=== PATIENT | male | born 1950 | race Caucasian/White ===

== ENCOUNTER 2017-05-15 16:07 | Inpatient (IN) ==
[2017-05-15] MEDS ORDERED: ASPIRIN CHEWABLE PO STA (16:11)
[2017-05-15] MEDS ORDERED: NITROSTAT SL STA (16:14)
[2017-05-15] MEDS ORDERED: ZOFRAN 4 MG/2 ML IVP STA (16:15)
[2017-05-15] MEDS ORDERED: SODIUM CHLORIDE 1,000 ML IV STA (16:15)
[2017-05-15] MEDS ORDERED: MORPHINE 2 MG/ML SYRINGE IVP STA ×2 (16:15→16:47)
[2017-05-15] MEDS ORDERED: NITROSTAT SL ONE (16:17)
[2017-05-15 16:24] LABS: BASOPHILS # (AUTO) 0.1 K/uL (0-0.2); BASOPHILS % (AUTO) 0.5 % (0.0-3.0); EOSINOPHILS # (AUTO) 0.1 K/ul (0.0-0.7); EOSINOPHILS % (AUTO) 0.8 % (0.0-7.0); HEMATOCRIT 45.3 % (42.0-52.0); HEMOGLOBIN 15.5 g/dl (14.0-18.0); IMMATURE GRANULOCYTE % (AUTO) 0.4 % (0.0-5.0); LYMPHOCYTES # (AUTO) 2.1 K/uL (0.60-3.4); LYMPHOCYTES % (AUTO) 16.2 (10.0-50.0); MEAN CORPUSCULAR HEMOGLOBIN 29.2 pg (27.0-31.0); MEAN CORPUSCULAR HGB CONC 34.2 (31.8-35.4); MEAN CORPUSCULAR VOLUME 85.5 fl (80.0-94.0); MONOCYTES # (AUTO) 1.1 K/uL (0.4-2.0); MONOCYTES % (AUTO) 8.1 (0-10); NEUTROPHILS # (AUTO) 9.7 K/ul (2.0-6.9); PLATELET COUNT 189 10^3/uL (140-440); WHITE BLOOD COUNT 13.15 K/ul (4.2-10.2)
--- NOTE | 2017-05-15 16:50 | DI ---
EXAM: Single view of the chest. History: Chest pain. Comparison: Chest radiograph 01/27/2015 Findings: Heart size is within normal limits. No focal consolidation. No appreciable pleural fluid and no pneumothorax. No acute osseous abnormalities. Persistent mild elevation of the left hemidia phragm. Calcified granuloma again seen within the left hilum. Impression: No acute cardiopulmonary process. No change compared to the prior study.
--- NOTE | 2017-05-15 16:59 | ED.PDOC ---
General ED Provider: Dr. FABIÁN MARTIN-ER Chief Complaint: Chest Pain Stated Complaint: hes been having chest pain-- Time Seen by Physician: 16:59 Mode of Arrival: Wheelchair Information Source: Patient, Family Exam Limitations: No limitations Primary Care Provider: GENESIS GARCIA Nursing and Triage Documentation Reviewed and Agree: Yes Cardiovascular Complaint Exam - Chest Pain Complaint/Exam Onset: Gradual Duration: several hours Symptoms Are: Still present Timing: Constant Length of Chest Pain Episodes: several hours Initial Severity: Mild Current Severity: Moderate Location: Reports: Diffuse Pain Radiates: Reports: Left shoulder Character: Reports: Dull, Aching, Burning, Heaviness, Pressure Aggravating: Reports: None Alleviating: Reports: None Associated Signs and Symptoms: Denies: Diaphoresis, Nausea, Vomiting, Fever, Palpitations, Cough, Hemoptysis, Back pain, Abdominal pain, Dizziness, Short of air, Calf pain, Calf swelling Related History: Reports: Current Cornelius Inhibitors Related Surgical History: Reports: None History of Healthcare-Acquired Pneumonia: Reports: No AMI/ACS Risk Factors: Reports: Diabetes, Hypertension, Dyslipidemia TAD Risk Factors: Reports: Hypertension Pulmonary Embolism Risk Factors: Reports: None Prior Care for this Complaint: No Recent Stress Test: No Recent Echo/LV Function: No JVD Present: No Subcutaneous Emphysema Present: No Diminshed Breath Sounds: No Reproducible Chest Wall Pain: No Bilateral Pulses Present: Yes Unequal Pulses Noted: No If Risk Factors for PE Consider: Chest CT with contrast If Risk Factors for TAD Consider: Chest CT with contrast Floor Installer Consulted: No Differential Diagnoses: Acute PA, ACS Quality Indicator For Non-Traumatic Chest Pain/Syncope: EKG Performed Review of Systems - Review Of Systems Constitutional: Reports: No symptoms Eyes: Reports: No symptoms Ears, Nose, Mouth, Throat: Reports: No symptoms Respiratory: Reports: Short of air Cardiac: Reports: Chest pain GI: Reports: No symptoms : Reports: No symptoms Musculoskeletal: Reports: No symptoms Skin: Reports: No symptoms Neurological: Reports: No symptoms Endocrine: Reports: No symptoms Hematologic/Lymphatic: Reports: No symptoms All Other Systems: Reviewed and Negative Past Medical History - Past Medical History Previously Healthy: No Endocrine: Reports: DM 2 Cardiovascular: Reports: Hypertension Respiratory: Reports: None Hematological: Reports: None Gastrointestinal: Reports: None Genitourinary: Reports: None Neuro/Psych: Reports: Depression Musculoskeletal: Reports: Other Cancer: Reports: None - Surgical History General Surgical History: Reports: Appendectomy - Family History Family History: Reports: Unknown - Social History Smoking Status: Never smoker Hx Substance Use: No Alcohol Screening: None Lives: With family Physical Exam - Physical Exam Appearance: Well-appearing, No pain distress, Well-nourished Eyes: ANUSHKA, EOMI, Conjunctiva clear ENT: Ears normal, Nose normal, Oropharynx normal Neck: Supple Respiratory: Airway patent, Breath sounds clear, Breath sounds equal, Respirations nonlabored Cardiovascular: RRR, Pulses normal, No rub, No murmur GI/: Soft, Nontender, No masses, Bowel sounds normal, No Organomegaly Musculoskeletal: Normal strength, ROM intact, No edema, No calf tenderness Skin: Warm, Dry, Normal color Neurological: Sensation intact Psychiatric: Affect appropriate, Mood appropriate, Anxious Critical Care Note - Critical Care Note Total Time (mins): 0 Course - Course Hematology/Chemistry: 05/15/17 16:19 Orders, Labs, Meds: Lab Review 05/15/17 16:19 WBC 13.15 H RBC 5.30 Hgb 15.5 Hct 45.3 MCV 85.5 MCH 29.2 MCHC 34.2 RDW Coeff of Veronica 13.5 Plt Count 189 Immature Gran % (Auto) 0.4 Neut % (Auto) 74.0 Lymph % (Auto) 16.2 [place] % (Auto) 8.1 Eos % (Auto) 0.8 Baso % (Auto) 0.5 Immature Gran # (Auto) 0.1 Neut # 9.7 H Lymph # 2.1 [place] # 1.1 Eos # 0.1 Baso # 0.1 Orders Category Date Time Status EKG-(ED ONLY) Stat CARDIO 05/15/17 16:10 Completed Case Liner [ED AVIATION MAINTENANCE TECHNICIAN APPLIED] .ONCE EMERGENCY 05/15/17 16:10 Active IV [ED IV/MEDIPORT/POWERPORT] .ONCE EMERGENCY 05/15/17 16:10 Active OXYGEN [ED APPLY O2] .ONCE EMERGENCY 05/15/17 16:10 Active AMYLASE Stat LAB 05/15/17 16:19 Received CBC W/ AUTO DIFF Stat LAB 05/15/17 16:19 Completed COMPREHENSIVE METABOLIC PANEL Stat LAB 05/15/17 16:19 Received CREATINE KINASE Stat LAB 05/15/17 16:19 Received LIPASE Stat LAB 05/15/17 16:19 Received TROPONIN I Stat LAB 05/15/17 16:19 Received 0.9 % Sodium Chloride [Saline Flush] MEDS 05/15/17 16:10 Ordered 1 syr IVF PRN PRN Aspirin [Aspirin Chewable] MEDS 05/15/17 16:11 Discontinued 324 mg PO ONCE STA Morphine Sulfate [Morphine 2 mg/ml Syringe] MEDS 05/15/17 16:15 Discontinued 2 mg IVP ONCE STA Morphine Sulfate [Morphine 2 mg/ml Syringe] MEDS 05/15/17 16:47 Discontinued 2 mg IVP ONCE STA Nitroglycerin [Nitrostat] MEDS 05/15/17 16:17 Discontinued 0.4 mg SL .STK-MED ONE Nitroglycerin [Nitrostat] MEDS 05/15/17 16:14 Discontinued 0.4 mg SL ONCE STA Ondansetron HCl/Pf [Zofran 4 mg/2 ml] MEDS 05/15/17 16:15 Discontinued 4 mg IVP ONCE STA Sodium Chloride 0.9% [Sodium Chloride] 1,000 ml MEDS 05/15/17 16:15 Active IV 100 mls/hr CT CHEST W/O CONTRAST Stat RADS 05/15/17 16:50 Ordered CXR [CHEST, 1V AP ONLY] Stat RADS 05/15/17 16:23 Completed Medications Generic Name Dose Route Start Last Admin Trade Name Freq PRN Reason Stop Dose Admin Sodium Chloride 1,000 mls @ 100 mls/hr 05/15/17 16:15 05/15/17 16:30 Sodium Chloride IV 05/16/17 02:14 100 mls/hr .Q10H STA Administration Sodium Chloride 1 syr 05/15/17 16:10 05/15/17 16:30 Saline Flush IVF 1 syr PRN PRN Administration To flush IV Discontinued Medications Generic Name Dose Route Start Last Admin Trade Name Freq PRN Reason Stop Dose Admin Aspirin 324 mg 05/15/17 16:11 05/15/17 16:15 Aspirin Chewable PO 05/15/17 16:12 324 mg ONCE STA Administration Morphine Sulfate 2 mg 05/15/17 16:15 05/15/17 16:26 Morphine 2 Mg/Ml Syringe IVP 05/15/17 16:16 2 mg ONCE STA Administration Morphine Sulfate 2 mg 05/15/17 16:47 Morphine 2 Mg/Ml Syringe IVP 05/15/17 16:48 ONCE STA Nitroglycerin 0.4 mg 05/15/17 16:14 05/15/17 16:18 Nitrostat SL 05/15/17 16:15 0.4 mg ONCE STA Administration Ondansetron HCl 4 mg 05/15/17 16:15 05/15/17 16:26 Zofran 4 Mg/2 Ml IVP 05/15/17 16:16 4 mg ONCE STA Administration Vital Signs: Temp Pulse Resp BP Pulse Ox 05/15/17 16:07 99.0 F 116 H 24 171/102 H 96 VEENA Risk Score VEENA Risk Score: Risk Score Odds of by 30D 0 0.1 (0.1-0.2) 1 0.3 (0.2-0.3) 2 0.4 (0.3-0.5) 3 0.7 (0.6-0.9) 4 1.2 (1.0-1.5) 5 2.2 (1.9-2.6) 6 3.0 (2.5-3.6) 7 4.8 (3.8-6.1) Departure - Departure Time of Disposition: 17:04 Disposition: ADMITTED INPATIENT Discharge Problem: Myocardial infarct Chest pain Qualifiers: Chest pain type: unspecified Qualified Code(s): R07.9 - Chest pain, unspecified Instructions: Chest Pain (ED) Condition: Stable Pt referred to PMD for follow-up: Yes Allergies/Adverse Reactions: Allergies No Known Allergies Allergy (Verified 05/15/17 16:48) Home Medications: Ambulatory Orders Citalopram Hydrobromide [Celexa] 20 mg PO BEDTIME 01/27/15 Gabapentin 300 mg PO BID 01/27/15 Metformin HCl [Glucophage] 500 mg PO BID #1 tablet 02/07/15 Glimepiride [Amaryl] 2 mg PO DAILYWM 05/15/17 Sitagliptin Phosphate [Januvia] 100 mg PO DAILY 05/15/17 Disposition Discussed With: Patient, Family
[2017-05-15] MEDS ORDERED: LOVENOX SUBCUT STA (17:10)
[2017-05-15] MEDS ORDERED: ZOFRAN 4 MG/2 ML IVP PRN (17:11)
[2017-05-15] MEDS ORDERED: LOPRESSOR IVP STA (17:14)
[2017-05-15 17:15] LABS: ALBUMIN 4.2 g/dL (3.4-5.0); ALBUMIN/GLOBULIN RATIO 0.95; ANION GAP 18.9; BILIRUBIN,TOTAL 0.98 mg/dL (0.00-1.20); BUN/CREATININE RATIO 19.23; CALCIUM 10.3 mg/dL (8.2-10.2); CREATININE 0.78 mg/dL (0.60-1.10); POTASSIUM 3.9 mmol/L (3.5-5.1); TOTAL PROTEIN 8.6 g/dL (5.8-8.1)
[2017-05-15 17:16] LABS: TROPONIN I 1.579 ng/ml (0.0000-0.4000)
[2017-05-15 17:17] LABS: CREATINE KINASE MB 40.7 ng/ml (0.0-3.6)
--- NOTE | 2017-05-15 17:22 | CT ---
EXAM: CT scan thorax without contrast HISTORY: Chest pain COMPARISON: None. FINDINGS: Contiguous axial images obtained through the thorax without contrast utilizing 5-mm collim ation. Sagittal and coronal reconstructions were imaged and reviewed The thoracic inlet is unremark able. The ascending aorta is prominent measuring 3.5 cm. The heart is normal in size with coronary a rtery calcification. There is no pericardial effusion. Calcified lymph nodes are seen within the pr evascular and left hilar region.. . There is a subcentimeter lymph node anterior to the right ventric le. The lungs are clear bilaterally.. Fatty infiltration is seen within the visualized liver.. Adre nal glands are normal.. Findings consistent with [facility] are seen in the mid lower dorsal spine IMPRESSION: Ectatic ascending aorta. Benign granulomatous changes. No acute findings. Fatty liver
[2017-05-15 18:03] VITALS: BMI 32.8
[2017-05-15] MEDS: LIPITOR PO SCH ×2 (18:19→21:00)
[2017-05-15] MEDS: MORPHINE 2 MG/ML SYRINGE IVP PRN (18:20)
[2017-05-15] MEDS: SODIUM CHLORIDE 1,000 ML IV SCH (19:28)
[2017-05-15] MEDS: CELEXA PO SCH (21:00)
[2017-05-15] MEDS: NEURONTIN PO SCH (21:00)
[2017-05-15] MEDS: HUMULIN R SUBCUT PRN (21:01)
[2017-05-16 00:19] LABS: TROPONIN I 5.438 ng/ml (0.0000-0.4000)
[2017-05-16] MEDS: SODIUM CHLORIDE 1,000 ML IV SCH ×3 (02:19→22:48)
[2017-05-16] MEDS: MORPHINE 2 MG/ML SYRINGE IVP PRN (02:33)
[2017-05-16] MEDS: HUMULIN R SUBCUT PRN ×3 (06:07→21:27)
[2017-05-16] MEDS ORDERED: NON-FORMULARY MEDICATION (Sitagliptin Phosphate 100 MG) PO SCH (09:00)
[2017-05-16] MEDS ORDERED: LOPRESSOR PO SCH (09:00)
[2017-05-16] MEDS ORDERED: IMDUR PO SCH (09:00)
[2017-05-16] MEDS ORDERED: ZESTRIL PO SCH (09:00)
[2017-05-16 09:11] LABS: TROPONIN I 8.441 ng/ml (0.0000-0.4000)
[2017-05-16 09:12] LABS: CREATINE KINASE MB 57.7 ng/ml (0.0-3.6)
[2017-05-16] MEDS: IMDUR PO SCH ×2 (09:46→21:29)
[2017-05-16] MEDS: ASPIRIN CHEWABLE PO SCH (09:46)
[2017-05-16] MEDS: TORADOL IVP SCH ×2 (09:47→20:48)
[2017-05-16] MEDS: JANUVIA PO SCH (09:47)
[2017-05-16] MEDS: NEURONTIN PO SCH ×2 (09:47→21:29)
--- NOTE | 2017-05-16 10:51 | PCM.PROG ---
Attending Provider: ATTENDING PROVIDER: Dr. GENESIS GARCIA This patient is seen with Sandee Epstein, Nurse Practitioner. DATE OF SERVICE: 05/16/17 SUBJECTIVE: This 66 year old WHITE/ M was hospitalized 05/15/17. The patient is lying in bed. He is alert, sitting up in bed. The patient is DNR, declines transfer for heart cath. Chest pain nonspecific. REVIEW OF SYSTEMS: CONSTITUTIONAL: No night sweats. No fatigue, malaise, lethargy. No fever or chills. HEENT: Eyes: No visual changes. No eye pain. No eye discharge. ENT: No runny nose. No epistaxis. No sinus pain. No odynophagia. No congestion. RESPIRATORY: No cough, no congestion. No hemoptysis. No shortness of breath. CARDIOVASCULAR: Chest pain. Mild shortness of breath. No angina symptoms. No CHF symptoms. No palpitations. No orthopnea.. GASTROINTESTINAL: No abdominal pain. No nausea or vomiting. No diarrhea or constipation. No hematemesis. No hematochezia. GENITOURINARY: No urgency. No frequency. No dysuria. No hematuria. No obstructive symptoms. No discharge. No pain. No significant abnormal bleeding. MUSCULOSKELETAL: No musculoskeletal pain; no joint swelling. NEUROLOGICAL: Awake, alert, oriented to time, place and person. No headache. No neck pain. No syncope. No seizures. No dizziness. PSYCHIATRIC: Not anxious. No depression. No suicidal thoughts. No homicidal thoughts. SKIN: No rash. No lesions. No wounds. ENDOCRINE: No unexplained weight loss. No weight gain. HEMATOLOGIC/LYMPHATIC: No anemia. No purpura. No petechiae. No prolonged or excessive bleeding. No palpable lymph nodes. PHYSICAL EXAMINATION: GENERAL: The patient is awake, alert and oriented, lying in bed in no distress. VITAL SIGNS: Temperature 97.8 F, Pulse 93, Respiratory Rate 18, BP 134/85, Pulse Ox 93% HEENT: Head normocephalic, atraumatic. Eyes: Extraocular muscles are intact. Pupils are equal, round and reactive to light and accommodation. Ears: No lesions. Nose appeared normal. Throat: No exudate or erythema. NECK: Supple. No JVD, no carotid bruit. No lymphadenopathy or thyromegaly. LUNGS: Diminished breath sounds bilaterally. Clear to auscultation. Percussion note normal. Chest symmetrical. HEART: S1, S2, no S3. No murmurs. No cyanosis or clubbing. No ascites. Pulses: Dorsalis pedis and posterior tibial pulses +1 to +2 both sides. ABDOMEN: Soft. Non-tender. Bowel sounds active. No CVA tenderness. No mass felt. EXTREMITIES: No edema. Full range of motion of all extremities, equal. NEUROLOGIC: No focal deficit. Cranial nerves II through XII are grossly intact. No headache, no double vision or headache. SKIN: Not dry. Intact. Turgor-normal. LYMPHATIC: No palpable lymph nodes/no lymphedema. MUSCULOSKELETAL: Normal joints with no swelling. Muscle tone is normal. 05/15/17 23:20: Total Creatine Kinase 636, CK-MB (CK-2) 65.0 H*, CK-MB (CK-2) % 10.68049, Troponin I 5.4380 H* ASSESSMENT: 1. Chest pain not in distress 2. Shortness of breath improved PLAN: 1. Toradol 30 mg IV now q12 ROSALINDA 2. CBC, CMP daily 3. Lopressor 50 mg p.o. one now then b.i.d. 4. Imdur 15 b.i.d. Plan and coordination of the patient's care discussed in the presence of Inspector Hairspring Truing and nurse. CONDITION: Stable SCRIBED BY: CLARICE BLACK Director Of Research Center scribed while in presence of service performed by Dr. Garcia/Sandee Epstein APRN on 05/16/17 ([id number])
[2017-05-16] MEDS: LIPITOR PO SCH (21:28)
[2017-05-16] MEDS: CELEXA PO SCH (21:28)
[2017-05-17 05:50] LABS: BASOPHILS % (AUTO) 0.2 % (0.0-3.0); EOSINOPHILS # (AUTO) 0.1 K/ul (0.0-0.7); EOSINOPHILS % (AUTO) 1.1 % (0.0-7.0); HEMATOCRIT 34.4 % (42.0-52.0); HEMOGLOBIN 11.8 g/dl (14.0-18.0); IMMATURE GRANULOCYTE % (AUTO) 0.4 % (0.0-5.0); LYMPHOCYTES # (AUTO) 1.7 K/uL (0.60-3.4); LYMPHOCYTES % (AUTO) 13.7 (10.0-50.0); MEAN CORPUSCULAR HEMOGLOBIN 29.7 pg (27.0-31.0); MEAN CORPUSCULAR HGB CONC 34.3 (31.8-35.4); MEAN CORPUSCULAR VOLUME 86.6 fl (80.0-94.0); MONOCYTES # (AUTO) 1.5 K/uL (0.4-2.0); MONOCYTES % (AUTO) 12.4 (0-10); NEUTROPHILS # (AUTO) 8.8 K/ul (2.0-6.9); NEUTROPHILS % (AUTO) 72.2; PLATELET COUNT 144 10^3/uL (140-440); RED BLOOD COUNT 3.97 10^6/ul (4.70-6.10); WHITE BLOOD COUNT 12.16 K/ul (4.2-10.2)
[2017-05-17 06:16] LABS: ALBUMIN/GLOBULIN RATIO 0.88; ANION GAP 12.6; BILIRUBIN,TOTAL 1.24 mg/dL (0.00-1.20); BUN/CREATININE RATIO 21.85; CREATININE 1.83 mg/dL (0.60-1.10); POTASSIUM 4.6 mmol/L (3.5-5.1); TOTAL PROTEIN 6.4 g/dL (5.8-8.1)
[2017-05-17] MEDS: HUMULIN R SUBCUT PRN ×4 (06:32→22:41)
[2017-05-17] MEDS ORDERED: DECADRON 4 MG/ML SDV IM STA (08:46)
[2017-05-17] MEDS ORDERED: LOPRESSOR PO SCH (09:00)
[2017-05-17] MEDS: ASPIRIN CHEWABLE PO SCH (10:17)
[2017-05-17] MEDS: IMDUR PO SCH ×2 (10:18→20:17)
[2017-05-17] MEDS: JANUVIA PO SCH (10:19)
[2017-05-17] MEDS: NEURONTIN PO SCH ×2 (10:20→20:16)
[2017-05-17] MEDS: ROCEPHIN 1 GM in SODIUM CHLORIDE 50 ML IV SCH (10:20)
[2017-05-17] MEDS: TORADOL IVP SCH ×2 (10:33→20:15)
[2017-05-17 10:45] LABS: BILIRUBIN,URINE 1+ (NEGATIVE); KETONES,URINE Trace (NEGATIVE); LEUKOCYTE ESTERASE ,URINE 1+ (NEGATIVE); NITRITE,URINE Negative (NEGATIVE); PROTEIN,URINE 1+ (NEGATIVE); URINE, BLOOD 3+ (NEGATIVE)
[2017-05-17 10:50] LABS: ADD URINE MICROSCOPIC YES
--- NOTE | 2017-05-17 11:18 | PCM.PROG ---
Attending Provider: ATTENDING PROVIDER: Dr. GENESIS GARCIA DATE OF SERVICE: 05/17/17 SUBJECTIVE: This 66 year old WHITE/ M was hospitalized 05/15/17. The patient is hospitalized with acute VA, infralateral. No chest pain anymore. He is running a fever likely from UTI from [place]. Kidney function is somewhat abnormal and is on IV fluids. No evidence of fluid overload. REVIEW OF SYSTEMS: CONSTITUTIONAL: Fever. No night sweats. No fatigue, malaise, lethargy. No chills. HEENT: Eyes: No visual changes. No eye pain. No eye discharge. ENT: No runny nose. No epistaxis. No sinus pain. No odynophagia. No congestion. RESPIRATORY: No cough, no congestion. No hemoptysis. No shortness of breath. CARDIOVASCULAR: No angina symptoms. No CHF symptoms. No atypical chest pain for CAD. No palpitations. No orthopnea.. GASTROINTESTINAL: No abdominal pain. No nausea or vomiting. No diarrhea or constipation. No hematemesis. No hematochezia. GENITOURINARY: No urgency. No frequency. No dysuria. No hematuria. No obstructive symptoms. No discharge. No pain. No significant abnormal bleeding. MUSCULOSKELETAL: No musculoskeletal pain; no joint swelling. NEUROLOGICAL: Awake, alert, oriented to time, place and person. No headache. No neck pain. No syncope. No seizures. No dizziness. PSYCHIATRIC: Not anxious. No depression. No suicidal thoughts. No homicidal thoughts. SKIN: No rash. No lesions. No wounds. ENDOCRINE: No unexplained weight loss. No weight gain. HEMATOLOGIC/LYMPHATIC: No anemia. No purpura. No petechiae. No prolonged or excessive bleeding. No palpable lymph nodes. PHYSICAL EXAMINATION: GENERAL: The patient is awake, alert and oriented, lying in bed in no distress. VITAL SIGNS: Temperature 100.0 F, Pulse 74, Respiratory Rate 18, BP 96/61, Pulse Ox 94% HEENT: Head normocephalic, atraumatic. Eyes: Extraocular muscles are intact. Pupils are equal, round and reactive to light and accommodation. Ears: No lesions. Nose appeared normal. Throat: No exudate or erythema. NECK: Supple. No JVD, no carotid bruit. No lymphadenopathy or thyromegaly. LUNGS: Clear to auscultation. Percussion note normal. Chest symmetrical. HEART: S1, S2, no S3. No murmurs. No cyanosis or clubbing. No ascites. Pulses: Dorsalis pedis and posterior tibial pulses +1 to +2 both sides. ABDOMEN: Soft. Non-tender. Bowel sounds active. No CVA tenderness. No mass felt. EXTREMITIES: No edema. Full range of motion of all extremities, equal. NEUROLOGIC: No focal deficit. Cranial nerves II through XII are grossly intact. No headache, no double vision or headache. SKIN: Not dry. Intact. Turgor-normal. LYMPHATIC: No palpable lymph nodes/no lymphedema. MUSCULOSKELETAL: Normal joints with no swelling. Muscle tone is normal. LAB REVIEW: 05/17/17 05:25 05/17/17 05:15 05/17/17 05:25: WBC 12.16 H, RBC 3.97 L, Hgb 11.8 L D, Hct 34.4 L D, MCV 86.6, MCH 29.7, MCHC 34.3, RDW Coeff of Veronica 13.9, Plt Count 144, Immature Gran % (Auto ) 0.4, Neut % (Auto) 72.2, Lymph % (Auto) 13.7, [place] % (Auto) 12.4 H, Eos % ( Auto) 1.1, Baso % (Auto) 0.2, Immature Gran # (Auto) 0.1, Neut # 8.8 H, Lymph # 1.7, [place] # 1.5, Eos # 0.1, Baso # 0.0 05/17/17 05:15: Sodium 129 L, Potassium 4.6, Chloride 99, Carbon Dioxide 22 L, Anion Gap 12.6, BUN 40 H D, Creatinine 1.83 H D, Estimated GFR (MDRD) 37.00, BUN /Creatinine Ratio 21.85, Glucose 153 H, Calcium 9.0, Total Bilirubin 1.24 H, AST 52 H, ALT 32, Alkaline Phosphatase 51 L, Total Protein 6.4, Albumin 3.0 L, Globulin 3.4, Albumin/Globulin Ratio 0.88 05/17/17 05:15: TSH 1.114, Free T4 0.81 05/17/17 05:15: B-Natriuretic Peptide 132 H 05/16/17 08:05: Total Creatine Kinase 613, CK-MB (CK-2) 57.7 H*, CK-MB (CK-2) % 9.31004, Troponin I 8.4410 H* ASSESSMENT: 1. Acute infralateral wall VA evolving 2. Hypotension seems to be under control with systolic 96; will back off Lisonopril and Lopressor 3. CKD with renal azotemia likely from hypertension, dehydration 4. Fever likely from UTI, [place] catheter; will start on Rocephin; urine culture and sensitivity to be done 5. Friedreich's ataxia 6. Diabetes mellitus 7. Hypertension 8. Dyslipidemia 9. History of hypertension PLAN: 1. IV fluids 2. Rocephin 1 gm q.24 hr 3. UA for culture and sensitivity 4. Lopressor 12.5 mg twice a day 5. Lisinopril dec 2.5 mg daily 6. Keep legs elevated Plan and coordination of the patient's care discussed in the presence of Tangled Yarn Worker and nurse. CONDITION: Stable SCRIBED BY: CLARICE BLACK Key Cutter scribed while in presence of service performed by Dr. GENESIS GARCIA on 05/17/17 ([id number])
[2017-05-17] MEDS: ZESTRIL PO SCH (11:33)
[2017-05-17] MEDS: LOPRESSOR PO SCH ×2 (11:33→20:16)
[2017-05-17] MEDS: SODIUM CHLORIDE 1,000 ML IV SCH (12:47)
[2017-05-17] MEDS: LIPITOR PO SCH (20:16)
[2017-05-17] MEDS: CELEXA PO SCH (20:16)
[2017-05-18] MEDS: SODIUM CHLORIDE 1,000 ML IV SCH ×2 (01:19→16:05)
[2017-05-18 05:28] LABS: BASOPHILS % (AUTO) 0.4 % (0.0-3.0); EOSINOPHILS # (AUTO) 0.1 K/ul (0.0-0.7); EOSINOPHILS % (AUTO) 0.5 % (0.0-7.0); HEMOGLOBIN 12.3 g/dl (14.0-18.0); IMMATURE GRANULOCYTE % (AUTO) 0.4 % (0.0-5.0); LYMPHOCYTES # (AUTO) 1.1 K/uL (0.60-3.4); LYMPHOCYTES % (AUTO) 10.8 (10.0-50.0); MEAN CORPUSCULAR HEMOGLOBIN 29.6 pg (27.0-31.0); MEAN CORPUSCULAR HGB CONC 34.2 (31.8-35.4); MEAN CORPUSCULAR VOLUME 86.5 fl (80.0-94.0); MONOCYTES # (AUTO) 1.4 K/uL (0.4-2.0); MONOCYTES % (AUTO) 13.6 (0-10); NEUTROPHILS # (AUTO) 7.5 K/ul (2.0-6.9); NEUTROPHILS % (AUTO) 74.3; PLATELET COUNT 141 10^3/uL (140-440); RED BLOOD COUNT 4.16 10^6/ul (4.70-6.10); WHITE BLOOD COUNT 10.13 K/ul (4.2-10.2)
[2017-05-18 05:57] LABS: ALBUMIN/GLOBULIN RATIO 0.91; ANION GAP 12.8; BILIRUBIN,TOTAL 0.59 mg/dL (0.00-1.20); BUN/CREATININE RATIO 42.3; CALCIUM 9.1 mg/dL (8.2-10.2); CREATININE 1.04 mg/dL (0.60-1.10); POTASSIUM 4.8 mmol/L (3.5-5.1); TOTAL PROTEIN 6.3 g/dL (5.8-8.1)
[2017-05-18] MEDS: HUMULIN R SUBCUT PRN ×4 (06:46→21:32)
[2017-05-18] MEDS: TORADOL IVP SCH ×2 (09:09→21:12)
[2017-05-18] MEDS: ROCEPHIN 1 GM in SODIUM CHLORIDE 50 ML IV SCH (09:21)
[2017-05-18] MEDS: JANUVIA PO SCH (09:22)
[2017-05-18] MEDS: LOPRESSOR PO SCH ×2 (09:22→21:10)
[2017-05-18] MEDS: ASPIRIN CHEWABLE PO SCH (09:22)
[2017-05-18] MEDS: NEURONTIN PO SCH ×2 (09:22→21:09)
[2017-05-18] MEDS: ZESTRIL PO SCH (09:23)
[2017-05-18] MEDS: IMDUR PO SCH ×2 (09:23→21:11)
--- NOTE | 2017-05-18 11:26 | PCM.PROG ---
Attending Provider: ATTENDING PROVIDER: Dr. GENESIS GUILLAUME This patient is seen with Sandee Epstein, Nurse Practitioner. DATE OF SERVICE: 05/18/17 SUBJECTIVE: This 66 year old WHITE/ M was hospitalized 05/15/17. The patient is lying in bed, alert. No chest pain. He is feeling some better and has no pain. REVIEW OF SYSTEMS: CONSTITUTIONAL: Weakness. No night sweats. No fever or chills. HEENT: Eyes: No visual changes. No eye pain. No eye discharge. ENT: No runny nose. No epistaxis. No sinus pain. No odynophagia. No congestion. RESPIRATORY: No cough, no congestion. No hemoptysis. No shortness of breath. CARDIOVASCULAR: No angina symptoms. No CHF symptoms. No atypical chest pain for CAD. No palpitations. No orthopnea.. GASTROINTESTINAL: No abdominal pain. No nausea or vomiting. No diarrhea or constipation. No hematemesis. No hematochezia. GENITOURINARY: No urgency. No frequency. No dysuria. No hematuria. No obstructive symptoms. No discharge. No pain. No significant abnormal bleeding. MUSCULOSKELETAL: No musculoskeletal pain; no joint swelling. NEUROLOGICAL: Awake, alert, oriented to time, place and person. No headache. No neck pain. No syncope. No seizures. No dizziness. PSYCHIATRIC: Not anxious. No depression. No suicidal thoughts. No homicidal thoughts. SKIN: No rash. No lesions. No wounds. ENDOCRINE: No unexplained weight loss. No weight gain. HEMATOLOGIC/LYMPHATIC: No anemia. No purpura. No petechiae. No prolonged or excessive bleeding. No palpable lymph nodes. PHYSICAL EXAMINATION: GENERAL: The patient is awake, alert and oriented, lying in bed in no distress. VITAL SIGNS: Temperature 98.1 F, Pulse 76, Respiratory Rate 24, BP 96/61, Pulse Ox 95% HEENT: Head normocephalic, atraumatic. Eyes: Extraocular muscles are intact. Pupils are equal, round and reactive to light and accommodation. Ears: No lesions. Nose appeared normal. Throat: No exudate or erythema. NECK: Supple. No JVD, no carotid bruit. No lymphadenopathy or thyromegaly. LUNGS: Diminished breath sounds, bilaterally equal and clear to auscultation. Percussion note normal. Chest symmetrical. HEART: S1, S2, no S3. No murmurs. No cyanosis or clubbing. No ascites. Pulses: Dorsalis pedis and posterior tibial pulses +1 to +2 both sides. ABDOMEN: Soft. Non-tender. Bowel sounds active. No CVA tenderness. No mass felt. EXTREMITIES: Trace edema lower extremities. Full range of motion of all extremities, equal. NEUROLOGIC: No focal deficit. Cranial nerves II through XII are grossly intact. No headache, no double vision or headache. SKIN: Not dry. Intact. Turgor-normal. LYMPHATIC: No palpable lymph nodes/no lymphedema. MUSCULOSKELETAL: Normal joints with no swelling. Muscle tone is normal. LAB REVIEW: 05/18/17 05:18 05/18/17 05:18 05/18/17 05:18: Sodium 134 L, Potassium 4.8, Chloride 105, Carbon Dioxide 21 L, Anion Gap 12.8, BUN 44 H, Creatinine 1.04 D, Estimated GFR (MDRD) 71.00, BUN/ Creatinine Ratio 42.30, Glucose 162 H, Calcium 9.1, Total Bilirubin 0.59, AST 52 H, ALT 43, Alkaline Phosphatase 57, Total Protein 6.3, Albumin 3.0 L, Globulin 3.3, Albumin/Globulin Ratio 0.91 05/18/17 05:18: WBC 10.13, RBC 4.16 L, Hgb 12.3 L, Hct 36.0 L, MCV 86.5, MCH 29.6, MCHC 34.2, RDW Coeff of Veronica 14.0, Plt Count 141, Immature Gran % (Auto) 0.4, Neut % (Auto) 74.3, Lymph % (Auto) 10.8, [place] % (Auto) 13.6 H, Eos % (Auto ) 0.5, Baso % (Auto) 0.4, Immature Gran # (Auto) 0.0, Neut # 7.5 H, Lymph # 1.1 , [place] # 1.4, Eos # 0.1, Baso # 0.0 05/17/17 10:00: Urine Color Yellow, Urine Clarity Cloudy, Urine pH 5.0, Ur Specific [place] 1.025, Urine Protein 1+, Urine Glucose (UA) Negative, Urine Ketones Trace, Urine Blood 3+, Urine Nitrite Negative, Urine Bilirubin 1+, Urine Urobilinogen 1.0, Ur Leukocyte Esterase 1+, Urine Microscopic RBC 20-30, Urine Microscopic WBC 0-2, Ur Squamous Epith Cells 0-2, Hyaline Casts 2-5 ASSESSMENT: 1. Acute infralateral wall [place] evolving 2. Hypotension seems to be under control with systolic 96; will back off Lisinopril and Lopressor 3. CKD with renal azotemia likely from hypertension, dehydration 4. Fever likely from UTI, [place] catheter Will start on Rocephin. Urine culture and sensitivity to be done 5. Friedreich's ataxia 6. Diabetes mellitus 7. Hypertension 8. Dyslipidemia 9. History of hypertension PLAN: 1. Up to chair 2. May get a bath today 3 Continue rocephin 4. Urine culture pending Plan and coordination of the patient's care discussed in the presence of Ticketing Agent and nurse. EDUCATION: CONDITION: SCRIBED BY: CLARICE BLACK Customer Contact Representative scribed while in presence of service performed by Dr. Guillaume/Sandee Epstein APRN on 05/18/17 ([id number])
--- NOTE | 2017-05-18 13:34 | HP ---
DATE OF SERVICE: 05/15/17 REASON FOR HOSPITALIZATION: Chest pain HISTORY OF PRESENT ILLNESS: 66 year old white male hospitalized because of having chest pain. Pain started several hours prior to coming to the emergency room at least 8-9 hours with sweating, heaviness in the chest. The patient was brought in the wheel chair he is not about to walk because of cerebral ataxia. PAST MEDICAL HISTORY: Ataxia with Polyarthritis Friedreich's ataxia diabetes Mellitus, A1c 11.4 on 09/30 Dyslipidemia Obesity Vitamin D deficiency COPD Polyneuropathy Depression Obesity Artificial eye REVIEW OF SYSTEMS: CONSTITUTIONAL: No night sweats. Fatigue and weakness. No fever or chills. HEENT: Eyes: No visual changes. No eye pain. No eye discharge. ENT: No runny nose. No epistaxis. No sinus pain. No sore throat. No odynophagia. No ear pain. No congestion. RESPIRATORY: No cough, no congestion. No hemoptysis. No shortness of breath. CARDIOVASCULAR: No angina symptoms. No CHF symptoms. Chest pain with chest heaviness and sweating off and on. Continued to have chest pain in the emergency room when I examined him. No palpitations. No orthopnea. No PND. GASTROINTESTINAL: No abdominal pain. Mild nausea. No vomiting. No diarrhea or constipation. No hematemesis. No hematochezia. GENITOURINARY: No urgency. No frequency. No dysuria. No hematuria. No obstructive symptoms. No discharge. No pain. No significant abnormal bleeding. MUSCULOSKELETAL: No musculoskeletal pain. No joint swelling. No arthritis. NEUROLOGICAL: No headache. No neck pain. No syncope. No seizures. No dizziness. PSYCHIATRIC: Not anxious. No depression. No suicidal thoughts. No homicidal thoughts. SKIN: No rash. No lesions. No wounds. ENDOCRINE: No unexplained weight loss. No weight gain. HEMATOLOGIC/LYMPHATIC: No anemia. No purpura. No petechiae. No prolonged or excessive bleeding. No palpable lymph nodes. PERSONAL/FAMILY/SOCIAL HISTORY: The patient is and lives with the . The patient is totally disabled in the wheelchair, inability to walk Cerebral ataxia. The patient does some activity of daily living but needs assistance with bathing and dressing. No alcohol abuse and non smoker. MEDICATIONS: Celexa 20mg PO at bedtime Gabapentin 300mg PO twice a day Amaryl 2mg Po twice a day Zestril 5mg PO daily Metformin 1,000mg PO twice a day Januvia 100mg PO daily ALLERGIES: None PHYSICAL EXAMINATION: GENERAL: The patient is oriented to time, place and person. VITAL SIGNS: Temperature 99, pulse 116, respiratory rate 24, blood pressure 170 /102, pulse ox 96%. HEENT: Head normocephalic, atraumatic. Eyes: Extraocular muscles are intact. Pupils are equal, round and reactive to light and accommodation. Ears: No lesions. Nose appeared normal. Throat: No exudate or erythema. NECK: Supple. No JVP, no carotid bruit. No lymphadenopathy or thyromegaly. LUNGS: Decreased breath sounds but clear to auscultation. Percussion note normal. Chest symmetrical. HEART: S1, S2, no S3. No murmurs. No cyanosis or clubbing. No ascites. Pulses: Dorsalis pedis and posterior tibial pulses +1 bilaterally. ABDOMEN: Soft. Nontender. Bowel sounds active. No CVA tenderness. No mass felt. EXTREMITIES: No edema. Full range of motion of all extremities, equal. Moving all his extremities, inability to walk. Ataxia is present. The patient is in wheelchair. NEUROLOGIC: No focal deficit. Cranial nerves II through XII are grossly intact. No headache, no double vision or headache. Mental status normal. SKIN: Dry. Intact. Turgor - normal. LYMPHATIC: No palpable lymph nodes/no lymphedema. MUSCULOSKELETAL: Normal joints with no swelling. Muscle tone is normal. LABS: Potassium 3.9, creatinine 0.7, BUN 15, Glucose 179, AST and ALT 49 and 46. CK- MB 40%, troponin 11.5, BNP 137 borderline high, chest x-ray no acute findings. Normal size heart. Hgb 15, hct 45, WBC 13,[address] of the [place] no acute findings, fatty liver, coronary artery calcification noted. EKG ST-T elevation in lateral precordial leads and aVL questionable Q's and III and AVF ASSESSMENT: 1. Acute inferolacteral wall DE, evolving 2. Diabetes Mellitus, uncontrolled patient's choice. The patient had declined any insulin therapy or GLP 1 inhibitors. 3. Cerebral Ataxia, Friedreich's 4. Hypertension 5. Dyslipidemia 6. Hypertension 7. Obesity with BMI more than 30 PLAN: 1. Admission to CCU/ICU 2. Beta Abbey discussed with the ER attending to be started if the pulse is more than 90 3. Continue Lisinopril low dose 5mg 4. Pain medication 2mg IV Q 4 hours 5. Continue Celexa 6. Lipitor 40mg at bedtime 7. Aspirin 81mg PO daily 8. Januvia 100mg PO daily 9. Zofran 4mg IV 10.Serial EKG's 11.Telemetry 12.Echocardiogram to evaluated LV function The patient's case discussed with also with the daughter and the patient himself. The patient doesn't have any resuscitative measures. The patient does not want any further investigation in any other hospitals of any kind. He wants to stay at [facility] under me. The patient's and patient both declined further testing with Cardiac cath stent placement. Explained about coronary artery disease, Acute DE, Thrombus formation and need for stent placement, angioplasty etc and the outcome with stent placement and angioplasty which is better then not doing anything. Again entire family wants the patient to stay at [place] and get further treatment here at [place]. The patient signed DNR> CONDITION: Stable. TIME SPENT: More than 70 minutes. MTDD
--- NOTE | 2017-05-18 14:57 | PN ---
DATE OF SERVICE: 05/16/17 SUBJECTIVE: The patient was hospitalized with acute inferolateral wall WV. The patient has decided to decline any further investigation with cardiac cath. He wants DNR. The patient's condition has been stabilized. Pain is 1-2 on scale of 1-10 which is more like arthritic pain. REVIEW OF SYSTEMS: CONSTITUTIONAL: No night sweats. No fatigue, malaise, lethargy. No fever or chills. HEENT: Eyes: No visual changes. No eye pain. No eye discharge. ENT: No runny nose. No epistaxis. No sinus pain. No sore throat. No odynophagia. No congestion. RESPIRATORY: No cough, no congestion. No hemoptysis. No shortness of breath. CARDIOVASCULAR: No angina symptoms. No CHF symptoms. No atypical chest pain for CAD. No palpitations. No orthopnea. GASTROINTESTINAL: No abdominal pain. No nausea or vomiting. No diarrhea or constipation. No hematemesis. No hematochezia. Appetite is excellent. GENITOURINARY: No urgency. No frequency. No dysuria. No hematuria. No obstructive symptoms. No discharge. No pain. No significant abnormal bleeding. MUSCULOSKELETAL: No musculoskeletal pain; no joint swelling. NEUROLOGICAL: No headache. No neck pain. No syncope. No seizures. No dizziness. PSYCHIATRIC: Not anxious. No depression. No suicidal thoughts. No homicidal thoughts. SKIN: No rash. No lesions. No wounds. ENDOCRINE: No unexplained weight loss. No weight gain. HEMATOLOGIC/LYMPHATIC: No anemia. No purpura. No petechiae. No prolonged or excessive bleeding. No palpable lymph nodes. PHYSICAL EXAMINATION: GENERAL: The patient is oriented to time, place and person. VITAL SIGNS: Temperature 98, pulse 90-100, blood pressure 120-70, oxygen saturation 98% on room air. HEENT: Head normocephalic, atraumatic. Eyes: Extraocular muscles are intact. Pupils are equal, round and reactive to light and accommodation. Ears: No lesions. Nose appeared normal. Throat: No exudate or erythema. NECK: Supple. No JVD, no carotid bruit. No lymphadenopathy or thyromegaly. LUNGS: Decreased breath sounds but clear to auscultation. Percussion note normal. Chest symmetrical. HEART: S1, S2, no S3. No murmurs. No cyanosis or clubbing. No ascites. Pulses: Dorsalis pedis and posterior tibial pulses +1 to +2 both sides. ABDOMEN: Soft. Nontender. Bowel sounds active. No CVA tenderness. No mass felt. EXTREMITIES: No edema. Full range of motion of all extremities, equal. NEUROLOGIC: No focal deficit. Cranial nerves II through XII are grossly intact. No headache, no double vision or headache. SKIN: Not dry. Intact. Turgor - normal. LYMPHATIC: No palpable lymph nodes/no lymphedema. MUSCULOSKELETAL: Normal joints with no swelling. Muscle tone is normal. The patient was seen and examined with Nurse Practitioner and Hospital Cleaner. ASSESSMENT: 1. Acute Inferolateral wall WV resolving 2. Diabetes Mellitus 3. Obesity 4. Hypertension 5. Dyslipidemia 6. Cerebral ataxia PLAN: 1. Add Lopressor because of tachycardia 20mg twice a day 2. Continue the rest of the medication 3. Add Imdur CONDITION: Stable PROGNOSIS: Guarded. The complications of WV discussed with the family. TIME SPENT: More than 30 minutes. Plan and coordination of the patient's care discussed in the presence of nurse. DEISI
--- NOTE | 2017-05-18 15:32 | PN ---
DATE OF SERVICE: 05/15/17 ADMITTING NOTE SUBJECTIVE: Familia Cruz was seen in the emergency room, Dr. Redd was electronic musical instrument repairer. He called me as patient had chest pain. EKG was abnormal. I personally looked at the EKG which showed acute inferolateral wall OK which was supported by later on increased troponin and positive CK-MB in [facility] [place]. The patient's pain started today sternal lower part with sweating and shortness of breath. The patient has history of hypertension, obesity, cerebral ataxia, diabetes mellitus and dyslipidemia. REVIEW OF SYSTEMS: CONSTITUTIONAL: No night sweats. No fatigue, malaise, lethargy. No fever or chills. HEENT: Eyes: No visual changes. No eye pain. No eye discharge. ENT: No runny nose. No epistaxis. No sinus pain. No sore throat. No odynophagia. No congestion. RESPIRATORY: No cough, no congestion. No hemoptysis. No shortness of breath. CARDIOVASCULAR: No angina symptoms. No CHF symptoms. No atypical chest pain for CAD. No palpitations. No orthopnea. GASTROINTESTINAL: No abdominal pain. No nausea or vomiting. No diarrhea or constipation. No hematemesis. No hematochezia. GENITOURINARY: No urgency. No frequency. No dysuria. No hematuria. No obstructive symptoms. No discharge. No pain. No significant abnormal bleeding. MUSCULOSKELETAL: No musculoskeletal pain; no joint swelling. NEUROLOGICAL: No headache. No neck pain. No syncope. No seizures. No dizziness. PSYCHIATRIC: Not anxious. No depression. No suicidal thoughts. No homicidal thoughts. SKIN: No rash. No lesions. No wounds. ENDOCRINE: No unexplained weight loss. No weight gain. HEMATOLOGIC/LYMPHATIC: No anemia. No purpura. No petechiae. No prolonged or excessive bleeding. No palpable lymph nodes. PHYSICAL EXAMINATION: GENERAL: The patient is oriented to time, place and person HEENT: Head normocephalic, atraumatic. Eyes: Extraocular muscles are intact. Pupils are equal, round and reactive to light and accommodation. Ears: No lesions. Nose appeared normal. Throat: No exudate or erythema. NECK: Supple. No JVP, no carotid bruit. No lymphadenopathy or thyromegaly. LUNGS: Decreased breath sounds but clear to auscultation. Percussion note normal. Chest symmetrical. HEART: S1, S2, no S3. No murmurs. No cyanosis or clubbing. No ascites. Pulses: Dorsalis pedis and posterior tibial pulses +1 bilaterally. ABDOMEN: Soft. Nontender. Bowel sounds active. No CVA tenderness. No mass felt. EXTREMITIES: Trace edema. Full range of motion of all extremities, equal. NEUROLOGIC: No focal deficit. Cranial nerves II through XII are grossly intact. No headache, no double vision or headache. SKIN: Not dry. Intact. Turgor - normal. LYMPHATIC: No palpable lymph nodes/no lymphedema. MUSCULOSKELETAL: Normal joints with no swelling. Muscle tone is normal. The patient's daughter in the room, the had copy of the medication list. The patient doesn't want any intubation or resusitation. He wants DNR. The agreeable. ASSESSMENT: 1. Acute myocardial infarction, inferolateral wall 2. Diabetes Mellitus 3. Hypertension 4. Dyslipidemia 5. Cerebral Ataxia 6. Obesity 7. Sedentary lifestyle PLAN: 1. IV Heparin 2. Start aspirin, baby 3. If the pulse rate is more than 70 we will use Beta jimmy 4. Telemetry 5. Serial enzymes 6. Cardiac markers 7. Place the patient in the special care 8. Will also so echocardiogram to evaluate LV function 9. Give Dilaudid 2mg every 3 hourly for pain PRN 10.Zofran 4mg already given. 11.If the pain continues then we will put him on Nitroglycerin drip CONDITION: Stable PROGNOSIS: Guarded TIME SPENT: More than 30 minutes. Plan and coordination of the patient's care discussed in the presence of nurse. ADDENDUM: The patient's called just 10-15 minutes ago and discussed the case again. Case discussed with the patient and he didn't want any further work investigation or any kind of procedure in a way of angioplasty or stent. He wants to be treated at [facility]. She confirmed that wishes of the patient and she also wants the same way. The patient wants DNR. The agreed. The patient and the both understand that with acute OK, arrhythmia that may require pacemaker placement could happen which could not be done in this hospital. Angioplasty or stent can salvage the myocardium and could save the life in case of occlusion of any other arteries. The patient doesn't want to be transferred according to the the patient has multiple medical problems the main one is cerebral ataxia and would like to be treated at [facility]. At present time the patient is practically chest pain free. His rhythm is stable, blood pressure is stable and condition stable MTDD
[2017-05-18] MEDS: CELEXA PO SCH (21:09)
[2017-05-18] MEDS: LIPITOR PO SCH (21:09)
[2017-05-19] MEDS: HUMULIN R SUBCUT PRN ×4 (05:49→20:32)
[2017-05-19] MEDS: SODIUM CHLORIDE 1,000 ML IV SCH ×2 (05:50→10:44)
[2017-05-19 06:09] LABS: BASOPHILS % (AUTO) 0.4 % (0.0-3.0); EOSINOPHILS # (AUTO) 0.2 K/ul (0.0-0.7); EOSINOPHILS % (AUTO) 1.7 % (0.0-7.0); HEMATOCRIT 32.9 % (42.0-52.0); HEMOGLOBIN 11.3 g/dl (14.0-18.0); IMMATURE GRANULOCYTE % (AUTO) 0.8 % (0.0-5.0); LYMPHOCYTES # (AUTO) 1.3 K/uL (0.60-3.4); LYMPHOCYTES % (AUTO) 14.1 (10.0-50.0); MEAN CORPUSCULAR HEMOGLOBIN 29.4 pg (27.0-31.0); MEAN CORPUSCULAR HGB CONC 34.3 (31.8-35.4); MEAN CORPUSCULAR VOLUME 85.5 fl (80.0-94.0); MONOCYTES # (AUTO) 1.1 K/uL (0.4-2.0); MONOCYTES % (AUTO) 11.9 (0-10); NEUTROPHILS # (AUTO) 6.5 K/ul (2.0-6.9); NEUTROPHILS % (AUTO) 71.1; PLATELET COUNT 139 10^3/uL (140-440); RED BLOOD COUNT 3.85 10^6/ul (4.70-6.10); WHITE BLOOD COUNT 9.18 K/ul (4.2-10.2)
[2017-05-19 06:32] LABS: ALBUMIN 2.8 g/dL (3.4-5.0); ALBUMIN/GLOBULIN RATIO 0.76; ANION GAP 11.6; BILIRUBIN,TOTAL 0.58 mg/dL (0.00-1.20); BUN/CREATININE RATIO 41.02; CALCIUM 8.7 mg/dL (8.2-10.2); CREATININE 0.78 mg/dL (0.60-1.10); POTASSIUM 4.6 mmol/L (3.5-5.1); TOTAL PROTEIN 6.5 g/dL (5.8-8.1)
[2017-05-19] MEDS ORDERED: MIRALAX PO PRN (08:41)
[2017-05-19] MEDS: ZESTRIL PO SCH (09:15)
[2017-05-19] MEDS: ASPIRIN CHEWABLE PO SCH (09:15)
[2017-05-19] MEDS: LOPRESSOR PO SCH ×2 (09:15→20:30)
[2017-05-19] MEDS: ROCEPHIN 1 GM in SODIUM CHLORIDE 50 ML IV SCH (09:15)
[2017-05-19] MEDS: JANUVIA PO SCH (09:15)
[2017-05-19] MEDS: NEURONTIN PO SCH ×2 (09:16→20:30)
[2017-05-19] MEDS: IMDUR PO SCH ×2 (09:16→20:30)
[2017-05-19] MEDS: TORADOL IVP SCH ×2 (10:41→20:29)
--- NOTE | 2017-05-19 11:00 | PCM.PROG ---
Attending Provider: ATTENDING PROVIDER: Dr. GENESIS GUILLAUME This patient is seen with Sandee Epstein, Nurse Practitioner. DATE OF SERVICE: 05/19/17 SUBJECTIVE: This 66 year old WHITE/ M was hospitalized 05/15/17. The patient is lying in bed, is alert. No chest pain. He was up for 4 hours yesterday in the chair and felt good. He has a low grade temp of 99 this a.m. He hasn't had a bowel movement since Tuesday. REVIEW OF SYSTEMS: CONSTITUTIONAL:Fever. Generalized weakness. No night sweats. No lethargy. HEENT: Eyes: No visual changes. No eye pain. No eye discharge. ENT: No runny nose. No epistaxis. No sinus pain. No odynophagia. No congestion. RESPIRATORY: No cough, no congestion. No hemoptysis. No shortness of breath. CARDIOVASCULAR: No angina symptoms. No CHF symptoms. No atypical chest pain for CAD. No palpitations. No orthopnea.. GASTROINTESTINAL: No abdominal pain. No nausea or vomiting. No diarrhea or constipation. No hematemesis. No hematochezia. GENITOURINARY: No urgency. No frequency. No dysuria. No hematuria. No obstructive symptoms. No discharge. No pain. No significant abnormal bleeding. MUSCULOSKELETAL: No musculoskeletal pain; no joint swelling. NEUROLOGICAL: Awake, alert, oriented to time, place and person. No headache. No neck pain. No syncope. No seizures. No dizziness. PSYCHIATRIC: Not anxious. No depression. No suicidal thoughts. No homicidal thoughts. SKIN: No rash. No lesions. No wounds. ENDOCRINE: No unexplained weight loss. No weight gain. HEMATOLOGIC/LYMPHATIC: No anemia. No purpura. No petechiae. No prolonged or excessive bleeding. No palpable lymph nodes. PHYSICAL EXAMINATION: GENERAL: The patient is awake, alert and oriented, lying in bed in no distress. VITAL SIGNS: Temperature 99.4 F, Pulse 78, Respiratory Rate 20, BP 128/75, Pulse Ox 94% HEENT: Head normocephalic, atraumatic. Eyes: Extraocular muscles are intact. Pupils are equal, round and reactive to light and accommodation. Ears: No lesions. Nose appeared normal. Throat: No exudate or erythema. NECK: Supple. No JVD, no carotid bruit. No lymphadenopathy or thyromegaly. LUNGS: Diminished breath sounds bilaterally. Clear to auscultation. Percussion note normal. Chest symmetrical. HEART: S1, S2, no S3. No murmurs. No cyanosis or clubbing. No ascites. Pulses: Dorsalis pedis and posterior tibial pulses +1 to +2 both sides. ABDOMEN: Soft. Non-tender. Bowel sounds active. No CVA tenderness. No mass felt. EXTREMITIES: Trace left lower extremity edema. Full range of motion of all extremities, equal. NEUROLOGIC: No focal deficit. Cranial nerves II through XII are grossly intact. No headache, no double vision or headache. SKIN: Not dry. Intact. Turgor-normal. LYMPHATIC: No palpable lymph nodes/no lymphedema. MUSCULOSKELETAL: Normal joints with no swelling. Muscle tone is normal. LAB REVIEW: 05/19/17 05:51 05/19/17 05:51 05/19/17 05:51: Sodium 134 L, Potassium 4.6, Chloride 106, Carbon Dioxide 21 L, Anion Gap 11.6, BUN 32 H, Creatinine 0.78, Estimated GFR (MDRD) 99.00, BUN/ Creatinine Ratio 41.02, Glucose 148 H, Calcium 8.7, Total Bilirubin 0.58, AST 50 H, ALT 59, Alkaline Phosphatase 62, Total Protein 6.5, Albumin 2.8 L, Globulin 3.7, Albumin/Globulin Ratio 0.76 05/19/17 05:51: WBC 9.18, RBC 3.85 L, Hgb 11.3 L, Hct 32.9 L, MCV 85.5, MCH 29.4 , MCHC 34.3, RDW Coeff of Veronica 13.9, Plt Count 139 L, Immature Gran % (Auto) 0.8 , Neut % (Auto) 71.1, Lymph % (Auto) 14.1, [place] % (Auto) 11.9 H, Eos % (Auto) 1.7, Baso % (Auto) 0.4, Immature Gran # (Auto) 0.1, Neut # 6.5, Lymph # 1.3, [place] # 1.1, Eos # 0.2, Baso # 0.0 ASSESSMENT: 1. Acute infralateral wall MS evolving 2. CKD with renal azotemia likely from hypertension, dehydration 3. Fever will do chest x-ray 4. Friedreich's ataxia 5. Diabetes mellitus 6. Constipation 7. Dyslipidemia 8. History of hypertension PLAN: 1. D/C Goode 2. MiraLax this morning and Mag Citrate if needed 3. Chest x-ray 4. Decrease IV fluids 5. Up as tolerated Plan and coordination of the patient's care discussed in the presence of Drupal Developer and nurse. CONDITION: Stable SCRIBED BY: CLARICE BLACK Product Grader scribed while in presence of service performed by Dr. Guillaume/Sandee Epstein APRN on 05/19/17 ([id number])
[2017-05-19] MEDS ORDERED: DECADRON 4 MG/ML SDV IM STA (11:24)
--- NOTE | 2017-05-19 11:42 | DI ---
EXAM: Single frontal view of the chest HISTORY: Fever. COMPARISON: Chest x-ray 05/15/[address] chest 05/15/2017 FINDINGS: Cardiomediastinal silhouette is unchanged. There are calcified mediastinal and hilar lymph nodes. There is no consolidation, nodule or mass. The osseous structures are unremarkable. IMPRESSION: 1. No acute cardiopulmonary process or consolidation. 2. Sequela of old granulomatous disease.
[2017-05-19] MEDS: CELEXA PO SCH (20:30)
[2017-05-19] MEDS: LIPITOR PO SCH (20:30)
[2017-05-20] MEDS: HUMULIN R SUBCUT PRN ×2 (05:38→20:24)
[2017-05-20 05:39] LABS: BASOPHILS % (AUTO) 0.2 % (0.0-3.0); EOSINOPHILS % (AUTO) 0.3 % (0.0-7.0); HEMATOCRIT 35.2 % (42.0-52.0); IMMATURE GRANULOCYTE % (AUTO) 0.2 % (0.0-5.0); LYMPHOCYTES # (AUTO) 1.3 K/uL (0.60-3.4); MEAN CORPUSCULAR HEMOGLOBIN 29.1 pg (27.0-31.0); MEAN CORPUSCULAR HGB CONC 34.1 (31.8-35.4); MEAN CORPUSCULAR VOLUME 85.4 fl (80.0-94.0); MONOCYTES # (AUTO) 0.9 K/uL (0.4-2.0); MONOCYTES % (AUTO) 9.5 (0-10); NEUTROPHILS # (AUTO) 6.8 K/ul (2.0-6.9); NEUTROPHILS % (AUTO) 75.8; PLATELET COUNT 156 10^3/uL (140-440); RED BLOOD COUNT 4.12 10^6/ul (4.70-6.10); WHITE BLOOD COUNT 8.98 K/ul (4.2-10.2)
[2017-05-20 05:59] LABS: ALBUMIN 2.9 g/dL (3.4-5.0); ALBUMIN/GLOBULIN RATIO 0.71; ANION GAP 13.9; BILIRUBIN,TOTAL 0.59 mg/dL (0.00-1.20); BUN/CREATININE RATIO 32.43; CALCIUM 9.2 mg/dL (8.2-10.2); CREATININE 0.74 mg/dL (0.60-1.10); POTASSIUM 4.9 mmol/L (3.5-5.1)
[2017-05-20] MEDS: SODIUM CHLORIDE 1,000 ML IV SCH ×2 (07:52→19:25)
[2017-05-20] MEDS ORDERED: CITRATE OF MAGNESIA PO STA (08:58)
[2017-05-20] MEDS: ASPIRIN CHEWABLE PO SCH (09:31)
[2017-05-20] MEDS: IMDUR PO SCH ×2 (09:32→20:23)
[2017-05-20] MEDS: JANUVIA PO SCH (09:33)
[2017-05-20] MEDS: LOPRESSOR PO SCH ×2 (09:33→17:18)
[2017-05-20] MEDS: ZESTRIL PO SCH (09:34)
[2017-05-20] MEDS: NEURONTIN PO SCH ×2 (09:34→20:23)
[2017-05-20] MEDS: TORADOL IVP SCH ×2 (09:35→20:24)
[2017-05-20] MEDS: ROCEPHIN 1 GM in SODIUM CHLORIDE 50 ML IV SCH (09:35)
--- NOTE | 2017-05-20 09:52 | PCM.PROG ---
Attending Provider: ATTENDING PROVIDER: Dr. GENESIS GARCIA This patient is seen with Sandee Epstein, Nurse Practitioner. DATE OF SERVICE: 05/20/17 SUBJECTIVE: This 66 year old WHITE/ M was hospitalized 05/15/17. The patient is alert, lying in bed. No fever since yesterday morning. No BM. No chest pain. He has been up to chair. REVIEW OF SYSTEMS: CONSTITUTIONAL: No night sweats. No fatigue, malaise, lethargy. No fever or chills. HEENT: Eyes: No visual changes. No eye pain. No eye discharge. ENT: No runny nose. No epistaxis. No sinus pain. No odynophagia. No congestion. RESPIRATORY: No cough, no congestion. No hemoptysis. No shortness of breath. CARDIOVASCULAR: No angina symptoms. No CHF symptoms. No atypical chest pain for CAD. No palpitations. No orthopnea.. GASTROINTESTINAL: No abdominal pain. No nausea or vomiting. No diarrhea or constipation. No hematemesis. No hematochezia. GENITOURINARY: No urgency. No frequency. No dysuria. No hematuria. No obstructive symptoms. No discharge. No pain. No significant abnormal bleeding. MUSCULOSKELETAL: Leg weakness. Back pain. NEUROLOGICAL: Awake, alert, oriented to time, place and person. No headache. No neck pain. No syncope. No seizures. No dizziness. PSYCHIATRIC: Not anxious. No depression. No suicidal thoughts. No homicidal thoughts. SKIN: No rash. No lesions. No wounds. ENDOCRINE: No unexplained weight loss. No weight gain. HEMATOLOGIC/LYMPHATIC: No anemia. No purpura. No petechiae. No prolonged or excessive bleeding. No palpable lymph nodes. PHYSICAL EXAMINATION: GENERAL: The patient is awake, alert and oriented, lying in bed in no distress. VITAL SIGNS: Temperature 98.4 F, Pulse 84, Respiratory Rate 16, BP 155/96, Pulse Ox 94% HEENT: Head normocephalic, atraumatic. Eyes: Extraocular muscles are intact. Pupils are equal, round and reactive to light and accommodation. Ears: No lesions. Nose appeared normal. Throat: No exudate or erythema. NECK: Supple. No JVD, no carotid bruit. No lymphadenopathy or thyromegaly. LUNGS: Diminished breath sounds. Clear to auscultation. Percussion note normal. Chest symmetrical. HEART: S1, S2, no S3. No murmurs. No cyanosis or clubbing. No ascites. Pulses: Dorsalis pedis and posterior tibial pulses +1 to +2 both sides. ABDOMEN: Soft. Non-tender. Bowel sounds active. No CVA tenderness. No mass felt. EXTREMITIES: No edema. Full range of motion of all extremities, equal. NEUROLOGIC: No focal deficit. Cranial nerves II through XII are grossly intact. No headache, no double vision or headache. SKIN: Not dry. Intact. Turgor-normal. LYMPHATIC: No palpable lymph nodes/no lymphedema. MUSCULOSKELETAL: Normal joints with no swelling. Muscle tone is normal. LAB REVIEW: 05/20/17 05:30 05/20/17 05:22 05/20/17 05:30: WBC 8.98, RBC 4.12 L, Hgb 12.0 L, Hct 35.2 L, MCV 85.4, MCH 29.1 , MCHC 34.1, RDW Coeff of Veronica 13.6, Plt Count 156, Immature Gran % (Auto) 0.2, Neut % (Auto) 75.8, Lymph % (Auto) 14.0, [place] % (Auto) 9.5, Eos % (Auto) 0.3, Baso % (Auto) 0.2, Immature Gran # (Auto) 0.0, Neut # 6.8, Lymph # 1.3, [place] # 0.9, Eos # 0.0, Baso # 0.0 05/20/17 05:22: Sodium 133 L, Potassium 4.9, Chloride 103, Carbon Dioxide 21 L, Anion Gap 13.9, BUN 24 H, Creatinine 0.74, Estimated GFR (MDRD) 105.00, BUN/ Creatinine Ratio 32.43, Glucose 160 H, Calcium 9.2, Total Bilirubin 0.59, AST 38 H, ALT 63, Alkaline Phosphatase 71, Total Protein 7.0, Albumin 2.9 L, Globulin 4.1, Albumin/Globulin Ratio 0.71 ASSESSMENT: 1. Acute infralateral wall DE evolving 2. CKD with renal azotemia likely from hypertension, dehydration 3. Fever will do chest x-ray 4. Friedreich's ataxia 5. Diabetes mellitus 6. Constipation 7. Dyslipidemia 8. History of hypertension PLAN: 1. Increase Lopressor 25 mg b.i.d. 2. 1/2 bottle of Mag Citrate today 3. Encourage the patient to be up and about 4. Continue Rocephin Plan and coordination of the patient's care discussed in the presence of Production Control Coordinator and nurse. CONDITION: Stable SCRIBED BY: CLARICE BLACK Special Investigator scribed while in presence of service performed by Dr. Garcia/Sandee Epstein APRN on 05/20/17 ([id number])
--- NOTE | 2017-05-20 09:58 | RS.PTINEVL ---
Subjective - Patient information Date of Evaluation: 05/19/17 Date of Arrival on Unit: 05/15/17 Diagnosis: acute MO, CKD with renal azotemia, fever Usual Living Arrangement: With Spouse Living Arrangement Comments: Lives with at home. Home Environment: House, Ramp Medical History: Hypertension, Diabetes Medical History Comments:: Anjum's ataxia Subjective Information/ Patient Comments:: pt states he has been sitting up in chair since 1000, is now after 1pm - Level of function Prior to this admission, the patient could do the following:: Independent Ambulation (and transfers) Abilities prior to this admission: pt amb with rwx short distances such as from bed to bathroom. Current Equipment Used at Home: glucometer, BSC, w/c, rolling walker Interventions - Objective Patient Orientation: Person, Place, Time, Situation Current Interventions: IV's, Telemetry Range of Motion - ROM Right Upper Extremity AROM: WFL's Left Upper Extremity AROM: WFL's Right Lower Extremity AROM: WFL's Left Lower Extremity AROM: WFL's Muscle Strength - Muscle Strength Right Upper Extremity Strength: Mild Weakness (shld flex 4-/5, elbow flex/ext 4/ 5) Left Upper Extremity Strength: Mild Weakness (shld flex 4-/5, elbow flex/ext 4/5 ) Right Lower Extremity Strength: Severe Weakness (hip flex 3+/5, knee flex/ext 4- /5, ankle DF/PF 4-/5) Left Lower Extremity Strength: Severe Weakness (hip flex 3+/5, knee flex/ext 4-/ 5, ankle DF/PF 4-/5) Sensation - Sensation Right Upper Extremity Sensation: Intact/Normal Left Upper Extremity Sensation: Intact/Normal (n/t B feet) Right Lower Extremity Sensation: Impaired Left Lower Extremity Sensation: Impaired Balance - Sitting Balance and Reactions Static Sitting Balance: Fair Dynamic Sitting Balance: Poor Sitting Equilibrium Reactions: Delayed Left, Delayed Right Sitting Protective Reactions: Delayed Left, Delayed Right - Standing Balance and Reactions Static Standing Balance: Poor - Comments Balance Assessment Comments: pt requires max assist to stand, unable to maintain stand without max assist. Functional Mobility - Bed Mobility Rolling R/L: Mod Assist Scooting: Max Assist, 2 person assist Sit to Supine: Max Assist, 2 person assist - Transfers Sit to Stand: Max Assist, 2 person assist Stand to Sit: Max Assist, 2 person assist Stand Pivot Transfers: Max Assist, 2 person assist - Safety Awareness Safety Awareness: Fair Ambulation - Ambulation Assistive Device Used: Rolling Walker Orthotic/Prosthetic Device: No Distance: 2-3 steps to chair Assistance needed with Ambulation: Max Assist, 2 person assist Gait Deviations: Forward posture, Short stride Ambulation Comments: pt unable to come to full stand due to weakness, pt also unable to fully extend knees while standing Factors Affecting Ambulation: Decreased Balance, Weakness, Decreased Safety, Limited Endurance Treatment time - Time with patient Total treatment time: 28 Patient Education - Education Patient Education: Activity Modification, Education of Plan of Care Teaching Recipient: Patient, Family Teaching Methods: Discussion, Demonstration (discussion with patient and regarding POC, verbalized understanding.) Assessment - Assessment Problem List:: Decreased level of function, Requires training/education, Decreased safety/Risk of falls, Weakness Rehab Potential: Fair Further Therapy Indicated?: Yes Comments: Feel pt would benefit from working on sitting balance, bed mobility, sit to/from stand transfers will progress to gait training when appropriate. Feel pt is safer to continue mechanical lift for bed to/from chair transfers at this time. If patient is dc home soon will need mechanical lift for home. Short Term Goals GOAL #1: pt perform rolling and bridging with min x 1 and verbal cues Goal to be met by: 05/25/17 GOAL #2: pt transfer sup to/from sit with min x 1 Goal to be met by: 05/25/17 GOAL #3: sit to/from stand with min x 2 Goal to be met by: 05/25/17 Fdc Goals GOAL #1: pt demonstrate independence with bed mobility Goal to be met by: 05/28/17 GOAL #2: pt transfer sup to/from sit CGA sit to/from stand min x 1 Goal to be met by: 05/28/17 GOAL #3: pt stand pivot transfer bed to/from chair with mod x 1 Goal to be met by: 05/28/17 Plan Plan of Care: Therapeutic EX, Therapeutic Activity, Self-Care/Home Management Other:: transfer progress to gait training. Frequency of Treatment: 1-2 X day, as tolerated Duration of Treatment: 8 days Anticipated Discharge Destination: Home Has the Physician been added for Co-signature?: Yes
--- NOTE | 2017-05-20 14:04 | PN ---
DATE OF SERVICE: 05/19/17 SUBJECTIVE: The patient was seen and examined with Nurse Practitioner and [employer]. The patient was hospitalized with inferolateral wall MS. The patient's condition is stable. His blood pressure systolic is 90-100 and he is feeling a lot better. PHYSICAL EXAMINATION: HEENT: Head normocephalic, atraumatic. Eyes: Extraocular muscles are intact. Pupils are equal, round and reactive to light and accommodation. Ears: No lesions. Nose appeared normal. Throat: No exudate or erythema. NECK: Supple. No JVD, no carotid bruit. No lymphadenopathy or thyromegaly. LUNGS: Decreased breath sounds but clear to auscultation. Percussion note normal. Chest symmetrical. HEART: S1, S2, no S3. No murmurs. No cyanosis or clubbing. No ascites. Pulses: Dorsalis pedis and posterior tibial pulses +1 to +2 both sides. ABDOMEN: Soft. Nontender. Bowel sounds active. No CVA tenderness. No mass felt. EXTREMITIES: No edema. Full range of motion of all extremities, equal. NEUROLOGIC: No focal deficit. Cranial nerves II through XII are grossly intact. No headache, no double vision or headache. SKIN: Not dry. Intact. Turgor - normal. LYMPHATIC: No palpable lymph nodes/no lymphedema. MUSCULOSKELETAL: Normal joints with no swelling. Muscle tone is normal. PLAN: 1. Education carried out about diabetes mellitus and its complications. 2. Advised eye checkups regularly. The patient has one artificial eye 3. The patient was also educated about MS and coronary artery disease. Risks for it and advised to take his medications regularly. TIME SPENT: More than 30 minutes. Plan and coordination of the patient's care discussed in the presence of nurse. DEISI
[2017-05-20] MEDS: LIPITOR PO SCH (20:23)
[2017-05-20] MEDS: CELEXA PO SCH (20:23)
[2017-05-21 05:03] LABS: BASOPHILS # (AUTO) 0.1 K/uL (0-0.2); BASOPHILS % (AUTO) 0.6 % (0.0-3.0); EOSINOPHILS # (AUTO) 0.2 K/ul (0.0-0.7); EOSINOPHILS % (AUTO) 1.8 % (0.0-7.0); HEMATOCRIT 34.9 % (42.0-52.0); HEMOGLOBIN 12.1 g/dl (14.0-18.0); IMMATURE GRANULOCYTE % (AUTO) 0.7 % (0.0-5.0); LYMPHOCYTES # (AUTO) 1.6 K/uL (0.60-3.4); LYMPHOCYTES % (AUTO) 19.1 (10.0-50.0); MEAN CORPUSCULAR HEMOGLOBIN 29.2 pg (27.0-31.0); MEAN CORPUSCULAR HGB CONC 34.7 (31.8-35.4); MEAN CORPUSCULAR VOLUME 84.3 fl (80.0-94.0); MONOCYTES # (AUTO) 0.8 K/uL (0.4-2.0); MONOCYTES % (AUTO) 9.5 (0-10); NEUTROPHILS # (AUTO) 5.8 K/ul (2.0-6.9); NEUTROPHILS % (AUTO) 68.3; PLATELET COUNT 174 10^3/uL (140-440); RED BLOOD COUNT 4.14 10^6/ul (4.70-6.10); WHITE BLOOD COUNT 8.46 K/ul (4.2-10.2)
[2017-05-21 05:41] LABS: ALBUMIN 2.9 g/dL (3.4-5.0); ALBUMIN/GLOBULIN RATIO 0.71; ANION GAP 11.7; BILIRUBIN,TOTAL 0.63 mg/dL (0.00-1.20); BUN/CREATININE RATIO 33.8; CALCIUM 9.1 mg/dL (8.2-10.2); CREATININE 0.71 mg/dL (0.60-1.10); POTASSIUM 4.7 mmol/L (3.5-5.1)
[2017-05-21] MEDS: ASPIRIN CHEWABLE PO SCH (08:46)
[2017-05-21] MEDS: LOPRESSOR PO SCH ×2 (08:46→17:23)
[2017-05-21] MEDS: ZESTRIL PO SCH (09:17)
[2017-05-21] MEDS: IMDUR PO SCH ×2 (09:18→20:51)
[2017-05-21] MEDS: NEURONTIN PO SCH ×2 (09:18→20:50)
[2017-05-21] MEDS: JANUVIA PO SCH (09:18)
[2017-05-21] MEDS: ROCEPHIN 1 GM in SODIUM CHLORIDE 50 ML IV SCH (09:19)
[2017-05-21] MEDS: SODIUM CHLORIDE 1,000 ML IV SCH ×2 (09:23→10:45)
[2017-05-21] MEDS: TORADOL IVP SCH ×2 (10:00→20:52)
--- NOTE | 2017-05-21 10:23 | ECHO2D ---
Date of Exam: 05/17/17 Ordering Physician: GENESIS GARCIA Room #: SCU3 Reason for Echo: CHEST PAIN, ACUTE SC M-Mode Normal Adult Results LV Dimensions Normal Adult Results AoV Opening excursions >1.6 >1.6 LVEDD-base- 3.5-5.8 4.9 Ao root dimensions 2.0-3.7 3.8 LVESD-base- 3.1-4.6 L. Atrium dimensions 1.9-3.8 3.8 Post. Wall thickness 0.8-1.1 1.2 IV septum (thickness) 0.7-1.2 1.3 Post. Wall excursion 0.72-1.3 NORMAL Septal motion 0.5 Systolic motion R. Ventricular cavity 1.5-2.0 NORMAL LVEF 60% 48% Paradoxical septal wall motion NORMAL 2-D : HYPOKINETIC SEPTUM /NORMAL VALVES, NO EFFUSION, NO THROMBUS, NORMAL LEFT ATRIAL AND LEFT VENTRICLE SIZE M-MODE: MV: NORMAL AV: NORMAL TV: NORMAL PV: NORMAL CHAMBER SIZE: NORMAL WALL MOTION: HYPOKINETIC SEPTUM PERICARDIUM: NORMAL INTERPRETATION: 1. HYPOKINETIC SEPTUM, LEFT VENTRICULAR EJECTION FRACTION 48% 2. LEFT VENTRICULAR HYPERTROPHY 3. NORMAL VALVES MTDD
[2017-05-21] MEDS: HUMULIN R SUBCUT PRN ×3 (11:50→20:50)
[2017-05-21] MEDS ORDERED: ZESTRIL PO SCH (12:10)
[2017-05-21] MEDS ORDERED: ZESTRIL PO STA (12:10)
[2017-05-21] MEDS: CELEXA PO SCH (20:50)
[2017-05-21] MEDS: LIPITOR PO SCH (20:52)
[2017-05-22 04:47] LABS: BASOPHILS # (AUTO) 0.1 K/uL (0-0.2); BASOPHILS % (AUTO) 0.6 % (0.0-3.0); EOSINOPHILS # (AUTO) 0.2 K/ul (0.0-0.7); EOSINOPHILS % (AUTO) 2.5 % (0.0-7.0); HEMATOCRIT 36.2 % (42.0-52.0); HEMOGLOBIN 12.4 g/dl (14.0-18.0); IMMATURE GRANULOCYTE % (AUTO) 0.5 % (0.0-5.0); LYMPHOCYTES # (AUTO) 1.6 K/uL (0.60-3.4); LYMPHOCYTES % (AUTO) 17.9 (10.0-50.0); MEAN CORPUSCULAR HGB CONC 34.3 (31.8-35.4); MEAN CORPUSCULAR VOLUME 84.8 fl (80.0-94.0); MONOCYTES # (AUTO) 0.8 K/uL (0.4-2.0); MONOCYTES % (AUTO) 9.6 (0-10); NEUTROPHILS % (AUTO) 68.9; PLATELET COUNT 196 10^3/uL (140-440); RED BLOOD COUNT 4.27 10^6/ul (4.70-6.10); WHITE BLOOD COUNT 8.75 K/ul (4.2-10.2)
[2017-05-22 05:10] LABS: ALBUMIN 2.9 g/dL (3.4-5.0); ALBUMIN/GLOBULIN RATIO 0.74; ANION GAP 11.9; BILIRUBIN,TOTAL 0.63 mg/dL (0.00-1.20); BUN/CREATININE RATIO 26.02; CALCIUM 9.1 mg/dL (8.2-10.2); CREATININE 0.73 mg/dL (0.60-1.10); POTASSIUM 4.9 mmol/L (3.5-5.1); TOTAL PROTEIN 6.8 g/dL (5.8-8.1)
[2017-05-22] MEDS: HUMULIN R SUBCUT PRN ×4 (05:56→20:22)
[2017-05-22] MEDS: IMDUR PO SCH ×2 (08:15→20:23)
[2017-05-22] MEDS: ASPIRIN CHEWABLE PO SCH (08:15)
[2017-05-22] MEDS: NEURONTIN PO SCH ×2 (08:16→20:23)
[2017-05-22] MEDS: JANUVIA PO SCH (08:16)
[2017-05-22] MEDS: LOPRESSOR PO SCH ×3 (08:16→17:11)
[2017-05-22] MEDS: ZESTRIL PO SCH (08:16)
[2017-05-22] MEDS: SODIUM CHLORIDE 1,000 ML IV SCH (08:17)
[2017-05-22] MEDS: ROCEPHIN 1 GM in SODIUM CHLORIDE 50 ML IV SCH (08:17)
[2017-05-22] MEDS: TORADOL IVP SCH ×2 (08:17→20:22)
[2017-05-22] MEDS: LIPITOR PO SCH (20:23)
[2017-05-22] MEDS: CELEXA PO SCH (20:23)
[2017-05-23 05:00] LABS: BASOPHILS % (AUTO) 0.5 % (0.0-3.0); EOSINOPHILS # (AUTO) 0.3 K/ul (0.0-0.7); EOSINOPHILS % (AUTO) 2.9 % (0.0-7.0); HEMATOCRIT 36.2 % (42.0-52.0); HEMOGLOBIN 12.5 g/dl (14.0-18.0); IMMATURE GRANULOCYTE % (AUTO) 0.8 % (0.0-5.0); LYMPHOCYTES # (AUTO) 1.4 K/uL (0.60-3.4); MEAN CORPUSCULAR HEMOGLOBIN 29.3 pg (27.0-31.0); MEAN CORPUSCULAR HGB CONC 34.5 (31.8-35.4); MEAN CORPUSCULAR VOLUME 84.8 fl (80.0-94.0); MONOCYTES # (AUTO) 0.9 K/uL (0.4-2.0); MONOCYTES % (AUTO) 10.3 (0-10); NEUTROPHILS # (AUTO) 6.2 K/ul (2.0-6.9); NEUTROPHILS % (AUTO) 69.5; PLATELET COUNT 200 10^3/uL (140-440); RED BLOOD COUNT 4.27 10^6/ul (4.70-6.10); WHITE BLOOD COUNT 8.87 K/ul (4.2-10.2)
[2017-05-23 05:26] LABS: ALBUMIN 2.9 g/dL (3.4-5.0); ALBUMIN/GLOBULIN RATIO 0.73; ANION GAP 11.4; BILIRUBIN,TOTAL 0.58 mg/dL (0.00-1.20); BUN/CREATININE RATIO 24.28; CALCIUM 9.5 mg/dL (8.2-10.2); CREATININE 0.7 mg/dL (0.60-1.10); POTASSIUM 4.4 mmol/L (3.5-5.1); TOTAL PROTEIN 6.9 g/dL (5.8-8.1)
[2017-05-23] MEDS: HUMULIN R SUBCUT PRN ×2 (05:39→11:22)
[2017-05-23] MEDS ORDERED: MIRALAX PO SCH (09:00)
[2017-05-23] MEDS ORDERED: CEFTIN PO SCH (09:00)
[2017-05-23] MEDS ORDERED: PLAVIX PO SCH (09:00)
[2017-05-23 09:06] LABS: BILIRUBIN,URINE Negative (NEGATIVE); KETONES,URINE Negative (NEGATIVE); LEUKOCYTE ESTERASE ,URINE Negative (NEGATIVE); NITRITE,URINE Negative (NEGATIVE); PH,URINE 6.5 (5-9); PROTEIN,URINE Negative (NEGATIVE); URINE, BLOOD Trace-lysed (NEGATIVE)
[2017-05-23 09:07] LABS: ADD URINE MICROSCOPIC YES
[2017-05-23] MEDS: ASPIRIN CHEWABLE PO SCH (09:25)
[2017-05-23] MEDS: JANUVIA PO SCH (09:27)
[2017-05-23] MEDS: IMDUR PO SCH (09:27)
[2017-05-23] MEDS: LOPRESSOR PO SCH (09:29)
[2017-05-23] MEDS: NEURONTIN PO SCH (09:29)
[2017-05-23] MEDS: ZESTRIL PO SCH (09:29)
[2017-05-23] MEDS: TORADOL IVP SCH (09:30)
--- NOTE | 2017-05-23 09:52 | PN ---
DATE OF SERVICE: 05/23/17 SUBJECTIVE: The patient was hospitalized with chest pain, acute AK. The patient's condition is stable. He was running low grade fever. I'm going to check the U/A culture sensitivity. The patient is on Rocephin and will put him on Ceftin 250mg twice a day. The patient's cardiovascular status is stable. Blood pressure is normal. The patient is on Lopressor 50mg twice a day. 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 Needs to walk and also phase 1 cardiac rehab with post AK. CONDITION: Stable The patient was seen and examined with Nurse Practitioner. TIME SPENT: More than 30 minutes. Plan and coordination of the patient's care discussed in the presence of nurse. DEISI
--- NOTE | 2017-05-23 12:57 | PN ---
DATE OF SERVICE: 05/18/17 SUBJECTIVE: The patient was hospitalized with acute NC, inferolateral wall. The patient does not have any chest pain anymore for the past 48 hours. The patient's blood pressure systolic has stabilized to 96. His kidney functions have improved. REVIEW OF SYSTEMS: CONSTITUTIONAL: No night sweats. No fatigue, malaise, lethargy. No fever or chills. HEENT: Eyes: No visual changes. No eye pain. No eye discharge. ENT: No runny nose. No epistaxis. No sinus pain. No sore throat. No odynophagia. No congestion. RESPIRATORY: No cough, no congestion. No hemoptysis. No shortness of breath. CARDIOVASCULAR: No angina symptoms. No CHF symptoms. No atypical chest pain for CAD. No palpitations. No orthopnea. GASTROINTESTINAL: No abdominal pain. No nausea or vomiting. No diarrhea or constipation. No hematemesis. No hematochezia. GENITOURINARY: No urgency. No frequency. No dysuria. No hematuria. No obstructive symptoms. No discharge. No pain. No significant abnormal bleeding. MUSCULOSKELETAL: No musculoskeletal pain; no joint swelling. NEUROLOGICAL: No headache. No neck pain. No syncope. No seizures. No dizziness. PSYCHIATRIC: Not anxious. No depression. No suicidal thoughts. No homicidal thoughts. SKIN: No rash. No lesions. No wounds. ENDOCRINE: No unexplained weight loss. No weight gain. HEMATOLOGIC/LYMPHATIC: No anemia. No purpura. No petechiae. No prolonged or excessive bleeding. No palpable lymph nodes. PHYSICAL EXAMINATION: HEENT: Head normocephalic, atraumatic. Eyes: Extraocular muscles are intact. Pupils are equal, round and reactive to light and accommodation. Ears: No lesions. Nose appeared normal. Throat: No exudate or erythema. NECK: Supple. No JVD, no carotid bruit. No lymphadenopathy or thyromegaly. LUNGS: Decreased breath sounds but clear to auscultation. Percussion note normal. Chest symmetrical. HEART: S1, S2, no S3. No murmurs. No cyanosis or clubbing. No ascites. Pulses: Dorsalis pedis and posterior tibial pulses +1 to +2 both sides. ABDOMEN: Soft. Nontender. Bowel sounds active. No CVA tenderness. No mass felt. EXTREMITIES: No edema. Full range of motion of all extremities, equal. NEUROLOGIC: No focal deficit. Cranial nerves II through XII are grossly intact. No headache, no double vision or headache. SKIN: Not dry. Intact. Turgor - normal. LYMPHATIC: No palpable lymph nodes/no lymphedema. MUSCULOSKELETAL: Normal joints with no swelling. Muscle tone is normal. ASSESSMENT: 1. ACUTE EVOLVING INFEROLATERAL WALL NC WITH NO COMPLICATION. THE PATIENT'S SYSTOLIC BLOOD PRESSURE IS BORDERLINE. PLAN: 1. Will continue low dose Metoprolol for tachycardia and also continue Imdur and low dose Lisinopril. 2. The patient should be up and about. The patient was seen and examined with the nurse practitioner. CONDITION: Stable. TIME SPENT: More than 30 minutes. Plan and coordination of the patient's care discussed in the presence of nurse. DEISI
--- NOTE | 2017-05-23 13:51 | PN ---
DATE OF SERVICE: 05/22/17 SUBJECTIVE: 66 year old white male hospitalized with acute inferolateral wall AK. The patient's condition is stable. His blood pressure is slowly going up. He initially was hypotensive. REVIEW OF SYSTEMS: CONSTITUTIONAL: No night sweats. No fatigue, malaise, lethargy. No fever or chills. The as usual is in the room. HEENT: Eyes: No visual changes. No eye pain. No eye discharge. ENT: No runny nose. No epistaxis. No sinus pain. No sore throat. No odynophagia. No congestion. RESPIRATORY: No cough, no congestion. No hemoptysis. No shortness of breath. CARDIOVASCULAR: No angina symptoms. No CHF symptoms. No atypical chest pain for CAD. No palpitations. No orthopnea. GASTROINTESTINAL: No abdominal pain. No nausea or vomiting. No diarrhea or constipation. No hematemesis. No hematochezia. GENITOURINARY: No urgency. No frequency. No dysuria. No hematuria. No obstructive symptoms. No discharge. No pain. No significant abnormal bleeding. MUSCULOSKELETAL: No musculoskeletal pain; no joint swelling. NEUROLOGICAL: No headache. No neck pain. No syncope. No seizures. No dizziness. PSYCHIATRIC: Not anxious. No depression. No suicidal thoughts. No homicidal thoughts. SKIN: No rash. No lesions. No wounds. ENDOCRINE: No unexplained weight loss. No weight gain. HEMATOLOGIC/LYMPHATIC: No anemia. No purpura. No petechiae. No prolonged or excessive bleeding. No palpable lymph nodes. PHYSICAL EXAMINATION: GENERAL: The patient is oriented to time, place and person. VITAL SIGNS: Temperature 98.5, pulse 72, respiratory rate 14, blood pressure 160/90 and pulse ox 94%. HEENT: Head normocephalic, atraumatic. Eyes: Extraocular muscles are intact. Pupils are equal, round and reactive to light and accommodation. Ears: No lesions. Nose appeared normal. Throat: No exudate or erythema. NECK: Supple. No JVD, no carotid bruit. No lymphadenopathy or thyromegaly. LUNGS: Decreased breath sounds but clear to auscultation. Percussion note normal. Chest symmetrical. HEART: S1, S2, no S3. No murmurs. No cyanosis or clubbing. No ascites. Pulses: Dorsalis pedis and posterior tibial pulses +1 to +2 both sides. ABDOMEN: Soft. Nontender. Bowel sounds active. No CVA tenderness. No mass felt. EXTREMITIES: No edema. Full range of motion of all extremities, equal. NEUROLOGIC: No focal deficit. Cranial nerves II through XII are grossly intact. No headache, no double vision or headache. SKIN: Not dry. Intact. Turgor - normal. LYMPHATIC: No palpable lymph nodes/no lymphedema. MUSCULOSKELETAL: Normal joints with no swelling. Muscle tone is normal. LABS: Hgb 12.4, hct 36, WBC 8,700 normal differential, creatinine 0.7, BUN 19, potassium 4.9. ASSESSMENT: 1. Inferolateral wall AK, No angina and no CHF symptoms 2. Diabetes Mellitus, uncontrolled mainly his choice. Refuses insulin therapy 3. 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 Dyslipidemia 6. Hypertension PLAN: 1. Increase the Lopressor to 50mg twice a day 2. Cardiac and physical therapy rehab to started for his ambulation because of his AK CONDITION: Stable TIME SPENT: More than 30 minutes. Plan and coordination of the patient's care discussed in the presence of nurse. DEISI
--- NOTE | 2017-05-23 14:15 | PN ---
DATE OF SERVICE: 05/20/17 SUBJECTIVE: 66-year-old white male hospitalized with acute AR. The patient also has multiple medical problems poorly controlled, especially diabetes mellitus, hypertension, dyslipidemia. PHYSICAL EXAMINATION: HEENT: Head normocephalic, atraumatic. Eyes: Extraocular muscles are intact. Pupils are equal, round and reactive to light and accommodation. Ears: No lesions. Nose appeared normal. Throat: No exudate or erythema. NECK: Supple. No JVD, no carotid bruit. No lymphadenopathy or thyromegaly. LUNGS: Clear to auscultation. Percussion note normal. Chest symmetrical. HEART: S1, S2, no S3. No murmurs. No cyanosis or clubbing. No ascites. Pulses: Dorsalis pedis and posterior tibial pulses +1 to +2 both sides. ABDOMEN: Soft. Nontender. Bowel sounds active. No CVA tenderness. No mass felt. EXTREMITIES: No edema. Full range of motion of all extremities, equal. NEUROLOGIC: No focal deficit. Cranial nerves II through XII are grossly intact. No headache, no double vision or headache. SKIN: Not dry. Intact. Turgor - normal. LYMPHATIC: No palpable lymph nodes/no lymphedema. MUSCULOSKELETAL: Normal joints with no swelling. Muscle tone is normal. Of Note: The patient was hypotensive in the beginning; now the patient has hypertension 155/96. Will increase Lopressor to 25 mg twice a day. Cardiovascular status stable. The patient was seen and examined with the nurse practitioner. TIME SPENT: More than 30 minutes. Plan and coordination of the patient's care discussed in the presence of nurse. DEISI
--- NOTE | 2017-05-23 14:18 | PN ---
DATE OF SERVICE: 05/21/17 SUBJECTIVE: 66 year old white male hospitalized with acute MT, Inferolateral wall MT. The patient's condition has improved. His blood pressure has gone up. Hypotension has resolved. No chest pain. REVIEW OF SYSTEMS: CONSTITUTIONAL: No night sweats. No fatigue, malaise, lethargy. No fever or chills. HEENT: Eyes: No visual changes. No eye pain. No eye discharge. ENT: No runny nose. No epistaxis. No sinus pain. No sore throat. No odynophagia. No congestion. RESPIRATORY: No cough, no congestion. No hemoptysis. No shortness of breath. CARDIOVASCULAR: No angina symptoms. No CHF symptoms. No atypical chest pain for CAD. No palpitations. No orthopnea. GASTROINTESTINAL: No abdominal pain. No nausea or vomiting. No diarrhea or constipation. No hematemesis. No hematochezia. GENITOURINARY: No urgency. No frequency. No dysuria. No hematuria. No obstructive symptoms. No discharge. No pain. No significant abnormal bleeding. MUSCULOSKELETAL: No musculoskeletal pain; no joint swelling. NEUROLOGICAL: No headache. No neck pain. No syncope. No seizures. No dizziness. PSYCHIATRIC: Not anxious. No depression. No suicidal thoughts. No homicidal thoughts. SKIN: No rash. No lesions. No wounds. ENDOCRINE: No unexplained weight loss. No weight gain. HEMATOLOGIC/LYMPHATIC: No anemia. No purpura. No petechiae. No prolonged or excessive bleeding. No palpable lymph nodes. PHYSICAL EXAMINATION: GENERAL: The patient is oriented to time, place and person. VITAL SIGNS: Temperature 98, pulse 77, respiratory rate 19, blood pressure 155/ 88 and pulse ox 96%. HEENT: Head normocephalic, atraumatic. Eyes: Extraocular muscles are intact. Pupils are equal, round and reactive to light and accommodation. Ears: No lesions. Nose appeared normal. Throat: No exudate or erythema. NECK: Supple. No JVD, no carotid bruit. No lymphadenopathy or thyromegaly. LUNGS: Decreased breath sounds but clear to auscultation. Percussion note normal. Chest symmetrical. HEART: S1, S2, no S3. No murmurs. No cyanosis or clubbing. No ascites. Pulses: Dorsalis pedis and posterior tibial pulses +1 to +2 both sides. ABDOMEN: Soft. Nontender. Bowel sounds active. No CVA tenderness. No mass felt. EXTREMITIES: No edema. Full range of motion of all extremities, equal. NEUROLOGIC: No focal deficit. Cranial nerves II through XII are grossly intact. No headache, no double vision or headache. SKIN: Not dry. Intact. Turgor - normal. LYMPHATIC: No palpable lymph nodes/no lymphedema. MUSCULOSKELETAL: Normal joints with no swelling. Muscle tone is normal. LABS: Hgb 12.1, hct 34, WBC 8,400 normal differential, creatinine 0.7, BUN 24, potassium 4.7. ASSESSMENT: 1. Acute inferolateral wall MT 2. Diabetes Mellitus 3. Hypertension 4. Dyslipidemia 5. Obesity 6. Friedreich's ataxia 7. Anemia PLAN: 1. Increase Zestril to 20mg PO daily. The patient is already on 25mg twice a day Lopressor 2. Monitor the blood pressure 3. Antihypertensive medications discussed with the patient 4. The patient needs to be Physical therapy or cardiac rehab program. Discussed about the Cardiac rehab. CONDITION: Normal The patient's in the room as usual. TIME SPENT: More than 30 minutes. Plan and coordination of the patient's care discussed in the presence of nurse. DEISI
[2017-05-23 15:20] VITALS: BP 140/66; TEMP 99.1
--- NOTE | 2017-05-24 09:59 | PCM.PROG ---
Attending Provider: ATTENDING PROVIDER: Dr. GENESIS GARCIA This patient is seen with Sandee Epstein, Nurse Practitioner. DATE OF SERVICE: 05/23/17 SUBJECTIVE: This 66 year old WHITE/ M was hospitalized 05/15/17. The patient is sitting in bed, alert, improving. The patient will be discharged to swing today for PT/OT. He will also be a future candidate for cardiac rehab. REVIEW OF SYSTEMS: CONSTITUTIONAL: Fatigue. weakness. Fever, low grade. No night sweats. HEENT: Eyes: No visual changes. No eye pain. No eye discharge. ENT: No runny nose. No epistaxis. No sinus pain. No odynophagia. No congestion. RESPIRATORY: No cough, no congestion. No hemoptysis. No shortness of breath. CARDIOVASCULAR: No angina symptoms. No CHF symptoms. No atypical chest pain for CAD. No palpitations. No orthopnea.. GASTROINTESTINAL: No abdominal pain. No nausea or vomiting. No diarrhea or constipation. No hematemesis. No hematochezia. GENITOURINARY: No urgency. No frequency. No dysuria. No hematuria. No obstructive symptoms. No discharge. No pain. No significant abnormal bleeding. MUSCULOSKELETAL: No musculoskeletal pain; no joint swelling. NEUROLOGICAL: Awake, alert, oriented to time, place and person. No headache. No neck pain. No syncope. No seizures. No dizziness. PSYCHIATRIC: Not anxious. No depression. No suicidal thoughts. No homicidal thoughts. SKIN: No rash. No lesions. No wounds. ENDOCRINE: No unexplained weight loss. No weight gain. HEMATOLOGIC/LYMPHATIC: No anemia. No purpura. No petechiae. No prolonged or excessive bleeding. No palpable lymph nodes. PHYSICAL EXAMINATION: GENERAL: The patient is awake, alert and oriented, lying in bed in no distress. VITAL SIGNS: Temperature 99.5 F, Pulse 71, Respiratory Rate 20, BP 139/83, Pulse Ox 94% HEENT: Head normocephalic, atraumatic. Eyes: Extraocular muscles are intact. Pupils are equal, round and reactive to light and accommodation. Ears: No lesions. Nose appeared normal. Throat: No exudate or erythema. NECK: Supple. No JVD, no carotid bruit. No lymphadenopathy or thyromegaly. LUNGS: Diminished breath sounds. Clear to auscultation. Percussion note normal. Chest symmetrical. HEART: S1, S2, no S3. No murmurs. No cyanosis or clubbing. No ascites. Pulses: Dorsalis pedis and posterior tibial pulses +1 to +2 both sides. ABDOMEN: Soft. Non-tender. Bowel sounds active. No CVA tenderness. No mass felt. EXTREMITIES: No edema. Full range of motion of all extremities, equal. NEUROLOGIC: No focal deficit. Cranial nerves II through XII are grossly intact. No headache, no double vision or headache. SKIN: Not dry. Intact. Turgor-normal. LYMPHATIC: No palpable lymph nodes/no lymphedema. MUSCULOSKELETAL: Normal joints with no swelling. Muscle tone is normal. LAB REVIEW: 05/23/17 04:50 05/23/17 04:50 05/23/17 04:50: Sodium 134 L, Potassium 4.4, Chloride 103, Carbon Dioxide 24, Anion Gap 11.4, BUN 17, Creatinine 0.70, Estimated GFR (MDRD) 112.00, BUN/ Creatinine Ratio 24.28, Glucose 152 H, Calcium 9.5, Total Bilirubin 0.58, AST 24 , ALT 49, Alkaline Phosphatase 65, Total Protein 6.9, Albumin 2.9 L, Globulin 4.0, Albumin/Globulin Ratio 0.73 05/23/17 04:50: WBC 8.87, RBC 4.27 L, Hgb 12.5 L, Hct 36.2 L, MCV 84.8, MCH 29.3 , MCHC 34.5, RDW Coeff of Veronica 13.4, Plt Count 200, Immature Gran % (Auto) 0.8, Neut % (Auto) 69.5, Lymph % (Auto) 16.0, [place] % (Auto) 10.3 H, Eos % (Auto) 2.9 , Baso % (Auto) 0.5, Immature Gran # (Auto) 0.1, Neut # 6.2, Lymph # 1.4, [place] # 0.9, Eos # 0.3, Baso # 0.0 ASSESSMENT: 1. Acute inferior lateral wall [place] evolving 2. CKD improving. 3. Fever 4. Friedreich's ataxia 5. Diabetes mellitus 6. Constipation, resolved 7. Dyslipidemia 8. History of hypertension PLAN: 1. Discharge to swing bed 2. D/C Rocephin 3. Ceftin 250 daily 4. Urine C & S 5. Plavix 75 mg daily Plan and coordination of the patient's care discussed in the presence of Packing Checker and nurse. CONDITION: Stable SCRIBED BY: CLARICE BLACK Assistant Purchasing Manager scribed while in presence of service performed by Dr. Garcia/Sandee Epstein APRN on 05/23/17 ([id number])
--- NOTE | 2017-05-24 15:27 | DS ---
DATE OF SERVICE: 05/23/17 - DISCHARGED FROM ACUTE TO SWING BED FINAL DIAGNOSIS: 1. ACUTE INFEROLATERAL WALL MA EVOLVING 2. CKD IMPROVING 3. FEVER 4. FRIEDREICH'S ATAXIA 5. DIABETES MELLITUS 6. CONSTIPATION, RESOLVED 7. DYSLIPIDEMIA 8. HISTORY OF HYPERTENSION DISCHARGE INSTRUCTIONS: Will follow in swing bed. MEDICATIONS AT DISCHARGE: Humulin R insulin subcut p.r.n. Lipitor 40 mg p.o. bedtime Imdur 15 mg p.o. b.i.d. Toradol 30 mg IVP q.12hr Neurontin 300 mg p.o. b.i.d. Celexa 20 mg p.o. bedtime Aspirin 81 mg p.o. daily with meal Metformin 500 mg p.o. b.i.d wit m eal Miralax 17 gm p.o. daily Sitagliptin Phosphate 100 mg p.o. daily NEW PRESCRIPTIONS: Zestril 20 mg p.o daily Lopressor 50 mg p.o. b.i.d. with meal Januvia 100 mg p.o. daily Plavix 75 mg p.o. daily Ceftin 250 mg p.o. daily DIET INSTRUCTIONS: Consistent Carbs/h.s. snack ACTIVITY: As patient tolerates/PT/OT SMOKING: N/A DISEASE SPECIFIC EDUCATION: Swing bed admission PT/OT Diet Medications HOSPITAL COURSE: This is a 66-year-old white male who presented to the emergency room with chest pain, heaviness and hypotension. It was found that he was experiencing an acute MA with inferolateral wall. His CK level was elevated at 57.7, troponin elevated. BNP was 132. The patient has a history of Friederich's ataxia and is partially dependent for ADLs. He voiced his opinion that he did not want to undergo cardiac catheterization, he did not want to be transferred. It was agreed between the patient and Dr. Guillaume that he would be managed here. He was placed in the Special Care Unit, given Morphine, started on Lovenox. The goal was to keep his heart rate and blood pressure under control, as to not experience any more damage. He was originally started on Lopressor 25 mg b.i.d. , Imdur 15 mg b.i.d. Shortly after admission, the patient denied experiencing any chest pain. Per Dr. Guillaume, it did show some minor changes on his EKG. On the third day he did experience some low grade fever which he has had off and on for now the past week. T max has been 100.1. Urinalysis and culture was done which were negative early on admission. Chest x-ray was done which was also negative, did show some COPD. He has continued with the fever today. He was started on IV Rocephin on the second day after admission. Today, we will discontinue the Rocephin and change him to Ceftin 250 mg p.o. b.i.d. as well as start him on Plavix 75 mg p.o. daily along with aspirin 81 mg daily. Initially, his Lopressor had to be decreased to 25 b.i.d. due to low blood pressure after IV hydration and fluids and the patient is hemodynamically stable. We have had to increase the Lopressor to 50 mg b.i.d. as well as increase Zestril to 20 mg daily. His blood pressure is normal today at 139/83. Temperature this morning was 99.5, heart rate 71, respirations 20. The patient has experienced some extreme weakness in his legs. He has not been able to walk more than 30 feet with a walker for several years now so we will swing him for physical therapy and occupational therapy, evaluation and treatment; however, we are realistic with our goals. The patient's vital signs and legs have been stable. Initially during his hospital stay he did experience some hypokalemia and was given potassium 40 mEq t.i.d and this has resolved. Potassium is now 4.4, sodium 134, BUN 17, creatinine 0.70. Hemoglobin 12.5, hematocrit 36.2, white count 8.87, platelets 200, glucose 152. We will discharge him to swing bed and continue to follow him closely. TIME SPENT: More than 60 minutes. DEISI
== END 2017-05-23 15:15 | disposition swing bed (61) | DRG 281 ==
LOC: ED 16:07 → SCU 17:05
PROVIDERS: ADMIT Internal Medicine; ATTEND Internal Medicine
DX: I21.19 ST elevation (STEMI) myocardial infarction involving other coronary artery of inferior wall (principal); G11.1 Early-onset cerebellar ataxia; I10 Essential (primary) hypertension; E11.65 Type 2 diabetes mellitus with hyperglycemia; I12.9 Hypertensive chronic kidney disease with stage 1 through stage 4 chronic kidney disease, or unspecified chronic kidney disease; E11.22 Type 2 diabetes mellitus with diabetic chronic kidney disease; N18.9 Chronic kidney disease, unspecified; D64.9 Anemia, unspecified; R06.02 Shortness of breath; R50.9 Fever, unspecified; I95.9 Hypotension, unspecified; K59.00 Constipation, unspecified; E78.5 Hyperlipidemia, unspecified; J44.9 Chronic obstructive pulmonary disease, unspecified; E66.9 Obesity, unspecified; Z53.20 Procedure and treatment not carried out because of patient's decision for unspecified reasons; Z79.84 Long term (current) use of oral hypoglycemic drugs; Z99.3 Dependence on wheelchair; Z96.0 Presence of urogenital implants
CPT/HCPCS: 36415; 80053; 81001; 82150; 82550; 82553; 82962; 83690; 83880; 84439; 84443; 84484; 85025; 87081; 93005; 93010; 96361; 96372; 96374; 96375; 96376; 99223; 99232; 99233; 99239; 99284

== ENCOUNTER 2017-05-23 15:15 | Inpatient (IN) ==
[2017-05-23 16:56] VITALS: BMI 32.7
[2017-05-23] MEDS: LOPRESSOR PO SCH (17:22)
[2017-05-23] MEDS: IMDUR PO SCH (20:10)
[2017-05-23] MEDS: CELEXA PO SCH (20:10)
[2017-05-23] MEDS: LIPITOR PO SCH (20:10)
[2017-05-23] MEDS: NEURONTIN PO SCH (20:10)
[2017-05-23] MEDS: TORADOL IVP SCH (20:11)
[2017-05-23] MEDS: HUMULIN R SUBCUT PRN (21:42)
[2017-05-24 04:43] LABS: BASOPHILS # (AUTO) 0.1 K/uL (0-0.2); BASOPHILS % (AUTO) 0.7 % (0.0-3.0); EOSINOPHILS # (AUTO) 0.4 K/ul (0.0-0.7); EOSINOPHILS % (AUTO) 3.6 % (0.0-7.0); HEMATOCRIT 35.6 % (42.0-52.0); LYMPHOCYTES # (AUTO) 1.7 K/uL (0.60-3.4); LYMPHOCYTES % (AUTO) 17.8 (10.0-50.0); MEAN CORPUSCULAR HEMOGLOBIN 28.6 pg (27.0-31.0); MEAN CORPUSCULAR HGB CONC 33.7 (31.8-35.4); MONOCYTES # (AUTO) 0.9 K/uL (0.4-2.0); MONOCYTES % (AUTO) 9.4 (0-10); NEUTROPHILS # (AUTO) 6.5 K/ul (2.0-6.9); NEUTROPHILS % (AUTO) 67.5; PLATELET COUNT 225 10^3/uL (140-440); RED BLOOD COUNT 4.19 10^6/ul (4.70-6.10); WHITE BLOOD COUNT 9.67 K/ul (4.2-10.2)
[2017-05-24 05:13] LABS: ALBUMIN 2.9 g/dL (3.4-5.0); ALBUMIN/GLOBULIN RATIO 0.76; ANION GAP 11.5; BILIRUBIN,TOTAL 0.65 mg/dL (0.00-1.20); BUN/CREATININE RATIO 28.39; CALCIUM 9.6 mg/dL (8.2-10.2); CREATININE 0.81 mg/dL (0.60-1.10); POTASSIUM 4.5 mmol/L (3.5-5.1); TOTAL PROTEIN 6.7 g/dL (5.8-8.1)
[2017-05-24] MEDS: HUMULIN R SUBCUT PRN ×3 (05:32→21:00)
[2017-05-24] MEDS: JANUVIA PO SCH (08:44)
[2017-05-24] MEDS: MIRALAX PO SCH (08:44)
[2017-05-24] MEDS: ASPIRIN CHEWABLE PO SCH (08:44)
[2017-05-24] MEDS: IMDUR PO SCH ×2 (08:45→20:56)
[2017-05-24] MEDS: LOPRESSOR PO SCH ×2 (08:45→17:06)
[2017-05-24] MEDS: NEURONTIN PO SCH ×2 (08:45→20:56)
[2017-05-24] MEDS: ZESTRIL PO SCH (08:45)
[2017-05-24] MEDS: CEFTIN PO SCH (08:45)
[2017-05-24] MEDS: GLUCOPHAGE PO SCH ×2 (08:45→17:06)
[2017-05-24] MEDS: PLAVIX PO SCH (08:45)
[2017-05-24] MEDS ORDERED: NON-FORMULARY MEDICATION (Sitagliptin Phosphate 100 MG) PO SCH (09:00)
[2017-05-24] MEDS ORDERED: ZESTRIL PO SCH (09:00)
--- NOTE | 2017-05-24 09:55 | HP ---
DATE OF SERVICE: 05/23/17 - SWING BED HISTORY OF PRESENT ILLNESS: This is a 66-year-old White/ male admitted to [facility] with chest pain. He was found to have had an acute inferior lateral wall PR did not want to be transferred. He did not want a cardiac cath. The patient was kept here has been improving. 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 PAST MEDICAL HISTORY: Ataxia with polyarthritis Friedreich's ataxia Diabetes mellitus, Type 2 (A1C 11.4 on 09/30) Dyslipidemia Obesity Vitamin D deficiency COPD Neuropathy Depression Obesity Artificial eye, right PAST SURGICAL HISTORY: Cholecystectomy Appendectomy Right eye removal; has an artificial eye REVIEW OF SYSTEMS: CONSTITUTIONAL: Fatigue. weakness. Fever, low grade. No night sweats. HEENT: Eyes: No visual changes. No eye pain. No eye discharge. ENT: No runny nose. No epistaxis. No sinus pain. No odynophagia. No congestion. RESPIRATORY: No cough, no congestion. No hemoptysis. No shortness of breath. CARDIOVASCULAR: No angina symptoms. No CHF symptoms. No atypical chest pain for CAD. No palpitations. No orthopnea.. GASTROINTESTINAL: No abdominal pain. No nausea or vomiting. No diarrhea or constipation. No hematemesis. No hematochezia. GENITOURINARY: No urgency. No frequency. No dysuria. No hematuria. No obstructive symptoms. No discharge. No pain. No significant abnormal bleeding. MUSCULOSKELETAL: No musculoskeletal pain; no joint swelling. NEUROLOGICAL: Awake, alert, oriented to time, place and person. No headache. No neck pain. No syncope. No seizures. No dizziness. PSYCHIATRIC: Not anxious. No depression. No suicidal thoughts. No homicidal thoughts. SKIN: No rash. No lesions. No wounds. ENDOCRINE: No unexplained weight loss. No weight gain. HEMATOLOGIC/LYMPHATIC: No anemia. No purpura. No petechiae. No prolonged or excessive bleeding. No palpable lymph nodes. PERSONAL/FAMILY/SOCIAL HISTORY: The patient is , lives with . He is dependent on ADLs. Nonsmoker - never smoked. No alcohol use. No history of illicit drug use. The patient has two children who are grown. He is disabled. Family History: Significant for coronary artery disease, neuromuscular disorder in brother, who is . MEDICATIONS: Humulin R insulin subcut p.r.n. Lopressor 50 mg p.o. b.i.d. with meal Lipitor 40 mg p.o. bedtime Imdur 15 mg p.o. b.i.d. Toradol 30 mg IVP q.12hr Neurontin 300 mg p.o. b.i.d. Celexa 20 mg p.o. bedtime Aspirin 81 mg p.o. daily with meal Metformin 500 mg p.o. b.i.d wit m eal Ceftin 250 mg p.o. daily Plavix 75 mg p.o. daily Miralax 17 gm p.o. daily Zestril 20 mg p.o. daily Sitagliptin Phosphate 100 mg p.o. daily Januvia 100 mg p.o. daily ALLERGIES: NKDA PHYSICAL EXAMINATION: GENERAL: The patient is awake, alert and oriented, lying in bed in no distress. VITAL SIGNS: Temperature 99.5 F, Pulse 71, Respiratory Rate 20, BP 139/83, Pulse Ox 94% HEENT: Head normocephalic, atraumatic. Eyes: Extraocular muscles are intact. Pupils are equal, round and reactive to light and accommodation. Ears: No lesions. Nose appeared normal. Throat: No exudate or erythema. NECK: Supple. No JVD, no carotid bruit. No lymphadenopathy or thyromegaly. LUNGS: Diminished breath sounds. Clear to auscultation. Percussion note normal. Chest symmetrical. HEART: S1, S2, no S3. No murmurs. No cyanosis or clubbing. No ascites. Pulses: Dorsalis pedis and posterior tibial pulses +1 to +2 both sides. ABDOMEN: Soft. Non-tender. Bowel sounds active. No CVA tenderness. No mass felt. EXTREMITIES: No edema. Full range of motion of all extremities, equal. NEUROLOGIC: No focal deficit. Cranial nerves II through XII are grossly intact. No headache, no double vision or headache. SKIN: Not dry. Intact. Turgor-normal. LYMPHATIC: No palpable lymph nodes/no lymphedema. MUSCULOSKELETAL: Normal joints with no swelling. Muscle tone is normal. LAB REVIEW: 05/23/17 04:50: Sodium 134 L, Potassium 4.4, Chloride 103, Carbon Dioxide 24, Anion Gap 11.4, BUN 17, Creatinine 0.70, Estimated GFR (MDRD) 112.00, BUN/ Creatinine Ratio 24.28, Glucose 152 H, Calcium 9.5, Total Bilirubin 0.58, AST 24 , ALT 49, Alkaline Phosphatase 65, Total Protein 6.9, Albumin 2.9 L, Globulin 4.0, Albumin/Globulin Ratio 0.73 05/23/17 04:50: WBC 8.87, RBC 4.27 L, Hgb 12.5 L, Hct 36.2 L, MCV 84.8, MCH 29.3 , MCHC 34.5, RDW Coeff of Veronica 13.4, Plt Count 200, Immature Gran % (Auto) 0.8, Neut % (Auto) 69.5, Lymph % (Auto) 16.0, [place] % (Auto) 10.3 H, Eos % (Auto) 2.9 , Baso % (Auto) 0.5, Immature Gran # (Auto) 0.1, Neut # 6.2, Lymph # 1.4, [place] # 0.9, Eos # 0.3, Baso # 0.0 ASSESSMENT: 1. Acute inferior lateral wall PR evolving 2. CKD improving. 3. Fever 4. Friedreich's ataxia 5. Diabetes mellitus 6. Constipation, resolved 7. Dyslipidemia 8. History of hypertension PLAN: 1. Admit to swing bed 2. D/C Rocephin 3. Ceftin 250 daily 4. Urine C & S 5. Plavix 75 mg daily TIME SPENT: More than 70 minutes. Plan and coordination of the patient's care discussed in the presence of Humane Officer and nurse. CONDITION: Stable SCRIBED BY: CLARICE BLACK Confectionery Drops Machine Operator scribed while in presence of service performed by Dr. Guillaume/Sandee Epstein APRN on 05/23/17 ([id number]) [facility] HOSPITALConner
[2017-05-24] MEDS: TORADOL IVP SCH (10:07)
[2017-05-24] MEDS: ULTRAM PO PRN (10:51)
--- NOTE | 2017-05-24 11:59 | RS.PTINEVL ---
Subjective - Patient information Date of Evaluation: 05/24/17 Date of Arrival on Unit: 05/23/17 Admitted From:: acute care Diagnosis: acute [place] Usual Living Arrangement: With Spouse Living Arrangement Comments: Lives with at home. Home Environment: House, Ramp Medical History: COPD, Diabetes Medical History Comments:: neuropathy, artificial R eye, Frederich's ataxia( spinocerebellar ataxia) Surgical History: Cholecystectomy Surgical History Comments:: appey - Level of function Prior to this admission, the patient could do the following:: Independent Ambulation (and transfers) Abilities prior to this admission: pt amb approx 30 ft at home independently, assisted with bathing and dressing. Current Level of Function: Partially Dependent Current Equipment Used at Home: Glucometer; Lift chair; Walker; Wheelchair Interventions - Objective Patient Orientation: Person, Place, Time, Situation Range of Motion - ROM Right Upper Extremity AROM: WFL's Left Upper Extremity AROM: WFL's Right Lower Extremity AROM: Slight limitation (hip ext limited) Left Lower Extremity AROM: Slight limitation (hip ext limited) Muscle Strength - Muscle Strength Right Upper Extremity Strength: Mild Weakness (RUE shld flex 4+/5, elbow flex/ ext 4+/5) Left Upper Extremity Strength: Mild Weakness (shld flex 4+/5, elbow flex/ext 4+/ 5) Right Lower Extremity Strength: Mild Weakness (hip flex 4-/5, knee flex/ext 4-/5 , ankle DF/PF 4/5) Left Lower Extremity Strength: Mild Weakness (hip flex 4-/5, knee flex/ext 4-/5 , ankle DF/PF 4/5) Sensation - Sensation Right Upper Extremity Sensation: Intact/Normal Left Upper Extremity Sensation: Intact/Normal Right Lower Extremity Sensation: Intact/Normal Left Lower Extremity Sensation: Intact/Normal Balance - Sitting Balance and Reactions Static Sitting Balance: Fair Dynamic Sitting Balance: Fair Sitting Equilibrium Reactions: Delayed Left, Delayed Right Sitting Protective Reactions: Delayed Left, Delayed Right - Standing Balance and Reactions Static Standing Balance: Poor Dynamic Standing Balance: Poor Standing Equilibrium Reactions: Delayed Left, Delayed Right Standing Protective Reactions: Delayed Left, Delayed Right - Comments Balance Assessment Comments: pt unable to maintain standing without mod assist x 2. Functional Mobility - Bed Mobility Rolling R/L: Min Assist Scooting: Mod Assist, 2 person assist Supine to Sit: CGA Sit to Supine: CGA - Transfers Sit to Stand: Mod Assist, 2 person assist Stand to Sit: Min Assist - Safety Awareness Safety Awareness: Fair Ambulation - Ambulation Assistive Device Used: Rolling Walker Orthotic/Prosthetic Device: Yes Distance: 8ft x 2 Assistance needed with Ambulation: Mod Assist, 2 person assist Gait Deviations: Step-to gait, Forward posture, Deviates from path Ambulation Comments: pt amb with flexed knees and hips, unable to maintain standing without mod assist of 2 Factors Affecting Ambulation: Decreased Balance, Breathing/O2 Saturation, Weakness, Decreased Coordination, Decreased Safety Treatment time - Time with patient Total treatment time: 24 Patient Education - Education Patient Education: Home Safety, Activity Modification, Education of Plan of Care Teaching Recipient: Patient Teaching Methods: Discussion, Demonstration (Discussed POC with patient.) Assessment - Assessment Problem List:: Requires training/education, Decreased safety/Risk of falls, Weakness, Pain limits previous level of function, Cognitive status limits abilities Rehab Potential: Good Further Therapy Indicated?: No Short Term Goals GOAL #1: pt transfer sup to/from sit independently Goal to be met by: 05/31/17 GOAL #2: sit to/from stand min x 2 Goal to be met by: 05/31/17 GOAL #3: pt amb 20 ft with rwx with min x 1 with improved hip/knee ext Goal to be met by: 05/31/17 Box Sealing Machine Catcher Goals GOAL #1: pt demonstrate independence with bed mobility Goal to be met by: 06/07/17 GOAL #2: pt transfer sit to/from stand CGA Goal to be met by: 06/07/17 GOAL #3: pt amb with rwx 30ft with CGA with no LOB Goal to be met by: 06/07/17 Plan Plan of Care: Therapeutic EX, Neuromuscular Re-Educ, Therapeutic Activity, Self- Care/Home Management Other:: gait training Frequency of Treatment: 1-2 X day, as tolerated Duration of Treatment: 2 Weeks Anticipated Discharge Destination: Home Has the Physician been added for Co-signature?: Yes
--- NOTE | 2017-05-24 15:13 | RS.OTINEVL ---
Subjective - Patient information Date of Evaluation: 05/24/17 Date of Arrival on Unit: 05/23/17 Admitted From:: acute care Usual Living Arrangement: With Spouse Living Arrangement Comments: Lives with at home. Home Environment: House, Ramp Medical History: COPD, Diabetes Medical History Comments:: neuropathy, artificial R eye, Frederich's ataxia( spinocerebellar ataxia) Surgical History: Cholecystectomy Surgical History Comments:: appey - Level of function Prior to this admission, the patient could do the following:: Independent Ambulation (and transfers) Abilities prior to this admission: Pt's washed him off daily with a sponge bath. Pt was able to put on his socks and shoes. Pt was independent with donning his shirt. Pt was maximum assistance for donning his pants. Pt is independent with self feeding. Current Level of Function: Partially Dependent Current Equipment Used at Home: Glucometer; Lift chair; Walker; Wheelchair Pain Assessment - Pain Pain Score: 0 Interventions - Objective Patient Orientation: Person Current Interventions: IV's Observation: Pt was maximum assist for sit to stand from chair. Pt became SOA with manual muscle testing of BUE. Interventions - ROM Right Upper Extremity AROM: WFL's Left Upper Extremity AROM: WFL's - Strength Right Upper Extremity Strength: Mild Weakness Left Upper Extremity Strength: Mild Weakness - Sensation Right Upper Extremity Sensation: Intact/Normal Left Upper Extremity Sensation: Intact/Normal Balance - Sitting Balance Static Sitting Balance: Fair Dynamic Sitting Balance: Fair - Standing Balance Static Standing Balance: Poor Dynamic Standing Balance: Poor - Comments Balance Assessment Comments: Poor ADL Skills - Self Feeding Self Feeding: Independent - Grooming Grooming: Min Assist - Bathing Bathing UE: Min Assist Bathing LE: Min Assist - Dressing Dressing UE: Independent Dressing LE: Mod Assist - Toilet Management Toileting Management: Min Assist Functional Mobility - Bed Mobility Rolling R/L: Min Assist Scooting: Min Assist Supine to Sit: Min Assist Sit to Supine: Min Assist - Transfers Sit to Stand: Max Assist Stand to Sit: Mod Assist Stand Pivot Transfers: Mod Assist - Ambulation Weight Bearing Status: FWB Assistive Device Used: Rolling Walker Assistance needed with Ambulation: Mod Assist Comments:: using a rolling walker - Safety Awareness Safety Awareness: Fair Additional Treatment Performed - Additional units charged Neurofacilitation: 15 - Time with patient Total treatment time: 25 Activities Patient Interests:: Watching Television, Visiting/Socializing Patient Education Patient Education: Education of diagnosis, Home Exercise Program, Education of Plan of Care Teaching Recipient: Patient, Significant Other Teaching Methods: Discussion Assessment Problem List:: Decreased level of function, Decreased safety/Risk of falls, Weakness, Pain limits previous level of function Rehab Potential: Good Further Therapy Indicated?: Yes Short Term Goals - Goals GOAL 1: Pt will be SBA with functional mobility. Goal to be met by: 05/31/17 GOAL 2: Pt will have F+/G- functional balance. Goal to be met by: 05/31/17 GOAL 3: Pt will be (I) with HEP Goal to be met by: 05/31/17 Stock Mixer Goals GOAL 1: Pt will be SBA with functional mobility. Goal to be met by: 06/07/17 GOAL 2: Pt will have F+/G- functional balance. Goal to be met by: 06/07/17 GOAL 3: Pt will be (I) with HEP Goal to be met by: 06/07/17 Plan Plan of Care: Therapeutic EX, Neuromuscular Re-Educ, Therapeutic Activity, Self- Care/Home Management Modalities: Cold Pack/Cryotherapy Frequency of Treatment: 1-2 X day, as tolerated Duration of Treatment: 2 Weeks Anticipated Discharge Destination: Home Has the Physician been added for Co-signature?: Yes
[2017-05-24] MEDS: LIPITOR PO SCH (20:55)
[2017-05-24] MEDS: CELEXA PO SCH (20:56)
[2017-05-25] MEDS: HUMULIN R SUBCUT PRN ×4 (05:49→20:24)
[2017-05-25] MEDS: ASPIRIN CHEWABLE PO SCH (09:06)
[2017-05-25] MEDS: JANUVIA PO SCH (09:06)
[2017-05-25] MEDS: ZESTRIL PO SCH (09:07)
[2017-05-25] MEDS: IMDUR PO SCH ×2 (09:07→20:25)
[2017-05-25] MEDS: GLUCOPHAGE PO SCH ×2 (09:07→16:44)
[2017-05-25] MEDS: PLAVIX PO SCH (09:08)
[2017-05-25] MEDS: LOPRESSOR PO SCH ×2 (09:08→16:44)
[2017-05-25] MEDS: NEURONTIN PO SCH ×2 (09:08→20:26)
[2017-05-25] MEDS: MIRALAX PO SCH (09:09)
[2017-05-25] MEDS: CEFTIN PO SCH (09:41)
[2017-05-25] MEDS ORDERED: DECADRON 4 MG/ML SDV IM STA (10:42)
[2017-05-25] MEDS ORDERED: CITRATE OF MAGNESIA PO STA (10:42)
--- NOTE | 2017-05-25 13:58 | PCM.PROG ---
Attending Provider: ATTENDING PROVIDER: Dr. GENESIS GARCIA DATE OF SERVICE: 05/25/17 SUBJECTIVE: This 66 year old WHITE/ M was hospitalized 05/23/17. The patient is hospitalized on swing bed for further physical therapy. 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 REVIEW OF SYSTEMS: CONSTITUTIONAL: No night sweats. No fatigue, malaise, lethargy. No fever or chills. HEENT: Eyes: No visual changes. No eye pain. No eye discharge. ENT: No runny nose. No epistaxis. No sinus pain. No odynophagia. No congestion. RESPIRATORY: No cough, no congestion. No hemoptysis. No shortness of breath. CARDIOVASCULAR: No angina symptoms. No CHF symptoms. No atypical chest pain for CAD. No palpitations. No orthopnea.. GASTROINTESTINAL: No abdominal pain. No nausea or vomiting. No diarrhea or constipation. No hematemesis. No hematochezia. GENITOURINARY: No urgency. No frequency. No dysuria. No hematuria. No obstructive symptoms. No discharge. No pain. No significant abnormal bleeding. MUSCULOSKELETAL: No musculoskeletal pain; no joint swelling. NEUROLOGICAL: Awake, alert, oriented to time, place and person. No headache. No neck pain. No syncope. No seizures. No dizziness. PSYCHIATRIC: Not anxious. No depression. No suicidal thoughts. No homicidal thoughts. SKIN: No rash. No lesions. No wounds. ENDOCRINE: No unexplained weight loss. No weight gain. HEMATOLOGIC/LYMPHATIC: No anemia. No purpura. No petechiae. No prolonged or excessive bleeding. No palpable lymph nodes. PHYSICAL EXAMINATION: GENERAL: The patient is awake, alert and oriented, lyingin bed in no distress. VITAL SIGNS: Temperature 99.1 F, Pulse 75, Respiratory Rate 20, BP 164/98, Pulse Ox 92% HEENT: Head normocephalic, atraumatic. Eyes: Extraocular muscles are intact. Pupils are equal, round and reactive to light and accommodation. Ears: No lesions. Nose appeared normal. Throat: No exudate or erythema. NECK: Supple. No JVD, no carotid bruit. No lymphadenopathy or thyromegaly. LUNGS: Clear to auscultation. Percussion note normal. Chest symmetrical. HEART: S1, S2, no S3. No murmurs. No cyanosis or clubbing. No ascites. Pulses: Dorsalis pedis and posterior tibial pulses +1 to +2 both sides. ABDOMEN: Soft. Non-tender. Bowel sounds active. No CVA tenderness. No mass felt. EXTREMITIES: No edema. Full range of motion of all extremities, equal. NEUROLOGIC: No focal deficit. Cranial nerves II through XII are grossly intact. No headache, no double vision or headache. SKIN: Not dry. Intact. Turgor-normal. LYMPHATIC: No palpable lymph nodes/no lymphedema. MUSCULOSKELETAL: Normal joints with no swelling. Muscle tone is normal. LAB REVIEW: 05/24/17 04:20 05/24/17 04:20 ASSESSMENT: 1. Acute [place] inferolateral, no symptoms. 2. CHF, no symptoms 3. Friederich's ataxia 4. Diabetes mellitus 5. The patient has fever, unknown etiology, being treated for UTI 6. No symptoms of UTI so far 7. Constipation PLAN: 1. 1 cc Decadron 2. D/C Toradol 3. Mag Citrate for constipation Plan and coordination of the patient's care discussed in the presence of Gear Shaper and nurse. CONDITION: Stable SCRIBED BY: CLARICE BLACK Teacher Lip Reading scribed while in presence of service performed by Dr. GENESIS GARCIA on 05/25/17 ([id number])
[2017-05-25] MEDS: CELEXA PO SCH (20:24)
[2017-05-25] MEDS: LIPITOR PO SCH (20:26)
[2017-05-26] MEDS: HUMULIN R SUBCUT PRN ×4 (05:55→20:49)
[2017-05-26] MEDS: NEURONTIN PO SCH ×2 (08:53→20:36)
[2017-05-26] MEDS: PLAVIX PO SCH (08:53)
[2017-05-26] MEDS: CEFTIN PO SCH (08:53)
[2017-05-26] MEDS: ZESTRIL PO SCH (08:53)
[2017-05-26] MEDS: LOPRESSOR PO SCH ×2 (08:54→17:13)
[2017-05-26] MEDS: IMDUR PO SCH ×2 (08:54→20:37)
[2017-05-26] MEDS: ASPIRIN CHEWABLE PO SCH (08:54)
[2017-05-26] MEDS: MIRALAX PO SCH (08:54)
[2017-05-26] MEDS: GLUCOPHAGE PO SCH ×2 (08:54→17:13)
[2017-05-26] MEDS: JANUVIA PO SCH (08:54)
[2017-05-26] MEDS: LIPITOR PO SCH (20:36)
[2017-05-26] MEDS: CELEXA PO SCH (20:37)
[2017-05-27] MEDS: ULTRAM PO PRN (00:52)
[2017-05-27 05:01] LABS: BASOPHILS # (AUTO) 0.1 K/uL (0-0.2); BASOPHILS % (AUTO) 0.4 % (0.0-3.0); EOSINOPHILS # (AUTO) 0.2 K/ul (0.0-0.7); EOSINOPHILS % (AUTO) 1.8 % (0.0-7.0); HEMATOCRIT 37.5 % (42.0-52.0); HEMOGLOBIN 12.6 g/dl (14.0-18.0); IMMATURE GRANULOCYTE % (AUTO) 0.5 % (0.0-5.0); LYMPHOCYTES # (AUTO) 2.2 K/uL (0.60-3.4); LYMPHOCYTES % (AUTO) 17.9 (10.0-50.0); MEAN CORPUSCULAR HEMOGLOBIN 28.9 pg (27.0-31.0); MEAN CORPUSCULAR HGB CONC 33.6 (31.8-35.4); MONOCYTES # (AUTO) 0.8 K/uL (0.4-2.0); MONOCYTES % (AUTO) 6.1 (0-10); NEUTROPHILS # (AUTO) 9.2 K/ul (2.0-6.9); NEUTROPHILS % (AUTO) 73.3; PLATELET COUNT 242 10^3/uL (140-440); RED BLOOD COUNT 4.36 10^6/ul (4.70-6.10); WHITE BLOOD COUNT 12.49 K/ul (4.2-10.2)
[2017-05-27 05:29] LABS: ALBUMIN 3.1 g/dL (3.4-5.0); ALBUMIN/GLOBULIN RATIO 0.78; ANION GAP 13.3; BILIRUBIN,TOTAL 0.87 mg/dL (0.00-1.20); BUN/CREATININE RATIO 27.38; CALCIUM 11.2 mg/dL (8.2-10.2); CREATININE 0.84 mg/dL (0.60-1.10); POTASSIUM 4.3 mmol/L (3.5-5.1); TOTAL PROTEIN 7.1 g/dL (5.8-8.1)
[2017-05-27] MEDS: ASPIRIN CHEWABLE PO SCH (09:09)
[2017-05-27] MEDS: MIRALAX PO SCH ×2 (09:09→20:33)
[2017-05-27] MEDS: GLUCOPHAGE PO SCH ×2 (09:10→16:41)
[2017-05-27] MEDS: LASIX TAB PO SCH (09:10)
[2017-05-27] MEDS: NEURONTIN PO SCH ×2 (09:10→20:33)
[2017-05-27] MEDS: ZESTRIL PO SCH (09:10)
[2017-05-27] MEDS: LOPRESSOR PO SCH ×3 (09:10→16:41)
[2017-05-27] MEDS: PLAVIX PO SCH (09:10)
[2017-05-27] MEDS: JANUVIA PO SCH (09:10)
[2017-05-27] MEDS: IMDUR PO SCH ×2 (09:11→20:33)
--- NOTE | 2017-05-27 10:00 | PCM.PROG ---
Attending Provider: ATTENDING PROVIDER: Dr. GENESIS GARCIA This patient is seen with Sandee Epstein, Nurse Practitioner. DATE OF SERVICE: 05/27/17 SUBJECTIVE: This 66 year old WHITE/ M was hospitalized 05/23/17. The patient is sitting up eating breakfast. Therapy is going well. No fever last night or this morning. REVIEW OF SYSTEMS: CONSTITUTIONAL: Generalized weakness. No night sweats. No fever or chills. HEENT: Eyes: No visual changes. No eye pain. No eye discharge. ENT: No runny nose. No epistaxis. No sinus pain. No odynophagia. No congestion. RESPIRATORY: No cough, no congestion. No hemoptysis. No shortness of breath. CARDIOVASCULAR: No angina symptoms. No CHF symptoms. No atypical chest pain for CAD. No palpitations. No orthopnea.. GASTROINTESTINAL: No abdominal pain. No nausea or vomiting. No diarrhea or constipation. No hematemesis. No hematochezia. GENITOURINARY: No urgency. No frequency. No dysuria. No hematuria. No obstructive symptoms. No discharge. No pain. No significant abnormal bleeding. MUSCULOSKELETAL: No musculoskeletal pain; no joint swelling. NEUROLOGICAL: Awake, alert, oriented to time, place and person. No headache. No neck pain. No syncope. No seizures. No dizziness. PSYCHIATRIC: Not anxious. No depression. No suicidal thoughts. No homicidal thoughts. SKIN: No rash. No lesions. No wounds. ENDOCRINE: No unexplained weight loss. No weight gain. HEMATOLOGIC/LYMPHATIC: No anemia. No purpura. No petechiae. No prolonged or excessive bleeding. No palpable lymph nodes. PHYSICAL EXAMINATION: GENERAL: The patient is awake, alert and oriented, sitting in chair in no distress. VITAL SIGNS: Temperature 98.3 F, Pulse 73, Respiratory Rate 20, BP 96/60, Pulse Ox 94% HEENT: Head normocephalic, atraumatic. Eyes: Extraocular muscles are intact. Pupils are equal, round and reactive to light and accommodation. Ears: No lesions. Nose appeared normal. Throat: No exudate or erythema. NECK: Supple. No JVD, no carotid bruit. No lymphadenopathy or thyromegaly. LUNGS: Diminished breath sounds. Clear to auscultation. Percussion note normal. Chest symmetrical. HEART: S1, S2, no S3. No murmurs. No cyanosis or clubbing. No ascites. Pulses: Dorsalis pedis and posterior tibial pulses +1 to +2 both sides. ABDOMEN: Soft. Non-tender. Bowel sounds active. No CVA tenderness. No mass felt. EXTREMITIES: Trace bilateral lower extremity edema. Full range of motion of all extremities, equal. NEUROLOGIC: No focal deficit. Cranial nerves II through XII are grossly intact. No headache, no double vision or headache. SKIN: Not dry. Intact. Turgor-normal. LYMPHATIC: No palpable lymph nodes/no lymphedema. MUSCULOSKELETAL: Normal joints with no swelling. Muscle tone is normal. LAB REVIEW: 05/27/17 04:56 05/27/17 04:56 05/27/17 04:56: Sodium 135 L, Potassium 4.3, Chloride 99, Carbon Dioxide 27, Anion Gap 13.3, BUN 23 H, Creatinine 0.84, Estimated GFR (MDRD) 91.00, BUN/ Creatinine Ratio 27.38, Glucose 125 H, Calcium 11.2 H, Total Bilirubin 0.87, AST 20, ALT 32, Alkaline Phosphatase 68, Total Protein 7.1, Albumin 3.1 L, Globulin 4.0, Albumin/Globulin Ratio 0.78 05/27/17 04:56: WBC 12.49 H, RBC 4.36 L, Hgb 12.6 L, Hct 37.5 L, MCV 86.0, MCH 28.9, MCHC 33.6, RDW Coeff of Veronica 13.5, Plt Count 242, Immature Gran % (Auto) 0.5, Neut % (Auto) 73.3, Lymph % (Auto) 17.9, [place] % (Auto) 6.1, Eos % (Auto) 1.8, Baso % (Auto) 0.4, Immature Gran # (Auto) 0.1, Neut # 9.2 H, Lymph # 2.2, [place] # 0.8, Eos # 0.2, Baso # 0.1 ASSESSMENT: 1. Acute [place] inferolateral, no symptoms. 2. CHF, no symptoms 3. Friederich's ataxia 4. Diabetes mellitus 5. The patient has fever, unknown etiology, being treated for UTI 6. No symptoms of UTI so far 7. Constipation PLAN: 1. Miralax one cap twice daily 2. Lopressor 25 mg b.i.d. 3. Lasix 20 mg p.o. day times 2 days Plan and coordination of the patient's care discussed in the presence of Worsted Winder and nurse. CONDITION: Stable SCRIBED BY: Franca MORTONist scribed while in presence of service performed by Dr. Garcia/Sandee Epstein APRN on 05/27/17 ([id number])
[2017-05-27] MEDS: HUMULIN R SUBCUT PRN ×2 (12:11→20:46)
[2017-05-27] MEDS: TORADOL IM SCH ×2 (14:19→20:35)
[2017-05-27] MEDS: LOVENOX SUBCUT SCH (17:48)
[2017-05-27] MEDS: CELEXA PO SCH (20:32)
[2017-05-27] MEDS: LIPITOR PO SCH (20:33)
[2017-05-28] MEDS: TORADOL IM SCH ×3 (06:01→20:03)
[2017-05-28] MEDS: LASIX TAB PO SCH (06:02)
[2017-05-28] MEDS: HUMULIN R SUBCUT PRN ×4 (06:02→20:04)
[2017-05-28] MEDS: MIRALAX PO SCH ×2 (08:10→20:05)
[2017-05-28] MEDS: LOVENOX SUBCUT SCH (08:12)
[2017-05-28] MEDS: GLUCOPHAGE PO SCH ×2 (08:13→17:04)
[2017-05-28] MEDS: ASPIRIN CHEWABLE PO SCH (08:13)
[2017-05-28] MEDS: IMDUR PO SCH ×2 (08:14→20:03)
[2017-05-28] MEDS: PLAVIX PO SCH (08:15)
[2017-05-28] MEDS: LOPRESSOR PO SCH ×2 (08:15→17:04)
[2017-05-28] MEDS: NEURONTIN PO SCH ×2 (08:15→20:03)
[2017-05-28] MEDS: JANUVIA PO SCH (08:15)
[2017-05-28] MEDS: ZESTRIL PO SCH (08:16)
[2017-05-28] MEDS: CELEXA PO SCH (20:03)
[2017-05-28] MEDS: LIPITOR PO SCH (20:03)
[2017-05-29] MEDS: TORADOL IM SCH ×3 (05:35→20:38)
[2017-05-29] MEDS: HUMULIN R SUBCUT PRN ×4 (05:54→20:28)
[2017-05-29] MEDS: MIRALAX PO SCH ×2 (09:01→20:31)
[2017-05-29] MEDS: LOVENOX SUBCUT SCH (09:01)
[2017-05-29] MEDS: LOPRESSOR PO SCH ×2 (09:02→16:51)
[2017-05-29] MEDS: ASPIRIN CHEWABLE PO SCH (09:02)
[2017-05-29] MEDS: JANUVIA PO SCH (09:02)
[2017-05-29] MEDS: NEURONTIN PO SCH ×2 (09:02→20:30)
[2017-05-29] MEDS: GLUCOPHAGE PO SCH ×2 (09:02→16:51)
[2017-05-29] MEDS: PLAVIX PO SCH (09:02)
[2017-05-29] MEDS: IMDUR PO SCH ×2 (09:02→20:29)
[2017-05-29] MEDS: ZESTRIL PO SCH (09:02)
[2017-05-29] MEDS ORDERED: DECADRON 4 MG/ML SDV IM STA (09:26)
[2017-05-29] MEDS: CELEXA PO SCH (20:29)
[2017-05-29] MEDS: LIPITOR PO SCH (20:29)
[2017-05-30 05:22] LABS: BASOPHILS % (AUTO) 0.5 % (0.0-3.0); EOSINOPHILS # (AUTO) 0.1 K/ul (0.0-0.7); EOSINOPHILS % (AUTO) 1.1 % (0.0-7.0); HEMATOCRIT 32.8 % (42.0-52.0); IMMATURE GRANULOCYTE % (AUTO) 0.4 % (0.0-5.0); LYMPHOCYTES # (AUTO) 1.2 K/uL (0.60-3.4); LYMPHOCYTES % (AUTO) 14.5 (10.0-50.0); MEAN CORPUSCULAR HEMOGLOBIN 28.6 pg (27.0-31.0); MEAN CORPUSCULAR HGB CONC 33.5 (31.8-35.4); MEAN CORPUSCULAR VOLUME 85.2 fl (80.0-94.0); MONOCYTES # (AUTO) 0.5 K/uL (0.4-2.0); MONOCYTES % (AUTO) 6.5 (0-10); NEUTROPHILS # (AUTO) 6.2 K/ul (2.0-6.9); PLATELET COUNT 169 10^3/uL (140-440); RED BLOOD COUNT 3.85 10^6/ul (4.70-6.10); WHITE BLOOD COUNT 8.01 K/ul (4.2-10.2)
[2017-05-30 05:41] LABS: ALBUMIN 2.7 g/dL (3.4-5.0); ALBUMIN/GLOBULIN RATIO 0.68; ANION GAP 12.8; BILIRUBIN,TOTAL 0.58 mg/dL (0.00-1.20); BUN/CREATININE RATIO 34.56; CALCIUM 9.7 mg/dL (8.2-10.2); CREATININE 0.81 mg/dL (0.60-1.10); POTASSIUM 4.8 mmol/L (3.5-5.1); TOTAL PROTEIN 6.7 g/dL (5.8-8.1)
[2017-05-30] MEDS: TORADOL IM SCH ×3 (06:27→20:06)
[2017-05-30] MEDS ORDERED: LASIX TAB PO SCH (08:30)
[2017-05-30] MEDS: ASPIRIN CHEWABLE PO SCH (08:44)
[2017-05-30] MEDS: LOPRESSOR PO SCH ×2 (08:45→16:34)
[2017-05-30] MEDS: NEURONTIN PO SCH ×2 (08:45→20:06)
[2017-05-30] MEDS: MICRO-K CAP PO SCH (08:45)
[2017-05-30] MEDS: JANUVIA PO SCH (08:45)
[2017-05-30] MEDS: GLUCOPHAGE PO SCH ×2 (08:45→16:33)
[2017-05-30] MEDS: PLAVIX PO SCH (08:45)
[2017-05-30] MEDS: ZESTRIL PO SCH (08:45)
[2017-05-30] MEDS: IMDUR PO SCH ×2 (08:45→20:06)
[2017-05-30] MEDS: MIRALAX PO SCH ×2 (08:46→20:05)
[2017-05-30] MEDS: LASIX IM SCH (08:46)
[2017-05-30] MEDS: LOVENOX SUBCUT SCH (08:46)
--- NOTE | 2017-05-30 08:59 | PN ---
DATE OF SERVICE: 05/27/17 SUBJECTIVE: 66 year old white male hospitalized with acute inferolateral wall [place]. Now he is in swing bed for physical therapy and cardiac rehab. The patient's condition has improved and he is practically afebrile. No urinary tract infection. PHYSICAL EXAMINATION: HEENT: Head normocephalic, atraumatic. Eyes: Extraocular muscles are intact. Pupils are equal, round and reactive to light and accommodation. Ears: No lesions. Nose appeared normal. Throat: No exudate or erythema. NECK: Supple. No JVD, no carotid bruit. No lymphadenopathy or thyromegaly. LUNGS: Clear to auscultation. Percussion note normal. Chest symmetrical. HEART: S1, S2, no S3. No murmurs. No cyanosis or clubbing. No ascites. Pulses: Dorsalis pedis and posterior tibial pulses +1 to +2 both sides. ABDOMEN: Soft. Nontender. Bowel sounds active. No CVA tenderness. No mass felt. EXTREMITIES: No edema. Full range of motion of all extremities, equal. NEUROLOGIC: No focal deficit. Cranial nerves II through XII are grossly intact. No headache, no double vision or headache. SKIN: Not dry. Intact. Turgor - normal. LYMPHATIC: No palpable lymph nodes/no lymphedema. MUSCULOSKELETAL: Normal joints with no swelling. Muscle tone is normal. PLAN: 1. Blood pressure is on lower side systolic is 100. Decrease Lopressor to 25mg daily 2. Lasix 20mg PO daily CONDITION: Stable. The patient was seen and examined with Nurse Practitioner. TIME SPENT: More than 30 minutes. Plan and coordination of the patient's care discussed in the presence of nurse. DEISI
--- NOTE | 2017-05-30 09:52 | PCM.PROG ---
Attending Provider: ATTENDING PROVIDER: Dr. GENESIS GARCIA This patient is seen with Sandee Epstein, Nurse Practitioner. DATE OF SERVICE: 05/30/17 SUBJECTIVE: This 66 year old WHITE/ M was hospitalized 05/23/17. The patient is alert, lying in bed, did not get up and walk yesterday. He has gained weight during hospital stay with worsening leg edema. REVIEW OF SYSTEMS: CONSTITUTIONAL: No night sweats. No fatigue, malaise, lethargy. No fever or chills. HEENT: Eyes: No visual changes. No eye pain. No eye discharge. ENT: No runny nose. No epistaxis. No sinus pain. No odynophagia. No congestion. RESPIRATORY: No cough, no congestion. No hemoptysis. No shortness of breath. CARDIOVASCULAR: No angina symptoms. No CHF symptoms. No atypical chest pain for CAD. No palpitations. No orthopnea.. GASTROINTESTINAL: No abdominal pain. No nausea or vomiting. No diarrhea or constipation. No hematemesis. No hematochezia. GENITOURINARY: No urgency. No frequency. No dysuria. No hematuria. No obstructive symptoms. No discharge. No pain. No significant abnormal bleeding. MUSCULOSKELETAL: Back pain; ataxia. NEUROLOGICAL: Awake, alert, oriented to time, place and person. No headache. No neck pain. No syncope. No seizures. No dizziness. PSYCHIATRIC: Not anxious. No depression. No suicidal thoughts. No homicidal thoughts. SKIN: No rash. No lesions. No wounds. ENDOCRINE: No unexplained weight loss. No weight gain. HEMATOLOGIC/LYMPHATIC: No anemia. No purpura. No petechiae. No prolonged or excessive bleeding. No palpable lymph nodes. PHYSICAL EXAMINATION: GENERAL: The patient is awake, alert and oriented, lying/sitting in bed in no distress. VITAL SIGNS: Temperature 97.7 F, Pulse 73, Respiratory Rate 20, BP 149/91, Pulse Ox 94% HEENT: Head normocephalic, atraumatic. Eyes: Extraocular muscles are intact. Pupils are equal, round and reactive to light and accommodation. Ears: No lesions. Nose appeared normal. Throat: No exudate or erythema. NECK: Supple. No JVD, no carotid bruit. No lymphadenopathy or thyromegaly. LUNGS: Diminished breath sounds. Clear to auscultation. Percussion note normal. Chest symmetrical. HEART: S1, S2, no S3. No murmurs. No cyanosis or clubbing. No ascites. Pulses: Dorsalis pedis and posterior tibial pulses +1 to +2 both sides. ABDOMEN: Soft. Non-tender. Bowel sounds active. No CVA tenderness. No mass felt. EXTREMITIES: +1 bilateral left lower extremity edema. Full range of motion of all extremities, equal. NEUROLOGIC: No focal deficit. Cranial nerves II through XII are grossly intact. No headache, no double vision or headache. SKIN: Not dry. Intact. Turgor-normal. LYMPHATIC: No palpable lymph nodes/no lymphedema. MUSCULOSKELETAL: Normal joints with no swelling. Muscle tone is normal. LAB REVIEW: 05/30/17 05:12 05/30/17 05:12 05/30/17 05:12: Sodium 136, Potassium 4.8, Chloride 102, Carbon Dioxide 26, Anion Gap 12.8, BUN 28 H, Creatinine 0.81, Estimated GFR (MDRD) 95.00, BUN/ Creatinine Ratio 34.56, Glucose 142 H, Calcium 9.7, Total Bilirubin 0.58, AST 15 , ALT 22, Alkaline Phosphatase 61, Total Protein 6.7, Albumin 2.7 L, Globulin 4.0, Albumin/Globulin Ratio 0.68 05/30/17 05:12: WBC 8.01, RBC 3.85 L, Hgb 11.0 L, Hct 32.8 L, MCV 85.2, MCH 28.6 , MCHC 33.5, RDW Coeff of Veronica 13.0, Plt Count 169, Immature Gran % (Auto) 0.4, Neut % (Auto) 77.0, Lymph % (Auto) 14.5, [place] % (Auto) 6.5, Eos % (Auto) 1.1, Baso % (Auto) 0.5, Immature Gran # (Auto) 0.0, Neut # 6.2, Lymph # 1.2, [place] # 0.5, Eos # 0.1, Baso # 0.0 ASSESSMENT: 1. Leg edema 2. Weight gain 3. Acute [place] inferolateral, no symptoms 4. CHF, no symptoms 5. Friedreich's ataxia 4. Diabetes mellitus 5. The patient has fever, unknown etiology, being treated for UTI 6. No symptoms of UTI so far 7. Constipation, resolved PLAN: 1. Lasix 40 mg p.o. daily 2. Potassium 10 mEq daily 3. Continue PT Plan and coordination of the patient's care discussed in the presence of School Bus Attendant and nurse. CONDITION: Stable SCRIBED BY: CLARICE BLACK Stem Roller Or Crusher Operator scribed while in presence of service performed by Dr. Garcia/Sandee Epstein APRN on 05/30/17 ([id number])
--- NOTE | 2017-05-30 11:18 | PN ---
DATE OF SERVICE: 05/28/17 SUBJECTIVE: 66 year old white male seen on the swing bed followup. The patient had right left redness of the skin. According to the he has it off and on. The patient was given warm packs. REVIEW OF SYSTEMS: CONSTITUTIONAL: No night sweats. No fatigue, malaise, lethargy. No fever or chills. HEENT: Eyes: No visual changes. No eye pain. No eye discharge. ENT: No runny nose. No epistaxis. No sinus pain. No sore throat. No odynophagia. No congestion. RESPIRATORY: No cough, no congestion. No hemoptysis. No shortness of breath. CARDIOVASCULAR: No angina symptoms. No CHF symptoms. No atypical chest pain for CAD. No palpitations. No orthopnea. GASTROINTESTINAL: No abdominal pain. No nausea or vomiting. No diarrhea or constipation. No hematemesis. No hematochezia. GENITOURINARY: No urgency. No frequency. No dysuria. No hematuria. No obstructive symptoms. No discharge. No pain. No significant abnormal bleeding. MUSCULOSKELETAL: No musculoskeletal pain; no joint swelling. NEUROLOGICAL: No headache. No neck pain. No syncope. No seizures. No dizziness. PSYCHIATRIC: Not anxious. No depression. No suicidal thoughts. No homicidal thoughts. SKIN: No rash. No lesions. No wounds. ENDOCRINE: No unexplained weight loss. No weight gain. HEMATOLOGIC/LYMPHATIC: No anemia. No purpura. No petechiae. No prolonged or excessive bleeding. No palpable lymph nodes. PHYSICAL EXAMINATION: GENERAL: The patient is oriented to time, place and person. VITAL SIGNS: Temperature 98, pulse 84, respiratory rate 15, blood pressure 140/ 70 and oxygen saturation 97%. HEENT: Head normocephalic, atraumatic. Eyes: Extraocular muscles are intact. Pupils are equal, round and reactive to light and accommodation. Ears: No lesions. Nose appeared normal. Throat: No exudate or erythema. NECK: Supple. No JVD, no carotid bruit. No lymphadenopathy or thyromegaly. LUNGS: Decreased breath sounds but clear to auscultation. Percussion note normal. Chest symmetrical. HEART: S1, S2, no S3. No murmurs. No cyanosis or clubbing. No ascites. Pulses: Dorsalis pedis and posterior tibial pulses +1 to +2 both sides. No symptoms of coronary insufficiency. No CHF symptoms. ABDOMEN: Soft. Nontender. Bowel sounds active. No CVA tenderness. No mass felt. EXTREMITIES: No edema. Full range of motion of all extremities, equal. Superficial redness which is mild. Calf tenderness. NEUROLOGIC: No focal deficit. Cranial nerves II through XII are grossly intact. No headache, no double vision or headache. SKIN: Not dry. Intact. Turgor - normal. LYMPHATIC: No palpable lymph nodes/no lymphedema. MUSCULOSKELETAL: Normal joints with no swelling. Muscle tone is normal. Complaining of stiffness of the back muscles. ASSESSMENT: 1. Superficial redness, could be from skin irritations 2. Superficial thrombophlebitis, maybe PLAN: 1. Will continue to give hot packs 2. Elevate the legs 3. I don't think that patient needs venous scan CONDITION: Stable. TIME SPENT: More than 30 minutes. Plan and coordination of the patient's care discussed in the presence of nurse. DEISI
--- NOTE | 2017-05-30 11:24 | PN ---
DATE OF SERVICE: 05/29/17 SUBJECTIVE: 66 year old white male was seen again today. Th patient's redness of subsided in the right lower extremity. He feels good and he is awake. He has been trying to walk. REVIEW OF SYSTEMS: CONSTITUTIONAL: No night sweats. No fatigue, malaise, lethargy. No fever or chills. HEENT: Eyes: No visual changes. No eye pain. No eye discharge. ENT: No runny nose. No epistaxis. No sinus pain. No sore throat. No odynophagia. No congestion. RESPIRATORY: No cough, no congestion. No hemoptysis. No shortness of breath. CARDIOVASCULAR: No angina symptoms. No CHF symptoms. No atypical chest pain for CAD. No palpitations. No orthopnea. GASTROINTESTINAL: No abdominal pain. No nausea or vomiting. No diarrhea or constipation. No hematemesis. No hematochezia. Appetite is good. GENITOURINARY: No urgency. No frequency. No dysuria. No hematuria. No obstructive symptoms. No discharge. No pain. No significant abnormal bleeding. MUSCULOSKELETAL: No musculoskeletal pain; no joint swelling. NEUROLOGICAL: No headache. No neck pain. No syncope. No seizures. No dizziness. PSYCHIATRIC: Not anxious. No depression. No suicidal thoughts. No homicidal thoughts. SKIN: No rash. No lesions. No wounds. ENDOCRINE: No unexplained weight loss. No weight gain. HEMATOLOGIC/LYMPHATIC: No anemia. No purpura. No petechiae. No prolonged or excessive bleeding. No palpable lymph nodes. PHYSICAL EXAMINATION: HEENT: Head normocephalic, atraumatic. Eyes: Extraocular muscles are intact. Pupils are equal, round and reactive to light and accommodation. Ears: No lesions. Nose appeared normal. Throat: No exudate or erythema. NECK: Supple. No JVD, no carotid bruit. No lymphadenopathy or thyromegaly. LUNGS: Clear to auscultation. Percussion note normal. Chest symmetrical. HEART: S1, S2, no S3. No murmurs. No cyanosis or clubbing. No ascites. Pulses: Dorsalis pedis and posterior tibial pulses +1 to +2 both sides. No symptom of CHF or coronary insufficiency. Cardiovascular status is stable. ABDOMEN: Soft. Nontender. Bowel sounds active. No CVA tenderness. No mass felt. EXTREMITIES: No edema. Full range of motion of all extremities, equal. Redness in the right lower leg has subsided. The patient has NEUROLOGIC: No focal deficit. Cranial nerves II through XII are grossly intact. No headache, no double vision or headache. SKIN: Not dry. Intact. Turgor - normal. LYMPHATIC: No palpable lymph nodes/no lymphedema. MUSCULOSKELETAL: Normal joints with no swelling. Muscle tone is normal. ASSESSMENT: 1. Anjum's ataxia PLAN: 1. Encouraged the patient to walk. CONDITION: Stable. TIME SPENT: More than 30 minutes. Plan and coordination of the patient's care discussed in the presence of nurse. DEISI
--- NOTE | 2017-05-30 14:18 | US ---
EXAM: Right lower extremity venous doppler. HISTORY: Right leg swelling and redness. COMPARISON: None available. TECHNIQUE: Multiple grayscale and color doppler images were obtained. FINDINGS: There is normal flow, compressibility and augmentation of flow within the right common fem oral, greater saphenous, profunda, femoral, popliteal, posterior tibial, anterior tibial and peroneal veins. Subcutaneous edema present in the calf. IMPRESSION: No evidence for right lower extremity deep vein thrombosis at the levels examined.
[2017-05-30] MEDS: CELEXA PO SCH (20:06)
[2017-05-30] MEDS: LIPITOR PO SCH (20:06)
[2017-05-31] MEDS: LASIX IM SCH (05:54)
[2017-05-31] MEDS: IMDUR PO SCH ×2 (08:20→21:30)
[2017-05-31] MEDS: ASPIRIN CHEWABLE PO SCH (08:20)
[2017-05-31] MEDS: PLAVIX PO SCH (08:21)
[2017-05-31] MEDS: NEURONTIN PO SCH ×2 (08:21→21:31)
[2017-05-31] MEDS: ZESTRIL PO SCH (08:21)
[2017-05-31] MEDS: MICRO-K CAP PO SCH (08:21)
[2017-05-31] MEDS: GLUCOPHAGE PO SCH ×2 (08:21→17:18)
[2017-05-31] MEDS: JANUVIA PO SCH (08:21)
[2017-05-31] MEDS: LOPRESSOR PO SCH ×2 (08:21→17:18)
[2017-05-31] MEDS: TORADOL IM SCH ×2 (08:22→21:29)
[2017-05-31] MEDS: MIRALAX PO SCH ×2 (08:22→21:28)
[2017-05-31] MEDS: LIPITOR PO SCH (21:29)
[2017-05-31] MEDS: CELEXA PO SCH (21:30)
[2017-05-31] MEDS: HUMULIN R SUBCUT PRN (21:38)
[2017-06-01] MEDS: LASIX IM SCH (06:16)
[2017-06-01] MEDS: MIRALAX PO SCH ×2 (08:26→20:43)
[2017-06-01] MEDS: MICRO-K CAP PO SCH (08:26)
[2017-06-01] MEDS: ZESTRIL PO SCH (08:26)
[2017-06-01] MEDS: LOPRESSOR PO SCH ×2 (08:26→17:43)
[2017-06-01] MEDS: PLAVIX PO SCH (08:26)
[2017-06-01] MEDS: JANUVIA PO SCH (08:26)
[2017-06-01] MEDS: GLUCOPHAGE PO SCH ×2 (08:27→17:44)
[2017-06-01] MEDS: NEURONTIN PO SCH ×2 (08:27→20:45)
[2017-06-01] MEDS: IMDUR PO SCH ×2 (08:27→20:45)
[2017-06-01] MEDS: ASPIRIN CHEWABLE PO SCH (08:27)
[2017-06-01] MEDS: TORADOL IM SCH ×2 (08:28→20:44)
--- NOTE | 2017-06-01 09:16 | PCM.PROG ---
Attending Provider: ATTENDING PROVIDER: Dr. GENESIS GARCIA DATE OF SERVICE: 06/01/17 SUBJECTIVE: This 66 year old WHITE/ M was hospitalized 05/23/17. The patient was hospitalized with acute inferolateral wall [place] now in swing bed and condition has steadily improved. REVIEW OF SYSTEMS: CONSTITUTIONAL: No night sweats. No fatigue, malaise, lethargy. No fever or chills. HEENT: Eyes: No visual changes. No eye pain. No eye discharge. ENT: No runny nose. No epistaxis. No sinus pain. No odynophagia. No congestion. RESPIRATORY: No cough, no congestion. No hemoptysis. No shortness of breath. CARDIOVASCULAR: No angina symptoms. No CHF symptoms. No atypical chest pain for CAD. No palpitations. No orthopnea.. GASTROINTESTINAL: No abdominal pain. No nausea or vomiting. No diarrhea or constipation. No hematemesis. No hematochezia. GENITOURINARY: No urgency. No frequency. No dysuria. No hematuria. No obstructive symptoms. No discharge. No pain. No significant abnormal bleeding. MUSCULOSKELETAL: No musculoskeletal pain; no joint swelling. NEUROLOGICAL: Awake, alert, oriented to time, place and person. No headache. No neck pain. No syncope. No seizures. No dizziness. PSYCHIATRIC: Not anxious. No depression. No suicidal thoughts. No homicidal thoughts. SKIN: No rash. No lesions. No wounds. ENDOCRINE: The patient has lost 13 pounds. HEMATOLOGIC/LYMPHATIC: No anemia. No purpura. No petechiae. No prolonged or excessive bleeding. No palpable lymph nodes. PHYSICAL EXAMINATION: GENERAL: The patient is awake, alert and oriented, sitting in chair in no distress. VITAL SIGNS: Temperature 98.8 F, Pulse 76, Respiratory Rate 22, BP 135/80, Pulse Ox 92% HEENT: Head normocephalic, atraumatic. Eyes: Extraocular muscles are intact. Pupils are equal, round and reactive to light and accommodation. Ears: No lesions. Nose appeared normal. Throat: No exudate or erythema. NECK: Supple. No JVD, no carotid bruit. No lymphadenopathy or thyromegaly. LUNGS: Clear to auscultation. Percussion note normal. Chest symmetrical. HEART: S1, S2, no S3. No murmurs. No cyanosis or clubbing. No ascites. Pulses: Dorsalis pedis and posterior tibial pulses +1 to +2 both sides. ABDOMEN: Soft. Non-tender. Bowel sounds active. No CVA tenderness. No mass felt. EXTREMITIES: Pedal edema is much less. Full range of motion of all extremities , equal. NEUROLOGIC: No focal deficit. Cranial nerves II through XII are grossly intact. No headache, no double vision or headache. SKIN: Not dry. Intact. Turgor-normal. LYMPHATIC: No palpable lymph nodes/no lymphedema. MUSCULOSKELETAL: Normal joints with no swelling. Muscle tone is normal. LAB REVIEW: 05/30/17 05:12 05/30/17 05:12 ASSESSMENT: 1. Leg edema 2. Weight gain - the patient has now lost 13 lbs. 3. Acute [place] inferolateral, no symptoms 4. CHF, no symptoms 5. Friedreich's ataxia 4. Diabetes mellitus 5. The patient has fever, unknown etiology, being treated for UTI, resolved 6. No symptoms of UTI so far 7. Constipation, resolved PLAN: 1. Anticipate discharge home tomorrow 2. No prison placement. 3. The other issue was placement of the patient at discharge. A meeting was held with the family and Chute Boss. It was decided that the patient would like to go home. The patient has Friederich's ataxia and is difficult to manage ; however, the has managed the patient for several years. The patient has agreed for Home Health Care to monitor blood pressure, medications and weight and will do PT. Plan and coordination of the patient's care discussed in the presence of Chute Boss and nurse. CONDITION: Stable SCRIBED BY: CLARICE BLACK Extracting Machine Operator scribed while in presence of service performed by Dr. GENESIS GARCIA on 06/01/17 ([id number])
--- NOTE | 2017-06-01 11:38 | PN ---
DATE OF SERVICE: 05/30/17 SUBJECTIVE: The patient is in the swing bed being seen again today. He is doing a lot better. Right lower leg redness has completely subsided and venous scan was negative. He has fluid retention with weight gain, we will give him IV Lasix and elevate the legs. The patient has no evidence of any CHF. It is to be noted that the patient's weights in the hospital are not reliable. The patient was seen and examined with Nurse Practitioner and Single Ending Machine Operator. TIME SPENT: More than 30 minutes. Plan and coordination of the patient's care discussed in the presence of nurse. DEISI
--- NOTE | 2017-06-01 13:53 | PN ---
DATE OF SERVICE: 05/31/17 SUBJECTIVE: 66 year old white male in the swing bed after having acute inferolateral wall HI. The patient has done well. 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 He is much better. He had some fluid retention. He has been losing weight, he lost nearly 7 pounds in one day. Again leg edema is much less. Again venous scan was negative. The patient's condition is stable. Cardiovascular status stable. PHYSICAL EXAMINATION: GENERAL: The patient is advised to be up and about. HEENT: Head normocephalic, atraumatic. Eyes: Extraocular muscles are intact. Pupils are equal, round and reactive to light and accommodation. Ears: No lesions. Nose appeared normal. Throat: No exudate or erythema. NECK: Supple. No JVD, no carotid bruit. No lymphadenopathy or thyromegaly. LUNGS: Clear to auscultation. Percussion note normal. Chest symmetrical. HEART: S1, S2, no S3. No murmurs. No cyanosis or clubbing. No ascites. Pulses: Dorsalis pedis and posterior tibial pulses +1 to +2 both sides. ABDOMEN: Soft. Nontender. Bowel sounds active. No CVA tenderness. No mass felt. EXTREMITIES: No edema. Full range of motion of all extremities, equal. NEUROLOGIC: No focal deficit. Cranial nerves II through XII are grossly intact. No headache, no double vision or headache. SKIN: Not dry. Intact. Turgor - normal. LYMPHATIC: No palpable lymph nodes/no lymphedema. MUSCULOSKELETAL: Normal joints with no swelling. Muscle tone is normal. CONDITION: Stable. TIME SPENT: More than 30 minutes. The patient was seen and examined with Nurse Practitioner. Plan and coordination of the patient's care discussed in the presence of nurse. DEISI
[2017-06-01] MEDS: HUMULIN R SUBCUT PRN ×2 (17:47→20:44)
[2017-06-01] MEDS: CELEXA PO SCH (20:45)
[2017-06-01] MEDS: LIPITOR PO SCH (20:47)
[2017-06-02 06:03] VITALS: BP 154/87; TEMP 98.8
[2017-06-02] MEDS: LASIX IM SCH (06:18)
[2017-06-02 07:15] LABS: BASOPHILS % (AUTO) 0.6 % (0.0-3.0); EOSINOPHILS # (AUTO) 0.2 K/ul (0.0-0.7); EOSINOPHILS % (AUTO) 3.4 % (0.0-7.0); HEMATOCRIT 35.3 % (42.0-52.0); HEMOGLOBIN 11.9 g/dl (14.0-18.0); IMMATURE GRANULOCYTE % (AUTO) 0.3 % (0.0-5.0); LYMPHOCYTES # (AUTO) 1.6 K/uL (0.60-3.4); LYMPHOCYTES % (AUTO) 25.8 (10.0-50.0); MEAN CORPUSCULAR HEMOGLOBIN 29.1 pg (27.0-31.0); MEAN CORPUSCULAR HGB CONC 33.7 (31.8-35.4); MEAN CORPUSCULAR VOLUME 86.3 fl (80.0-94.0); MONOCYTES # (AUTO) 0.5 K/uL (0.4-2.0); MONOCYTES % (AUTO) 7.9 (0-10); NEUTROPHILS # (AUTO) 3.8 K/ul (2.0-6.9); PLATELET COUNT 174 10^3/uL (140-440); RED BLOOD COUNT 4.09 10^6/ul (4.70-6.10); WHITE BLOOD COUNT 6.17 K/ul (4.2-10.2)
[2017-06-02 07:27] LABS: ALBUMIN/GLOBULIN RATIO 0.7; ANION GAP 12.5; BILIRUBIN,TOTAL 0.66 mg/dL (0.00-1.20); BUN/CREATININE RATIO 31.52; CALCIUM 9.1 mg/dL (8.2-10.2); CREATININE 0.92 mg/dL (0.60-1.10); POTASSIUM 4.5 mmol/L (3.5-5.1); TOTAL PROTEIN 7.3 g/dL (5.8-8.1)
[2017-06-02] MEDS ORDERED: ZAROXOLYN PO STA (08:43)
[2017-06-02] MEDS ORDERED: ZAROXOLYN PO SCH (09:00)
[2017-06-02] MEDS: NEURONTIN PO SCH (09:08)
[2017-06-02] MEDS: MIRALAX PO SCH (09:08)
[2017-06-02] MEDS: JANUVIA PO SCH (09:08)
[2017-06-02] MEDS: LOPRESSOR PO SCH (09:09)
[2017-06-02] MEDS: ZESTRIL PO SCH (09:09)
[2017-06-02] MEDS: IMDUR PO SCH (09:09)
[2017-06-02] MEDS: ASPIRIN CHEWABLE PO SCH (09:10)
[2017-06-02] MEDS: MICRO-K CAP PO SCH (09:10)
[2017-06-02] MEDS: TORADOL IM SCH (09:10)
[2017-06-02] MEDS: PLAVIX PO SCH (09:10)
[2017-06-02] MEDS: GLUCOPHAGE PO SCH (09:10)
--- NOTE | 2017-06-02 10:00 | PCM.PROG ---
Attending Provider: ATTENDING PROVIDER: Dr. GENESIS GARCIA This patient is seen with Sandee Epstein, Nurse Practitioner. DATE OF SERVICE: 06/02/17 SUBJECTIVE: This 66 year old WHITE/ M was hospitalized 05/23/17. The patient is sitting in the chair, alert. He has lost 14.3 lbs total since Tuesday. He is ready to go home. He is agreeable to Home Health through [facility] for nursing services, PT/OT, blood pressure monitoring and weight. REVIEW OF SYSTEMS: CONSTITUTIONAL: Leg weakness. No night sweats. No fever or chills. HEENT: Eyes: No visual changes. No eye pain. No eye discharge. ENT: No runny nose. No epistaxis. No sinus pain. No odynophagia. No congestion. RESPIRATORY: No cough, no congestion. No hemoptysis. No shortness of breath. CARDIOVASCULAR: No angina symptoms. No CHF symptoms. No atypical chest pain for CAD. No palpitations. No orthopnea.. GASTROINTESTINAL: No abdominal pain. No nausea or vomiting. No diarrhea or constipation. No hematemesis. No hematochezia. GENITOURINARY: No urgency. No frequency. No dysuria. No hematuria. No obstructive symptoms. No discharge. No pain. No significant abnormal bleeding. MUSCULOSKELETAL: No musculoskeletal pain; no joint swelling. NEUROLOGICAL: Awake, alert, oriented to time, place and person. No headache. No neck pain. No syncope. No seizures. No dizziness. PSYCHIATRIC: Not anxious. No depression. No suicidal thoughts. No homicidal thoughts. SKIN: No rash. No lesions. No wounds. ENDOCRINE: No unexplained weight loss. No weight gain. HEMATOLOGIC/LYMPHATIC: No anemia. No purpura. No petechiae. No prolonged or excessive bleeding. No palpable lymph nodes. PHYSICAL EXAMINATION: GENERAL: The patient is awake, alert and oriented, sitting in chair in no distress. VITAL SIGNS: Temperature 98.8 F, Pulse 81, Respiratory Rate 20, BP 154/87, Pulse Ox 96% HEENT: Head normocephalic, atraumatic. Eyes: Extraocular muscles are intact. Pupils are equal, round and reactive to light and accommodation. Ears: No lesions. Nose appeared normal. Throat: No exudate or erythema. NECK: Supple. No JVD, no carotid bruit. No lymphadenopathy or thyromegaly. LUNGS: Clear to auscultation. Percussion note normal. Chest symmetrical. HEART: S1, S2, no S3. No murmurs. No cyanosis or clubbing. No ascites. Pulses: Dorsalis pedis and posterior tibial pulses +1 to +2 both sides. ABDOMEN: Soft. Non-tender. Bowel sounds active. No CVA tenderness. No mass felt. EXTREMITIES: 1+ pitting edema bilateral lower extremities. Full range of motion of all extremities, equal. NEUROLOGIC: No focal deficit. Cranial nerves II through XII are grossly intact. No headache, no double vision or headache. SKIN: Not dry. Intact. Turgor-normal. LYMPHATIC: No palpable lymph nodes/no lymphedema. MUSCULOSKELETAL: Normal joints with no swelling. Muscle tone is normal. LAB REVIEW: 06/02/17 07:00 06/02/17 07:00 06/02/17 07:00: Sodium 139, Potassium 4.5, Chloride 102, Carbon Dioxide 29, Anion Gap 12.5, BUN 29 H, Creatinine 0.92, Estimated GFR (MDRD) 82.00, BUN/ Creatinine Ratio 31.52, Glucose 110, Calcium 9.1, Total Bilirubin 0.66, AST 16, ALT 20, Alkaline Phosphatase 66, Total Protein 7.3, Albumin 3.0 L, Globulin 4.3 , Albumin/Globulin Ratio 0.70 06/02/17 07:00: WBC 6.17, RBC 4.09 L, Hgb 11.9 L, Hct 35.3 L, MCV 86.3, MCH 29.1 , MCHC 33.7, RDW Coeff of Veronica 13.4, Plt Count 174, Immature Gran % (Auto) 0.3, Neut % (Auto) 62.0, Lymph % (Auto) 25.8, [place] % (Auto) 7.9, Eos % (Auto) 3.4, Baso % (Auto) 0.6, Immature Gran # (Auto) 0.0, Neut # 3.8, Lymph # 1.6, [place] # 0.5, Eos # 0.2, Baso # 0.0 ASSESSMENT: 1. Leg edema 2. Weight gain - the patient has now lost 14.3 lbs since Tuesday 3. Acute [place] inferolateral, no symptoms 4. CHF, no symptoms 5. Friedreich's ataxia 4. Diabetes mellitus 5. The patient has fever, unknown etiology, being treated for UTI, resolved 6. No symptoms of UTI so far 7. Constipation, resolved PLAN: 1. CBC and CMP before discharge 2. Continue Lasix 40 mg with potassium 3. Increase Lopressor 50 mg 4. Zaroxolyn 2.5 mg one time dose 5. Continue medications as here 6. Home Health 7. Discharge home today Plan and coordination of the patient's care discussed in the presence of Arts And Crafts Teacher and nurse. CONDITION: Stable SCRIBED BY: CLARICE BLACK Tool Designer Apprentice scribed while in presence of service performed by Dr. Garcia/Sandee Epstein APRN on 06/02/17 ([id number])
--- NOTE | 2017-06-02 12:38 | CM.DICTOOL ---
ADMISSION: 05/23/17 15:15 To Transitional Care DISCHARGE: June 02, 2017 From Transitional Care DATE OF SERVICE: 06/02/17 FINAL DIAGNOSIS Acute Inferior Lateral Wall AK Decline in functional mobility Ataxia with Polyarthritis Friedreich's Ataxia Diabetes Mellitus, type 2 Hypertension Leg Edema Constipation, resolved Dyslipidemia Obesity Neuropathy Depression Vitamin D deficiency Cholecystectomy Appendectomy Artificial Right Eye LAST VITALS Temp Pulse Resp BP Pulse Ox 98.8 F 81 20 154/87 H 96 06/02/17 06:00 06/02/17 06:00 06/02/17 06:00 06/02/17 06:00 06/02/17 06:00 ACTIVE HOME MEDICATIONS Citalopram Hydrobromide (Celexa) 20 mg PO BEDTIME [facility] Last Admin: 06/01/17 20:45 Dose: 20 mg Gabapentin (Neurontin) 300 mg PO BID [facility] Last Admin: 06/02/17 09:08 Dose: 300 mg Lisinopril (Zestril) 20 mg PO DAILY [facility] Last Admin: 06/02/17 09:09 Dose: 20 mg (dose increase) Metformin HCl (Glucophage) 500 mg PO BIDWM [facility] Last Admin: 06/02/17 09:10 Dose: 500 mg Sitagliptin Phosphate (Januvia) 100 mg PO DAILY [facility] Last Admin: 06/02/17 09:08 Dose: 100 mg ALLERGIES No Known Allergies Allergy (Verified 05/15/17 16:48) NEW PRESCRIPTIONS: Lipitor 40 mg daily at bedtime Plavix 75 mg daily NTG grain 1/150 1 SL prn chest pain Lisinopril 20 mg daily Lopressor 50 mg BID Micro K 10 meq daily Lasix 40 mg daily before breakfast Tramadol 50 mg BID prn pain SMOKING: Not Applicable DISEASE SPECIFIC EDUCATION: New Medications Fluid Retention Nutrition Activity Home health Appointment LAB REVIEW: 06/02/17 07:00 06/02/17 07:00 06/02/17 07:00: Sodium 139, Potassium 4.5, Chloride 102, Carbon Dioxide 29, Anion Gap 12.5, BUN 29 H, Creatinine 0.92, Estimated GFR (MDRD) 82.00, BUN/ Creatinine Ratio 31.52, Glucose 110, Calcium 9.1, Total Bilirubin 0.66, AST 16, ALT 20, Alkaline Phosphatase 66, Total Protein 7.3, Albumin 3.0 L, Globulin 4.3 , Albumin/Globulin Ratio 0.70 06/02/17 07:00: WBC 6.17, RBC 4.09 L, Hgb 11.9 L, Hct 35.3 L, MCV 86.3, MCH 29.1 , MCHC 33.7, RDW Coeff of Veronica 13.4, Plt Count 174, Immature Gran % (Auto) 0.3, Neut % (Auto) 62.0, Lymph % (Auto) 25.8, [place] % (Auto) 7.9, Eos % (Auto) 3.4, Baso % (Auto) 0.6, Immature Gran # (Auto) 0.0, Neut # 3.8, Lymph # 1.6, [place] # 0.5, Eos # 0.2, Baso # 0.0 PLAN: Discharge home Diet: Heart Healthy, Consistent Carbohydrates Activity: Resume as tolerated to previous level of activity; short distance ambulation with rolling walker Elevate legs when in bed and when sitting Weigh weekly (weight today 263) Accu-checks at least 2-3 times daily Blood pressure daily Avoid constipation Medication changes: Glimepiride (amaryl) has been discontinued Lisinopril (Zestril) has been increased to 20 mg daily An appointment has been scheduled with Dr. Guillaume/Sandee Epstein APRN on TuesdayJune 07 at 10:15 am A referral has been made to [facility] for: Nursing assessment Vital Signs Edema/Weight Physical and Occupational Therapy Medication review Mr. Cruz is alert and oriented x 3. He requires assistance of 2 staff members , a gait belt and use of the rolling walker for transfer from the bed to the chair and to the bedside commode. He is continent of urine and uses the urinal for voiding, but is noted to have dribbling at times. He is continent of stool and had several bowel movements yesterday. He denies abdominal pain or nausea. Meal intakes are 100%. He denies chest pain. He is short of breath with exertion. Pitting edema is noted to the lower extremities. He requires assistance with personal care due to history of ataxia with polyarthritis and Fredreich's ataxia. His skin is intact and free of rashes or decubitus ulcers. He has a lift chair, wheelchair, rollator, standard walker and bedside commode in the home. Chet Guillaume MD Sandee Epstein APRN
--- NOTE | 2017-06-06 08:42 | PN ---
DATE OF SERVICE: 06/02/17 SUBJECTIVE: The patient was in swing bed after acute inferolateral wall WI. The patient's condition is stable. He Friedreich's Ataxia so he has been on physical therapy. According to the this is the way he was prior to his sickness. He is going to be discharged on physical therapy. The patient's fluid retention seems to be under control now. The patient is going to be on Zaroxolyn for a few days. CONDITION: Stable. The patient was seen and examined with Nurse Practitioner. TIME SPENT: More than 30 minutes. Plan and coordination of the patient's care discussed in the presence of nurse. DEISI
--- NOTE | 2017-06-06 11:25 | DS ---
DATE OF SERVICE: 06/02/17 FINAL DIAGNOSIS: 1. ACUTE INFERIOR LATERAL WALL HI 2. DECLINE IN FUNCTIONAL MOBILITY 3. ATAXIA WITH POLYARTHRITIS 4. FRIEDREICH'S ATAXIA 5. DIABETES MELLITUS, TYPE 2 6. HYPERTENSION 7. LEG EDEMA 8. CONSTIPATION, RESOLVED 9. DYSLIPIDEMIA 10. OBESITY 11. NEUROPATHY 12. DEPRESSION 13. VITAMIN D DEFICIENCY 14. CHOLECYSTECTOMY 15. 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 Guillaume/Sandee Epstein APRN on TuesdayJune 07 at 10:15 a.m. Accu-Checks at least 2 to 3 times daily. Blood pressure daily. Avoid constipation. A referral has been made to [facility] for nursing assessment, vital signs, edema/weight, physical and occupational therapy, medication review. MEDICATION CHANGES: Glimepiride (Amaryl has been discontinued Lisinopril (Zestril)has been increased to 20 mg daily MEDICATIONS AT DISCHARGE: Celexa 20 mg p.o. bedtime ROSALINDA Neurontin 300 mg p.o. b.i.d. ROSALINDA Zestril 20 mg p.o. daily ROSALINDA Glucophage 500 mg p.o. b.i.d. ROSALINDA Januvia 100 mg p.o. daily ROSALINDA NEW PRESCRIPTIONS: Lipitor 40 mg daily at bedtime Plavix 75 mg daily Nitroglycerin grain 1/150 1 SL p.r.n. chest pain Lisinopril 20 mg daily Lopressor 50 mg b.i.d. Micro K 10 mEq daily Lasix 40 mg daily before breakfast Tramadol 50 mg b.i.d. p.r.n. pain DIET INSTRUCTIONS: Heart Healthy, Consistent Carbohydrates ACTIVITY: Resume as tolerated to previous level of activity; short distance ambulation with rolling walker. Elevate legs when in bed and when sitting. Weigh weekly ( weight today 263) SMOKING: N/A DISEASE SPECIFIC EDUCATION: New medications Fluid retention Nutrition Activity Home Health Appointment HOSPITAL COURSE: This is a 66-year-old white male with a history of Friedreich's ataxia, diabetes , hypertension, dyslipidemia, obesity who has had a steady decline in functional mobility due to Friedreich's ataxia. He arrived in the Emergency Room showing changes in his EKG and he refused transfer or cardiac catheterization. It was found after positive cardiac enzymes that he had acute inferolateral wall HI. The patient first experienced hypotension. We had to back off the Zestril and Lopressor. He was given Imdur. After several days he did start running a low grade fever in the evenings thought to be from the HI. The morning after admission he quit experiencing chest pain. Over the course of several days, his blood pressure returned to normal. Today, on day of discharge , his blood pressure is 154/87. We will increase his Lopressor to 25 mg b.i.d. as his heart rate has stayed around 81 to 90. He did experience some low back pain during his hospital stay thought to be from inactivity and lying in bed. We did start him on Plavix right after admission 75 mg daily. He had an elevated lipid panel for which we started him on Lipitor 40 mg daily. He also had gained 14 lbs over the past two weeks and has since lost 13 lbs of that after starting him on Lasix 40 mg daily. He did experience hypokalemia at one point which resolved after giving 40 mEq of potassium three times a day for one day. Today on day of discharge, his potassium is stable at 4.5. We will discharge him home on Lasix 40 mg daily along with potassium 10 mEq daily. His leg edema has improved from yesterday and the day before. He is not experiencing any shortness of breath. He has not experienced chest pain for several days. He has been afebrile for the past four days. After his fever initially started, after, the first 24 hours after admission he was placed on Rocephin 1 gm IV. A UA was done which was negative. It was found no other reason for infection. White count remained normal. Blood cultures were normal. It was thought the low grade temperature was to be from the HI. Information was given regarding daily weights. He is going to have [facility] at home and also for health care as well as PT and OT. He is instructed to elevate his legs when in bed and when sitting and weigh. Medication changes have been reviewed in detail. He does have a long history of noncompliance with followup and medications. This was discussed with him in detail and the need for him to followup closely. He has agreed to followup with us early next week and be more compliant with his medications. Labs today were stable. Hemoglobin 11.9, hematocrit 35.3, white count 6.17, platelets 174. Sodium 139, potassium 4.5, BUN 29, creatinine 0.92, glucose 110. Again his vital signs have been stable. The patient is discharged in stable condition. He was offered to be transferred numerous times, declines to see any other solar applications development engineer. He wanted to stay here at [place] and declined any future cardiac catheterization. We will continue to take close care of him. We did administer Zaroxolyn 2.5 mg as a one time dose before discharge in order to help with swelling as it was trace to +1 today. We will follow him early next week. TIME SPENT: More than 60 minutes. MTDD
== END 2017-06-02 13:30 | disposition home or self-care (01) | DRG 281 ==
LOC: SCU 15:15 → UNDOADMIN 15:37
PROVIDERS: ADMIT Internal Medicine; ATTEND Internal Medicine
DX: I21.19 ST elevation (STEMI) myocardial infarction involving other coronary artery of inferior wall (principal); G11.1 Early-onset cerebellar ataxia; R53.81 Other malaise; R60.0 Localized edema; E11.9 Type 2 diabetes mellitus without complications; I50.9 Heart failure, unspecified; I10 Essential (primary) hypertension; R50.9 Fever, unspecified; K59.00 Constipation, unspecified; E78.5 Hyperlipidemia, unspecified; E66.9 Obesity, unspecified; G62.9 Polyneuropathy, unspecified; F32.9 Major depressive disorder, single episode, unspecified; E55.9 Vitamin D deficiency, unspecified; E87.6 Hypokalemia; M54.9 Dorsalgia, unspecified; Z90.49 Acquired absence of other specified parts of digestive tract; Z53.20 Procedure and treatment not carried out because of patient's decision for unspecified reasons; Z79.4 Long term (current) use of insulin; Z79.899 Other long term (current) drug therapy
CPT/HCPCS: 36415; 80053; 82962; 85025; 97802

== ENCOUNTER 2020-07-27 17:18 | Inpatient (IN) ==
[2020-07-27] MEDS ORDERED: CLEOCIN 900 MG/50 ML D5W 900 MG/50 ML BAG IV STA (17:30)
--- NOTE | 2020-07-27 17:53 | ED.PDOC ---
General ED Provider: Dr. FABIÁN MONTEJO Chief Complaint: Rash Stated Complaint: hes had this for a month-- has been putting dressings on it and now its red Time Seen by Physician: 17:51 Mode of Arrival: Stretcher Information Source: Patient Exam Limitations: No limitations Primary Care Provider: GENESIS HAYNES Nursing and Triage Documentation Reviewed and Agree: Yes Does patient meet sepsis criteria?: No System Inflammatory Response Syndrome: Not Applicable Sepsis Protocol: For patient's 13 years and over: Temp is 96.8 and below OR 101 and greater Pulse >90 BPM Resp >20/minute Acutely Altered Mental Status Are patient's symptoms suggestive of a new infection, such as: -Pneumonia -Skin, Soft Tissue -Endocarditis -UTI -Bone, Joint Infection -Implantable Device -Acute Abdominal Infection -Wound Infection -Meningitis -Blood Stream Catheter Infection -Unknown Skin Complaint Exam Skin/Soft Tissue Complaint/Exam Onset/Duration: 4 weeks Symptoms Are: Still present Timing: Constant Initial Severity: Mild Current Severity: Mild Location: right ankle Character: Reports Redness, Swelling, Raised and Painful Aggravating: Reports None Associated Signs and Symptoms: Reports Drainage, Tenderness and Red streaks Recent Exposure to Others w/Similar Symptoms: No Skin Findings: Present Erythema and Wet ulceration Joint Tenderness Present: No Differential Diagnoses: Cellulitis and Infection Review of Systems Review Of Systems Constitutional: Reports No symptoms Eyes: Reports No symptoms Ears, Nose, Mouth, Throat: Reports No symptoms Respiratory: Reports No symptoms Cardiac: Reports No symptoms GI: Reports No symptoms : Reports No symptoms Musculoskeletal: Reports No symptoms Skin: Reports Rash Neurological: Reports No symptoms Endocrine: Reports No symptoms Hematologic/Lymphatic: Reports No symptoms All Other Systems: Reviewed and Negative [facility] Social History History of recent travel: No Physical Exam Physical Exam Appearance: Reports Well-appearing Pain Distress: None Eyes: Reports ANUSHKA, EOMI and Conjunctiva clear ENT: Reports Ears normal, Nose normal and Oropharynx normal Neck: Supple Respiratory: Reports Airway patent, Breath sounds clear and Breath sounds equal Cardiovascular: Reports RRR, Pulses normal, No rub and No murmur GI/: Reports Soft, Nontender, No masses and Bowel sounds normal Musculoskeletal: Reports Normal strength, ROM intact and No edema Skin: Reports Warm, Dry and Normal color Neurological: Reports Sensation intact, Motor intact, Reflexes intact, Cranial nerves intact, Alert and Oriented Psychiatric: Reports Affect appropriate and Mood appropriate Physician Notification Case Discussed Physician Notified: dr haynes Time of Notification: 18:24 Critical Care Note Critical Care Note Total Critical Care Time (mins): 0 Course Course Hematology/Chemistry: 07/27/20 17:56 07/27/20 17:56 Orders, Labs, Meds: Lab Review 07/27/20 07/27/20 07/27/20 17:56 17:56 17:56 WBC 9.46 RBC 4.62 L Hgb 13.3 L Hct 39.4 L MCV 85.3 MCH 28.8 MCHC 33.8 RDW Coeff of Veronica 13.0 Plt Count 192 Immature Gran % (Auto) 0.3 Neut % (Auto) 78.2 H Lymph % (Auto) 10.1 [place] % (Auto) 8.7 Eos % (Auto) 2.3 Baso % (Auto) 0.4 Neut # (Auto) 7.4 H Lymph # (Auto) 1.0 [place] # (Auto) 0.8 Eos # (Auto) 0.2 Baso # (Auto) 0.0 Immature Gran # (Auto) 0.0 ESR Pending Sodium 136.3 Potassium 4.46 Chloride 100.7 Carbon Dioxide 24.2 Anion Gap 15.86 BUN 18.2 Creatinine 0.60 Estimated GFR (MDRD) 132.00 BUN/Creatinine Ratio 30.33 Glucose 111.1 H Lactic Acid Calcium 9.98 Total Bilirubin 0.92 AST 22.7 ALT 17.7 Alkaline Phosphatase 70.3 Total Protein 8.58 H Albumin 4.73 Globulin 3.85 Albumin/Globulin Ratio 1.22 SARS-CoV-2 Ag (Rapid) Negative 07/27/20 17:56 WBC RBC Hgb Hct MCV MCH MCHC RDW Coeff of Veronica Plt Count Immature Gran % (Auto) Neut % (Auto) Lymph % (Auto) [place] % (Auto) Eos % (Auto) Baso % (Auto) Neut # (Auto) Lymph # (Auto) [place] # (Auto) Eos # (Auto) Baso # (Auto) Immature Gran # (Auto) ESR Sodium Potassium Chloride Carbon Dioxide Anion Gap BUN Creatinine Estimated GFR (MDRD) BUN/Creatinine Ratio Glucose Lactic Acid 2.38 H Calcium Total Bilirubin AST ALT Alkaline Phosphatase Total Protein Albumin Globulin Albumin/Globulin Ratio SARS-CoV-2 Ag (Rapid) Orders Category Date Time Status EKG-(ED ONLY) Stat CARDIO 07/27/20 17:32 Ordered ED IV/MEDIPORT/POWERPORT .ONCE EMERGENCY 07/27/20 17:30 Active BLOOD CULTURE (ED ONLY) Stat LAB 07/27/20 17:56 Received CBC W/ AUTO DIFF Stat LAB 07/27/20 17:56 Results COMPREHENSIVE METABOLIC PANEL Stat LAB 07/27/20 17:56 Completed COVID-19 ANTIGEN TEST Stat LAB 07/27/20 17:56 Completed ESR Stat LAB 07/27/20 17:56 Results LACTIC ACID Stat LAB 07/27/20 17:56 Completed 0.9 % Sodium Chloride [Saline Flush] MEDS 07/27/20 17:30 Active 1 syr IVF PRN PRN Clindamycin Phosphate/D5w [Cleocin 900 mg/50 ml D5w] MEDS 07/27/20 17:30 Discontinued 900 mg in 50 ml IV ONCE Medications Generic Name Dose Route Start Last Admin Trade Name Freq PRN Reason Stop Dose Admin Sodium Chloride 1 syr 07/27/20 17:30 07/27/20 18:16 0.9% Sodium Chloride 10 Ml Disp.Syrin IVF 1 syr PRN PRN Administration To flush IV Discontinued Medications Generic Name Dose Route Start Last Admin Trade Name Freq PRN Reason Stop Dose Admin Clindamycin Phosphate 900 mg in 50 mls @ 75 mls/hr 07/27/20 17:30 07/27/20 18:16 Cleocin 900 Mg/50 Ml D5w IV 07/27/20 18:09 75 mls/hr ONCE STA Administration Vital Signs: Temp Pulse Resp BP Pulse Ox 07/27/20 17:19 97.7 F 68 20 109/74 99 Discharge Plan Discharge Patient Disposition: ADMITTED INPATIENT Discharge Problem: Leg ulcer, left, Cellulitis and abscess of left leg Prescriptions: No Action citalopram [Celexa] 20 MG tablet 20 mg PO BEDTIME RF: 0 gabapentin 300 MG capsule 300 mg PO BID RF: 0 sitagliptin [Januvia] 100 MG tablet 100 mg PO DAILY RF: 0 metformin [Glucophage] 1,000 MG tablet 1,000 mg PO BID RF: 0 nitroglycerin 0.4 MG tablet, sublingual 0.4 mg sublingual DIRECTED PRN (Reason: Chest Pain) Qty: 50 RF: 0 atorvastatin [Lipitor] 40 MG tablet 40 mg PO DAILY Qty: 30 RF: 0 clopidogrel [Plavix] 75 MG tablet 75 mg PO DAILY Qty: 30 RF: 0 furosemide 40 MG tablet 40 mg PO QDAC Qty: 30 RF: 0 lisinopril [Zestril] 20 MG tablet 20 mg PO DAILY Qty: 30 RF: 0 metoprolol tartrate 50 MG tablet 50 mg PO BID Qty: 60 RF: 0 potassium chloride 10 MEQ capsule, extended release 10 meq PO DAILY Qty: 30 RF: 0 tramadol 50 MG tablet 50 mg PO BID PRN (Reason: Moderate Pain) Qty: 60 RF: 0 ED Provider: FABIÁN MONTEJO Condition: Fair Physician Progress Note: []
[2020-07-27 17:57] LABS: BASOPHILS % (AUTO) 0.4 % (0.0-3.0); EOSINOPHILS # (AUTO) 0.2 K/ul (0.0-0.7); EOSINOPHILS % (AUTO) 2.3 % (0.0-7.0); HEMATOCRIT 39.4 % (42.0-52.0); HEMOGLOBIN 13.3 g/dl (14.0-18.0); IMMATURE GRANULOCYTE % (AUTO) 0.3 % (0.0-5.0); LYMPHOCYTES % (AUTO) 10.1 (10.0-50.0); MEAN CORPUSCULAR HEMOGLOBIN 28.8 pg (27.0-31.0); MEAN CORPUSCULAR HGB CONC 33.8 (31.8-35.4); MEAN CORPUSCULAR VOLUME 85.3 fl (80.0-94.0); MONOCYTES # (AUTO) 0.8 K/uL (0.4-2.0); MONOCYTES % (AUTO) 8.7 (0-10); NEUTROPHILS # (AUTO) 7.4 K/ul (2.0-6.9); NEUTROPHILS % (AUTO) 78.2 % (42.2-75.2); PLATELET COUNT 192 10^3/uL (140-440); RED BLOOD COUNT 4.62 10^6/ul (4.70-6.10); WHITE BLOOD COUNT 9.46 K/ul (4.2-10.2)
[2020-07-27 18:10] LABS: ALANINE AMINOTRANSFERASE 17.7 U/L (0-50); ALBUMIN 4.73 g/dL (3.5-5.0); ALKALINE PHOSPHATASE 70.3 U/L (56-119); ASPARTATE AMINO TRANSFERASE 22.7 U/L (17-59); BILIRUBIN,TOTAL 0.92 mg/dL (0.2-1.3); BLOOD UREA NITROGEN 18.2 mg/dL (9-20); CALCIUM 9.98 mg/dL (8.4-10.2); CARBON DIOXIDE 24.2 mmol/L (22-30.0); CHLORIDE 100.7 mmol/L (98-107); CREATININE 0.6 mg/dL (0.60-1.10); GLUCOSE 111.1 mg/dL (74-106); POTASSIUM 4.46 mmol/L (3.5-5.1); SODIUM 136.3 mmol/L (134.5-145); TOTAL PROTEIN 8.58 g/dL (6.3-8.2)
[2020-07-27 18:31] LABS: ERYTHROCYTE SEDIMENTATION RATE 56 mm/hr (0-15)
[2020-07-27] MEDS ORDERED: NITROSTAT SL PRN (18:40)
[2020-07-27] MEDS ORDERED: ULTRAM PO PRN (18:40)
[2020-07-27 20:35] VITALS: BMI 27.5
[2020-07-27] MEDS: LOPRESSOR PO SCH (22:30)
[2020-07-27] MEDS: NEURONTIN PO SCH (22:30)
[2020-07-27] MEDS: CELEXA PO SCH (22:30)
[2020-07-28] MEDS: CLEOCIN 600 MG/50 ML D5W 600 MG/50 ML BAG IV SCH ×4 (00:13→20:37)
[2020-07-28 05:30] LABS: BASOPHILS # (AUTO) 0.1 K/uL (0-0.2); BASOPHILS % (AUTO) 0.9 % (0.0-3.0); EOSINOPHILS # (AUTO) 0.2 K/ul (0.0-0.7); EOSINOPHILS % (AUTO) 2.8 % (0.0-7.0); HEMATOCRIT 32.3 % (42.0-52.0); HEMOGLOBIN 11.2 g/dl (14.0-18.0); IMMATURE GRANULOCYTE % (AUTO) 0.2 % (0.0-5.0); LYMPHOCYTES # (AUTO) 1.3 K/uL (0.60-3.4); LYMPHOCYTES % (AUTO) 22.7 (10.0-50.0); MEAN CORPUSCULAR HEMOGLOBIN 29.2 pg (27.0-31.0); MEAN CORPUSCULAR HGB CONC 34.7 (31.8-35.4); MEAN CORPUSCULAR VOLUME 84.3 fl (80.0-94.0); MONOCYTES # (AUTO) 0.6 K/uL (0.4-2.0); MONOCYTES % (AUTO) 10.6 (0-10); NEUTROPHILS # (AUTO) 3.6 K/ul (2.0-6.9); NEUTROPHILS % (AUTO) 62.8 % (42.2-75.2); PLATELET COUNT 177 10^3/uL (140-440); RDW COEFFICIENT OF VARIATION 12.9 % (11.6-14.8); RED BLOOD COUNT 3.83 10^6/ul (4.70-6.10); WHITE BLOOD COUNT 5.77 K/ul (4.2-10.2)
[2020-07-28 05:45] LABS: ALANINE AMINOTRANSFERASE 14.2 U/L (0-50); ALBUMIN 3.92 g/dL (3.5-5.0); ALKALINE PHOSPHATASE 59.6 U/L (56-119); ASPARTATE AMINO TRANSFERASE 19.9 U/L (17-59); BILIRUBIN,TOTAL 0.85 mg/dL (0.2-1.3); BLOOD UREA NITROGEN 22.7 mg/dL (9-20); CALCIUM 9.18 mg/dL (8.4-10.2); CARBON DIOXIDE 22.2 mmol/L (22-30.0); CHLORIDE 104.6 mmol/L (98-107); CREATININE 0.62 mg/dL (0.60-1.10); GLUCOSE 123.3 mg/dL (74-106); POTASSIUM 4.28 mmol/L (3.5-5.1); SODIUM 135.4 mmol/L (134.5-145); TOTAL PROTEIN 7.23 g/dL (6.3-8.2)
[2020-07-28] MEDS ORDERED: LASIX TAB PO SCH (06:30)
[2020-07-28] MEDS ORDERED: LASIX IVP STA (08:29)
[2020-07-28] MEDS ORDERED: ZESTRIL PO SCH (09:00)
[2020-07-28] MEDS ORDERED: JANUVIA PO SCH (09:00)
--- NOTE | 2020-07-28 09:06 | PCM.PROG ---
Attending Provider: ATTENDING PROVIDER: Dr. GENESIS GUILLAUME This patient is seen with Sandee Epstein, Nurse Practitioner. DATE OF SERVICE: 07/28/20 SUBJECTIVE: This 70 year old /WHITE M was hospitalized 07/27/20. The patient is resting comfortably. Both legs are swollen. He has fever through the night. Extreme redness and swelling in both lower extremities. There is a open area on the back of left leg. REVIEW OF SYSTEMS: CONSTITUTIONAL: No night sweats. No fatigue, malaise, lethargy. No fever or chills. Weakness. HEENT: Eyes: No visual changes. No eye pain. No eye discharge. ENT: No runny nose. No epistaxis. No sinus pain. No odynophagia. No congestion. RESPIRATORY: No cough, no congestion. No hemoptysis. No shortness of breath. CARDIOVASCULAR: No angina symptoms. No CHF symptoms. No atypical chest pain for CAD. No palpitations. No orthopnea.. GASTROINTESTINAL: No abdominal pain. No nausea or vomiting. No diarrhea or constipation. No hematemesis. No hematochezia. GENITOURINARY: No urgency. No frequency. No dysuria. No hematuria. No obstructive symptoms. No discharge. No pain. No significant abnormal bleeding. MUSCULOSKELETAL: No musculoskeletal pain; no joint swelling. NEUROLOGICAL: Awake, alert, oriented to time, place and person. No headache. No neck pain. No syncope. No seizures. No dizziness. PSYCHIATRIC: Not anxious. No depression. No suicidal thoughts. No homicidal thoughts. SKIN: No rash. No lesions. No wounds. Leg edema. Cellulitis. ENDOCRINE: No unexplained weight loss. No weight gain. HEMATOLOGIC/LYMPHATIC: No anemia. No purpura. No petechiae. No prolonged or excessive bleeding. No palpable lymph nodes. PHYSICAL EXAMINATION: GENERAL: The patient is awake, alert and oriented, sitting in bed in no distre ss. VITAL SIGNS: Temperature 98.7 F, Pulse 83, Respiratory Rate 18, BP 102/60, Pulse Ox 94% HEENT: Head normocephalic, atraumatic. Eyes: Extraocular muscles are intact. Pupils are equal, round and reactive to light and accommodation. Ears: No lesions. Nose appeared normal. Throat: No exudate or erythema. NECK: Supple. No JVD, no carotid bruit. No lymphadenopathy or thyromegaly. LUNGS: Diminished breath sounds. Clear to auscultation. Percussion note normal. Chest symmetrical. HEART: S1, S2, no S3. No murmurs. Regular heart rate. No cyanosis or clubbing. No ascites. Pulses: Dorsalis pedis and posterior tibial pulses +1 to +2 both sides. ABDOMEN: Soft. Non-tender. Bowel sounds active. No CVA tenderness. No mass felt. EXTREMITIES: +2 bilateral pedal edema. Left lower extremity erythema. Foot to mid calf three inch open area on posterior calf with surrounding redness with scant purulent exudates. Full range of motion of all extremities, equal. NEUROLOGIC: No focal deficit. Cranial nerves II through XII are grossly intact. No headache, no double vision or headache. SKIN: Not dry. Intact. Turgor-normal. LYMPHATIC: No palpable lymph nodes/no lymphedema. MUSCULOSKELETAL: Normal joints with no swelling. Muscle tone is normal. LAB REVIEW: 07/28/20 04:40 07/28/20 04:40 07/28/20 04:40: Sodium 135.4, Potassium 4.28, Chloride 104.6, Carbon Dioxide 22. 2, Anion Gap 12.88, BUN 22.7 H, Creatinine 0.62, Estimated GFR (MDRD) 128.00, BUN/Creatinine Ratio 36.61, Glucose 123.3 H, Calcium 9.18, Total Bilirubin 0.85, AST 19.9, ALT 14.2, Alkaline Phosphatase 59.6, Total Protein 7.23, Albumin 3.92, Globulin 3.31, Albumin/Globulin Ratio 1.18 07/28/20 04:40: WBC 5.77, RBC 3.83 L, Hgb 11.2 L, Hct 32.3 L D, MCV 84.3, MCH 29.2, MCHC 34.7, RDW Coeff of Veronica 12.9, Plt Count 177, Immature Gran % (Auto) 0.2, Neut % (Auto) 62.8, Lymph % (Auto) 22.7, Roane % (Auto) 10.6 H, Eos % (Auto) 2.8, Baso % (Auto) 0.9, Neut # (Auto) 3.6, Lymph # (Auto) 1.3, Roane # (Auto) 0.6, Eos # (Auto) 0.2, Baso # (Auto) 0.1, Immature Gran # (Auto) 0.0 07/27/20 17:56: Lactic Acid 2.38 H 07/27/20 17:56: SARS-CoV-2 Ag (Rapid) Negative 07/27/20 17:56: Sodium 136.3, Potassium 4.46, Chloride 100.7, Carbon Dioxide 24.2, Anion Gap 15.86, BUN 18.2, Creatinine 0.60, Estimated GFR (MDRD) 132.00, BUN/Creatinine Ratio 30.33, Glucose 111.1 H, Calcium 9.98, Total Bilirubin 0.92, AST 22.7, ALT 17.7, Alkaline Phosphatase 70.3, Total Protein 8.58 H, Albumin 4.73, Globulin 3.85, Albumin/Globulin Ratio 1.22 07/27/20 17:56: WBC 9.46, RBC 4.62 L, Hgb 13.3 L, Hct 39.4 L, MCV 85.3, MCH 28.8, MCHC 33.8, RDW Coeff of Veronica 13.0, Plt Count 192, Immature Gran % (Auto) 0.3, Neut % (Auto) 78.2 H, Lymph % (Auto) 10.1, Roane % (Auto) 8.7, Eos % (Auto) 2.3, Baso % (Auto) 0.4, Neut # (Auto) 7.4 H, Lymph # (Auto) 1.0, Roane # (Auto) 0.8, Eos # (Auto) 0.2, Baso # (Auto) 0.0, Immature Gran # (Auto) 0.0, ESR 56 H ASSESSMENT: Please see below. 1. Left lower extremity cellulitis 2. Chronic leg edema 3. Coronary artery disease 4. Noncompliance with medication, lifestyle and followup. PLAN: 1. Lasix 20mg IV today 2. A1c 3. Elevate foot avoiding pressure on calves 4. Continue IV Clindamycin 5. Blood cultures, pending. Plan and coordination of the patient's care discussed in the presence of Kulwant cavanaugh and nurse. SCRIBED BY: ZOIE PRITCHETT Body Finisher scribed while in presence of service performed by Dr. Guillaume/Sandee Epstein APRN on 07/28/20 ([id number])
[2020-07-28] MEDS: PLAVIX PO SCH (09:31)
[2020-07-28] MEDS: LOPRESSOR PO SCH ×2 (09:31→20:37)
[2020-07-28] MEDS: NEURONTIN PO SCH ×2 (09:31→20:37)
[2020-07-28] MEDS: GLUCOPHAGE PO SCH ×2 (09:31→17:33)
[2020-07-28] MEDS: LOVENOX SUBCUT SCH (09:32)
[2020-07-28] MEDS: LIPITOR PO SCH (09:32)
[2020-07-28] MEDS: ZESTRIL PO SCH (09:32)
[2020-07-28] MEDS: MICRO-K CAP PO SCH (09:33)
[2020-07-28] MEDS ORDERED: LASIX ONE (11:11)
--- NOTE | 2020-07-28 11:43 | PN ---
DATE OF SERVICE: 07/27/20 - ADMIT NOTE SUBJECTIVE: The patient was brought to the emergency room by the family because of left leg swelling with ulcer. He was seen and examined in the ER by the ER attending, Dr. Redd and hospitalized for the treatment of left leg ulcer, cellulitis. 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 He is bedridden. He is more or less morbidly obese, unable to transfer himself or ambulate. He also has mild dementia. His is trying to do her best to take care of him but he is total care except he is able to feed himself. Practically no ambulation at all. Transfer is also difficult from chair to bed or from bed to chair. The patient is going to be hospitalized with IV antibiotics. TIME SPENT: More than 30 minutes. Plan and coordination of the patient's care discussed in the presence of nurse. DEISI
--- NOTE | 2020-07-28 11:46 | PN ---
DATE OF SERVICE: 07/28/20 SUBJECTIVE: The patient was seen and examined with the nurse practitioner. Condition is stable. Redness is less than yesterday. No evidence of any systemic symptoms from it. No fever. TIME SPENT: More than 30 minutes. Plan and coordination of the patient's care discussed in the presence of nurse. DEISI
[2020-07-28] MEDS: HUMULIN R SUBCUT PRN (12:11)
--- NOTE | 2020-07-28 14:01 | DI ---
EXAM: CHEST FRONTAL VIEW HISTORY: Leg swelling bilaterally, concern for cardiac origin. COMPARISON: None FINDINGS: The heart size appears to approach upper limit normal. Elevated left hemidiaphragm may be chronic. No acute infiltrates are seen. No vascular congestion. There is no consolidation, visibl e pleural fluid or pneumothorax. Bones reveal no acute fracture. IMPRESSION: No acute cardiopulmonary process.
[2020-07-28] MEDS: CELEXA PO SCH (20:37)
[2020-07-29 05:12] LABS: BASOPHILS % (AUTO) 0.6 % (0.0-3.0); EOSINOPHILS # (AUTO) 0.1 K/ul (0.0-0.7); HEMATOCRIT 31.6 % (42.0-52.0); HEMOGLOBIN 10.8 g/dl (14.0-18.0); IMMATURE GRANULOCYTE % (AUTO) 0.3 % (0.0-5.0); LYMPHOCYTES % (AUTO) 15.3 (10.0-50.0); MEAN CORPUSCULAR HGB CONC 34.2 (31.8-35.4); MEAN CORPUSCULAR VOLUME 84.7 fl (80.0-94.0); MONOCYTES # (AUTO) 0.6 K/uL (0.4-2.0); NEUTROPHILS # (AUTO) 4.7 K/ul (2.0-6.9); NEUTROPHILS % (AUTO) 72.8 % (42.2-75.2); PLATELET COUNT 176 10^3/uL (140-440); RDW COEFFICIENT OF VARIATION 12.8 % (11.6-14.8); RED BLOOD COUNT 3.73 10^6/ul (4.70-6.10); WHITE BLOOD COUNT 6.47 K/ul (4.2-10.2)
[2020-07-29 05:23] LABS: ALANINE AMINOTRANSFERASE 14.1 U/L (0-50); ALBUMIN 3.94 g/dL (3.5-5.0); ALKALINE PHOSPHATASE 56.7 U/L (56-119); BILIRUBIN,TOTAL 0.77 mg/dL (0.2-1.3); BLOOD UREA NITROGEN 39.8 mg/dL (9-20); CALCIUM 9.19 mg/dL (8.4-10.2); CARBON DIOXIDE 23.2 mmol/L (22-30.0); CHLORIDE 104.1 mmol/L (98-107); CREATININE 0.84 mg/dL (0.60-1.10); GLUCOSE 141.8 mg/dL (74-106); POTASSIUM 4.34 mmol/L (3.5-5.1); SODIUM 134.9 mmol/L (134.5-145); TOTAL PROTEIN 7.32 g/dL (6.3-8.2)
[2020-07-29] MEDS: HUMULIN R SUBCUT PRN ×2 (05:38→21:00)
[2020-07-29] MEDS: CLEOCIN 600 MG/50 ML D5W 600 MG/50 ML BAG IV SCH ×3 (05:38→21:00)
--- NOTE | 2020-07-29 09:28 | HP ---
DATE OF SERVICE: 07/27/20 HISTORY OF PRESENT ILLNESS: This is a 70-year-old white male, who presents to the emergency room complaining of a rash and pain of both lower extremities. He has a wound on the back of his left leg says his . She has been putting dressings on it and has been present for about one month. PAST MEDICAL HISTORY: Spinal cerebellar ataxia Friedreich's ataxia Polyneuropathy Diabetes mellitus type 2 Coronary artery disease with KS 06/03 Obesity Vitamin D deficiency COPD Hypertension B12 deficiency Artificial right eye Chronic leg edema He has been in a wheelchair for the past 5 years Mild dementia Noncompliance with diet, lifestyle, medications and followup He has never had a colonoscopy PAST SURGICAL HISTORY: None REVIEW OF SYSTEMS: CONSTITUTIONAL: No night sweats. No fatigue, malaise, lethargy. No fever or chills. HEENT: Eyes: No visual changes. No eye pain. No eye discharge. ENT: No runny nose. No epistaxis. No sinus pain. No sore throat. No odynophagia. No ear pain. No congestion. RESPIRATORY: No cough, no congestion. No hemoptysis. No shortness of breath. CARDIOVASCULAR: No angina symptoms. No CHF symptoms. No atypical chest pain for CAD. No palpitations. No PND. No orthopnea. GASTROINTESTINAL: No abdominal pain. No nausea or vomiting. No diarrhea or constipation. No hematemesis. No hematochezia. GENITOURINARY: No urgency. No frequency. No dysuria. No hematuria. No obstructive symptoms. No discharge. No pain. No significant abnormal bleeding. MUSCULOSKELETAL: Leg edema, leg redness. No musculoskeletal pain. NEUROLOGICAL: Positive for ataxia. Decreased mobility. No headache. No neck pain. No syncope. No seizures. No dizziness. PSYCHIATRIC: Not anxious. No depression. No suicidal thoughts. No homicidal thoughts. SKIN: No rash. No lesions. No wounds. ENDOCRINE: No unexplained weight loss. No weight gain. HEMATOLOGIC/LYMPHATIC: No anemia. No purpura. No petechiae. No prolonged or excessive bleeding. No palpable lymph nodes. PERSONAL/FAMILY/SOCIAL HISTORY: He lives at home with his , requires 24 hour care. He is able to feed himself otherwise he is total weight. He requires complete lift. Nonsmoker. No alcohol or illicit drug use. MEDICATIONS: Metformin 1,000 mg p.o. b.i.d. Metoprolol Tartrate (Lopressor) 50 mg p.o. bedtime Aspirin 81 mg p.o. daily Lisinopril (Zestril) 10 mg p.o. daily Nitroglycerin 0.4 mg sublingual p.r.n. Atorvastatin (Lipitor) 40 mg p.o. daily ALLERGIES: NKDA PHYSICAL EXAMINATION: VITAL SIGNS: Temperature 97.7, heart rate 68, respirations 20, BP 109/74, pulse ox 99%. HEENT: Head normocephalic, atraumatic. Eyes: Extraocular muscles are intact. Pupils are equal, round and reactive to light and accommodation. Ears: No lesions. Nose appeared normal. Throat: No exudate or erythema. NECK: Supple. No JVD, no carotid bruit. No lymphadenopathy or thyromegaly. LUNGS: Diminished breath sounds. Clear to auscultation. Percussion note normal. Chest symmetrical. HEART: S1, S2, no S3. No murmur. No cyanosis or clubbing. No ascites. Pulses: Dorsalis pedis and posterior tibial pulses +1 to +2 bilaterally. ABDOMEN: Soft. Nontender. Bowel sounds active. No CVA tenderness. No mass felt. EXTREMITIES: +2 bilateral edema. Erythema of left foot extending mid 3/4 of the left calf, 2 x 3" ulceration posterior left calf with surrounding erythema, mild purulent exudate. Full range of motion of all extremities, equal. NEUROLOGIC: No focal deficit. Cranial nerves II through XII are grossly intact. No headache, no double vision or headache. SKIN: Not dry. Intact. Turgor - normal. LYMPHATIC: No palpable lymph nodes/no lymphedema. MUSCULOSKELETAL: Normal joints with no swelling. Muscle tone is normal. LABS: White count 9,000, hemoglobin 13.3, hematocrit 39.4, platelets 192. Sodium 136, potassium 4.4, BUN 18, creatinine 0.6, glucose 111, lactic acid 2.38, rapid Covid is negative. ASSESSMENT: 1. Wound left lower extremity. 2. Cellulitis left lower extremity. 3. Diabetes Mellitus Type 2. 4. Ataxia. 5. Wheelchair bound. 6. Noncompliant. 7. Coronary artery disease. 8. Dyslipidemia. 9. Hypertension. PLAN: 1. We will admit. 2. Routine telemetry orders. 3. CBC, CMP daily. 4. Wound culture. 5. Start on Clindamycin 600 mg IV q.8hr. 6. Blood culture times one. 7. Continue all home medications. 8. Regular diet. 9. A1C. 10. Keep feet elevated. 11. Keep pressure off the back of the left calf. 12. Will follow closely. 13. Sliding scale for insulin coverage. TIME SPENT: More than 70 minutes. MTDD
--- NOTE | 2020-07-29 09:34 | PCM.PROG ---
Attending Provider: ATTENDING PROVIDER: Dr. GENESIS GARCIA This patient is seen with Sandee Epstein, Nurse Practitioner. DATE OF SERVICE: 07/29/20 SUBJECTIVE: This 70 year old /WHITE M was hospitalized 07/27/20. The patient is resting comfortably. Has not had any fever. Areas look dry still with si gnificant erythema. REVIEW OF SYSTEMS: CONSTITUTIONAL: No night sweats. No fatigue, malaise, lethargy. No fever or chills. HEENT: Eyes: No visual changes. No eye pain. No eye discharge. ENT: No runny nose. No epistaxis. No sinus pain. No odynophagia. No congestion. RESPIRATORY: No cough, no congestion. No hemoptysis. No shortness of breath. CARDIOVASCULAR: No angina symptoms. No CHF symptoms. No atypical chest pain for CAD. No palpitations. No orthopnea.. GASTROINTESTINAL: No abdominal pain. No nausea or vomiting. No diarrhea or constipation. No hematemesis. No hematochezia. GENITOURINARY: No urgency. No frequency. No dysuria. No hematuria. No obstructive symptoms. No discharge. No pain. No significant abnormal bleeding. MUSCULOSKELETAL: No musculoskeletal pain; no joint swelling. Left leg edema and erythema. Right leg edema, improved. Immobility. NEUROLOGICAL: Awake, alert, oriented to time, place and person. No headache. No neck pain. No syncope. No seizures. No dizziness. PSYCHIATRIC: Not anxious. No depression. No suicidal thoughts. No homicidal thoughts. SKIN: No rash. No lesions. No wounds. ENDOCRINE: No unexplained weight loss. No weight gain. HEMATOLOGIC/LYMPHATIC: No anemia. No purpura. No petechiae. No prolonged or excessive bleeding. No palpable lymph nodes. PHYSICAL EXAMINATION: GENERAL: The patient is awake, alert and oriented, sitting in bed in no distress. VITAL SIGNS: Temperature 98.7 F, Pulse 78, Respiratory Rate 16, BP 99/59, Pulse Ox 93% HEENT: Head normocephalic, atraumatic. Eyes: Extraocular muscles are intact. Pupils are equal, round and reactive to light and accommodation. Ears: No les ions. Nose appeared normal. Throat: No exudate or erythema. NECK: Supple. No JVD, no carotid bruit. No lymphadenopathy or thyromegaly. LUNGS: Diminished breath sounds. Clear to auscultation. Percussion note normal. Chest symmetrical. HEART: S1, S2, no S3. No murmurs. No cyanosis or clubbing. No ascites. Pulses: Dorsalis pedis and posterior tibial pulses +1 to +2 both sides. ABDOMEN: Soft. Non-tender. Bowel sounds active. No CVA tenderness. No mass felt. EXTREMITIES: Right lower extremity trace edema, multiple areas of scabbing and callous. Left lower extremity improved erythema from foot to calf. Open areas with some drying and less drainage. Full range of motion of all extremities, equal. NEUROLOGIC: No focal deficit. Cranial nerves II through XII are grossly intact. No headache, no double vision or headache. SKIN: Not dry. Intact. Turgor-normal. LYMPHATIC: No palpable lymph nodes/no lymphedema. MUSCULOSKELETAL: Normal joints with no swelling. Muscle tone is normal. LAB REVIEW: 07/29/20 04:36 07/29/20 04:36 07/29/20 04:36: Sodium 134.9, Potassium 4.34, Chloride 104.1, Carbon Dioxide 23.2, Anion Gap 11.94, BUN 39.8 H, Creatinine 0.84, Estimated GFR (MDRD) 90.00, BUN/Creatinine Ratio 47.38, Glucose 141.8 H, Calcium 9.19, Total Bilirubin 0.77, AST 21.0, ALT 14.1, Alkaline Phosphatase 56.7, Total Protein 7.32, Albumin 3.94, Globulin 3.38, Albumin/Globulin Ratio 1.16 07/29/20 04:36: WBC 6.47, RBC 3.73 L, Hgb 10.8 L, Hct 31.6 L, MCV 84.7, MCH 29.0, MCHC 34.2, RDW Coeff of Veronica 12.8, Plt Count 176, Immature Gran % (Auto) 0.3, Neut % (Auto) 72.8, Lymph % (Auto) 15.3, Hunt % (Auto) 9.0, Eos % (Auto) 2.0, Baso % (Auto) 0.6, Neut # (Auto) 4.7, Lymph # (Auto) 1.0, Hunt # (Auto) 0.6, Eos # (Auto) 0.1, Baso # (Auto) 0.0, Immature Gran # (Auto) 0.0 07/28/20 04:40: Hemoglobin A1c 5.59 ASSESSMENT: Please see below. 1. Cellulitis left lower area with open wound 2. Chronic leg edema 3. Friedreich's Ataxia 4. Diabetes Mellitus type 2 PLAN: 1. Continue antibiotics 2. Hold Diuretic 3. Keep left foot elevated, no pressure on calf. Plan and coordination of the patient's care discussed in the presence of Obstetrician Gynecologist and nurse. SCRIBED BY: Stoney LOPEZ scribed while in presence of service performed by Dr. Garcia/Sandee Epstein APRN on 07/29/20 ([id number])
[2020-07-29] MEDS: LIPITOR PO SCH (09:35)
[2020-07-29] MEDS: PLAVIX PO SCH (09:35)
[2020-07-29] MEDS: LOVENOX SUBCUT SCH (09:35)
[2020-07-29] MEDS: GLUCOPHAGE PO SCH ×2 (09:35→17:16)
[2020-07-29] MEDS: ZESTRIL PO SCH (09:35)
[2020-07-29] MEDS: MICRO-K CAP PO SCH (09:35)
[2020-07-29] MEDS: NEURONTIN PO SCH ×2 (09:35→20:59)
[2020-07-29] MEDS: LOPRESSOR PO SCH ×2 (09:35→20:59)
--- NOTE | 2020-07-29 13:05 | PN ---
DATE OF SERVICE: 07/29/20 SUBJECTIVE: The patient was seen and examined this morning with the nurse practitioner. The patient's condition is improving. Cellulitis is resolving. His neurological status is unchanged and in the longrun it will deteriorate. TIME SPENT: More than 30 minutes. Plan and coordination of the patient's care discussed in the presence of nurse. DEISI
[2020-07-29] MEDS: CELEXA PO SCH (20:59)
[2020-07-30] MEDS: CLEOCIN 600 MG/50 ML D5W 600 MG/50 ML BAG IV SCH (05:36)
[2020-07-30 05:46] LABS: BASOPHILS # (AUTO) 0.1 K/uL (0-0.2); BASOPHILS % (AUTO) 0.8 % (0.0-3.0); EOSINOPHILS # (AUTO) 0.2 K/ul (0.0-0.7); EOSINOPHILS % (AUTO) 3.4 % (0.0-7.0); HEMATOCRIT 32.8 % (42.0-52.0); HEMOGLOBIN 11.2 g/dl (14.0-18.0); IMMATURE GRANULOCYTE % (AUTO) 0.2 % (0.0-5.0); LYMPHOCYTES # (AUTO) 1.2 K/uL (0.60-3.4); LYMPHOCYTES % (AUTO) 18.8 (10.0-50.0); MEAN CORPUSCULAR HEMOGLOBIN 28.8 pg (27.0-31.0); MEAN CORPUSCULAR HGB CONC 34.1 (31.8-35.4); MEAN CORPUSCULAR VOLUME 84.3 fl (80.0-94.0); MONOCYTES # (AUTO) 0.6 K/uL (0.4-2.0); MONOCYTES % (AUTO) 9.8 (0-10); NEUTROPHILS # (AUTO) 4.3 K/ul (2.0-6.9); PLATELET COUNT 170 10^3/uL (140-440); RDW COEFFICIENT OF VARIATION 12.6 % (11.6-14.8); RED BLOOD COUNT 3.89 10^6/ul (4.70-6.10)
[2020-07-30 05:56] LABS: ALANINE AMINOTRANSFERASE 15.2 U/L (0-50); ALBUMIN 3.97 g/dL (3.5-5.0); ALKALINE PHOSPHATASE 60.5 U/L (56-119); BILIRUBIN,TOTAL 0.86 mg/dL (0.2-1.3); BLOOD UREA NITROGEN 23.6 mg/dL (9-20); CALCIUM 9.17 mg/dL (8.4-10.2); CARBON DIOXIDE 22.9 mmol/L (22-30.0); CHLORIDE 102.8 mmol/L (98-107); CREATININE 0.51 mg/dL (0.60-1.10); GLUCOSE 127.5 mg/dL (74-106); POTASSIUM 4.4 mmol/L (3.5-5.1); SODIUM 133.7 mmol/L (134.5-145); TOTAL PROTEIN 7.36 g/dL (6.3-8.2)
[2020-07-30] MEDS: LIPITOR PO SCH (08:05)
[2020-07-30] MEDS: GLUCOPHAGE PO SCH ×2 (08:05→16:56)
[2020-07-30] MEDS: PLAVIX PO SCH (08:06)
[2020-07-30] MEDS: NEURONTIN PO SCH ×2 (08:06→20:32)
[2020-07-30] MEDS: MICRO-K CAP PO SCH (08:06)
[2020-07-30] MEDS: LOPRESSOR PO SCH ×2 (08:06→20:32)
[2020-07-30] MEDS: LOVENOX SUBCUT SCH (08:06)
[2020-07-30] MEDS: ZESTRIL PO SCH (08:06)
[2020-07-30] MEDS: DOXYCYCLINE HYCLATE PO SCH ×2 (11:53→20:32)
[2020-07-30] MEDS: CELEXA PO SCH (20:32)
[2020-07-30] MEDS: CALMOSEPTINE OINTMENT TP SCH (20:33)
[2020-07-31 05:06] LABS: BASOPHILS % (AUTO) 0.5 % (0.0-3.0); EOSINOPHILS # (AUTO) 0.3 K/ul (0.0-0.7); EOSINOPHILS % (AUTO) 4.6 % (0.0-7.0); HEMATOCRIT 33.7 % (42.0-52.0); HEMOGLOBIN 11.6 g/dl (14.0-18.0); IMMATURE GRANULOCYTE % (AUTO) 0.3 % (0.0-5.0); LYMPHOCYTES # (AUTO) 1.4 K/uL (0.60-3.4); LYMPHOCYTES % (AUTO) 22.3 (10.0-50.0); MEAN CORPUSCULAR HEMOGLOBIN 28.8 pg (27.0-31.0); MEAN CORPUSCULAR HGB CONC 34.4 (31.8-35.4); MEAN CORPUSCULAR VOLUME 83.6 fl (80.0-94.0); MONOCYTES # (AUTO) 0.6 K/uL (0.4-2.0); NEUTROPHILS % (AUTO) 63.3 % (42.2-75.2); PLATELET COUNT 178 10^3/uL (140-440); RDW COEFFICIENT OF VARIATION 12.3 % (11.6-14.8); RED BLOOD COUNT 4.03 10^6/ul (4.70-6.10); WHITE BLOOD COUNT 6.33 K/ul (4.2-10.2)
[2020-07-31 05:18] LABS: ALANINE AMINOTRANSFERASE 14.3 U/L (0-50); ALBUMIN 3.92 g/dL (3.5-5.0); ALKALINE PHOSPHATASE 58.7 U/L (56-119); ASPARTATE AMINO TRANSFERASE 24.4 U/L (17-59); BILIRUBIN,TOTAL 0.61 mg/dL (0.2-1.3); BLOOD UREA NITROGEN 17.6 mg/dL (9-20); CALCIUM 9.38 mg/dL (8.4-10.2); CARBON DIOXIDE 23.1 mmol/L (22-30.0); CHLORIDE 102.2 mmol/L (98-107); CREATININE 0.58 mg/dL (0.60-1.10); GLUCOSE 122.5 mg/dL (74-106); POTASSIUM 4.46 mmol/L (3.5-5.1); SODIUM 133.5 mmol/L (134.5-145); TOTAL PROTEIN 7.37 g/dL (6.3-8.2)
[2020-07-31] MEDS ORDERED: LASIX TAB PO STA (08:46)
[2020-07-31] MEDS: DOXYCYCLINE HYCLATE PO SCH ×2 (09:04→20:49)
[2020-07-31] MEDS: GLUCOPHAGE PO SCH ×2 (09:04→16:52)
[2020-07-31] MEDS: LIPITOR PO SCH (09:05)
[2020-07-31] MEDS: ZESTRIL PO SCH (09:05)
[2020-07-31] MEDS: LOPRESSOR PO SCH ×2 (09:05→20:49)
[2020-07-31] MEDS: PLAVIX PO SCH (09:05)
[2020-07-31] MEDS: NEURONTIN PO SCH ×2 (09:05→20:49)
[2020-07-31] MEDS: MICRO-K CAP PO SCH (09:05)
[2020-07-31] MEDS: LOVENOX SUBCUT SCH (09:11)
[2020-07-31] MEDS: BACTROBAN TP SCH ×2 (09:24→20:49)
[2020-07-31] MEDS: CALMOSEPTINE OINTMENT TP SCH ×4 (09:25→20:50)
--- NOTE | 2020-07-31 11:56 | PN ---
DATE OF SERVICE: 07/30/20 SUBJECTIVE: 70-year-old white male hospitalized with cellulitis of the left leg. Cellulitis seems to have resolved. The ulcer still persists. He is unable to go anywhere because of transport issue from Friederich's ataxia with neuromuscular disease. Family has almost refused to take him anywhere or wound care. The patient is going to be discharged on Doxycycline tomorrow. Kirill is sensitive to Gentamycin, has worked clinically. REVIEW OF SYSTEMS: CONSTITUTIONAL: No night sweats. No fatigue, malaise, lethargy. No fever or chills. HEENT: Eyes: No visual changes. No eye pain. No eye discharge. ENT: No runny nose. No epistaxis. No sinus pain. No sore throat. No odynophagia. No congestion. RESPIRATORY: No cough, no congestion. No hemoptysis. No shortness of breath. CARDIOVASCULAR: No angina symptoms. No CHF symptoms. No atypical chest pain for CAD. No palpitations. No PND. No orthopnea. GASTROINTESTINAL: No abdominal pain. No nausea or vomiting. No diarrhea or constipation. No hematemesis. No hematochezia. GENITOURINARY: No urgency. No frequency. No dysuria. No hematuria. No obstructive symptoms. No discharge. No pain. No significant abnormal bleeding. MUSCULOSKELETAL: No musculoskeletal pain; no joint swelling. NEUROLOGICAL: No headache. No neck pain. No syncope. No seizures. No dizziness. PSYCHIATRIC: Not anxious. No depression. No suicidal thoughts. No homicidal thoughts. SKIN: No rash. No lesions. No wounds. ENDOCRINE: No unexplained weight loss. No weight gain. HEMATOLOGIC/LYMPHATIC: No anemia. No purpura. No petechiae. No prolonged or excessive bleeding. No palpable lymph nodes. PHYSICAL EXAMINATION: VITAL SIGNS: Temperature 98.4, pulse 75, respiratory rate 20, BP 116/66, pulse ox 97% on room air. HEENT: Head normocephalic, atraumatic. Eyes: Extraocular muscles are intact. Pupils are equal, round and reactive to light and accommodation. Ears: No lesions. Nose appeared normal. Throat: No exudate or erythema. NECK: Supple. No JVD, no carotid bruit. No lymphadenopathy or thyromegaly. LUNGS: Clear to auscultation. Percussion note normal. Chest symmetrical. HEART: S1, S2, no S3. No murmurs. No cyanosis or clubbing. No ascites. Pulses: Dorsalis pedis and posterior tibial pulses +1 to +2 bilaterally. ABDOMEN: Soft. Nontender. Bowel sounds active. No CVA tenderness. No mass felt. EXTREMITIES: No edema. Full range of motion of all extremities, equal. NEUROLOGIC: No focal deficit. Cranial nerves II through XII are grossly intact. No headache, no double vision or headache. SKIN: Not dry. Intact. Turgor - normal. Ulcer is healing with no cellulitis LYMPHATIC: No palpable lymph nodes/no lymphedema. MUSCULOSKELETAL: Normal joints with no swelling. Muscle tone is normal. LABS: Hemoglobin 11.2, hematocrit 32, WBC 6,400, normal differential. Creatinine 0.5, BUN 23, potassium 4.4. ASSESSMENT: 1. Cellulitis on the left leg resolved. Ulcer persists. PLAN: 1. He is going to be on Doxycycline 100 twice a day. 2. D/C Clindamycin. 3. The patient will have Covid antibodies done. The patient's had Covid and never had any symptoms but is contantly in touch because he is totally dependent upon his for all activity of daily living except for feeding himself. He has neuromuscular disease with inability to walk for more than the past 10 years. The patient's family and the patient's are refusing for him to be going to the retirement. He is a candidate for total care. TIME SPENT: More than 30 minutes. Plan and coordination of the patient's care discussed in the presence of nurse. DEISI
--- NOTE | 2020-07-31 14:03 | PCM.PROG ---
Attending Provider: ATTENDING PROVIDER: Dr. GENESIS GARCIA This patient is seen with Sandee Epstein, Nurse Practitioner. DATE OF SERVICE: 07/31/20 SUBJECTIVE: This 70 year old /WHITE M was hospitalized 07/27/20. The patient is resting comfortably. The patient has some sheering of the wound with some bloody drainage. No fever. Antibiotics were changed yesterday due to sensitivity. REVIEW OF SYSTEMS: CONSTITUTIONAL: No night sweats. No fatigue, malaise, lethargy. No fever or chills. Weakness. HEENT: Eyes: No visual changes. No eye pain. No eye discharge. ENT: No runny nose. No epistaxis. No sinus pain. No odynophagia. No congestion. RESPIRATORY: No cough, no congestion. No hemoptysis. No shortness of breath. CARDIOVASCULAR: No angina symptoms. No CHF symptoms. No atypical chest pain for CAD. No palpitations. No orthopnea.. GASTROINTESTINAL: No abdominal pain. No nausea or vomiting. No diarrhea or constipation. No hematemesis. No hematochezia. GENITOURINARY: No urgency. No frequency. No dysuria. No hematuria. No obstructive symptoms. No discharge. No pain. No significant abnormal bleeding. MUSCULOSKELETAL: No musculoskeletal pain; no joint swelling. Ataxia. Left lower extremity edema. NEUROLOGICAL: Awake, alert, oriented to time, place and person. No headache. No neck pain. No syncope. No seizures. No dizziness. PSYCHIATRIC: Not anxious. No depression. No suicidal thoughts. No homicidal thoughts. SKIN: No rash. No lesions. No wounds. ENDOCRINE: No unexplained weight loss. No weight gain. HEMATOLOGIC/LYMPHATIC: No anemia. No purpura. No petechiae. No prolonged or excessive bleeding. No palpable lymph nodes. PHYSICAL EXAMINATION: GENERAL: The patient is awake, alert and oriented, sitting in bed in no distress. VITAL SIGNS: Temperature 98.2 F, Pulse 77, Respiratory Rate 18, BP 124/78, Pulse Ox 94% HEENT: Head normocephalic, atraumatic. Eyes: Extraocular muscles are intact. Pupils are equal, round and reactive to light and accommodation. Ears: No lesions. Nose appeared normal. Throat: No exudate or erythema. NECK: Supple. No JVD, no carotid bruit. No lymphadenopathy or thyromegaly. LUNGS: Diminished breath sounds. Clear to auscultation. Percussion note normal. Chest symmetrical. HEART: S1, S2, no S3. No murmurs. No cyanosis or clubbing. No ascites. Pulses: Dorsalis pedis and posterior tibial pulses +1 to +2 both sides. ABDOMEN: Soft. Non-tender. Bowel sounds active. No CVA tenderness. No mass felt. EXTREMITIES: Full range of motion of all extremities, equal. 2 inch open area posterior left lower extremity. Trace pedal edema. Improved redness both lower extremities. NEUROLOGIC: No focal deficit. Cranial nerves II through XII are grossly intact. No headache, no double vision or headache. SKIN: Not dry. Intact. Turgor-normal. LYMPHATIC: No palpable lymph nodes/no lymphedema. MUSCULOSKELETAL: Normal joints with no swelling. Muscle tone is normal. LAB REVIEW: 07/31/20 04:34 07/31/20 04:34 07/31/20 04:34: Sodium 133.5 L, Potassium 4.46, Chloride 102.2, Carbon Dioxide 23.1, Anion Gap 12.66, BUN 17.6, Creatinine 0.58 L, Estimated GFR (MDRD) 138.00, BUN/Creatinine Ratio 30.34, Glucose 122.5 H, Calcium 9.38, Total Bilirubin 0.61, AST 24.4, ALT 14.3, Alkaline Phosphatase 58.7, Total Protein 7.37, Albumin 3.92, Globulin 3.45, Albumin/Globulin Ratio 1.13 07/31/20 04:34: WBC 6.33, RBC 4.03 L, Hgb 11.6 L, Hct 33.7 L, MCV 83.6, MCH 28.8, MCHC 34.4, RDW Coeff of Veronica 12.3, Plt Count 178, Immature Gran % (Auto) 0 .3, Neut % (Auto) 63.3, Lymph % (Auto) 22.3, [place] % (Auto) 9.0, Eos % (Auto) 4.6, Baso % (Auto) 0.5, Neut # (Auto) 4.0, Lymph # (Auto) 1.4, [place] # (Auto) 0.6, Eos # (Auto) 0.3, Baso # (Auto) 0.0, Immature Gran # (Auto) 0.0 ASSESSMENT: Please see below. 1. Cellulitis left leg with open area 2. Chronic leg edema 3. Coronary artery disease 4. Noncompliance 5. Diabetes mellitus PLAN: 1.Apply Bactroban BID 2.Cover area 3.Elevate feet, no pressure on calf 4.Anticipate possible discharge tomorrow with Home Health for PT/OT and Wound Care as he is unable to do himself. Plan and coordination of the patient's care discussed in the presence of Vegetable Preparer and nurse. SCRIBED BY: ZOIE PRITCHETT Color Control Operator scribed while in presence of service performed by Dr. Garcia/Sandee Epstein APRN on 07/31/20 ([id number])
[2020-07-31] MEDS: CELEXA PO SCH (20:49)
[2020-08-01 05:09] LABS: BASOPHILS % (AUTO) 0.5 % (0.0-3.0); EOSINOPHILS # (AUTO) 0.2 K/ul (0.0-0.7); EOSINOPHILS % (AUTO) 3.7 % (0.0-7.0); HEMATOCRIT 33.9 % (42.0-52.0); HEMOGLOBIN 11.7 g/dl (14.0-18.0); IMMATURE GRANULOCYTE % (AUTO) 0.3 % (0.0-5.0); LYMPHOCYTES # (AUTO) 1.5 K/uL (0.60-3.4); LYMPHOCYTES % (AUTO) 22.8 (10.0-50.0); MEAN CORPUSCULAR HEMOGLOBIN 29.1 pg (27.0-31.0); MEAN CORPUSCULAR HGB CONC 34.5 (31.8-35.4); MEAN CORPUSCULAR VOLUME 84.3 fl (80.0-94.0); MONOCYTES # (AUTO) 0.6 K/uL (0.4-2.0); MONOCYTES % (AUTO) 8.8 (0-10); NEUTROPHILS # (AUTO) 4.1 K/ul (2.0-6.9); NEUTROPHILS % (AUTO) 63.9 % (42.2-75.2); PLATELET COUNT 184 10^3/uL (140-440); RDW COEFFICIENT OF VARIATION 12.6 % (11.6-14.8); RED BLOOD COUNT 4.02 10^6/ul (4.70-6.10); WHITE BLOOD COUNT 6.45 K/ul (4.2-10.2)
[2020-08-01 05:23] LABS: ALANINE AMINOTRANSFERASE 15.2 U/L (0-50); ALBUMIN 3.89 g/dL (3.5-5.0); ALKALINE PHOSPHATASE 58.7 U/L (56-119); ASPARTATE AMINO TRANSFERASE 29.1 U/L (17-59); BILIRUBIN,TOTAL 0.63 mg/dL (0.2-1.3); BLOOD UREA NITROGEN 28.4 mg/dL (9-20); CALCIUM 9.54 mg/dL (8.4-10.2); CARBON DIOXIDE 24.3 mmol/L (22-30.0); CHLORIDE 102.8 mmol/L (98-107); CREATININE 0.64 mg/dL (0.60-1.10); GLUCOSE 118.7 mg/dL (74-106); POTASSIUM 4.62 mmol/L (3.5-5.1); SODIUM 134.8 mmol/L (134.5-145); TOTAL PROTEIN 7.31 g/dL (6.3-8.2)
[2020-08-01] MEDS ORDERED: LASIX TAB PO ONE (08:22)
[2020-08-01] MEDS: LIPITOR PO SCH (09:24)
[2020-08-01] MEDS: ZESTRIL PO SCH (09:24)
[2020-08-01] MEDS: GLUCOPHAGE PO SCH ×2 (09:24→17:32)
[2020-08-01] MEDS: MICRO-K CAP PO SCH (09:24)
[2020-08-01] MEDS: PLAVIX PO SCH (09:25)
[2020-08-01] MEDS: DOXYCYCLINE HYCLATE PO SCH ×2 (09:25→20:10)
[2020-08-01] MEDS: NEURONTIN PO SCH ×2 (09:25→20:10)
[2020-08-01] MEDS: LOPRESSOR PO SCH ×2 (09:25→20:10)
[2020-08-01] MEDS: BACTROBAN TP SCH ×2 (09:26→20:11)
[2020-08-01] MEDS: CALMOSEPTINE OINTMENT TP SCH ×4 (09:26→20:11)
[2020-08-01] MEDS: LOVENOX SUBCUT SCH (09:27)
--- NOTE | 2020-08-01 09:44 | PCM.PROG ---
Attending Provider: ATTENDING PROVIDER: Dr. GENESIS GARCIA DATE OF SERVICE: 08/01/20 SUBJECTIVE: This 70 year old /WHITE M was hospitalized 07/27/20 with left leg ulcer which seems to be healing well, practically no cellulitis. The patient has fever which is hard to explain but in any case he is going to be continued on antibiotic Doxycycline. REVIEW OF SYSTEMS: CONSTITUTIONAL: No night sweats. No fatigue, malaise, lethargy. No fever or chills. HEENT: Eyes: No visual changes. No eye pain. No eye discharge. ENT: No runny nose. No epistaxis. No sinus pain. No odynophagia. No congestion. RESPIRATORY: No cough, no congestion. No hemoptysis. No shortness of breath. CARDIOVASCULAR: No angina symptoms. No CHF symptoms. No atypical chest pain for CAD. No palpitations. No orthopnea.. GASTROINTESTINAL: No abdominal pain. No nausea or vomiting. No diarrhea or constipation. No hematemesis. No hematochezia. GENITOURINARY: No urgency. No frequency. No dysuria. No hematuria. No obstructive symptoms. No discharge. No pain. No significant abnormal bleeding. MUSCULOSKELETAL: No musculoskeletal pain; no joint swelling. NEUROLOGICAL: Awake, alert, oriented to time, place and person. No headache. No neck pain. No syncope. No seizures. No dizziness. PSYCHIATRIC: Not anxious. No depression. No suicidal thoughts. No homicidal thoughts. SKIN: No rash. No lesions. No wounds. ENDOCRINE: No unexplained weight loss. No weight gain. HEMATOLOGIC/LYMPHATIC: No anemia. No purpura. No petechiae. No prolonged or excessive bleeding. No palpable lymph nodes. PHYSICAL EXAMINATION: GENERAL: The patient is awake, alert and oriented, lying in bed in no distress. VITAL SIGNS: Temperature 99.6 F, Pulse 78, Respiratory Rate 20, BP 105/60, Pulse Ox 96% HEENT: Head normocephalic, atraumatic. Eyes: Extraocular muscles are intact. Pupils are equal, round and reactive to light and accommodation. Ears: No lesions. Nose appeared normal. Throat: No exudate or erythema. NECK: Supple. No JVD, no carotid bruit. No lymphadenopathy or thyromegaly. LUNGS: Clear to auscultation. Percussion note normal. Chest symmetrical. HEART: S1, S2, no S3. No murmurs. No cyanosis or clubbing. No ascites. Pulses: Dorsalis pedis and posterior tibial pulses +1 to +2 both sides. ABDOMEN: Soft. Non-tender. Bowel sounds active. No CVA tenderness. No mass fe lt. EXTREMITIES: No edema. Full range of motion of all extremities, equal. Left leg bandaged. No cellulities in surrounding tissue noted. No calf tenderness or swelling. NEUROLOGIC: No focal deficit. Cranial nerves II through XII are grossly intact. No headache, no double vision or headache. SKIN: Warm and dry. Intact. Turgor-normal. LYMPHATIC: No palpable lymph nodes/no lymphedema. MUSCULOSKELETAL: Normal joints with no swelling. Muscle tone is normal. LAB REVIEW: 08/01/20 05:00 08/01/20 05:00 08/01/20 05:00: Sodium 134.8, Potassium 4.62, Chloride 102.8, Carbon Dioxide 24. 3, Anion Gap 12.32, BUN 28.4 H, Creatinine 0.64, Estimated GFR (MDRD) 123.00, BUN/Creatinine Ratio 44.37, Glucose 118.7 H, Calcium 9.54, Total Bilirubin 0.63, AST 29.1, ALT 15.2, Alkaline Phosphatase 58.7, Total Protein 7.31, Albumin 3.89, Globulin 3.42, Albumin/Globulin Ratio 1.13 08/01/20 05:00: WBC 6.45, RBC 4.02 L, Hgb 11.7 L, Hct 33.9 L, MCV 84.3, MCH 29.1, MCHC 34.5, RDW Coeff of Veronica 12.6, Plt Count 184, Immature Gran % (Auto) 0.3, Neut % (Auto) 63.9, Lymph % (Auto) 22.8, [place] % (Auto) 8.8, Eos % (Auto) 3.7, Baso % (Auto) 0.5, Neut # (Auto) 4.1, Lymph # (Auto) 1.5, [place] # (Auto) 0.6, Eos # (Auto) 0.2, Baso # (Auto) 0.0, Immature Gran # (Auto) 0.0 ASSESSMENT: Please see below. 1. Cellulitis with ulcer on left leg, healing. PLAN: 1. Continue Doxycycline 2. 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 He is able to feed himself and appetite is excellent. Plan and coordination of the patient's care discussed in the presence of Still Operator Gin and nurse. SCRIBED BY: ZOIE PRITCHETT Grocery Store Courtesy Clerk scribed while in presence of service performed by Dr. GENESIS GARCIA on 08/01/20 ([id number])
--- NOTE | 2020-08-01 10:53 | ECHO2D ---
Date of Exam: 07/30/2020 Ordering Physician: DR. GENESIS GARCIA Room #: 103 Reason for Echo: HTN, LEG EDEMA, DM M-Mode Normal Adult Results LV Dimensions Normal Adult Results AoV Opening excursions >1.6 >1.6 LVEDD-base- 3.5-5.8 5.1 Ao root dimensions 2.0-3.7 3.8 LVESD-base- 3.1-4.6 L. Atrium dimensions 1.9-3.8 3.9 Post. Wall thickness 0.8-1.1 1.2 IV septum (thickness) 0.7-1.2 1.2 Post. Wall excursion 0.72-1.3 NORMAL Septal motion NORMAL Systolic motion R. Ventricular cavity 1.5-2.0 NORMAL LVEF 60% 50-55% Paradoxical septal wall motion NORMAL 2-D : 2-D M Mode Echocardiogram was performed using apical four chamber and left parasternal long and short axis views. Mitral, tricuspid and aortic valves appear to be normal. Contractility of the left ventricle seems to be normal, so is the cavity size. Left atrial cavity size and aortic root appear to be normal. There is no pericardial effusion. There is no thrombus noted in the left ventricle or left atrial cavity. No mitral valve prolapse noted. M-MODE: MV: NORMAL AV: NORMAL TV: NORMAL PV: CHAMBER SIZE: NORMAL WALL MOTION: NORMAL PERICARDIUM: NORMAL INTERPRETATION: 1. LEFT VENTRICULAR HYPERTROPHY 2. NORMAL VALVES 3. NORMAL LEFT VENTRICLE CONTRACTILITY MTDD
--- NOTE | 2020-08-01 13:25 | PN ---
DATE OF SERVICE: 07/31/20 SUBJECTIVE: The patient was seen and examined with the nurse practitioner. The patient's condition has improved. The patient is going to be discharged home. He is going to be on Doxycycline. The patient will have Home Health Care to take care of cellulitis. The patient really needs to be in the skilled nursing. is unable to take care of this patient. He is practically total health care except for he is able to feed himself. He has neuromuscular disease with Friederich's ataxia. Condition stable. TIME SPENT: More than 30 minutes. Plan and coordination of the patient's care discussed in the presence of nurse. DEISI
--- NOTE | 2020-08-01 13:29 | PN ---
BILLING 07/27/20 ADMISSION DAY LEVEL 5 07/28/20 INTERMEDIATE 07/29/20 INTERMEDIATE 07/30/20 INTERMEDIATE 07/31/20 INTERMEDIATE 08/01/20 DISCHARGE MTDD
[2020-08-01] MEDS: CELEXA PO SCH (20:10)
[2020-08-02 05:30] LABS: BASOPHILS # (AUTO) 0.1 K/uL (0-0.2); BASOPHILS % (AUTO) 0.8 % (0.0-3.0); EOSINOPHILS # (AUTO) 0.3 K/ul (0.0-0.7); EOSINOPHILS % (AUTO) 5.7 % (0.0-7.0); HEMATOCRIT 34.8 % (42.0-52.0); HEMOGLOBIN 11.7 g/dl (14.0-18.0); IMMATURE GRANULOCYTE % (AUTO) 0.3 % (0.0-5.0); LYMPHOCYTES # (AUTO) 1.5 K/uL (0.60-3.4); LYMPHOCYTES % (AUTO) 24.8 (10.0-50.0); MEAN CORPUSCULAR HEMOGLOBIN 28.6 pg (27.0-31.0); MEAN CORPUSCULAR HGB CONC 33.6 (31.8-35.4); MEAN CORPUSCULAR VOLUME 85.1 fl (80.0-94.0); MONOCYTES # (AUTO) 0.5 K/uL (0.4-2.0); MONOCYTES % (AUTO) 8.6 (0-10); NEUTROPHILS # (AUTO) 3.6 K/ul (2.0-6.9); NEUTROPHILS % (AUTO) 59.8 % (42.2-75.2); PLATELET COUNT 203 10^3/uL (140-440); RDW COEFFICIENT OF VARIATION 12.6 % (11.6-14.8); RED BLOOD COUNT 4.09 10^6/ul (4.70-6.10); WHITE BLOOD COUNT 5.96 K/ul (4.2-10.2)
[2020-08-02 05:43] LABS: ALANINE AMINOTRANSFERASE 16.6 U/L (0-50); ALBUMIN 3.92 g/dL (3.5-5.0); ALKALINE PHOSPHATASE 55.5 U/L (56-119); ASPARTATE AMINO TRANSFERASE 25.5 U/L (17-59); BILIRUBIN,TOTAL 0.56 mg/dL (0.2-1.3); BLOOD UREA NITROGEN 29.3 mg/dL (9-20); CALCIUM 9.4 mg/dL (8.4-10.2); CARBON DIOXIDE 21.7 mmol/L (22-30.0); CHLORIDE 104.1 mmol/L (98-107); CREATININE 0.51 mg/dL (0.60-1.10); GLUCOSE 118.7 mg/dL (74-106); POTASSIUM 4.48 mmol/L (3.5-5.1); SODIUM 134.3 mmol/L (134.5-145); TOTAL PROTEIN 7.37 g/dL (6.3-8.2)
[2020-08-02 05:51] VITALS: BP 112/72; TEMP 98.1
[2020-08-02] MEDS: LOPRESSOR PO SCH (08:45)
[2020-08-02] MEDS: MICRO-K CAP PO SCH (08:45)
[2020-08-02] MEDS: ZESTRIL PO SCH (08:45)
[2020-08-02] MEDS: GLUCOPHAGE PO SCH (08:45)
[2020-08-02] MEDS: NEURONTIN PO SCH (08:45)
[2020-08-02] MEDS: DOXYCYCLINE HYCLATE PO SCH (08:45)
[2020-08-02] MEDS: PLAVIX PO SCH (08:45)
[2020-08-02] MEDS: LIPITOR PO SCH (08:46)
[2020-08-02] MEDS: BACTROBAN TP SCH (08:46)
[2020-08-02] MEDS: CALMOSEPTINE OINTMENT TP SCH (08:47)
[2020-08-02] MEDS: LOVENOX SUBCUT SCH (08:48)
--- NOTE | 2020-08-04 11:00 | PN ---
DATE OF SERVICE: 08/02/2020 SUBJECTIVE: 70 year old white male hospitalized with cellulitis of the left leg. The patient's ulcer seems to be healing. Cellulitis has resolved. REVIEW OF SYSTEMS: CONSTITUTIONAL: No night sweats. No fatigue, malaise, lethargy. No fever or chills. HEENT: Eyes: No visual changes. No eye pain. No eye discharge. ENT: No runny nose. No epistaxis. No sinus pain. No sore throat. No odynophagia. No congestion. RESPIRATORY: No cough, no congestion. No hemoptysis. No shortness of breath. CARDIOVASCULAR: No angina symptoms. No CHF symptoms. No atypical chest pain for CAD. No palpitations. No PND. No orthopnea. GASTROINTESTINAL: No abdominal pain. No nausea or vomiting. No diarrhea or constipation. No hematemesis. No hematochezia. GENITOURINARY: No urgency. No frequency. No dysuria. No hematuria. No obstructive symptoms. No discharge. No pain. No significant abnormal bleeding. MUSCULOSKELETAL: No musculoskeletal pain; no joint swelling. NEUROLOGICAL: No headache. No neck pain. No syncope. No seizures. No dizziness. PSYCHIATRIC: Not anxious. No depression. No suicidal thoughts. No homicidal thoughts. SKIN: No rash. No lesions. No wounds. ENDOCRINE: No unexplained weight loss. No weight gain. HEMATOLOGIC/LYMPHATIC: No anemia. No purpura. No petechiae. No prolonged or excessive bleeding. No palpable lymph nodes. PHYSICAL EXAMINATION: VITAL SIGNS:Temperature 98.1, pulse 73, respiratory rate 18, blood pressure 112/72 and pulse ox 96% on room air. HEENT: Head normocephalic, atraumatic. Eyes: Extraocular muscles are intact. Pupils are equal, round and reactive to light and accommodation. Ears: No lesions. Nose appeared normal. Throat: No exudate or erythema. NECK: Supple. No JVD, no carotid bruit. No lymphadenopathy or thyromegaly. LUNGS:Decreased breath sounds. Clear to auscultation. Percussion note normal. Chest symmetrical. HEART: S1, S2, no S3. No murmurs. No cyanosis or clubbing. No ascites. Pulses: Dorsalis pedis and posterior tibial pulses +1 to +2 bilaterally. ABDOMEN: Soft. Nontender. Bowel sounds active. No CVA tenderness. No mass felt. EXTREMITIES: No edema. Full range of motion of all extremities, equal. Leg ulcer is banded. No cellulitis seen. NEUROLOGIC: No focal deficit. Cranial nerves II through XII are grossly intact. No headache, no double vision or headache. SKIN: Not dry. Intact. Turgor - normal. LYMPHATIC: No palpable lymph nodes/no lymphedema. MUSCULOSKELETAL: Normal joints with no swelling. Muscle tone is normal. LABS: Hgb 11.7, hct 34, WBC 5,900 normal differential, creatinine 0.5, BUN 29, potassium 4.4 ASSESSMENT: 1. Cellulitis of the left leg resolved 2. Ulcer persists. PLAN: 1. The patient is going to be followed by [facility]. They are going to dress and clean the wound with saline solution. 2. Bactroban would be applied very lightly. 3. The patient is going to be on Doxycycline for 10 days 4. Elevate the legs to prevent dependent leg edema PROGNOSIS:GUARDED The patient's is unable to take the patient to Wound Care. Also declined alf placement. The patient is practically total care except for able to eat but he is not able to ambulate or transfer. He weighs 220 pounds. He has Freiderich's Ataxia which makes care very difficult because he is not able to move his both lower extremities at all. TIME SPENT: More than 30 minutes. Plan and coordination of the patient's care discussed in the presence of nurse. DEISI
--- NOTE | 2020-08-04 12:45 | PN ---
07/27/2020: Level 5 07/28/2020: Intermediate 07/29/2020: Intermediate 07/30/2020: Intermediate 07/31/2020: Intermediate 08/01/2020: Intermediate 08/02/2020: D as in discharge MTDD
--- NOTE | 2020-08-04 12:45 | DS ---
DATE OF SERVICE: 08/02/2020 FINAL DIAGNOSIS: 1. Cellulitis with left leg ulcer 2. Diabetes Mellitus 3. Dyslipidemia 4. Hypertension 5. Peripheral arterial disease 6. 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 Home health Care to follow the patient for Wound Care. Home Health Care to check the nutrition and blood pressure, leg edema, etc. Instructed the family to keep the legs higher than the hip. Come back in 7-10 days on followup. MEDICATIONS AT DISCHARGE: Metformin Aspirin Lisinopril Metoprolol Atorvastatin Nitroglycerin NEW PRESCRIPTIONS: Plavix 75mg daily Gabapentin 20mg at night Doxycycline 100mg BID for 10 days Bactroban to be applied to the wound. DIET INSTRUCTIONS: As tolerated SMOKING: N/A HOSPITAL COURSE: 70 year old white male hospitalized with left leg cellulitis with ulcer. Cellulitis has resolved. IV antibiotics Doxycycline was used initially. The patient had Clindamycin. The patient's staph aureus was resistant to Clindamycin and the patient was switched to Doxycycline. In any case the patient's cellulitis by then had already resolved. He did very well in the hospital. He is unable to transfer. He has Friedreich's ataxia with the inability to move his lower extremities for past several years. He is almost unable to transfer. He requires a lot of caring and help which is being done by his son living with them. In case the patient is unable to go to the Wound Care. and the family doesn't want him to be in the custodial. In any case the patient is going to be discharged to be seen in 7 days. He is going to be on Doxycycline and Bactroban. Home Health Care is going to take care of the wound. The patient's prognosis for healing is not good. COVID antibodies is pending. TIME SPENT: More than 60 minutes. [place]
== END 2020-08-02 13:27 | disposition home health service (06) | DRG 607 ==
LOC: ED 17:18 → MEDSURG A 18:46
PROVIDERS: ADMIT Internal Medicine; ATTEND Internal Medicine
DX: R60.0 Localized edema; L03.116 Cellulitis of left lower limb; I10 Essential (primary) hypertension; G11.11 Friedreich ataxia; L02.416 Cutaneous abscess of left lower limb; R21 Rash and other nonspecific skin eruption; I25.10 Atherosclerotic heart disease of native coronary artery without angina pectoris; I73.9 Peripheral vascular disease, unspecified; E11.9 Type 2 diabetes mellitus without complications; E78.5 Hyperlipidemia, unspecified

== ENCOUNTER 2022-02-13 15:48 | Inpatient (IN) ==
--- NOTE | 2022-02-13 16:10 | ED.PDOC ---
General ED Provider: Dr. FABIÁN MARTIN Chief Complaint: Constipation Stated Complaint: i havent had a bm in 3-4 days Time Seen by Provider: 02/13/22 15:50 Mode of Arrival: Stretcher Information Source: Patient Exam Limitations: Clinical condition Primary Care Provider: GENESIS HAYNES Nursing and Triage Documentation Reviewed and Agree: Yes Does patient meet sepsis criteria?: Yes If yes, has appropriate treatment been initiated?: Yes System Inflammatory Response Syndrome: Pulse >90 BPM and Resp >20/Minute Sepsis Protocol: For patient's 13 years and over: Temp is 96.8 and below OR 101 and greater Pulse >90 BPM Resp >20/minute Acutely Altered Mental Status Are patient's symptoms suggestive of a new infection, such as: -Pneumonia -Skin, Soft Tissue -Endocarditis -UTI -Bone, Joint Infection -Implantable Device -Acute Abdominal Infection -Wound Infection -Meningitis -Blood Stream Catheter Infection -Unknown GI Complaint Exam Abdominal Pain Complaint/Exam Onset: Gradual Duration: 3 days Symptoms Are: Still present Timing: Constant Initial Severity: Mild Current Severity: Mild Location of Pain: Diffuse Character: Reports Dull and Aching Aggravating: Reports None Alleviating: Reports None Associated Signs and Symptoms: Reports Constipation Differential Diagnoses: Bowel Obstruction, Constipation and Diverticulitis Quality Indicator For Non-Traumatic Chest Pain/Syncope: EKG Performed Review of Systems Review Of Systems Constitutional: Reports Weakness Eyes: Reports No symptoms Ears, Nose, Mouth, Throat: Reports No symptoms Respiratory: Reports Short of air Cardiac: Reports No symptoms GI: Reports Abdominal pain and Constipated : Reports No symptoms Musculoskeletal: Reports No symptoms Skin: Reports No symptoms Neurological: Reports No symptoms Endocrine: Reports No symptoms Hematologic/Lymphatic: Reports No symptoms All Other Systems: Reviewed and Negative [facility] Medical History Diabetes Hypertension Neurogenic muscular atrophy Family History Other Diabetes Social History Smoking and tobacco status: Never smoker History of recent travel: No Physical Exam Physical Exam Appearance: Reports Well-appearing Ill-appearing: Mild Pain Distress: Mild Eyes: Reports ANUSHKA, EOMI and Conjunctiva clear ENT: Reports Ears normal, Nose normal and Oropharynx normal Neck: Supple Respiratory: Reports Airway patent, Breath sounds clear and Breath sounds equal Cardiovascular: Reports RRR, Pulses normal, No rub and No murmur GI/: Reports Soft, Nontender, No masses and Bowel sounds normal Musculoskeletal: Reports Normal strength, ROM intact, No edema and No calf tenderness Skin: Reports Warm, Dry and Normal color Neurological: Reports Sensation intact, Motor intact, Reflexes intact, Cranial nerves intact, Alert and Oriented Psychiatric: Reports Affect appropriate and Mood appropriate Interpretation Radiology Interpretation Radiology Interpretation By: Radiologist Radiology Results: Positive Exam Interpreted: CT Scan EKG Interpretation Time of EKG #1: 17:23 Rate: Tachy Rhythm: Sinus Ectopy: None Interpretation: sinus Physician Notification Case Discussed Physician Notified: dr haynes Time of Notification: 17:23 Critical Care Note Critical Care Note Total Critical Care Time (mins): 30 Course Course Hematology/Chemistry: 02/13/22 16:06 02/13/22 16:06 Orders, Labs, Meds: Lab Review 02/13/22 02/13/22 02/13/22 16:06 16:06 16:06 WBC 15.56 H RBC 5.18 Hgb 14.7 Hct 45.4 MCV 87.6 MCH 28.4 MCHC 32.4 RDW Coeff of Veronica 14.3 Plt Count 220 Immature Gran % (Auto) 0.4 Neut % (Auto) 86.8 H Lymph % (Auto) 6.4 L [place] % (Auto) 6.0 Eos % (Auto) 0.1 Baso % (Auto) 0.3 Neut # (Auto) 13.5 H Lymph # (Auto) 1.0 [place] # (Auto) 0.9 Eos # (Auto) 0.0 Baso # (Auto) 0.1 Immature Gran # (Auto) 0.1 Puncture Site Base Excess O2 Saturation ABG pH ABG pCO2 ABG pO2 ABG HCO3 ABG Total CO2 Sean Test Hemoglobin Oxyhemoglobin Carboxyhemoglobin Total Hemoglobin O2 Delivery Device FiO2 % Sodium 133.8 L Potassium 3.65 Chloride 95.7 L Carbon Dioxide 15.5 L Anion Gap 26.25 BUN 22.5 H Creatinine 0.69 Estimated GFR (MDRD) 112.00 BUN/Creatinine Ratio 32.60 Glucose 321.4 H Lactic Acid Calcium 9.36 Total Bilirubin 0.88 AST 43.5 ALT 56.2 H Alkaline Phosphatase 81.2 Total Protein 8.66 H Albumin 4.75 Globulin 3.91 Albumin/Globulin Ratio 1.21 Procalcitonin 0.07 H TSH 0.815 SARS CoV-2 RNA Rapid SALTY 02/13/22 02/13/22 02/13/22 16:10 16:21 16:50 WBC RBC Hgb Hct MCV MCH MCHC RDW Coeff of Veronica Plt Count Immature Gran % (Auto) Neut % (Auto) Lymph % (Auto) [place] % (Auto) Eos % (Auto) Baso % (Auto) Neut # (Auto) Lymph # (Auto) [place] # (Auto) Eos # (Auto) Baso # (Auto) Immature Gran # (Auto) Puncture Site Rrad Base Excess -11.0 L O2 Saturation 89.4 L ABG pH 7.25 L* ABG pCO2 37.0 ABG pO2 67.0 L ABG HCO3 16.2 L ABG Total CO2 17.3 L Sean Test + Hemoglobin 1.1 Oxyhemoglobin 90.4 L Carboxyhemoglobin 3.5 H Total Hemoglobin 14.4 O2 Delivery Device Ra FiO2 % 21.0 Sodium Potassium Chloride Carbon Dioxide Anion Gap BUN Creatinine Estimated GFR (MDRD) BUN/Creatinine Ratio Glucose Lactic Acid 7.37 H Calcium Total Bilirubin AST ALT Alkaline Phosphatase Total Protein Albumin Globulin Albumin/Globulin Ratio Procalcitonin TSH SARS CoV-2 RNA Rapid SALTY Negative Orders Category Date Time Status ABG DRAW REQUEST Stat CARDIO 02/13/22 16:51 Ordered EKG-(ED ONLY) Stat CARDIO 02/13/22 16:51 Ordered EKG-(ED ONLY) Stat CARDIO 02/13/22 17:06 Ordered ED IV/MEDIPORT/POWERPORT .ONCE EMERGENCY 02/13/22 16:42 Active ABG COOX Stat LAB 02/13/22 16:50 Completed BLOOD CULTURE (ED ONLY) Stat LAB 02/13/22 16:06 Received CBC W/ AUTO DIFF Stat LAB 02/13/22 16:06 Completed COMPREHENSIVE METABOLIC PANEL Stat LAB 02/13/22 16:06 Completed LACTIC ACID Stat LAB 02/13/22 16:21 Completed PROCALCITONIN Stat LAB 02/13/22 16:06 Completed SARS COV-2 RNA RAPID SALTY Stat LAB 02/13/22 16:10 Completed TROPONIN I Stat LAB 02/13/22 16:06 Received TSH [THYROID STIMULATING HORMONE] Stat LAB 02/13/22 16:06 Completed URINALYSIS C & S IF INDICATED Stat LAB 02/13/22 16:11 Uncollected 0.9 % Sodium Chloride [Saline Flush] MEDS 02/13/22 16:42 Active 1 syr IVF PRN PRN Piperacillin Sodium/Tazobactam [Zosyn 3.375 gm] 3.375 MEDS 02/13/22 16:42 Active gm 0.9 % Sodium Chloride [Sodium Chloride 100Ml] [address] ABDOMEN/PELVIS WO CONTRAST Stat RADS 02/13/22 15:49 Completed CXR [CHEST, 1V AP ONLY] Stat RADS 02/13/22 15:50 Completed KUB [ABDOMEN 1 VIEW] Stat RADS 02/13/22 15:49 Completed Medications Generic Name Dose Route Start Last Admin Trade Name Freq PRN Reason Stop Dose Admin Piperacillin Sod/Tazobactam 100 mls @ 100 mls/hr 02/13/22 16:42 02/13/22 17:07 Sod 3.375 gm/ Sodium Chloride IV 02/13/22 17:41 100 mls/hr ONCE STA Administration Sodium Chloride 1 syr 02/13/22 16:42 0.9% Sodium Chloride 10 Ml Disp.Syrin IVF PRN PRN To flush IV Vital Signs: Temp Pulse Resp BP Pulse Ox 02/13/22 15:53 97.3 F L 122 H 36 H 128/92 H 94 L Discharge Plan Discharge Patient Disposition: ADMITTED INPATIENT Discharge Problem: Sepsis, Constipation, Metabolic acidosis Prescriptions: No Action metformin [Glucophage] 1,000 MG tablet 1,000 mg PO BID metoprolol tartrate [Lopressor] 50 mg Tablet 50 mg PO BEDTIME aspirin 81 mg Tablet 81 mg PO DAILY lisinopril [Zestril] 10 mg Tablet 10 mg PO DAILY atorvastatin [Lipitor] 40 mg Tablet 40 mg PO DAILY nitroglycerin 0.4 mg Tablet, Sublingual 0.4 mg sublingual PRN PRN (Reason: Angina) doxycycline hyclate 100 mg Capsule 100 mg PO BID Qty: 60 0RF citalopram [Celexa] 20 mg Tablet 20 mg PO BEDTIME Qty: 30 0RF gabapentin 300 mg Capsule 300 mg PO BID Qty: 60 0RF Did you review [place] NUCLEAR EQUIPMENT TEST ENGINEER?: Not Applicable ED Provider: FABIÁN MONTEJO Condition: Stable Physician Progress Note: []
[2022-02-13 16:11] LABS: BASOPHILS # (AUTO) 0.1 K/uL (0-0.2); BASOPHILS % (AUTO) 0.3 % (0.0-3.0); EOSINOPHILS % (AUTO) 0.1 % (0.0-7.0); HEMATOCRIT 45.4 % (42.0-52.0); HEMOGLOBIN 14.7 g/dl (14.0-18.0); IMMATURE GRANULOCYTE # (AUTO) 0.1 (0.0-1.0); IMMATURE GRANULOCYTE % (AUTO) 0.4 % (0.0-5.0); LYMPHOCYTES % (AUTO) 6.4 (10.0-50.0); MEAN CORPUSCULAR HEMOGLOBIN 28.4 pg (27.0-31.0); MEAN CORPUSCULAR HGB CONC 32.4 (31.8-35.4); MEAN CORPUSCULAR VOLUME 87.6 fl (80.0-94.0); MONOCYTES # (AUTO) 0.9 K/uL (0.4-2.0); NEUTROPHILS # (AUTO) 13.5 K/ul (2.0-6.9); NEUTROPHILS % (AUTO) 86.8 % (42.2-75.2); PLATELET COUNT 220 10^3/uL (140-440); RDW COEFFICIENT OF VARIATION 14.3 % (11.6-14.8); RED BLOOD COUNT 5.18 10^6/ul (4.70-6.10); WHITE BLOOD COUNT 15.56 K/ul (4.2-10.2)
[2022-02-13 16:23] LABS: ALBUMIN 4.75 g/dL (3.5-5.0); ALKALINE PHOSPHATASE 81.2 U/L (56-119); ASPARTATE AMINO TRANSFERASE 43.5 U/L (17-59); BILIRUBIN,TOTAL 0.88 mg/dL (0.2-1.3); BLOOD UREA NITROGEN 22.5 mg/dL (9-20); CALCIUM 9.36 mg/dL (8.4-10.2); CARBON DIOXIDE 15.5 mmol/L (22-30.0); CHLORIDE 95.7 mmol/L (98-107); CREATININE 0.69 mg/dL (0.60-1.10); GLUCOSE 321.4 mg/dL (74-106); POTASSIUM 3.65 mmol/L (3.5-5.1); SODIUM 133.8 mmol/L (134.5-145); TOTAL PROTEIN 8.66 g/dL (6.3-8.2)
[2022-02-13 16:29] LABS: ALANINE AMINOTRANSFERASE 56.2 U/L (0-50)
[2022-02-13] MEDS ORDERED: ZOSYN 3.375 GM 3.375 GM in SODIUM CHLORIDE 100ML 100 ML IV STA (16:42)
[2022-02-13 16:53] LABS: THYROID STIMULATING HORMONE 0.815 uIU/L (0.465-4.68)
--- NOTE | 2022-02-13 17:00 | DI ---
EXAM: CHEST RADIOGRAPH (1 VIEW) TECHNIQUE: Frontal Chest Radiograph. HISTORY: Abdominal pain COMPARISON: 07/28/2020 FINDINGS: Lines, Tubes, Devices: None Lungs and Pleura: Elevation of the left hemidiaphragm. Coarse, prominent interstitial markings. At electasis in the lower lungs. No pleural effusion or pneumothorax. Cardiomediastinum: Normal cardiomediastinal silhouette. No aortic calcifications. Calcified hilar l ymph nodes. Bones/Soft Tissues: No acute osseous abnormality. No soft tissue abnormality. Upper Abdomen: Within normal limits. IMPRESSION: Atelectasis in the lower lungs.
--- NOTE | 2022-02-13 17:03 | DI ---
EXAM: ABDOMINAL RADIOGRAPH (1 VIEW) HISTORY: Constipation. TECHNIQUE: AP radiograph of the abdomen. COMPARISON: CT abdomen pelvis 02/13/2022. FINDINGS: No dilated gas filled loops of small bowel. Large colonic fecal burden with diffuse colonic dilation . No pathologic calcifications. Degenerative changes of the spine. IMPRESSION: Large colonic fecal burden with diffuse colonic dilation, better seen on concurrent CT.
--- NOTE | 2022-02-13 17:06 | CT ---
EXAM: CT abdomen pelvis without contrast HISTORY: Constipation, abdominal pain COMPARISON: 01/27/2015 TECHNIQUE: Serial axial images of the abdomen pelvis were performed from the lung bases through the inferior pelvis without contrast. These were viewed in multiple planes. FINDINGS: Atelectasis in the lower lungs. Fatty liver with nodular contour anteriorly. The gallbladder, pancreas and spleen are unremarkable. Nonspecific bilateral perinephric fat stranding. Simple right renal cyst. No right or left hydronep hrosis. The adrenal glands are unremarkable. There is a large amount of stool in the distended rectum which measures 9.8 cm transverse. There is a large amount of stool in the distended colon. There are no dilated loops of small bowel. Calcifications of the the spin aspect of the urinary bladder, possible bladder stones. Heterogeneous prostate gland. ASVD. IMPRESSION: Large amount of stool in the distended rectum with perirectal fat stranding and trace fluid in the lo wer abdomen and pelvis.. Correlate for impaction and / or stercoral colitis. Large amount of stool in the distended colon. Correlate for constipation. Possible urinary bladder stones. Nonobstructing renal stones. Additional findings as above. All CT scans are performed using dose optimization techniques as appropriate to the performed exam an d include at least one of the following: Automated exposure control, adjustment of the mA and/or kV according t o size, and the use of iterative reconstruction technique.
[2022-02-13 17:09] LABS: ABG O2 HGB 90.4 % (95-100); COHb 3.5 (0.5-1.5); HCO3 16.2 (21-28); MetHb 1.1 (0-1.5); TCO2 17.3 (19-24); sO2 89.4 % (94-98); tHb 14.4 g/dl (11.7-17.4)
[2022-02-13 17:11] LABS: ABG PH 7.25 (7.35-7.45)
[2022-02-13] MEDS ORDERED: VANCOMYCIN 1 GRAM/200 ML PREMIX 1 GM/200 ML BAG IV ONE (17:29)
[2022-02-13] MEDS ORDERED: NITROSTAT SL PRN (17:33)
[2022-02-13] MEDS: SODIUM CHLORIDE 1,000 ML IV SCH (17:34)
[2022-02-13] MEDS ORDERED: URO-JET MUCOUSMEMB STA (17:44)
[2022-02-13 18:03] LABS: BILIRUBIN,URINE Negative (NEGATIVE); CLARITY,URINE Clear (CLEAR); COLOR,URINE Yellow (YELLOW); GLUCOSE, URINE (UA) 2+ (NEGATIVE); KETONES,URINE Negative (NEGATIVE); LEUKOCYTE ESTERASE ,URINE Negative (NEGATIVE); NITRITE,URINE Negative (NEGATIVE); PH,URINE 5.5 (5-9); PROTEIN,URINE 2+ (NEGATIVE); URINE, BLOOD Trace-intact (NEGATIVE); UROBILINOGEN,URINE 0.2 (0.2)
[2022-02-13 18:11] LABS: URINE RBC, MICROSCOPIC 0-2 (0-2); URINE WBC, MICROSCOPIC 0-2 (0-2)
[2022-02-13 18:12] LABS: BACTERIA,URINE TRACE (NOT PRESENT); GRANULAR CASTS,URINE 0-2 (NOT PRESENT); RENAL EPITHELIAL CELLS,URINE 0-2 (NOT PRESENT)
[2022-02-13 18:30] VITALS: BMI 31.7
[2022-02-13] MEDS: NEURONTIN PO SCH (20:16)
[2022-02-13] MEDS: CELEXA PO SCH (20:16)
[2022-02-13] MEDS: LOPRESSOR PO SCH (20:16)
[2022-02-13] MEDS: FLAGYL 500 MG/100 ML 500 MG/100 ML BAG IV SCH (20:17)
[2022-02-13] MEDS: HUMULIN R SUBCUT PRN (20:23)
[2022-02-14 05:10] LABS: BASOPHILS % (AUTO) 0.2 % (0.0-3.0); HEMATOCRIT 42.3 % (42.0-52.0); HEMOGLOBIN 14.1 g/dl (14.0-18.0); IMMATURE GRANULOCYTE % (AUTO) 0.3 % (0.0-5.0); LYMPHOCYTES # (AUTO) 0.9 K/uL (0.60-3.4); LYMPHOCYTES % (AUTO) 5.9 (10.0-50.0); MEAN CORPUSCULAR HEMOGLOBIN 28.4 pg (27.0-31.0); MEAN CORPUSCULAR HGB CONC 33.3 (31.8-35.4); MEAN CORPUSCULAR VOLUME 85.3 fl (80.0-94.0); MONOCYTES # (AUTO) 1.5 K/uL (0.4-2.0); MONOCYTES % (AUTO) 9.9 (0-10); NEUTROPHILS # (AUTO) 12.3 K/ul (2.0-6.9); NEUTROPHILS % (AUTO) 83.7 % (42.2-75.2); PLATELET COUNT 207 10^3/uL (140-440); RDW COEFFICIENT OF VARIATION 14.1 % (11.6-14.8); RED BLOOD COUNT 4.96 10^6/ul (4.70-6.10); WHITE BLOOD COUNT 14.69 K/ul (4.2-10.2)
[2022-02-14] MEDS: FLAGYL 500 MG/100 ML 500 MG/100 ML BAG IV SCH ×3 (05:18→20:11)
[2022-02-14 05:21] LABS: ALANINE AMINOTRANSFERASE 48.7 U/L (0-50); ALBUMIN 4.3 g/dL (3.5-5.0); ALKALINE PHOSPHATASE 78.3 U/L (56-119); ASPARTATE AMINO TRANSFERASE 31.8 U/L (17-59); BILIRUBIN,TOTAL 0.7 mg/dL (0.2-1.3); BLOOD UREA NITROGEN 30.1 mg/dL (9-20); CALCIUM 9.1 mg/dL (8.4-10.2); CARBON DIOXIDE 20.9 mmol/L (22-30.0); CHLORIDE 98.5 mmol/L (98-107); CREATININE 0.65 mg/dL (0.60-1.10); GLUCOSE 201.8 mg/dL (74-106); POTASSIUM 3.38 mmol/L (3.5-5.1); SODIUM 134.7 mmol/L (134.5-145); TOTAL PROTEIN 7.89 g/dL (6.3-8.2)
[2022-02-14] MEDS: ZESTRIL PO SCH (08:43)
[2022-02-14] MEDS: MICRO-K CAP PO SCH (08:43)
[2022-02-14] MEDS: ASPIRIN CHEWABLE PO SCH (08:43)
[2022-02-14] MEDS: NEURONTIN PO SCH ×2 (08:43→20:10)
[2022-02-14] MEDS: LIPITOR PO SCH (08:43)
[2022-02-14] MEDS: VANCOMYCIN 1.25 GM/250 ML BAG 1.25 GM/250 ML BAG IV SCH ×2 (08:44→21:31)
[2022-02-14] MEDS: LOVENOX SUBCUT SCH (08:44)
[2022-02-14] MEDS ORDERED: ZESTRIL PO SCH (09:00)
[2022-02-14] MEDS: SODIUM CHLORIDE 1,000 ML IV SCH ×2 (11:15→17:23)
[2022-02-14] MEDS: ZOSYN 4.5 GM 4.5 GM in SODIUM CHLORIDE 100ML 100 ML IV SCH ×3 (11:48→23:37)
[2022-02-14] MEDS: HUMULIN R SUBCUT PRN ×2 (11:48→20:11)
[2022-02-14] MEDS ORDERED: DULCOLAX PO ONE (13:17)
[2022-02-14] MEDS: CELEXA PO SCH (20:10)
[2022-02-15] MEDS: FLAGYL 500 MG/100 ML 500 MG/100 ML BAG IV SCH ×3 (04:32→20:16)
[2022-02-15 05:21] LABS: BASOPHILS # (AUTO) 0.1 K/uL (0-0.2); BASOPHILS % (AUTO) 0.6 % (0.0-3.0); EOSINOPHILS # (AUTO) 0.1 K/ul (0.0-0.7); EOSINOPHILS % (AUTO) 0.6 % (0.0-7.0); HEMOGLOBIN 11.6 g/dl (14.0-18.0); IMMATURE GRANULOCYTE % (AUTO) 0.2 % (0.0-5.0); LYMPHOCYTES # (AUTO) 1.3 K/uL (0.60-3.4); LYMPHOCYTES % (AUTO) 14.5 (10.0-50.0); MEAN CORPUSCULAR HEMOGLOBIN 28.6 pg (27.0-31.0); MEAN CORPUSCULAR HGB CONC 33.1 (31.8-35.4); MEAN CORPUSCULAR VOLUME 86.4 fl (80.0-94.0); MONOCYTES # (AUTO) 1.1 K/uL (0.4-2.0); NEUTROPHILS # (AUTO) 6.6 K/ul (2.0-6.9); NEUTROPHILS % (AUTO) 72.1 % (42.2-75.2); PLATELET COUNT 156 10^3/uL (140-440); RDW COEFFICIENT OF VARIATION 14.2 % (11.6-14.8); RED BLOOD COUNT 4.05 10^6/ul (4.70-6.10); WHITE BLOOD COUNT 9.09 K/ul (4.2-10.2)
[2022-02-15 05:38] LABS: ALANINE AMINOTRANSFERASE 32.9 U/L (0-50); ALBUMIN 3.34 g/dL (3.5-5.0); ALKALINE PHOSPHATASE 51.7 U/L (56-119); BILIRUBIN,TOTAL 0.68 mg/dL (0.2-1.3); BLOOD UREA NITROGEN 36.4 mg/dL (9-20); CALCIUM 8.28 mg/dL (8.4-10.2); CARBON DIOXIDE 24.8 mmol/L (22-30.0); CHLORIDE 99.7 mmol/L (98-107); GLUCOSE 155.8 mg/dL (74-106); POTASSIUM 3.23 mmol/L (3.5-5.1); SODIUM 133.6 mmol/L (134.5-145); TOTAL PROTEIN 6.15 g/dL (6.3-8.2)
[2022-02-15] MEDS: ZOSYN 4.5 GM 4.5 GM in SODIUM CHLORIDE 100ML 100 ML IV SCH ×4 (05:42→23:50)
[2022-02-15] MEDS: SODIUM CHLORIDE 1,000 ML IV SCH ×2 (06:21→20:18)
[2022-02-15 08:38] LABS: ABG O2 HGB 94.8 % (95-100); ABG PH 7.34 (7.35-7.45); COHb 2.6 (0.5-1.5); HCO3 24.8 (21-28); MetHb 1.1 (0-1.5); TCO2 26.2 (19-24); sO2 94.2 % (94-98); tHb 11.1 g/dl (11.7-17.4)
--- NOTE | 2022-02-15 09:46 | PCM.PROG ---
Attending Provider: ATTENDING PROVIDER: Dr. GENESIS GARCIA This patient is seen with Sandee Epstein, Nurse Practitioner. DATE OF SERVICE: 02/15/22 SUBJECTIVE: This 71 year old /WHITE M was hospitalized 02/13/22. Resting comfortably, still with low grade fever last night. Still on O2. Has had some pu rulent drainage from penis. WBC has improved. No urine culture was done. Has had 4 different enemas each producing stool. REVIEW OF SYSTEMS: CONSTITUTIONAL: No night sweats. No fatigue, malaise, lethargy. Fever. Weakness. HEENT: Eyes: No visual changes. No eye pain. No eye discharge. ENT: No runny nose. No epistaxis. No sinus pain. No odynophagia. No congestion. RESPIRATORY: No cough, no congestion. No hemoptysis. Shortness of breath. CARDIOVASCULAR: No angina symptoms. No CHF symptoms. No atypical chest pain for CAD. No palpitations. No orthopnea. Hypotension. GASTROINTESTINAL: No abdominal pain. No nausea or vomiting. No diarrhea or constipation. No hematemesis. No hematochezia. GENITOURINARY: No urgency. No frequency. No dysuria. No hematuria. No obstructiv e symptoms. No discharge. No pain. No significant abnormal bleeding. MUSCULOSKELETAL: No musculoskeletal pain; no joint swelling. NEUROLOGICAL: Awake, alert, oriented to time, place and person. No headache. No neck pain. No syncope. No seizures. No dizziness. PSYCHIATRIC: Not anxious. No depression. No suicidal thoughts. No homicidal thoughts. SKIN: No rash. No lesions. No wounds. ENDOCRINE: No unexplained weight loss. No weight gain. HEMATOLOGIC/LYMPHATIC: No anemia. No purpura. No petechiae. No prolonged or excessive bleeding. No palpable lymph nodes. PHYSICAL EXAMINATION: GENERAL: The patient is awake, alert and oriented, lying in bed in no distress. VITAL SIGNS: Temperature 98.1 F, Pulse 87, Respiratory Rate 18, BP 88/52, Pulse Ox 97% HEENT: Head normocephalic, atraumatic. Eyes: Extraocular muscles are intact. Pupils are equal, round and reactive to light and accommodation. Ears: No lesions. Nose appeared normal. Throat: No exudate or erythema. NECK: Supple. No JVD, no carotid bruit. No lymphadenopathy or thyromegaly. LUNGS: Diminished breath sounds. Clear to auscultation. Percussion note normal. Chest symmetrical. HEART: S1, S2, no S3. No murmurs. No cyanosis or clubbing. No ascites. Pulses: Dorsalis pedis and posterior tibial pulses +1 to +2 both sides. ABDOMEN: Soft. Non-tender. Bowel sounds active. No CVA tenderness. No mass felt. EXTREMITIES: 3+ bilateral leg edema with erythema to both feet. Full range of motion of all extremities, equal. NEUROLOGIC: No focal deficit. Cranial nerves II through XII are grossly intact. No headache. No double vision. SKIN: Not dry. Intact. Turgor-normal. LYMPHATIC: No palpable lymph nodes/no lymphedema. MUSCULOSKELETAL: Normal joints with no swelling. Muscle tone is normal. LAB REVIEW: 02/15/22 04:36 02/15/22 04:36 02/15/22 04:36: Sodium 133.6 L, Potassium 3.23 L, Chloride 99.7, Carbon Dioxide 24.8, Anion Gap 12.33, BUN 36.4 H, Creatinine 1.00, Estimated GFR (MDRD) 73.00, BUN/Creatinine Ratio 36.40, Glucose 155.8 H, Calcium 8.28 L, Total Bilirubin 0.68, AST 29.0, ALT 32.9, Alkaline Phosphatase 51.7 L D, Total Protein 6.15 L, Albumin 3.34 L, Globulin 2.81, Albumin/Globulin Ratio 1.18 02/15/22 04:36: WBC 9.09 D, RBC 4.05 L, Hgb 11.6 L, Hct 35.0 L D, MCV 86.4, MCH 28.6, MCHC 33.1, RDW Coeff of Veronica 14.2, Plt Count 156, Immature Gran % (Auto) 0.2, Neut % (Auto) 72.1, Lymph % (Auto) 14.5, [place] % (Auto) 12.0 H, Eos % (Auto) 0.6, Baso % (Auto) 0.6, Neut # (Auto) 6.6, Lymph # (Auto) 1.3, [place] # (Auto) 1.1, Eos # (Auto) 0.1, Baso # (Auto) 0.1, Immature Gran # (Auto) 0.0 ASSESSMENT: Please see below. 1. Sepsis 2. Fever 3. Metabolic acidosis 4. Severe constipation 5. Hypokalemia PLAN: 1. Urine for GC Chlamydia 2. Culture penis drainage 3. CT of chest, abdomen and pelvis with and without 4. Miralax one cap twice a day 5. Potassium 20meq BID 6. Hold Lisinopril this morning 7. Repeat ABG on 2 liters 8. A1c 9. PSA 10. Hold Lisinopril Plan and coordination of the patient's care discussed in the presence of Post Anesthesia Nurse and nurse. SCRIBED BY: Stoney LOPEZ scribed while in presence of service performed by Dr. Garcia/Sandee Epstein APRN on 02/15/22 ([id number])
[2022-02-15] MEDS: MIRALAX PO SCH ×2 (10:32→20:15)
[2022-02-15] MEDS: VANCOMYCIN 1.25 GM/250 ML BAG 1.25 GM/250 ML BAG IV SCH ×2 (10:32→21:44)
[2022-02-15] MEDS: K-DUR PO SCH ×2 (10:32→17:21)
[2022-02-15] MEDS: LOVENOX SUBCUT SCH (10:33)
[2022-02-15] MEDS: LIPITOR PO SCH (10:33)
[2022-02-15] MEDS: NEURONTIN PO SCH ×2 (10:33→20:15)
[2022-02-15] MEDS: ASPIRIN CHEWABLE PO SCH (10:33)
[2022-02-15] MEDS: MICRO-K CAP PO SCH (10:58)
--- NOTE | 2022-02-15 11:54 | CT ---
EXAM: Chest CT without and with IV contrast HISTORY: Shortness of breath COMPARISON: 02/13/2022 chest x-ray, 05/05/2017 CT chest TECHNIQUE: Axial CT of the chest without and with IV contrast. Sagittal and coronal reformats were o btained. FINDINGS: Chronic elevation of the left hemidiaphragm is again seen. Mild left lower lobe and medial atelectas is is identified. There is mild right upper lobe and lower lobe dependent atelectasis. A component consolidation cannot be entirely excluded. There are trace bilateral pleural effusions. No pneumoth orax. Heart size is normal. Atherosclerotic calcifications are present including coronary arteries. No me diastinal or hilar lymphadenopathy is seen. Mediastinal and left hilar calcified lymph nodes are not ed. There is a small hiatal hernia containing fat and minimal fluid. The liver is hypodense. A left lilli al calculus is seen. Degenerative changes of the spine are noted. IMPRESSION: Trace bilateral pleural effusions. Mild multifocal atelectasis. A component consolidation cannot be entirely excluded. Chronic left diaphragm elevation. Atherosclerosis including coronary arteries. Fatty infiltration of the liver. Left renal calculus. All CT scans are performed using dose optimization techniques as appropriate to the performed exam an d include at least one of the following: Automated exposure control, adjustment of the mA and/or kV according t o size, and the use of iterative reconstruction technique.
--- NOTE | 2022-02-15 12:09 | CT ---
EXAM: CT abdomen pelvis without with IV contrast HISTORY: Obstipation COMPARISON: 02/13/2022 TECHNIQUE: Axial CT of the abdomen pelvis without and with IV contrast. Sagittal and coronal reforma ts were obtained. FINDINGS: Trace bilateral pleural effusions are now seen. There is mild bilateral lower lobe and lingular atel ectasis. The liver is hypodense. The gallbladder, spleen, adrenals and pancreas are normal in appearance. A right renal inferior pole cyst is seen measuring 2.6 cm. There are other bilateral sub-centimeter re nal hypodensities which are too small to characterize. Punctate renal calculi are seen. There is a right bladder calculus measuring 0.7 cm. A Goode catheter is also seen in the bladder. A small hiatal hernia is seen containing fat and fluid. The stomach appears within normal limits. T here is no abnormal bowel dilation. Mild rectal wall thickening is identified. There is resolution of the previously seen rectal distension with stool. There is mild more proximal colonic stool and g as. Colonic dilation has resolved. The appendix is not seen. No pericecal inflammation is identifi ed. The prostate is mildly enlarged. Mild free pelvic fluid is identified. No free air is seen. Degene rative changes of the spine are noted. IMPRESSION: Resolution of the distension of the rectum with a large amount of stool. Rectal wall thickening now seen which could be due underdistension and/or proctitis. Decreased colonic stool burden, now mild. Bilateral renal calculi and probable bladder calculi. Fatty infiltration of the liver. Trace pleural effusions. Mild bibasilar atelectasis. All CT scans are performed using dose optimization techniques as appropriate to the performed exam an d include at least one of the following: Automated exposure control, adjustment of the mA and/or kV according t o size, and the use of iterative reconstruction technique.
[2022-02-15 18:40] LABS: ADENOVIRUS F40/41 (PCR) NOT DETECTED (NOT DETECT); ASTROVIRUS (PCR) NOT DETECTED (NOT DETECT); CAMPYLOBACTER (PCR) NOT DETECTED (NOT DETECT); CRYPTOSPORIDIUM (PCR) NOT DETECTED (NOT DETECT); CYCLOSPORA CAYETANENSIS (PCR) NOT DETECTED (NOT DETECT); ENTAMOEBA HISTOLYTICA (PCR) NOT DETECTED (NOT DETECT); ENTEROAGGREGATIVE E.COLI (PCR) NOT DETECTED (NOT DETECT); GIARDIA LAMBLIA (PCR) NOT DETECTED (NOT DETECT); NOROVIRUS GI/GII (PCR) NOT DETECTED (NOT DETECT); PLESIOMONAS SHIGELLOIDES (PCR) NOT DETECTED (NOT DETECT); ROTAVIRUS A (PCR) NOT DETECTED (NOT DETECT); SALMONELLA(PCR) NOT DETECTED (NOT DETECT); SAPOVIRUS (PCR) NOT DETECTED (NOT DETECT); SHIGA-LIKE TOXIN E.COLI (PCR) NOT DETECTED (NOT DETECT); VIBRIO (PCR) NOT DETECTED (NOT DETECT); VIBRIO CHOLERAE (PCR) NOT DETECTED (NOT DETECT); YERSINIA ENTEROCOLITICA (PCR) NOT DETECTED (NOT DETECT)
[2022-02-15 19:58] LABS: C DIFF A/B (PCR) NOT DETECTED (NOT DETECT)
[2022-02-15] MEDS: HUMULIN R SUBCUT PRN (20:15)
[2022-02-15] MEDS: CELEXA PO SCH (20:15)
[2022-02-15] MEDS: LOPRESSOR PO SCH (20:15)
[2022-02-16] MEDS: FLAGYL 500 MG/100 ML 500 MG/100 ML BAG IV SCH ×3 (04:31→20:18)
[2022-02-16 05:38] LABS: BASOPHILS % (AUTO) 0.6 % (0.0-3.0); EOSINOPHILS # (AUTO) 0.2 K/ul (0.0-0.7); EOSINOPHILS % (AUTO) 2.4 % (0.0-7.0); HEMATOCRIT 32.5 % (42.0-52.0); HEMOGLOBIN 10.6 g/dl (14.0-18.0); IMMATURE GRANULOCYTE % (AUTO) 0.3 % (0.0-5.0); LYMPHOCYTES # (AUTO) 1.1 K/uL (0.60-3.4); LYMPHOCYTES % (AUTO) 15.9 (10.0-50.0); MEAN CORPUSCULAR HEMOGLOBIN 28.2 pg (27.0-31.0); MEAN CORPUSCULAR HGB CONC 32.6 (31.8-35.4); MEAN CORPUSCULAR VOLUME 86.4 fl (80.0-94.0); MONOCYTES # (AUTO) 0.7 K/uL (0.4-2.0); MONOCYTES % (AUTO) 10.6 (0-10); NEUTROPHILS # (AUTO) 4.7 K/ul (2.0-6.9); NEUTROPHILS % (AUTO) 70.2 % (42.2-75.2); PLATELET COUNT 136 10^3/uL (140-440); RDW COEFFICIENT OF VARIATION 14.3 % (11.6-14.8); RED BLOOD COUNT 3.76 10^6/ul (4.70-6.10); WHITE BLOOD COUNT 6.62 K/ul (4.2-10.2)
[2022-02-16] MEDS: ZOSYN 4.5 GM 4.5 GM in SODIUM CHLORIDE 100ML 100 ML IV SCH ×4 (05:47→23:39)
[2022-02-16 05:50] LABS: ALANINE AMINOTRANSFERASE 39.8 U/L (0-50); ALBUMIN 3.17 g/dL (3.5-5.0); ALKALINE PHOSPHATASE 53.4 U/L (56-119); BILIRUBIN,TOTAL 0.48 mg/dL (0.2-1.3); BLOOD UREA NITROGEN 17.9 mg/dL (9-20); CALCIUM 7.6 mg/dL (8.4-10.2); CARBON DIOXIDE 22.6 mmol/L (22-30.0); CREATININE 0.59 mg/dL (0.60-1.10); GLUCOSE 143.5 mg/dL (74-106); SODIUM 137.1 mmol/L (134.5-145); TOTAL PROTEIN 5.97 g/dL (6.3-8.2)
[2022-02-16] MEDS: SODIUM CHLORIDE 1,000 ML IV SCH (05:53)
[2022-02-16] MEDS: ASPIRIN CHEWABLE PO SCH (09:37)
[2022-02-16] MEDS: NEURONTIN PO SCH ×2 (09:37→20:17)
[2022-02-16] MEDS: K-DUR PO SCH ×5 (09:37→20:16)
[2022-02-16] MEDS: MIRALAX PO SCH ×2 (09:37→20:18)
[2022-02-16] MEDS: LIPITOR PO SCH (09:38)
[2022-02-16] MEDS: LOVENOX SUBCUT SCH (09:38)
[2022-02-16 09:45] LABS: ERYTHROCYTE SEDIMENTATION RATE 25 mm/hr (0-15)
--- NOTE | 2022-02-16 09:48 | PCM.PROG ---
Attending Provider: ATTENDING PROVIDER: Dr. GENESIS GARCIA This patient is seen with Sandee Epstein, Nurse Practitioner. DATE OF SERVICE: 02/16/22 SUBJECTIVE: This 71 year old /WHITE M was hospitalized 02/13/22. Had low grade fever multiple times in past 24 hours. Blood cultures still negative. WBC improved. Chest x-ray showed possible pneumonitis. Abdominal CT showed resolution of rectal distention. Still awaiting echo. ABG showed improvement in acidosis. REVIEW OF SYSTEMS: CONSTITUTIONAL: No night sweats. No fatigue, malaise, lethargy. Fever. Weakness. HEENT: Eyes: No visual changes. No eye pain. No eye discharge. ENT: No runny nose. No epistaxis. No sinus pain. No odynophagia. No congestion. RESPIRATORY: No cough, no congestion. No hemoptysis. Shortness of breath. CARDIOVASCULAR: No angina symptoms. No CHF symptoms. No atypical chest pain for CAD. No palpitations. No orthopnea.. GASTROINTESTINAL: No abdominal pain. No nausea or vomiting. No diarrhea or constipation. No hematemesis. No hematochezia. GENITOURINARY: No urgency. No frequency. No dysuria. No hematuria. No obstructive symptoms. No discharge. No pain. No significant abnormal bleeding. MUSCULOSKELETAL: No musculoskeletal pain; no joint swelling. NEUROLOGICAL: Awake, alert, oriented to time, place and person. No headache. No neck pain. No syncope. No seizures. No dizziness. PSYCHIATRIC: Not anxious. No depression. No suicidal thoughts. No homicidal thoughts. SKIN: No rash. No lesions. No wounds. ENDOCRINE: No unexplained weight loss. No weight gain. HEMATOLOGIC/LYMPHATIC: No anemia. No purpura. No petechiae. No prolonged or excessive bleeding. No palpable lymph nodes. PHYSICAL EXAMINATION: GENERAL: The patient is awake, alert and oriented, lying in bed in no distress. VITAL SIGNS: Temperature 98.3 F, Pulse 82, Respiratory Rate 20, BP 114/66, Puls e Ox 96% HEENT: Head normocephalic, atraumatic. Eyes: Extraocular muscles are intact. Pupils are equal, round and reactive to light and accommodation. Ears: No lesions. Nose appeared normal. Throat: No exudate or erythema. NECK: Supple. No JVD, no carotid bruit. No lymphadenopathy or thyromegaly. LUNGS: Diminished breath sounds. Clear to auscultation. Percussion note normal. Chest symmetrical. HEART: S1, S2, no S3. Grade I murmurs. No cyanosis or clubbing. No ascites. Pulses: Dorsalis pedis and posterior tibial pulses +1 to +2 both sides. ABDOMEN: Soft. Non-tender. Bowel sounds active. No CVA tenderness. No mass felt. EXTREMITIES: 2+ bilateral leg edema. Improved erythema. Purulent penile drainage. Full range of motion of all extremities, equal. NEUROLOGIC: No focal deficit. Cranial nerves II through XII are grossly intact. No headache. No double vision. SKIN: Not dry. Intact. Turgor-normal. LYMPHATIC: No palpable lymph nodes/no lymphedema. MUSCULOSKELETAL: Normal joints with no swelling. Muscle tone is normal. LAB REVIEW: 02/16/22 04:35 02/16/22 04:35 02/16/22 04:35: Sodium 137.1, Potassium 3.00 L, Chloride 108.0 H, Carbon Dioxide 22.6, Anion Gap 9.50, BUN 17.9, Creatinine 0.59 L, Estimated GFR (MDRD) 135.00, BUN/Creatinine Ratio 30.33, Glucose 143.5 H, Calcium 7.60 L, Total Bilirubin 0.48, AST 39.0, ALT 39.8, Alkaline Phosphatase 53.4 L, Total Protein 5.97 L, Albumin 3.17 L, Globulin 2.80, Albumin/Globulin Ratio 1.13 02/16/22 04:35: WBC 6.62, RBC 3.76 L, Hgb 10.6 L, Hct 32.5 L, MCV 86.4, MCH 28.2, MCHC 32.6, RDW Coeff of Veronica 14.3, Plt Count 136 L, Immature Gran % (Auto) 0.3, Neut % (Auto) 70.2, Lymph % (Auto) 15.9, [place] % (Auto) 10.6 H, Eos % (Auto) 2.4, Baso % (Auto) 0.6, Neut # (Auto) 4.7, Lymph # (Auto) 1.1, [place] # (Auto) 0.7, Eos # (Auto) 0.2, Baso # (Auto) 0.0, Immature Gran # (Auto) 0.0 02/16/22 04:35: Lactic Acid 0.67 L 02/16/22 04:35: Procalcitonin 0.20 H 02/15/22 18:30: Stl C. cayetanensis PCR Not detected, Stool Rotavirus (PCR) Not detected, Stool Adenovirus (PCR) Not detected, Stool Astrovirus (PCR) Not detected, Stool Campylobacter PCR Not detected, Stl C.difficile Tox PCR Not detected, Stool Cryptosporidium PCR Not detected, Stl E.coli Shiga Tox PCR Not detected, St Sh/Enteroin Ecoli PCR Not detected, Stl Enterotoxigenic E PCR Not detected, Stool EPEC (PCR) Not detected, Stl E. histolytica PCR Not detected, Stool Giardia Lamblia PCR Not detected, Stl P. shigelloides PCR Not detected, Stool Salmonella PCR Not detected, Stool Sapovirus (PCR) Not detected, St Y.enterocolitica PCR Not detected, Stool Vibrio (PCR) Not detected, Stl Vibrio cholerae PCR Not detected, Stl Enteroaggr Ecoli PCR Not detected, Stl Norovirus GI/GII PCR Not detected 02/15/22 08:34: Puncture Site R rad, Base Excess -1.0, O2 Saturation 94.2, ABG pH 7.34 L, ABG pCO2 46.0 H, ABG pO2 76.0 L, ABG HCO3 24.8, ABG Total CO2 26.2 H, Sean Test Y, Hemoglobin 1.1, Oxyhemoglobin 94.8 L, Carboxyhemoglobin 2.6 H, Total Hemoglobin 11.1 L, O2 Delivery Device Cannula, Oxygen Liter Flow 2.00 02/15/22 04:36: Hemoglobin A1c 6.62 H ASSESSMENT: Please see below. 1. Sepsis 2. Fever 3. Metabolic acidosis 4. Constipation 5. Hypokalemia 6. Acute respiratory failure PLAN: 1. Potassium 20meq QID today 2. Discontinue catheter 3. Discontinue IV fluids 4. SED rate and CRP 5. GI panel, PSA and culture from drainage all still pending. Plan and coordination of the patient's care discussed in the presence of Wastewater Design Engineer and nurse. SCRIBED BY: ZOIE PRITCHETT Rivet Sticker scribed while in presence of service performed by Dr. Garcia/Sandee Epstein APRN on 02/16/22 ([id number])
[2022-02-16 10:11] LABS: PROSTATE SPECIFIC ANTIGEN SCRN 2.2 ng/mL (0.0-4.0)
[2022-02-16] MEDS: VANCOMYCIN 1.25 GM/250 ML BAG 1.25 GM/250 ML BAG IV SCH (10:20)
[2022-02-16] MEDS: VANCOMYCIN 1.5 GRAM/300 ML PREMIX 1.5 GM/300 ML BAG IV SCH ×2 (10:22→21:59)
--- NOTE | 2022-02-16 14:27 | HP ---
DATE OF SERVICE: 02/13/22 REASON FOR HOSPITALIZATION/HISTORY OF PRESENT ILLNESS: 71 year old white male who lives at home. He suffers from a neuromuscular condition and is wheelchair bound. He needs assistance with all ADL's. He reports that he has not had a bowel movement in 3-4 days. Is also a little obtunded. He has a long history of noncompliance with medications, lifestyle and followup. PAST MEDICAL HISTORY: Positive COVID 06/06 Spinal cerebellar ataxia., sees Dr. Martin Wheelchair bound Diabetes mellitus type II Coronary artery disease with history of OR 06/03 Friedreich's ataxia Vitamin D deficiency COPD Polyneuropathy Hypertension B12 deficiency Right artificial eye Dependent leg edema Noncompliant with diet, medications, lifestyle and followup. It is to be noted he has abdominal obesity Mild depression Suffered OR back in 2016 and refused any cardiac catheterization or intervention Refuses to see interventional cardiology PAST SURGICAL HISTORY: No known surgical history REVIEW OF SYSTEMS: CONSTITUTIONAL: No night sweats. No fatigue, malaise, lethargy. No fever or chills. HEENT: Eyes: No visual changes. No eye pain. No eye discharge. ENT: No runny nose. No epistaxis. No sinus pain. No sore throat. No odynophagia. No ear pain. No congestion. RESPIRATORY: Cough, no congestion. No hemoptysis. No shortness of breath. CARDIOVASCULAR: No angina symptoms. No CHF symptoms. No atypical chest pain for CAD. No palpitations. No PND. No orthopnea. GASTROINTESTINAL: Abdominal pain. No nausea or vomiting. Constipation. No hematemesis. No hematochezia. GENITOURINARY: No urgency. No frequency. No dysuria. No hematuria. No obstructive symptoms. No discharge. No pain. No significant abnormal bleeding. MUSCULOSKELETAL: No musculoskeletal pain. No joint swelling. No arthritis. NEUROLOGICAL: No headache. No neck pain. No syncope. No seizures. No dizziness. PSYCHIATRIC: Not anxious. No depression. No suicidal thoughts. No homicidal thoughts. SKIN: No rash. No lesions. No wounds. ENDOCRINE: No unexplained weight loss. No weight gain. HEMATOLOGIC/LYMPHATIC: No anemia. No purpura. No petechiae. No prolonged or excessive bleeding. No palpable lymph nodes. PERSONAL/FAMILY/SOCIAL HISTORY: He lives at home with his and son. Again he needs assistance with all ADL's; bathing. He is in a wheelchair. He is a nonsmoker. No alcohol or illicit drug use. MEDICATIONS: Glucophage 1000mg PO BID Lopressor 50mg PO Bedtime Aspirin 81mg PO daily Zestril 20mg PO daily Nitroglycerin 0.4mg sublingual PRN Lipitor 40mg PO daily Gabapentin 300mg PO BID Doxycycline 100mg PO BID Celexa 20mg PO BEDTIME Potassium chloride 10meq PO daily ALLERGIES: No known drug allergies PHYSICAL EXAMINATION: GENERAL: The patient is VITAL SIGNS: Temperature 97.3, heart rate 122, respiratory rate 36, blood pressure 129/92 and pulse ox 94% on 2 liters. HEENT: Head normocephalic, atraumatic. Eyes: Extraocular muscles are intact. Pupils are equal, round and reactive to light and accommodation. Ears: No lesions. Nose appeared normal. Throat: No exudate or erythema. NECK: Supple. No JVD, no carotid bruit. No lymphadenopathy or thyromegaly. LUNGS: Diminished breath sounds. Clear to auscultation. Percussion note normal. Chest symmetrical. HEART: S1, S2, no S3. No murmur. No cyanosis or clubbing. No ascites. Pulses: Dorsalis pedis and posterior tibial pulses +1 to +2 bilaterally. ABDOMEN: Mildly distended. Somewhat soft. Nontender. Bowel sounds active. No CVA tenderness. No mass felt. EXTREMITIES: +3 bilateral leg edema with erythema of both lower extremities up to the ankle. Full range of motion of all extremities, equal. NEUROLOGIC: No focal deficit. Cranial nerves II through XII are grossly intact. No headache, no double vision or headache. SKIN: Not dry. Intact. Turgor - normal. LYMPHATIC: No palpable lymph nodes/no lymphedema. MUSCULOSKELETAL: Normal joints with no swelling. Muscle tone is normal. LABS: X-ray of the abdomen shows diffused still throughout. CT of the abdomen shows large amount stool in the distended rectum with perirectal fat stranding and trace fluid in the lower abdomen and pelvis, correlate for impaction and or serocolitis. Large amount stool in the distended colon, possible urinary bladder stones, non-obstructing. Distended rectum which measures 9.8cm transverse. Urine shows 2+ protein, 2+ glucose and trace blood, trace bacteria. ABG initially on room air pH 7.25, pCO2 37, PO2 67, bicarb 16.2 with base of -11, Oxygen saturation 89% on room air. Procalcitonin 0.07, sodium 133, potassium 3.6, BUN 22, creatinine 0.69, glucose 321, AST 43, ALT 56, Protein 8.6, Albumin 4.7, globulin 3.9, Alkaline phosphatase 81, TSH 0.815, lactic acid 7.37. WBC 15,000, hgb 14.7, hct 45.4, plt count 220. COVID PCR negative. ASSESSMENT: 1. Sepsis 2. Metabolic acidosis 3. Acute respiratory failure 4. Severe constipation 5. Friedreich's ataxia 6. Sinus tachycardia 7. Bilateral leg edema 8. History of coronary artery disease PLAN: 1. We will admit 2. Routine telemetry orders 3. CBC and CMP daily 4. Continue home medications 5. Normal saline IV at 75cc an hour 6. CT of the chest with and without 7. The patient is to continue on Flagyl, Zosyn and Vancomycin as ordered per ER 8. Blood cultures were done in ER 9. Sputum culture 10.Oxygen on 2 liters via nasal canula 11.Repeat ABGs in 1-2 hours 12.The patient is to have fleet enema until stool runs clear 13.Start Miralax one cup full BID 14. Clear liquid diet 15. Will follow closely 16. Urine culture TIME SPENT: More than 70 minutes. MTDD
--- NOTE | 2022-02-16 16:23 | RS.SLPCNOT ---
Speech Case Note Date of Note: 02/16/22 Title: Speech consult Note: RESOURCE RECOVERY ENGINEER consulted with the RN regarding the patients deficits and admitting dx. The RN reported pt was changed to regular diet after a short duration of clear liquid diet due to GI issues. The patient has tolerated three regular diet trays without reports of overt s/s of aspiration. The patient takes his medications without difficulty. The RESOURCE RECOVERY ENGINEER did ask the patient if he has any hx of swallowing difficulty, which he responded no. However, may not be truthful historian with medical questions. At this time, RESOURCE RECOVERY ENGINEER recommends consult only and RN will warrant full bedside evaluation if any swallow concerns are observed. Thank you for this consult.
[2022-02-16] MEDS: FLOMAX PO SCH (17:55)
[2022-02-16] MEDS: CELEXA PO SCH (20:16)
[2022-02-16] MEDS: LOPRESSOR PO SCH (20:17)
[2022-02-16] MEDS: HUMULIN R SUBCUT PRN (20:17)
[2022-02-16 21:09] LABS: CHLAMYDIA TRACHOMATIS, NAA Negative (Negative); NEISSERIA GONORRHOEAE, NAA Negative (Negative)
[2022-02-16] MEDS ORDERED: NYSTOP POWDER TP PRN (23:52)
[2022-02-17] MEDS: FLAGYL 500 MG/100 ML 500 MG/100 ML BAG IV SCH (04:35)
[2022-02-17 05:27] LABS: BASOPHILS # (AUTO) 0.1 K/uL (0-0.2); BASOPHILS % (AUTO) 0.9 % (0.0-3.0); EOSINOPHILS # (AUTO) 0.2 K/ul (0.0-0.7); EOSINOPHILS % (AUTO) 3.9 % (0.0-7.0); HEMATOCRIT 33.6 % (42.0-52.0); HEMOGLOBIN 10.8 g/dl (14.0-18.0); IMMATURE GRANULOCYTE % (AUTO) 0.4 % (0.0-5.0); LYMPHOCYTES # (AUTO) 1.1 K/uL (0.60-3.4); LYMPHOCYTES % (AUTO) 19.7 (10.0-50.0); MEAN CORPUSCULAR HEMOGLOBIN 28.1 pg (27.0-31.0); MEAN CORPUSCULAR HGB CONC 32.1 (31.8-35.4); MEAN CORPUSCULAR VOLUME 87.5 fl (80.0-94.0); MONOCYTES # (AUTO) 0.5 K/uL (0.4-2.0); MONOCYTES % (AUTO) 8.8 (0-10); NEUTROPHILS # (AUTO) 3.6 K/ul (2.0-6.9); NEUTROPHILS % (AUTO) 66.3 % (42.2-75.2); PLATELET COUNT 127 10^3/uL (140-440); RDW COEFFICIENT OF VARIATION 14.4 % (11.6-14.8); RED BLOOD COUNT 3.84 10^6/ul (4.70-6.10); WHITE BLOOD COUNT 5.44 K/ul (4.2-10.2)
[2022-02-17] MEDS: ZOSYN 4.5 GM 4.5 GM in SODIUM CHLORIDE 100ML 100 ML IV SCH ×4 (05:37→23:18)
[2022-02-17 05:45] LABS: ALANINE AMINOTRANSFERASE 47.1 U/L (0-50); ALBUMIN 3.26 g/dL (3.5-5.0); ALKALINE PHOSPHATASE 56.9 U/L (56-119); ASPARTATE AMINO TRANSFERASE 48.9 U/L (17-59); BILIRUBIN,TOTAL 0.41 mg/dL (0.2-1.3); BLOOD UREA NITROGEN 14.4 mg/dL (9-20); CALCIUM 7.79 mg/dL (8.4-10.2); CARBON DIOXIDE 23.7 mmol/L (22-30.0); CHLORIDE 108.1 mmol/L (98-107); CREATININE 0.46 mg/dL (0.60-1.10); GLUCOSE 151.4 mg/dL (74-106); POTASSIUM 3.5 mmol/L (3.5-5.1); SODIUM 137.3 mmol/L (134.5-145); TOTAL PROTEIN 6.27 g/dL (6.3-8.2)
[2022-02-17] MEDS: HUMULIN R SUBCUT PRN ×4 (06:17→20:52)
[2022-02-17] MEDS: LOVENOX SUBCUT SCH (09:31)
[2022-02-17] MEDS: ASPIRIN CHEWABLE PO SCH (09:31)
[2022-02-17] MEDS: VANCOMYCIN 1.5 GRAM/300 ML PREMIX 1.5 GM/300 ML BAG IV SCH ×2 (09:31→20:47)
[2022-02-17] MEDS: NEURONTIN PO SCH ×2 (09:31→20:46)
[2022-02-17] MEDS: K-DUR PO SCH ×2 (09:31→16:57)
[2022-02-17] MEDS: MIRALAX PO SCH ×2 (09:31→20:47)
[2022-02-17] MEDS: FLOMAX PO SCH (09:31)
[2022-02-17] MEDS: LIPITOR PO SCH (09:31)
--- NOTE | 2022-02-17 09:38 | PN ---
DATE OF SERVICE: 02/15/22 SUBJECTIVE: The patient was seen and examined with the Nurse Practitioner. The patient's condition seems to be improving. Had some more stool taken out from his colon. Abdomen is less distended. CONDITION: Improving slowly. TIME SPENT: More than 30 minutes. Plan and coordination of the patient's care discussed in the presence of nurse. DEISI
[2022-02-17] MEDS ORDERED: LASIX IVP ONE (10:58)
--- NOTE | 2022-02-17 13:16 | PN ---
DATE OF SERVICE: 02/16/22 SUBJECTIVE: The patient was seen and examined with the Nurse Practitioner. The patient is still running fever off and on. He is on triple antibiotics. Echocardiogram was done by me. Somewhat difficult but I was able to visualize tricuspid mitral and aortic valves. Didn't show any evidence of any areas of concern with endocarditis. Contractility is normal. RV is enlarged. LA cavity is enlarged. His condition is critical. Prognosis is guarded. The patient is a DNR. Constipation which was severe has resolved. CT scan of the abdomen. E-coli culture from the penile discharge. The patient is covered with antibiotics with that. TIME SPENT: More than 30 minutes. Plan and coordination of the patient's care discussed in the presence of nurse. DEISI
[2022-02-17] MEDS: LOPRESSOR PO SCH (20:46)
[2022-02-17] MEDS: CELEXA PO SCH (20:46)
[2022-02-18] MEDS: ZOSYN 4.5 GM 4.5 GM in SODIUM CHLORIDE 100ML 100 ML IV SCH ×4 (05:13→23:00)
[2022-02-18] MEDS: HUMULIN R SUBCUT PRN ×4 (05:37→20:46)
[2022-02-18 07:21] LABS: BASOPHILS % (AUTO) 0.6 % (0.0-3.0); EOSINOPHILS # (AUTO) 0.4 K/ul (0.0-0.7); EOSINOPHILS % (AUTO) 7.7 % (0.0-7.0); HEMATOCRIT 34.7 % (42.0-52.0); HEMOGLOBIN 11.2 g/dl (14.0-18.0); IMMATURE GRANULOCYTE % (AUTO) 0.4 % (0.0-5.0); LYMPHOCYTES # (AUTO) 1.1 K/uL (0.60-3.4); LYMPHOCYTES % (AUTO) 19.8 (10.0-50.0); MEAN CORPUSCULAR HEMOGLOBIN 28.4 pg (27.0-31.0); MEAN CORPUSCULAR HGB CONC 32.3 (31.8-35.4); MEAN CORPUSCULAR VOLUME 88.1 fl (80.0-94.0); MONOCYTES # (AUTO) 0.5 K/uL (0.4-2.0); MONOCYTES % (AUTO) 8.4 (0-10); NEUTROPHILS # (AUTO) 3.4 K/ul (2.0-6.9); NEUTROPHILS % (AUTO) 63.1 % (42.2-75.2); PLATELET COUNT 142 10^3/uL (140-440); RDW COEFFICIENT OF VARIATION 14.2 % (11.6-14.8); RED BLOOD COUNT 3.94 10^6/ul (4.70-6.10); WHITE BLOOD COUNT 5.35 K/ul (4.2-10.2)
[2022-02-18 07:30] LABS: ALANINE AMINOTRANSFERASE 54.4 U/L (0-50); ALBUMIN 3.61 g/dL (3.5-5.0); ALKALINE PHOSPHATASE 67.2 U/L (56-119); ASPARTATE AMINO TRANSFERASE 44.1 U/L (17-59); BILIRUBIN,TOTAL 0.4 mg/dL (0.2-1.3); CALCIUM 7.9 mg/dL (8.4-10.2); CARBON DIOXIDE 32.2 mmol/L (22-30.0); CHLORIDE 103.3 mmol/L (98-107); CREATININE 0.54 mg/dL (0.60-1.10); GLUCOSE 146.3 mg/dL (74-106); POTASSIUM 3.31 mmol/L (3.5-5.1); SODIUM 139.8 mmol/L (134.5-145); TOTAL PROTEIN 6.7 g/dL (6.3-8.2)
[2022-02-18] MEDS: LIPITOR PO SCH (08:35)
[2022-02-18] MEDS: NEURONTIN PO SCH ×2 (08:36→20:46)
[2022-02-18] MEDS: ASPIRIN CHEWABLE PO SCH (08:36)
[2022-02-18] MEDS: FLOMAX PO SCH (08:36)
[2022-02-18] MEDS: K-DUR PO SCH ×2 (08:36→17:13)
[2022-02-18] MEDS: LOVENOX SUBCUT SCH (08:37)
--- NOTE | 2022-02-18 08:38 | ECHO2D ---
Date of Exam: 02/16/2022 Ordering Physician: DR. GENESIS GARCIA Room #: 102 Reason for Echo: SOB, HTN, DM2 M-Mode Normal Adult Results LV Dimensions Normal Adult Results AoV Opening excursions >1.6 >1.6 LVEDD-base- 3.5-5.8 3.7 Ao root dimensions 2.0-3.7 3.3 LVESD-base- 3.1-4.6 L. Atrium dimensions 1.9-3.8 4.7 Post. Wall thickness 0.8-1.1 1.0 IV septum (thickness) 0.7-1.2 1.0 Post. Wall excursion 0.72-1.3 NORMAL Septal motion NORMAL Systolic motion R. Ventricular cavity 1.5-2.0 NORMAL LVEF 60% 58% Paradoxical septal wall motion NORMAL 2-D : DIFFICULT STUDY--BODY HABITUS, VALVES -- NORMAL, NO EFFUSION, NO THROMBUS, LEFT VENTRICLE CONTRACTILITY--AND LEFT VENTRICLE SIZE NORMAL M-MODE: MV: NORMAL AV: NORMAL TV: NORMAL PV: CHAMBER SIZE: ENLARGED LEFT ATRIAL CAVITY WALL MOTION: NORMAL PERICARDIUM: NORMAL INTERPRETATION: 1. NORMAL LEFT VENTRICLE CONTRACTILITY AND LEFT VENTRICLE SIZE 2. VALVES AND TRICUSPID, MITRAL AND AORTIC NORMAL 3. ENLARGED LEFT ATRIAL CAVITY 4. DIFFICULT STUDY--BODY HABITUS MTDD
[2022-02-18] MEDS: VANCOMYCIN 1.5 GRAM/300 ML PREMIX 1.5 GM/300 ML BAG IV SCH ×2 (08:39→20:46)
[2022-02-18] MEDS: MIRALAX PO SCH (08:40)
--- NOTE | 2022-02-18 10:05 | PCM.PROG ---
Attending Provider: ATTENDING PROVIDER: Dr. GENESIS GUILLAUME This patient is seen with Sandee Epstein, Nurse Practitioner. DATE OF SERVICE: 02/18/22 SUBJECTIVE: This 71 year old /WHITE M was hospitalized 02/13/22. No fever for greater than 48 hours. Discussed Goode Catheter does have irritation to penis likely due to Goode. Has been urinating. He was started on Flomax. Blood pressure has improved. refuses any kind of Home Health or help at home. REVIEW OF SYSTEMS: CONSTITUTIONAL: No night sweats. No fatigue, malaise, lethargy. No fever or chills. Weakness. HEENT: Eyes: No visual changes. No eye pain. No eye discharge. ENT: No runny nose. No epistaxis. No sinus pain. No odynophagia. No congestion. RESPIRATORY: No cough, no congestion. No hemoptysis. No shortness of breath. CARDIOVASCULAR: No angina symptoms. No CHF symptoms. No atypical chest pain for CAD. No palpitations. No orthopnea.. GASTROINTESTINAL: No abdominal pain. No nausea or vomiting. No diarrhea or constipation. No hematemesis. No hematochezia. GENITOURINARY: No urgency. No frequency. No dysuria. No hematuria. No obstructive symptoms. No discharge. No pain. No significant abnormal bleeding. MUSCULOSKELETAL: No musculoskeletal pain; no joint swelling. NEUROLOGICAL: Awake, alert, oriented to time, place and person. No headache. No neck pain. No syncope. No seizures. No dizziness. PSYCHIATRIC: Not anxious. No depression. No suicidal thoughts. No homicidal thoughts. SKIN: No rash. No lesions. No wounds. Leg edema. ENDOCRINE: No unexplained weight loss. No weight gain. HEMATOLOGIC/LYMPHATIC: No anemia. No purpura. No petechiae. No prolonged or excessive bleeding. No palpable lymph nodes. PHYSICAL EXAMINATION: GENERAL: The patient is awake, alert and oriented, laying in bed in no distress. VITAL SIGNS: Temperature 97.4 F, Pulse 72, Respiratory Rate 16, BP 144/82, Pulse Ox 97% HEENT: Head normocephalic, atraumatic. Eyes: Extraocular muscles are intact. Pupils are equal, round and reactive to light and accommodation. Ears: No lesions. Nose appeared normal. Throat: No exudate or erythema. NECK: Supple. No JVD, no carotid bruit. No lymphadenopathy or thyromegaly. LUNGS: Diminished breath sounds. Clear to auscultation. Percussion note normal. Chest symmetrical. HEART: S1, S2, no S3. No murmurs. No cyanosis or clubbing. No ascites. Pulses: Dorsalis pedis and posterior tibial pulses +1 to +2 both sides. ABDOMEN: Soft. Non-tender. Bowel sounds active. No CVA tenderness. No mass felt. EXTREMITIES: 2+ bilateral leg edema. edema. Full range of motion of all extremities, equal. NEUROLOGIC: No focal deficit. Cranial nerves II through XII are grossly intact. No headache. No double vision. SKIN: Not dry. Intact. Turgor-normal. LYMPHATIC: No palpable lymph nodes/no lymphedema. MUSCULOSKELETAL: Normal joints with no swelling. Muscle tone is normal. LAB REVIEW: 02/18/22 06:50 02/18/22 06:50 02/18/22 06:50: Sodium 139.8, Potassium 3.31 L, Chloride 103.3, Carbon Dioxide 32.2 H D, Anion Gap 7.61, BUN 9.0, Creatinine 0.54 L, Estimated GFR (MDRD) 149.00, BUN/Creatinine Ratio 16.66, Glucose 146.3 H, Calcium 7.90 L, Total Bilirubin 0.40, AST 44.1, ALT 54.4 H, Alkaline Phosphatase 67.2, Total Protein 6.70, Albumin 3.61, Globulin 3.09, Albumin/Globulin Ratio 1.16 02/18/22 06:50: WBC 5.35, RBC 3.94 L, Hgb 11.2 L, Hct 34.7 L, MCV 88.1, MCH 28.4, MCHC 32.3, RDW Coeff of Veronica 14.2, Plt Count 142, Immature Gran % (Auto) 0.4, Neut % (Auto) 63.1, Lymph % (Auto) 19.8, [place] % (Auto) 8.4, Eos % (Auto) 7.7 H, Baso % (Auto) 0.6, Neut # (Auto) 3.4, Lymph # (Auto) 1.1, [place] # (Auto) 0.5, Eos # (Auto) 0.4, Baso # (Auto) 0.0, Immature Gran # (Auto) 0.0 ASSESSMENT: Please see below. 1. Sepsis 2. Metabolic acidosis, resolved 3. Prostatitis with purulent drainage positive e-coli PLAN: 1. Decrease Miralax to once a day 2. Continue IV antibiotics 3. Elevate legs Plan and coordination of the patient's care discussed in the presence of Aircraft Pneudraulics Repairer and nurse. SCRIBED BY: ZOIE PRITCHETT Auto Body Repair Technician scribed while in presence of service performed by Dr. Guillaume/Sandee Epstein APRN on 02/18/22 ([id number])
--- NOTE | 2022-02-18 14:24 | PN ---
DATE OF SERVICE: 02/17/22 SUBJECTIVE: 71 year old white male hospitalized with sepsis likely coming from UTI. The patient's condition seems to be improving. His metabolic acidosis has improved. Overall his mental status has been improving because he is less sleepy. The patient had Goode catheter out. Yesterday he had some discharge from his penis which was initially greenish. The patient's blood cultures have been negative. The patient's echo did not show any evidence of any ischemic areas in any of his valves. REVIEW OF SYSTEMS: CONSTITUTIONAL: No night sweats. No fatigue, malaise, lethargy. No fever or chills. HEENT: Eyes: No visual changes. No eye pain. No eye discharge. ENT: No runny nose. No epistaxis. No sinus pain. No sore throat. No odynophagia. No congestion. RESPIRATORY: No cough, no congestion. No hemoptysis. No shortness of breath. CARDIOVASCULAR: No angina symptoms. No CHF symptoms. No atypical chest pain for CAD. No palpitations. No PND. No orthopnea. GASTROINTESTINAL: No abdominal pain. No nausea or vomiting. No diarrhea or constipation. No hematemesis. No hematochezia. GENITOURINARY: No urgency. No frequency. No dysuria. No hematuria. No obstructive symptoms. No discharge. No pain. No significant abnormal bleeding. MUSCULOSKELETAL: No musculoskeletal pain; no joint swelling. NEUROLOGICAL: No headache. No neck pain. No syncope. No seizures. No dizziness. PSYCHIATRIC: Not anxious. No depression. No suicidal thoughts. No homicidal thoughts. SKIN: No rash. No lesions. No wounds. ENDOCRINE: No unexplained weight loss. No weight gain. HEMATOLOGIC/LYMPHATIC: No anemia. No purpura. No petechiae. No prolonged or excessive bleeding. No palpable lymph nodes. PHYSICAL EXAMINATION: VITAL SIGNS: Temperature 98, pulse 82, respiratory rate 18, blood pressure 125/70 and pulse ox 96% on 2 liters. HEENT: Head normocephalic, atraumatic. Eyes: Extraocular muscles are intact. Pupils are equal, round and reactive to light and accommodation. Ears: No lesions. Nose appeared normal. Throat: No exudate or erythema. NECK: Supple. No JVD, no carotid bruit. No lymphadenopathy or thyromegaly. LUNGS: Decreased breath sounds but good air entry. Percussion note normal. Chest symmetrical. HEART: S1, S2, no S3. No murmurs. No cyanosis or clubbing. No ascites. Pulses: Dorsalis pedis and posterior tibial pulses +1 to +2 bilaterally. ABDOMEN: Soft. Nontender. Bowel sounds active. No CVA tenderness. No mass felt. EXTREMITIES: +1 edema mostly on the dorsum seems to be chronic. Full range of motion of all extremities, equal. NEUROLOGIC: No focal deficit. Cranial nerves II through XII are grossly intact. No headache. No double vision. SKIN: Not dry. Intact. Turgor - normal. LYMPHATIC: No palpable lymph nodes/no lymphedema. MUSCULOSKELETAL: Normal joints with no swelling. Muscle tone is normal. LABS: Hgb 10.8, hct 33, WBC 5,400 normal differential, creatinine 0.4, BUN 14, potassium 3.5 ASSESSMENT: 1. Sepsis of urinary tract. PLAN: 1. Continue all antibiotics Zosyn, Flagyl and Vancomycin 2. Continue rest of the medications 3. Continue Tamsulosin, Metoprolol, Lisinopril 4. IV Lasix 20mg just one time. CONDITION: Stabilized. TIME SPENT: More than 30 minutes. Plan and coordination of the patient's care discussed in the presence of nurse. DEISI
[2022-02-18] MEDS ORDERED: LASIX IVP ONE (18:44)
[2022-02-18] MEDS: CELEXA PO SCH (20:46)
[2022-02-18] MEDS: LOPRESSOR PO SCH (20:46)
[2022-02-19 05:34] LABS: BASOPHILS % (AUTO) 0.6 % (0.0-3.0); EOSINOPHILS # (AUTO) 0.4 K/ul (0.0-0.7); EOSINOPHILS % (AUTO) 6.1 % (0.0-7.0); HEMATOCRIT 34.5 % (42.0-52.0); HEMOGLOBIN 11.5 g/dl (14.0-18.0); IMMATURE GRANULOCYTE % (AUTO) 0.4 % (0.0-5.0); LYMPHOCYTES # (AUTO) 1.2 K/uL (0.60-3.4); MEAN CORPUSCULAR HEMOGLOBIN 28.8 pg (27.0-31.0); MEAN CORPUSCULAR HGB CONC 33.3 (31.8-35.4); MEAN CORPUSCULAR VOLUME 86.5 fl (80.0-94.0); MONOCYTES # (AUTO) 0.5 K/uL (0.4-2.0); MONOCYTES % (AUTO) 7.7 (0-10); NEUTROPHILS # (AUTO) 4.6 K/ul (2.0-6.9); NEUTROPHILS % (AUTO) 67.2 % (42.2-75.2); PLATELET COUNT 162 10^3/uL (140-440); RDW COEFFICIENT OF VARIATION 14.2 % (11.6-14.8); RED BLOOD COUNT 3.99 10^6/ul (4.70-6.10); WHITE BLOOD COUNT 6.88 K/ul (4.2-10.2)
[2022-02-19] MEDS: ZOSYN 4.5 GM 4.5 GM in SODIUM CHLORIDE 100ML 100 ML IV SCH ×3 (05:36→17:25)
[2022-02-19 05:46] LABS: ALBUMIN 3.51 g/dL (3.5-5.0); ALKALINE PHOSPHATASE 66.6 U/L (56-119); ASPARTATE AMINO TRANSFERASE 37.8 U/L (17-59); BILIRUBIN,TOTAL 0.39 mg/dL (0.2-1.3); BLOOD UREA NITROGEN 9.1 mg/dL (9-20); CALCIUM 8.03 mg/dL (8.4-10.2); CARBON DIOXIDE 29.2 mmol/L (22-30.0); CHLORIDE 101.8 mmol/L (98-107); CREATININE 0.51 mg/dL (0.60-1.10); GLUCOSE 155.6 mg/dL (74-106); POTASSIUM 3.21 mmol/L (3.5-5.1); SODIUM 137.3 mmol/L (134.5-145); TOTAL PROTEIN 6.48 g/dL (6.3-8.2)
[2022-02-19] MEDS: HUMULIN R SUBCUT PRN ×4 (05:59→21:42)
[2022-02-19] MEDS: VANCOMYCIN 1.5 GRAM/300 ML PREMIX 1.5 GM/300 ML BAG IV SCH ×2 (08:14→20:28)
[2022-02-19] MEDS: FLOMAX PO SCH ×2 (08:34→20:28)
[2022-02-19] MEDS: NEURONTIN PO SCH ×2 (08:34→20:28)
[2022-02-19] MEDS: K-DUR PO SCH ×3 (08:34→17:23)
[2022-02-19] MEDS: LIPITOR PO SCH (08:34)
[2022-02-19] MEDS: LOVENOX SUBCUT SCH (08:35)
[2022-02-19] MEDS: ASPIRIN CHEWABLE PO SCH (08:35)
[2022-02-19] MEDS: MIRALAX PO SCH (08:35)
[2022-02-19] MEDS: NYSTOP POWDER TP SCH ×2 (11:43→20:29)
--- NOTE | 2022-02-19 12:35 | PN ---
DATE OF SERVICE: 02/14/22 SUBJECTIVE: 71 year old white male hospitalized with severe obstipation and sepsis with metabolic acidosis. The patient's condition seems to be improving to some extent. The is present in the room. She explained to me that the patient did not want to go any other place but [place]. He is DNR. She wants him to be treated with conservative management. COVID negative. REVIEW OF SYSTEMS: CONSTITUTIONAL: No night sweats. No fatigue, malaise, lethargy. No fever or chills. HEENT: Eyes: No visual changes. No eye pain. No eye discharge. ENT: No runny nose. No epistaxis. No sinus pain. No sore throat. No odynophagia. No congestion. RESPIRATORY: No cough, no congestion. No hemoptysis. No shortness of breath. CARDIOVASCULAR: No angina symptoms. No CHF symptoms. No atypical chest pain for CAD. No palpitations. No PND. No orthopnea. GASTROINTESTINAL: No abdominal pain. No nausea or vomiting. Severe constipation. No hematemesis. No hematochezia. He says that he is uncomfortably in the abdominal area. Doesn't say much. GENITOURINARY: No urgency. No frequency. No dysuria. No hematuria. No obstructive symptoms. No discharge. No pain. No significant abnormal bleeding. MUSCULOSKELETAL: No musculoskeletal pain; no joint swelling. NEUROLOGICAL: No headache. No neck pain. No syncope. No seizures. No dizziness. PSYCHIATRIC: Not anxious. No depression. No suicidal thoughts. No homicidal thoughts. SKIN: No rash. No lesions. No wounds. ENDOCRINE: No unexplained weight loss. No weight gain. HEMATOLOGIC/LYMPHATIC: No anemia. No purpura. No petechiae. No prolonged or excessive bleeding. No palpable lymph nodes. PHYSICAL EXAMINATION: VITAL SIGNS: Temperature 96.9, pulse 110, respiratory rate 18, blood pressure 135/84 and pulse ox 92% HEENT: Head normocephalic, atraumatic. Eyes: Extraocular muscles are intact. Pupils are equal, round and reactive to light and accommodation. Ears: No lesions. Nose appeared normal. Throat: No exudate or erythema. NECK: Supple. No JVD, no carotid bruit. No lymphadenopathy or thyromegaly. LUNGS: Decreased breath sounds but clear to auscultation. Percussion note normal. Chest symmetrical. HEART: S1, S2, no S3. No murmurs. No cyanosis or clubbing. No ascites. Pulses: Dorsalis pedis and posterior tibial pulses +1 to +2 bilaterally. ABDOMEN: Soft. Nontender. Bowel sounds active. No CVA tenderness. No mass felt. EXTREMITIES: No edema. Full range of motion of all extremities, equal. NEUROLOGIC: No focal deficit. Cranial nerves II through XII are grossly intact. No headache. No double vision. SKIN: Not dry. Intact. Turgor - normal. LYMPHATIC: No palpable lymph nodes/no lymphedema. MUSCULOSKELETAL: Normal joints with no swelling. Muscle tone is normal. LABS: Hgb 14, hct 42, WBC 14,000 normal differential, creatinine 0.6, BUN 30, potassium 3.3 ASSESSMENT: 1. Severe obstipation 2. Sepsis likely from urosepsis 3. Metabolic acidosis PLAN: 1. Continue to give the patient enema give it around 1 repeat it at 4. The patient has manually removed large amount of stool yesterday in the evening shift and also this morning by the nurse. Soft bowel movements with enemas. CONDITION: Improved some. PROGNOSIS: Guarded. Diabetic with neuromuscular disorder. He has not been able to walk for number of years. The patient is DNR. TIME SPENT: More than 30 minutes. Plan and coordination of the patient's care discussed in the presence of nurse. DEISI
--- NOTE | 2022-02-19 14:15 | PN ---
DATE OF SERVICE: 02/18/22 SUBJECTIVE: The patient was seen and examined with the Nurse Practitioner. The patient's condition is stabilizing. His overall status seems to have improved. In the evening I was called by the nurse that the patient looked swollen and had poor urine output. Bladder scan showed 150cc but it is difficult to oceanography teacher. We will put a Goode catheter in and see how he does. IV Lasix 40mg. The patient was seen and examined with the Nurse Practitioner. TIME SPENT: More than 30 minutes. Plan and coordination of the patient's care discussed in the presence of nurse. DEISI
[2022-02-19] MEDS: LOPRESSOR PO SCH (20:28)
[2022-02-19] MEDS: CELEXA PO SCH (20:28)
[2022-02-20] MEDS: ZOSYN 4.5 GM 4.5 GM in SODIUM CHLORIDE 100ML 100 ML IV SCH ×5 (00:13→23:04)
[2022-02-20] MEDS: HUMULIN R SUBCUT PRN ×4 (06:38→20:45)
[2022-02-20 06:43] LABS: BASOPHILS % (AUTO) 0.5 % (0.0-3.0); EOSINOPHILS # (AUTO) 0.4 K/ul (0.0-0.7); EOSINOPHILS % (AUTO) 6.1 % (0.0-7.0); HEMATOCRIT 33.8 % (42.0-52.0); HEMOGLOBIN 11.2 g/dl (14.0-18.0); IMMATURE GRANULOCYTE % (AUTO) 0.3 % (0.0-5.0); LYMPHOCYTES # (AUTO) 1.2 K/uL (0.60-3.4); LYMPHOCYTES % (AUTO) 18.8 (10.0-50.0); MEAN CORPUSCULAR HEMOGLOBIN 28.6 pg (27.0-31.0); MEAN CORPUSCULAR HGB CONC 33.1 (31.8-35.4); MEAN CORPUSCULAR VOLUME 86.4 fl (80.0-94.0); MONOCYTES # (AUTO) 0.5 K/uL (0.4-2.0); MONOCYTES % (AUTO) 8.3 (0-10); NEUTROPHILS # (AUTO) 4.2 K/ul (2.0-6.9); PLATELET COUNT 151 10^3/uL (140-440); RDW COEFFICIENT OF VARIATION 14.3 % (11.6-14.8); RED BLOOD COUNT 3.91 10^6/ul (4.70-6.10); WHITE BLOOD COUNT 6.37 K/ul (4.2-10.2)
[2022-02-20 06:57] LABS: ALANINE AMINOTRANSFERASE 38.7 U/L (0-50); ALBUMIN 3.4 g/dL (3.5-5.0); ALKALINE PHOSPHATASE 64.2 U/L (56-119); ASPARTATE AMINO TRANSFERASE 30.6 U/L (17-59); BILIRUBIN,TOTAL 0.5 mg/dL (0.2-1.3); BLOOD UREA NITROGEN 9.2 mg/dL (9-20); CALCIUM 7.99 mg/dL (8.4-10.2); CARBON DIOXIDE 29.4 mmol/L (22-30.0); CHLORIDE 103.3 mmol/L (98-107); CREATININE 0.48 mg/dL (0.60-1.10); GLUCOSE 161.8 mg/dL (74-106); POTASSIUM 3.51 mmol/L (3.5-5.1); TOTAL PROTEIN 6.33 g/dL (6.3-8.2)
[2022-02-20] MEDS: MIRALAX PO SCH (08:55)
[2022-02-20] MEDS: K-DUR PO SCH ×3 (08:56→17:17)
[2022-02-20] MEDS: LIPITOR PO SCH (08:56)
[2022-02-20] MEDS: ASPIRIN CHEWABLE PO SCH (08:56)
[2022-02-20] MEDS: FLOMAX PO SCH ×2 (08:57→20:44)
[2022-02-20] MEDS: NEURONTIN PO SCH ×2 (08:57→20:44)
[2022-02-20] MEDS: LOVENOX SUBCUT SCH (08:57)
[2022-02-20] MEDS: VANCOMYCIN 1.5 GRAM/300 ML PREMIX 1.5 GM/300 ML BAG IV SCH ×2 (09:03→20:43)
[2022-02-20] MEDS: NYSTOP POWDER TP SCH ×2 (09:14→20:51)
[2022-02-20] MEDS: LOPRESSOR PO SCH (20:44)
[2022-02-20] MEDS: CELEXA PO SCH (20:44)
[2022-02-21] MEDS: ZOSYN 4.5 GM 4.5 GM in SODIUM CHLORIDE 100ML 100 ML IV SCH ×3 (05:10→17:01)
[2022-02-21] MEDS: HUMULIN R SUBCUT PRN ×4 (06:02→20:33)
[2022-02-21 06:38] LABS: BASOPHILS % (AUTO) 0.4 % (0.0-3.0); EOSINOPHILS # (AUTO) 0.4 K/ul (0.0-0.7); EOSINOPHILS % (AUTO) 5.8 % (0.0-7.0); HEMATOCRIT 33.3 % (42.0-52.0); HEMOGLOBIN 11.1 g/dl (14.0-18.0); IMMATURE GRANULOCYTE % (AUTO) 0.6 % (0.0-5.0); LYMPHOCYTES # (AUTO) 1.2 K/uL (0.60-3.4); MEAN CORPUSCULAR HEMOGLOBIN 28.9 pg (27.0-31.0); MEAN CORPUSCULAR HGB CONC 33.3 (31.8-35.4); MEAN CORPUSCULAR VOLUME 86.7 fl (80.0-94.0); MONOCYTES # (AUTO) 0.6 K/uL (0.4-2.0); MONOCYTES % (AUTO) 8.7 (0-10); NEUTROPHILS # (AUTO) 4.5 K/ul (2.0-6.9); NEUTROPHILS % (AUTO) 66.5 % (42.2-75.2); PLATELET COUNT 154 10^3/uL (140-440); RDW COEFFICIENT OF VARIATION 14.5 % (11.6-14.8); RED BLOOD COUNT 3.84 10^6/ul (4.70-6.10); WHITE BLOOD COUNT 6.77 K/ul (4.2-10.2)
[2022-02-21 06:50] LABS: ALANINE AMINOTRANSFERASE 32.6 U/L (0-50); ALBUMIN 3.44 g/dL (3.5-5.0); ASPARTATE AMINO TRANSFERASE 33.5 U/L (17-59); BILIRUBIN,TOTAL 0.51 mg/dL (0.2-1.3); BLOOD UREA NITROGEN 9.2 mg/dL (9-20); CALCIUM 8.13 mg/dL (8.4-10.2); CARBON DIOXIDE 26.4 mmol/L (22-30.0); CHLORIDE 104.1 mmol/L (98-107); CREATININE 0.47 mg/dL (0.60-1.10); GLUCOSE 161.6 mg/dL (74-106); POTASSIUM 3.41 mmol/L (3.5-5.1); SODIUM 136.6 mmol/L (134.5-145); TOTAL PROTEIN 6.47 g/dL (6.3-8.2)
[2022-02-21] MEDS: VANCOMYCIN 1.5 GRAM/300 ML PREMIX 1.5 GM/300 ML BAG IV SCH (09:10)
[2022-02-21] MEDS: ASPIRIN CHEWABLE PO SCH (09:10)
[2022-02-21] MEDS: FLOMAX PO SCH ×2 (09:11→20:33)
[2022-02-21] MEDS: K-DUR PO SCH ×3 (09:11→17:01)
[2022-02-21] MEDS: LIPITOR PO SCH (09:12)
[2022-02-21] MEDS: NEURONTIN PO SCH ×2 (09:13→20:32)
[2022-02-21] MEDS: LOVENOX SUBCUT SCH (09:13)
[2022-02-21] MEDS: MIRALAX PO SCH (09:15)
[2022-02-21] MEDS: NYSTOP POWDER TP SCH ×2 (09:15→20:34)
[2022-02-21] MEDS ORDERED: ATIVAN PO PRN (12:27)
[2022-02-21] MEDS: LOPRESSOR PO SCH (20:33)
[2022-02-21] MEDS: CELEXA PO SCH (20:33)
[2022-02-22] MEDS: ZOSYN 4.5 GM 4.5 GM in SODIUM CHLORIDE 100ML 100 ML IV SCH ×2 (00:01→05:50)
[2022-02-22 05:35] LABS: BASOPHILS % (AUTO) 0.3 % (0.0-3.0); EOSINOPHILS # (AUTO) 0.4 K/ul (0.0-0.7); EOSINOPHILS % (AUTO) 6.2 % (0.0-7.0); HEMATOCRIT 34.5 % (42.0-52.0); HEMOGLOBIN 11.2 g/dl (14.0-18.0); IMMATURE GRANULOCYTE % (AUTO) 0.7 % (0.0-5.0); LYMPHOCYTES # (AUTO) 1.2 K/uL (0.60-3.4); LYMPHOCYTES % (AUTO) 20.7 (10.0-50.0); MEAN CORPUSCULAR HEMOGLOBIN 28.3 pg (27.0-31.0); MEAN CORPUSCULAR HGB CONC 32.5 (31.8-35.4); MEAN CORPUSCULAR VOLUME 87.1 fl (80.0-94.0); MONOCYTES # (AUTO) 0.6 K/uL (0.4-2.0); MONOCYTES % (AUTO) 9.3 (0-10); NEUTROPHILS # (AUTO) 3.8 K/ul (2.0-6.9); NEUTROPHILS % (AUTO) 62.8 % (42.2-75.2); PLATELET COUNT 162 10^3/uL (140-440); RDW COEFFICIENT OF VARIATION 14.4 % (11.6-14.8); RED BLOOD COUNT 3.96 10^6/ul (4.70-6.10); WHITE BLOOD COUNT 5.99 K/ul (4.2-10.2)
[2022-02-22 05:50] LABS: ALANINE AMINOTRANSFERASE 31.2 U/L (0-50); ALBUMIN 3.51 g/dL (3.5-5.0); ALKALINE PHOSPHATASE 60.2 U/L (56-119); ASPARTATE AMINO TRANSFERASE 29.7 U/L (17-59); BILIRUBIN,TOTAL 0.47 mg/dL (0.2-1.3); BLOOD UREA NITROGEN 6.9 mg/dL (9-20); CALCIUM 8.3 mg/dL (8.4-10.2); CARBON DIOXIDE 25.6 mmol/L (22-30.0); CHLORIDE 103.5 mmol/L (98-107); CREATININE 0.4 mg/dL (0.60-1.10); GLUCOSE 171.4 mg/dL (74-106); POTASSIUM 3.95 mmol/L (3.5-5.1); SODIUM 137.5 mmol/L (134.5-145); TOTAL PROTEIN 6.64 g/dL (6.3-8.2)
[2022-02-22] MEDS: HUMULIN R SUBCUT PRN ×4 (06:04→20:46)
--- NOTE | 2022-02-22 09:02 | CT ---
EXAM: CT of the abdomen and pelvis without and with contrast. HISTORY: Abdominal pain. COMPARISON: None. CONTRAST: 80 ml Omnipaque-300. TECHNIQUE: Contiguous axial images at 5 mm intervals were obtained from lung bases to the pubic symp hysis. The study was performed before and after IV contrast. Oral contrast was not given. FINDINGS: Chest: Small left pleural effusions present. There is atelectasis in left lower lobe. Abdomen: Liver: The liver demonstrates normal homogeneous enhancement without mass lesions or intrahepatic du ctal dilatation. Gallbladder: The gallbladder is normally distended. Pancreas: The pancreas demonstrates normal homogeneous enhancement without solid masses or surroundi ng inflammation. Spleen: The spleen demonstrates normal homogeneous enhancement. No mass lesions are identified. Adrenal glands: Normal. Kidneys: The kidneys demonstrate normal homogeneous enhancement . Small 12 mm cortical cyst is pres ent lower pole of the right kidney. Tiny nonobstructing calculi are present in each kidney.. The ur eters are unobstructed. Aorta: The aorta is well opacified. There is no aneurysm or dissection. Vascular calcifications pr esent in the abdominal aorta. Retroperitoneum: There is no significant retroperitoneal or mesenteric adenopathy. The bowel is visualized. There is thickening of the wall of the sigmoid colon and rectum. There is surrounding stranding and some free fluid in the presacral soft tissues. Most likely this is coliti s. Because a bone segment is involved neoplasm is considered less likely. A [id number] amount of stool is seen throughout the colon. Pelvis: Bladder: The bladder is collapsed around a Goode catheter. Osseous structures: Normal for age. IMPRESSION: Thickened wall of the distal sigmoid colon and rectum most likely representing colitis. 2. Free fluid is noted in the presacral soft tissues this may be reactive edema All CT scans are performed using dose optimization techniques as appropriate to the performed exam an d include at least one of the following: Automated exposure control, adjustment of the mA and/or kV according t o size, and the use of iterative reconstruction technique.
[2022-02-22] MEDS: K-DUR PO SCH ×3 (09:17→17:22)
[2022-02-22] MEDS: NEURONTIN PO SCH ×2 (09:17→20:46)
[2022-02-22] MEDS: NYSTOP POWDER TP SCH ×2 (09:17→20:49)
[2022-02-22] MEDS: LIPITOR PO SCH (09:18)
[2022-02-22] MEDS: FLOMAX PO SCH ×2 (09:18→20:46)
[2022-02-22] MEDS: ASPIRIN CHEWABLE PO SCH (09:18)
[2022-02-22] MEDS: LOVENOX SUBCUT SCH (09:18)
[2022-02-22 10:03] LABS: BILIRUBIN,URINE Negative (NEGATIVE); CLARITY,URINE Clear (CLEAR); COLOR,URINE Yellow (YELLOW); GLUCOSE, URINE (UA) 2+ (NEGATIVE); KETONES,URINE Negative (NEGATIVE); LEUKOCYTE ESTERASE ,URINE Negative (NEGATIVE); NITRITE,URINE Negative (NEGATIVE); PH,URINE 6.5 (5-9); PROTEIN,URINE 1+ (NEGATIVE); URINE, BLOOD 2+ (NEGATIVE)
--- NOTE | 2022-02-22 10:07 | PCM.PROG ---
Attending Provider: ATTENDING PROVIDER: Dr. GENESIS GARCIA This patient is seen with Sandee Epstein, Nurse Practitioner. DATE OF SERVICE: 02/22/22 SUBJECTIVE: This 71 year old /WHITE M was hospitalized 02/13/22. Having lose stool with mucus. Repeat GI panel has yet to be collected. Not eating much. Denies any pain. Abdomen is distended. REVIEW OF SYSTEMS: CONSTITUTIONAL: No night sweats. No fatigue, malaise, lethargy. No fever or chills. HEENT: Eyes: No visual changes. No eye pain. No eye discharge. ENT: No runny nose. No epistaxis. No sinus pain. No odynophagia. No congestion. RESPIRATORY: No cough, no congestion. No hemoptysis. No shortness of breath. CARDIOVASCULAR: No angina symptoms. No CHF symptoms. No atypical chest pain for CAD. No palpitations. No orthopnea.. GASTROINTESTINAL: No abdominal pain. No nausea or vomiting. Loose stool. No hematemesis. No hematochezia.Abdominal distention. GENITOURINARY: No urgency. No frequency. No dysuria. No hematuria. No obstructive symptoms. No discharge. No pain. No significant abnormal bleeding. MUSCULOSKELETAL: No musculoskeletal pain; no joint swelling. NEUROLOGICAL: Awake, alert, oriented to time, place and person. No headache. No neck pain. No syncope. No seizures. No dizziness. PSYCHIATRIC: Not anxious. No depression. No suicidal thoughts. No homicidal thoughts. SKIN: No rash. No lesions. No wounds. ENDOCRINE: No unexplained weight loss. No weight gain. HEMATOLOGIC/LYMPHATIC: No anemia. No purpura. No petechiae. No prolonged or excessive bleeding. No palpable lymph nodes. PHYSICAL EXAMINATION: GENERAL: The patient is awake, alert and oriented, sitting in bed in no distress. VITAL SIGNS: Temperature 98.1 F, Pulse 86, Respiratory Rate 16, BP 139/79, Pulse Ox 96% HEENT: Head normocephalic, atraumatic. Eyes: Extraocular muscles are intact. Pupils are equal, round and reactive to light and accommodation. Ears: No lesions. Nose appeared normal. Throat: No exudate or erythema. NECK: Supple. No JVD, no carotid bruit. No lymphadenopathy or thyromegaly. LUNGS: Diminished breath sounds. Clear to auscultation. Percussion note normal. Chest symmetrical. HEART: S1, S2, no S3. No murmurs. No cyanosis or clubbing. No ascites. Pulses: Dorsalis pedis and posterior tibial pulses +1 to +2 both sides. ABDOMEN: Soft. Non-tender. Bowel sounds active. No CVA tenderness. No mass felt. Abdominal distention. EXTREMITIES: No edema. Full range of motion of all extremities, equal. NEUROLOGIC: No focal deficit. Cranial nerves II through XII are grossly intact. No headache. No double vision. SKIN: Not dry. Intact. Turgor-normal. LYMPHATIC: No palpable lymph nodes/no lymphedema. MUSCULOSKELETAL: Normal joints with no swelling. Muscle tone is normal. LAB REVIEW: 02/22/22 05:06 02/22/22 05:06 02/22/22 05:06: Sodium 137.5, Potassium 3.95, Chloride 103.5, Carbon Dioxide 25.6, Anion Gap 12.35, BUN 6.9 L, Creatinine 0.40 L, Estimated GFR (MDRD) 211.00, BUN/Creatinine Ratio 17.25, Glucose 171.4 H, Calcium 8.30 L, Total Bilirubin 0.47, AST 29.7, ALT 31.2, Alkaline Phosphatase 60.2, Total Protein 6.64, Albumin 3.51, Globulin 3.13, Albumin/Globulin Ratio 1.12 02/22/22 05:06: WBC 5.99, RBC 3.96 L, Hgb 11.2 L, Hct 34.5 L, MCV 87.1, MCH 28.3, MCHC 32.5, RDW Coeff of Veronica 14.4, Plt Count 162, Immature Gran % (Auto) 0.7, Neut % (Auto) 62.8, Lymph % (Auto) 20.7, [place] % (Auto) 9.3, Eos % (Auto) 6.2, Baso % (Auto) 0.3, Neut # (Auto) 3.8, Lymph # (Auto) 1.2, [place] # (Auto) 0.6, Eos # (Auto) 0.4, Baso # (Auto) 0.0, Immature Gran # (Auto) 0.0 ASSESSMENT: Please see below. 1. Diarrhea 2. Abdominal distention 3. Urinary retention PLAN: 1. Repeat CT abdomen and pelvis with and without Plan and coordination of the patient's care discussed in the presence of Technical Operations Manager and nurse. SCRIBED BY: ZOIE PRITCHETT Child Care Coordinator scribed while in presence of service performed by Dr. Garcia/Sandee Epstein APRN on 02/22/22 ([id number])
[2022-02-22 10:13] LABS: SQUAMOUS EPITHELIAL CELL,UR 0-2 (0-5); URINE WBC, MICROSCOPIC 20-30 (0-2)
[2022-02-22] MEDS: FLAGYL 500 MG/100 ML 500 MG/100 ML BAG IV SCH ×2 (12:16→20:47)
--- NOTE | 2022-02-22 12:59 | PN ---
DATE OF SERVICE: 02/20/22 SUBJECTIVE: 71 year old white male hospitalized sepsis and severe constipation and metabolic acidosis. The patient's sepsis seems to have resolved. His new problem is diarrhea type of stools, not fowl smelling. Appetite is excellent. is present in the room. REVIEW OF SYSTEMS: CONSTITUTIONAL: No night sweats. No fatigue, malaise, lethargy. No fever or chills. HEENT: Eyes: No visual changes. No eye pain. No eye discharge. ENT: No runny nose. No epistaxis. No sinus pain. No sore throat. No odynophagia. No congestion. RESPIRATORY: No cough, no congestion. No hemoptysis. No shortness of breath. CARDIOVASCULAR: No angina symptoms. No CHF symptoms. No atypical chest pain for CAD. No palpitations. No PND. No orthopnea. GASTROINTESTINAL: No abdominal pain. No nausea or vomiting. Lose bowel movement. No hematemesis. No hematochezia. Appetite has improved. GENITOURINARY: No urgency. No frequency. No dysuria. No hematuria. No obstructive symptoms. No discharge. No pain. No significant abnormal bleeding. MUSCULOSKELETAL: No musculoskeletal pain; no joint swelling. NEUROLOGICAL: No headache. No neck pain. No syncope. No seizures. No dizziness. PSYCHIATRIC: Not anxious. No depression. No suicidal thoughts. No homicidal thoughts. SKIN: No rash. No lesions. No wounds. ENDOCRINE: No unexplained weight loss. No weight gain. HEMATOLOGIC/LYMPHATIC: No anemia. No purpura. No petechiae. No prolonged or excessive bleeding. No palpable lymph nodes. PHYSICAL EXAMINATION: VITAL SIGNS: Temperature 97.7, pulse 76, respiratory rate 18, blood pressure 149/79 and pulse ox 93%. HEENT: Head normocephalic, atraumatic. Eyes: Extraocular muscles are intact. Pupils are equal, round and reactive to light and accommodation. Ears: No lesions. Nose appeared normal. Throat: No exudate or erythema. NECK: Supple. No JVD, no carotid bruit. No lymphadenopathy or thyromegaly. LUNGS: Decreased breath sounds but clear to auscultation. Percussion note normal. Chest symmetrical. HEART: S1, S2, no S3. No murmurs. No cyanosis or clubbing. No ascites. Pulses: Dorsalis pedis and posterior tibial pulses +1 to +2 bilaterally. ABDOMEN: Soft. Nontender. Bowel sounds active. No CVA tenderness. No mass felt. Mildly distended. EXTREMITIES: Edema is much less on the dorsum than when he came in with. Full range of motion of all extremities, equal. NEUROLOGIC: No focal deficit. Cranial nerves II through XII are grossly intact. No headache. No double vision. SKIN: Not dry. Intact. Turgor - normal. LYMPHATIC: No palpable lymph nodes/no lymphedema. MUSCULOSKELETAL: Normal joints with no swelling. Muscle tone is normal. ASSESSMENT: 1. Sepsis seems to be under control 2. Lose bowel movement likely from antibiotics. 3. Metabolic acidosis has resolved PLAN: 1. Continue Miralax 2. Continue Vancomycin 3. Continue Zosyn CONDITION: Improving. TIME SPENT: More than 30 minutes. Plan and coordination of the patient's care discussed in the presence of nurse. DEISI
--- NOTE | 2022-02-22 14:31 | PN ---
DATE OF SERVICE: 02/21/22 SUBJECTIVE: 71 year old white male hospitalized with sepsis, metabolic acidosis, severe constipation all of them seems to have resolved. They seem to be under control. The patient is having diarrhea. We will continue him on Zosyn and discontinue the Vancomycin. The patient's condition has improved. is happy with his progress. REVIEW OF SYSTEMS: CONSTITUTIONAL: No night sweats. No fatigue, malaise, lethargy. No fever or chills. HEENT: Eyes: No visual changes. No eye pain. No eye discharge. ENT: No runny nose. No epistaxis. No sinus pain. No sore throat. No odynophagia. No congestion. RESPIRATORY: No cough, no congestion. No hemoptysis. No shortness of breath. CARDIOVASCULAR: No angina symptoms. No CHF symptoms. No atypical chest pain for CAD. No palpitations. No PND. No orthopnea. GASTROINTESTINAL: No abdominal pain. No nausea or vomiting. Mild diarrhea noted. No hematemesis. No hematochezia. Appetite has improved. GENITOURINARY: No urgency. No frequency. No dysuria. No hematuria. No obstructive symptoms. No discharge. No pain. No significant abnormal bleeding. MUSCULOSKELETAL: No musculoskeletal pain; no joint swelling. NEUROLOGICAL: No headache. No neck pain. No syncope. No seizures. No dizziness. PSYCHIATRIC: Not anxious. No depression. No suicidal thoughts. No homicidal thoughts. SKIN: No rash. No lesions. No wounds. ENDOCRINE: No unexplained weight loss. No weight gain. HEMATOLOGIC/LYMPHATIC: No anemia. No purpura. No petechiae. No prolonged or excessive bleeding. No palpable lymph nodes. PHYSICAL EXAMINATION: VITAL SIGNS: Temperature 97.5, pulse 80, respiratory rate 20, blood pressure 143/76 and pulse ox 94% HEENT: Head normocephalic, atraumatic. Eyes: Extraocular muscles are intact. Pupils are equal, round and reactive to light and accommodation. Ears: No lesions. Nose appeared normal. Throat: No exudate or erythema. NECK: Supple. No JVD, no carotid bruit. No lymphadenopathy or thyromegaly. LUNGS: Decreased breath sounds but clear to auscultation. Percussion note normal. Chest symmetrical. HEART: S1, S2, no S3. No murmurs. No cyanosis or clubbing. No ascites. Pulses: Dorsalis pedis and posterior tibial pulses +1 to +2 bilaterally. ABDOMEN: Soft. Nontender. Bowel sounds active. No CVA tenderness. No mass felt. EXTREMITIES: No edema. Full range of motion of all extremities, equal. NEUROLOGIC: No focal deficit. Cranial nerves II through XII are grossly intact. No headache. No double vision. SKIN: Not dry. Intact. Turgor - normal. LYMPHATIC: No palpable lymph nodes/no lymphedema. MUSCULOSKELETAL: Normal joints with no swelling. Muscle tone is normal. LABS: Hgb 11, hct 33<W BC 6,700 normal differential, creatinine 0.4, BUN 9, potassium 3.4 ASSESSMENT: 1. Sepsis seems to have resolved 2. Metabolic acidosis, resolved 3. Constipation, resolved PLAN: 1. Discontinue Vancomycin 2. Continue Zosyn because of mild diarrhea 3. Discontinue Miralax 4. Appetite is good, is present is in the room. Medications discussed CONDITION: Stable, improving. PROGNOSIS: Guarded TIME SPENT: More than 30 minutes. Plan and coordination of the patient's care discussed in the presence of nurse. DEISI
[2022-02-22] MEDS: LOPRESSOR PO SCH (20:46)
[2022-02-22] MEDS: CELEXA PO SCH (20:46)
[2022-02-23] MEDS: FLAGYL 500 MG/100 ML 500 MG/100 ML BAG IV SCH ×3 (05:08→20:16)
[2022-02-23 05:38] LABS: BASOPHILS % (AUTO) 0.6 % (0.0-3.0); EOSINOPHILS # (AUTO) 0.3 K/ul (0.0-0.7); EOSINOPHILS % (AUTO) 6.6 % (0.0-7.0); HEMATOCRIT 34.5 % (42.0-52.0); HEMOGLOBIN 11.2 g/dl (14.0-18.0); IMMATURE GRANULOCYTE % (AUTO) 0.8 % (0.0-5.0); LYMPHOCYTES # (AUTO) 1.1 K/uL (0.60-3.4); LYMPHOCYTES % (AUTO) 21.1 (10.0-50.0); MEAN CORPUSCULAR HEMOGLOBIN 28.4 pg (27.0-31.0); MEAN CORPUSCULAR HGB CONC 32.5 (31.8-35.4); MEAN CORPUSCULAR VOLUME 87.6 fl (80.0-94.0); MONOCYTES # (AUTO) 0.5 K/uL (0.4-2.0); MONOCYTES % (AUTO) 9.4 (0-10); NEUTROPHILS # (AUTO) 3.2 K/ul (2.0-6.9); NEUTROPHILS % (AUTO) 61.5 % (42.2-75.2); PLATELET COUNT 174 10^3/uL (140-440); RDW COEFFICIENT OF VARIATION 14.7 % (11.6-14.8); RED BLOOD COUNT 3.94 10^6/ul (4.70-6.10); WHITE BLOOD COUNT 5.12 K/ul (4.2-10.2)
[2022-02-23 05:50] LABS: ALANINE AMINOTRANSFERASE 28.9 U/L (0-50); ALBUMIN 3.58 g/dL (3.5-5.0); ALKALINE PHOSPHATASE 64.4 U/L (56-119); ASPARTATE AMINO TRANSFERASE 25.6 U/L (17-59); BILIRUBIN,TOTAL 0.34 mg/dL (0.2-1.3); BLOOD UREA NITROGEN 6.7 mg/dL (9-20); CALCIUM 8.49 mg/dL (8.4-10.2); CARBON DIOXIDE 26.9 mmol/L (22-30.0); CREATININE 0.47 mg/dL (0.60-1.10); GLUCOSE 167.1 mg/dL (74-106); POTASSIUM 3.79 mmol/L (3.5-5.1); SODIUM 137.1 mmol/L (134.5-145); TOTAL PROTEIN 6.68 g/dL (6.3-8.2)
[2022-02-23] MEDS: HUMULIN R SUBCUT PRN ×4 (06:16→20:21)
[2022-02-23] MEDS: ASPIRIN CHEWABLE PO SCH (08:51)
[2022-02-23] MEDS: LIPITOR PO SCH (08:51)
[2022-02-23] MEDS: NYSTOP POWDER TP SCH ×2 (08:51→20:17)
[2022-02-23] MEDS: ZESTRIL PO SCH (08:52)
[2022-02-23] MEDS: MIRALAX PO SCH (08:52)
[2022-02-23] MEDS: NEURONTIN PO SCH ×2 (08:52→20:16)
[2022-02-23] MEDS: LOVENOX SUBCUT SCH (08:52)
[2022-02-23] MEDS: K-DUR PO SCH ×3 (08:52→17:19)
[2022-02-23] MEDS: FLOMAX PO SCH ×2 (08:52→20:15)
--- NOTE | 2022-02-23 10:08 | PCM.PROG ---
Attending Provider: ATTENDING PROVIDER: Dr. GENESIS GUILLAUME This patient is seen with Sandee Epstein, Nurse Practitioner. DATE OF SERVICE: 02/23/22 SUBJECTIVE: This 71 year old /WHITE M was hospitalized 02/13/22. Still having some small mucousy stool. CT of abdomen yesterday showed moderate to large amount of stool through colon with swelling along rectum. I feel like mucous is due to chronic constipation. No fever. Eating well. No abdominal pain. REVIEW OF SYSTEMS: CONSTITUTIONAL: No night sweats. No fatigue, malaise, lethargy. No fever or chills. Weakness. HEENT: Eyes: No visual changes. No eye pain. No eye discharge. ENT: No runny nose. No epistaxis. No sinus pain. No odynophagia. No congestion. RESPIRATORY: No cough, no congestion. No hemoptysis. No shortness of breath. CARDIOVASCULAR: No angina symptoms. No CHF symptoms. No atypical chest pain for CAD. No palpitations. No orthopnea.. GASTROINTESTINAL: No abdominal pain. No nausea or vomiting. Constipation. No hematemesis. No hematochezia. GENITOURINARY: No urgency. No frequency. Urinary retention. No dysuria. No hematuria. No obstructive symptoms. No discharge. No pain. No significant abnormal bleeding. MUSCULOSKELETAL: No musculoskeletal pain; no joint swelling. NEUROLOGICAL: Awake, alert, oriented to time, place and person. No headache. No neck pain. No syncope. No seizures. No dizziness. PSYCHIATRIC: Not anxious. No depression. No suicidal thoughts. No homicidal thoughts. SKIN: No rash. No lesions. No wounds. ENDOCRINE: No unexplained weight loss. No weight gain. HEMATOLOGIC/LYMPHATIC: No anemia. No purpura. No petechiae. No prolonged or excessive bleeding. No palpable lymph nodes. PHYSICAL EXAMINATION: GENERAL: The patient is awake, alert and oriented, sitting in bed in no distress. VITAL SIGNS: Temperature 97.5 F, Pulse 83, Respiratory Rate 19, BP 124/68, Pulse Ox 93% HEENT: Head normocephalic, atraumatic. Eyes: Extraocular muscles are intact. Pupils are equal, round and reactive to light and accommodation. Ears: No lesions. Nose appeared normal. Throat: No exudate or erythema. NECK: Supple. No JVD, no carotid bruit. No lymphadenopathy or thyromegaly. LUNGS: Diminished breath sounds. Clear to auscultation. Percussion note normal. Chest symmetrical. HEART: S1, S2, no S3. No murmurs. No cyanosis or clubbing. No ascites. Puls es: Dorsalis pedis and posterior tibial pulses +1 to +2 both sides. ABDOMEN: Soft. Non-tender. Bowel sounds active. No CVA tenderness. No mass felt. EXTREMITIES: No edema. Full range of motion of all extremities, equal. NEUROLOGIC: No focal deficit. Cranial nerves II through XII are grossly intact. No headache. No double vision. SKIN: Not dry. Intact. Turgor-normal. LYMPHATIC: No palpable lymph nodes/no lymphedema. MUSCULOSKELETAL: Normal joints with no swelling. Muscle tone is normal. LAB REVIEW: 02/23/22 04:48 02/23/22 04:48 02/23/22 04:48: Sodium 137.1, Potassium 3.79, Chloride 104.0, Carbon Dioxide 26.9, Anion Gap 9.99, BUN 6.7 L, Creatinine 0.47 L, Estimated GFR (MDRD) 175.00, BUN/Creatinine Ratio 14.25, Glucose 167.1 H, Calcium 8.49, Total Bilirubin 0.34, AST 25.6, ALT 28.9, Alkaline Phosphatase 64.4, Total Protein 6.68, Albumin 3.58, Globulin 3.10, Albumin/Globulin Ratio 1.15 02/23/22 04:48: WBC 5.12, RBC 3.94 L, Hgb 11.2 L, Hct 34.5 L, MCV 87.6, MCH 28.4, MCHC 32.5, RDW Coeff of Veronica 14.7, Plt Count 174, Immature Gran % (Auto) 0.8, Neut % (Auto) 61.5, Lymph % (Auto) 21.1, [place] % (Auto) 9.4, Eos % (Auto) 6.6, Baso % (Auto) 0.6, Neut # (Auto) 3.2, Lymph # (Auto) 1.1, [place] # (Auto) 0.5, Eos # (Auto) 0.3, Baso # (Auto) 0.0, Immature Gran # (Auto) 0.0 02/22/22 09:57: Urine Color Yellow, Urine Clarity Clear, Urine pH 6.5, Ur Specific Raymond 1.015, Urine Protein 1+ H, Urine Glucose (UA) 2+ H, Urine Ke tones Negative, Urine Blood 2+ H, Urine Nitrite Negative, Urine Bilirubin N egative, Urine Urobilinogen 1.0 H, Ur Leukocyte Esterase Negative, Urine Mi croscopic RBC 10-20, Urine Microscopic WBC 20-30, Ur Squamous Epith Cells 0-2 ASSESSMENT: Please see below. 1. Chronic constipation 2. Chronic anemia 3. Urinary retention 4. Hypertension PLAN: 1. Restart Zestril 2. Miralax one cap full daily 3. Continue with Goode 4. The patient would benefit from Hospital bed. 5. The patient will need Home Health for Goode Catheter management. Plan and coordination of the patient's care discussed in the presence of Pile Driving Technician and nurse. SCRIBED BY: Stoney LOPEZ scribed while in presence of service performed by Dr. Guillaume/Sandee Epstein APRN on 02/23/22 ([id number])
[2022-02-23] MEDS ORDERED: VASOTEC IV IVP STA (18:26)
[2022-02-23] MEDS: CELEXA PO SCH (20:15)
[2022-02-23] MEDS: LOPRESSOR PO SCH (20:16)
[2022-02-24] MEDS: FLAGYL 500 MG/100 ML 500 MG/100 ML BAG IV SCH ×3 (05:02→20:46)
[2022-02-24 06:08] LABS: BASOPHILS % (AUTO) 0.3 % (0.0-3.0); EOSINOPHILS # (AUTO) 0.4 K/ul (0.0-0.7); EOSINOPHILS % (AUTO) 5.9 % (0.0-7.0); HEMATOCRIT 34.1 % (42.0-52.0); HEMOGLOBIN 11.2 g/dl (14.0-18.0); IMMATURE GRANULOCYTE % (AUTO) 0.3 % (0.0-5.0); LYMPHOCYTES % (AUTO) 16.6 (10.0-50.0); MEAN CORPUSCULAR HEMOGLOBIN 28.6 pg (27.0-31.0); MEAN CORPUSCULAR HGB CONC 32.8 (31.8-35.4); MONOCYTES # (AUTO) 0.5 K/uL (0.4-2.0); MONOCYTES % (AUTO) 8.5 (0-10); NEUTROPHILS # (AUTO) 4.2 K/ul (2.0-6.9); NEUTROPHILS % (AUTO) 68.4 % (42.2-75.2); PLATELET COUNT 168 10^3/uL (140-440); RDW COEFFICIENT OF VARIATION 14.8 % (11.6-14.8); RED BLOOD COUNT 3.92 10^6/ul (4.70-6.10); WHITE BLOOD COUNT 6.14 K/ul (4.2-10.2)
[2022-02-24 06:21] LABS: ALANINE AMINOTRANSFERASE 28.1 U/L (0-50); ALBUMIN 3.66 g/dL (3.5-5.0); ALKALINE PHOSPHATASE 62.8 U/L (56-119); ASPARTATE AMINO TRANSFERASE 29.5 U/L (17-59); BILIRUBIN,TOTAL 0.38 mg/dL (0.2-1.3); BLOOD UREA NITROGEN 9.5 mg/dL (9-20); CALCIUM 8.51 mg/dL (8.4-10.2); CARBON DIOXIDE 25.9 mmol/L (22-30.0); CHLORIDE 103.3 mmol/L (98-107); CREATININE 0.45 mg/dL (0.60-1.10); GLUCOSE 175.4 mg/dL (74-106); POTASSIUM 4.11 mmol/L (3.5-5.1); TOTAL PROTEIN 6.79 g/dL (6.3-8.2)
[2022-02-24] MEDS: HUMULIN R SUBCUT PRN ×3 (06:28→21:12)
[2022-02-24] MEDS: ASPIRIN CHEWABLE PO SCH (09:05)
[2022-02-24] MEDS: K-DUR PO SCH ×3 (09:05→17:28)
[2022-02-24] MEDS: MIRALAX PO SCH (09:05)
[2022-02-24] MEDS: FLOMAX PO SCH ×2 (09:05→20:46)
[2022-02-24] MEDS: NEURONTIN PO SCH ×2 (09:05→20:46)
[2022-02-24] MEDS: ZESTRIL PO SCH (09:05)
[2022-02-24] MEDS: LIPITOR PO SCH (09:05)
[2022-02-24] MEDS: NYSTOP POWDER TP SCH ×2 (09:05→20:45)
[2022-02-24] MEDS: LOVENOX SUBCUT SCH (09:06)
[2022-02-24] MEDS: CELEXA PO SCH (20:46)
[2022-02-24] MEDS: LOPRESSOR PO SCH (20:46)
[2022-02-25] MEDS: FLAGYL 500 MG/100 ML 500 MG/100 ML BAG IV SCH ×3 (05:11→21:00)
[2022-02-25 05:36] LABS: BASOPHILS % (AUTO) 0.4 % (0.0-3.0); EOSINOPHILS # (AUTO) 0.4 K/ul (0.0-0.7); EOSINOPHILS % (AUTO) 5.1 % (0.0-7.0); HEMATOCRIT 37.6 % (42.0-52.0); HEMOGLOBIN 12.2 g/dl (14.0-18.0); IMMATURE GRANULOCYTE % (AUTO) 0.3 % (0.0-5.0); LYMPHOCYTES # (AUTO) 1.1 K/uL (0.60-3.4); LYMPHOCYTES % (AUTO) 16.2 (10.0-50.0); MEAN CORPUSCULAR HEMOGLOBIN 28.6 pg (27.0-31.0); MEAN CORPUSCULAR HGB CONC 32.4 (31.8-35.4); MEAN CORPUSCULAR VOLUME 88.1 fl (80.0-94.0); MONOCYTES # (AUTO) 0.6 K/uL (0.4-2.0); MONOCYTES % (AUTO) 9.1 (0-10); NEUTROPHILS # (AUTO) 4.7 K/ul (2.0-6.9); NEUTROPHILS % (AUTO) 68.9 % (42.2-75.2); PLATELET COUNT 188 10^3/uL (140-440); RED BLOOD COUNT 4.27 10^6/ul (4.70-6.10); WHITE BLOOD COUNT 6.84 K/ul (4.2-10.2)
[2022-02-25 05:59] LABS: ALANINE AMINOTRANSFERASE 27.6 U/L (0-50); ALBUMIN 4.01 g/dL (3.5-5.0); ALKALINE PHOSPHATASE 66.6 U/L (56-119); ASPARTATE AMINO TRANSFERASE 26.5 U/L (17-59); BILIRUBIN,TOTAL 0.35 mg/dL (0.2-1.3); BLOOD UREA NITROGEN 11.9 mg/dL (9-20); CALCIUM 9.32 mg/dL (8.4-10.2); CARBON DIOXIDE 24.3 mmol/L (22-30.0); CHLORIDE 101.7 mmol/L (98-107); CREATININE 0.47 mg/dL (0.60-1.10); GLUCOSE 195.2 mg/dL (74-106); POTASSIUM 4.23 mmol/L (3.5-5.1); TOTAL PROTEIN 7.39 g/dL (6.3-8.2)
[2022-02-25] MEDS: HUMULIN R SUBCUT PRN (06:21)
[2022-02-25] MEDS ORDERED: CALMOSEPTINE OINTMENT TP PRN (08:17)
[2022-02-25] MEDS ORDERED: GLUCOPHAGE PO SCH (09:00)
--- NOTE | 2022-02-25 09:27 | PCM.PROG ---
Attending Provider: ATTENDING PROVIDER: Dr. GENESIS GARCIA This patient is seen with Sandee Epstein, Nurse Practitioner. DATE OF SERVICE: 02/25/22 SUBJECTIVE: This 71 year old /WHITE M was hospitalized 02/13/22. Anticipate discharge home tomorrow. Restart Metformin p.o. today. He has been eating well. No abdominal pain. REVIEW OF SYSTEMS: CONSTITUTIONAL: Weakness. No night sweats. No fatigue, malaise, lethargy. No fever or chills. HEENT: Eyes: No visual changes. No eye pain. No eye discharge. ENT: No runny nose. No epistaxis. No sinus pain. No odynophagia. No congestion. RESPIRATORY: No cough, no congestion. No hemoptysis. No shortness of breath. CARDIOVASCULAR: No angina symptoms. No CHF symptoms. No atypical chest pain for CAD. No palpitations. No orthopnea.. GASTROINTESTINAL: No abdominal pain. No nausea or vomiting. No diarrhea or constipation. No hematemesis. No hematochezia. GENITOURINARY: No urgency. No frequency. No dysuria. No hematuria. No obs tructive symptoms. No discharge. No pain. No significant abnormal bleeding. MUSCULOSKELETAL: No musculoskeletal pain; no joint swelling. NEUROLOGICAL: Awake, alert, oriented to time, place and person. No headache. No neck pain. No syncope. No seizures. No dizziness. PSYCHIATRIC: Not anxious. No depression. No suicidal thoughts. No homicidal thoughts. SKIN: No rash. No lesions. No wounds. ENDOCRINE: No unexplained weight loss. No weight gain. HEMATOLOGIC/LYMPHATIC: No anemia. No purpura. No petechiae. No prolonged or excessive bleeding. No palpable lymph nodes. PHYSICAL EXAMINATION: GENERAL: The patient is awake, alert and oriented, lying/sitting in bed in no distress. VITAL SIGNS: Temperature 97.4 F, Pulse 89, Respiratory Rate 18, BP 109/64, Pulse Ox 94% HEENT: Head normocephalic, atraumatic. Eyes: Extraocular muscles are intact. Pupils are equal, round and reactive to light and accommodation. Ears: No lesions. Nose appeared normal. Throat: No exudate or erythema. NECK: Supple. No JVD, no carotid bruit. No lymphadenopathy or thyromegaly. LUNGS: Diminished breath sounds. Clear to auscultation. Percussion note normal. Chest symmetrical. HEART: S1, S2, no S3. No murmurs. No cyanosis or clubbing. No ascites. Pulses: Dorsalis pedis and posterior tibial pulses +1 to +2 both sides. ABDOMEN: Soft. Non-tender. Bowel sounds active. No CVA tenderness. No mass felt. EXTREMITIES: No edema. Full range of motion of all extremities, equal. NEUROLOGIC: No focal deficit. Cranial nerves II through XII are grossly intact. No headache. No double vision. SKIN: Not dry. Intact. Turgor-normal. Small open area on left upper buttock. LYMPHATIC: No palpable lymph nodes/no lymphedema. MUSCULOSKELETAL: Normal joints with no swelling. Muscle tone is normal. LAB REVIEW: 02/25/22 04:48 02/25/22 04:40 02/25/22 04:48: WBC 6.84, RBC 4.27 L, Hgb 12.2 L, Hct 37.6 L, MCV 88.1, MCH 28.6, MCHC 32.4, RDW Coeff of Veronica 15.0 H, Plt Count 188, Immature Gran % (Auto) 0.3, Neut % (Auto) 68.9, Lymph % (Auto) 16.2, [place] % (Auto) 9.1, Eos % (Auto) 5.1, Baso % (Auto) 0.4, Neut # (Auto) 4.7, Lymph # (Auto) 1.1, [place] # (Auto) 0.6, Eos # (Auto) 0.4, Baso # (Auto) 0.0, Immature Gran # (Auto) 0.0 02/25/22 04:40: Sodium 136.0, Potassium 4.23, Chloride 101.7, Carbon Dioxide 24.3, Anion Gap 14.23, BUN 11.9, Creatinine 0.47 L, Estimated GFR (MDRD) 175.00, BUN/Creatinine Ratio 25.31, Glucose 195.2 H, Calcium 9.32, Total Bilirubin 0.35, AST 26.5, ALT 27.6, Alkaline Phosphatase 66.6, Total Protein 7.39, Albumin 4.01, Globulin 3.38, Albumin/Globulin Ratio 1.18 ASSESSMENT: Please see below. 1. Chronic constipation 2. Chronic anemia 3. Urinary retention 4. Hypertension PLAN: 1. Flagyl 500 t.i.d for 5 days. 2. Restart Metformin 1000 b.i.d. 3. Anticipate d/c home tomorrow. 4. The patient will go home with [facility] as he is going to continue with urinary catheter. 5. He also has a small open area on left upper buttock - wound care can see. Plan and coordination of the patient's care discussed in the presence of Bundles Hanger and nurse. CONDITION: Stable SCRIBED BY: Stoney MORTON scribed while in presence of service performed by Dr. Garcia/Sandee Epstein APRN on 02/25/22 ([id number])
[2022-02-25] MEDS: NYSTOP POWDER TP SCH ×2 (10:00→20:59)
[2022-02-25] MEDS: MIRALAX PO SCH (10:00)
[2022-02-25] MEDS: ZESTRIL PO SCH (10:01)
[2022-02-25] MEDS: NEURONTIN PO SCH ×2 (10:01→21:00)
[2022-02-25] MEDS: ASPIRIN CHEWABLE PO SCH (10:01)
[2022-02-25] MEDS: FLOMAX PO SCH ×2 (10:02→21:00)
[2022-02-25] MEDS: LIPITOR PO SCH (10:02)
[2022-02-25] MEDS: LOVENOX SUBCUT SCH (10:02)
[2022-02-25] MEDS: K-DUR PO SCH (11:02)
[2022-02-25] MEDS ORDERED: MORPHINE 4 MG/ML SYRINGE IVP STA (13:05)
[2022-02-25] MEDS ORDERED: MORPHINE 2 MG/ML SYRINGE IVP PRN (13:35)
[2022-02-25] MEDS: LOPRESSOR PO SCH (20:59)
[2022-02-25] MEDS: CELEXA PO SCH (21:00)
[2022-02-26] MEDS: FLAGYL 500 MG/100 ML 500 MG/100 ML BAG IV SCH (04:04)
[2022-02-26 06:13] LABS: BASOPHILS % (AUTO) 0.5 % (0.0-3.0); EOSINOPHILS # (AUTO) 0.4 K/ul (0.0-0.7); EOSINOPHILS % (AUTO) 5.6 % (0.0-7.0); HEMATOCRIT 37.4 % (42.0-52.0); HEMOGLOBIN 11.9 g/dl (14.0-18.0); IMMATURE GRANULOCYTE % (AUTO) 0.5 % (0.0-5.0); LYMPHOCYTES # (AUTO) 1.1 K/uL (0.60-3.4); LYMPHOCYTES % (AUTO) 17.4 (10.0-50.0); MEAN CORPUSCULAR HEMOGLOBIN 28.1 pg (27.0-31.0); MEAN CORPUSCULAR HGB CONC 31.8 (31.8-35.4); MEAN CORPUSCULAR VOLUME 88.2 fl (80.0-94.0); MONOCYTES # (AUTO) 0.4 K/uL (0.4-2.0); MONOCYTES % (AUTO) 6.6 (0-10); NEUTROPHILS # (AUTO) 4.4 K/ul (2.0-6.9); NEUTROPHILS % (AUTO) 69.4 % (42.2-75.2); PLATELET COUNT 183 10^3/uL (140-440); RED BLOOD COUNT 4.24 10^6/ul (4.70-6.10); WHITE BLOOD COUNT 6.39 K/ul (4.2-10.2)
[2022-02-26 06:17] LABS: ALANINE AMINOTRANSFERASE 26.8 U/L (0-50); ALBUMIN 3.79 g/dL (3.5-5.0); ALKALINE PHOSPHATASE 60.6 U/L (56-119); ASPARTATE AMINO TRANSFERASE 27.9 U/L (17-59); BILIRUBIN,TOTAL 0.43 mg/dL (0.2-1.3); CALCIUM 9.19 mg/dL (8.4-10.2); CARBON DIOXIDE 24.5 mmol/L (22-30.0); CHLORIDE 102.6 mmol/L (98-107); CREATINE KINASE 27.4 U/L (55-170); CREATININE 0.51 mg/dL (0.60-1.10); GLUCOSE 193.8 mg/dL (74-106); TOTAL PROTEIN 6.95 g/dL (6.3-8.2)
[2022-02-26 06:21] LABS: TROPONIN I < 0.012 ng/ml (0.0000-0.120)
[2022-02-26] MEDS: LOVENOX SUBCUT SCH (09:29)
[2022-02-26] MEDS: ASPIRIN CHEWABLE PO SCH (09:30)
[2022-02-26] MEDS: ZESTRIL PO SCH (09:30)
[2022-02-26] MEDS: FLOMAX PO SCH ×2 (09:30→20:53)
[2022-02-26] MEDS: LIPITOR PO SCH (09:30)
[2022-02-26] MEDS: NEURONTIN PO SCH ×2 (09:31→20:52)
[2022-02-26] MEDS: NYSTOP POWDER TP SCH ×2 (09:31→20:53)
[2022-02-26] MEDS: MIRALAX PO SCH (09:32)
[2022-02-26] MEDS: MICRO-K CAP PO SCH (09:33)
[2022-02-26] MEDS: HUMULIN R SUBCUT PRN ×3 (11:15→20:53)
--- NOTE | 2022-02-26 13:33 | PCM.PROG ---
Attending Provider: ATTENDING PROVIDER: Dr. GENESIS GARCIA DATE OF SERVICE: 02/26/22 SUBJECTIVE: This 71 year old /WHITE M was hospitalized 02/13/22 with sepsis, obstipation and metabolic acidosis. The patient had episode of sweating, restlessness, shortness of breath and hypoxemia yesterday which last 15-20 minutes. The patient's cardiac workup was negative. Respiratory status become stable. One dose Morphine sulfate given. Condition improved. He is eating better. Oxygen saturation at 93% on room air. He had bowel movement last night. REVIEW OF SYSTEMS: CONSTITUTIONAL: No night sweats. No fatigue, malaise, lethargy. No fever or chills. HEENT: Eyes: No visual changes. No eye pain. No eye discharge. ENT: No runny nose. No epistaxis. No sinus pain. No odynophagia. No congestion. RESPIRATORY: No cough, no congestion. No hemoptysis. No shortness of breath. CARDIOVASCULAR: No angina symptoms. No CHF symptoms. No atypical chest pain for CAD. No palpitations. No orthopnea.. GASTROINTESTINAL: No abdominal pain. No nausea or vomiting. No diarrhea or constipation. No hematemesis. No hematochezia. GENITOURINARY: No urgency. No frequency. No dysuria. No hematuria. No obstructive symptoms. No discharge. No pain. No significant abnormal bleeding. MUSCULOSKELETAL: No musculoskeletal pain; no joint swelling. NEUROLOGICAL: Awake, alert, oriented to time, place and person. No headache. No neck pain. No syncope. No seizures. No dizziness. PSYCHIATRIC: Not anxious. No depression. No suicidal thoughts. No homicidal thoughts. SKIN: No rash. No lesions. No wounds. ENDOCRINE: No unexplained weight loss. No weight gain. HEMATOLOGIC/LYMPHATIC: No anemia. No purpura. No petechiae. No prolonged or excessive bleeding. No palpable lymph nodes. PHYSICAL EXAMINATION: GENERAL: The patient is awake, alert and oriented, sitting in bed in no dis tress. VITAL SIGNS: Temperature 98.8 F, Pulse 85, Respiratory Rate 18, BP 102/62, Pulse Ox 96% HEENT: Head normocephalic, atraumatic. Eyes: Extraocular muscles are intact. Pupils are equal, round and reactive to light and accommodation. Ears: No lesions. Nose appeared normal. Throat: No exudate or erythema. NECK: Supple. No JVD, no carotid bruit. No lymphadenopathy or thyromegaly. LUNGS: Decreased breath sounds. Clear to auscultation. Percussion note normal. Chest symmetrical. HEART: S1, S2, no S3. No murmurs. No cyanosis or clubbing. No ascites. Pulses: Dorsalis pedis and posterior tibial pulses +1 to +2 both sides. ABDOMEN: Soft. Non-tender. Bowel sounds active. No CVA tenderness. No mass felt. EXTREMITIES: Practically no pedal edema. Full range of motion of all ex tremities, equal. NEUROLOGIC: No focal deficit. Cranial nerves II through XII are grossly intact. No headache, no double vision or headache. SKIN: Warm and dry. Intact. Turgor-normal. LYMPHATIC: No palpable lymph nodes/no lymphedema. MUSCULOSKELETAL: Normal joints with no swelling. Muscle tone is normal. LAB REVIEW: 02/26/22 05:44 02/26/22 05:44 02/26/22 05:44: Sodium 136.0, Potassium 4.40, Chloride 102.6, Carbon Dioxide 24.5, Anion Gap 13.30, BUN 16.0, Creatinine 0.51 L, Estimated GFR (MDRD) 159.00, BUN/Creatinine Ratio 31.37, Glucose 193.8 H, Calcium 9.19, Total Bilirubin 0.43, AST 27.9, ALT 26.8, Alkaline Phosphatase 60.6, Total Creatine Kinase 27.4 L, Troponin I < 0.012, Total Protein 6.95, Albumin 3.79, Globulin 3.16, Albumin/Globulin Ratio 1.19 02/26/22 05:44: WBC 6.39, RBC 4.24 L, Hgb 11.9 L, Hct 37.4 L, MCV 88.2, MCH 28.1, MCHC 31.8, RDW Coeff of Veronica 15.0 H, Plt Count 183, Immature Gran % (Auto) 0.5, Neut % (Auto) 69.4, Lymph % (Auto) 17.4, [place] % (Auto) 6.6, Eos % (Auto) 5.6, Baso % (Auto) 0.5, Neut # (Auto) 4.4, Lymph # (Auto) 1.1, [place] # (Auto) 0.4, Eos # (Auto) 0.4, Baso # (Auto) 0.0, Immature Gran # (Auto) 0.0 02/25/22 13:45: Total Creatine Kinase 24.8 L 02/25/22 13:45: Troponin I < 0.012 ASSESSMENT: Please see below. 1. Metabolic acidosis, resolved 2. Constipation, resolved 3. Sepsis seems to be under control. PLAN: 1. Continue same management 2. Will keep one more day to watch and observe. Plan and coordination of the patient's care discussed in the presence of Silk Hanger and nurse. CONDITION: Stable. SCRIBED BY: Stoney LOPEZ scribed while in presence of service performed by Dr. GENESIS GARCIA on 02/26/22 ([id number])
[2022-02-26] MEDS: LOPRESSOR PO SCH (20:52)
[2022-02-26] MEDS: CELEXA PO SCH (20:53)
[2022-02-27 05:27] LABS: BASOPHILS # (AUTO) 0.1 K/uL (0-0.2); BASOPHILS % (AUTO) 0.8 % (0.0-3.0); EOSINOPHILS # (AUTO) 0.4 K/ul (0.0-0.7); EOSINOPHILS % (AUTO) 5.8 % (0.0-7.0); HEMATOCRIT 37.2 % (42.0-52.0); HEMOGLOBIN 12.1 g/dl (14.0-18.0); IMMATURE GRANULOCYTE % (AUTO) 0.5 % (0.0-5.0); LYMPHOCYTES # (AUTO) 1.2 K/uL (0.60-3.4); LYMPHOCYTES % (AUTO) 19.8 (10.0-50.0); MEAN CORPUSCULAR HEMOGLOBIN 28.5 pg (27.0-31.0); MEAN CORPUSCULAR HGB CONC 32.5 (31.8-35.4); MEAN CORPUSCULAR VOLUME 87.5 fl (80.0-94.0); MONOCYTES # (AUTO) 0.5 K/uL (0.4-2.0); MONOCYTES % (AUTO) 7.5 (0-10); NEUTROPHILS # (AUTO) 4.1 K/ul (2.0-6.9); NEUTROPHILS % (AUTO) 65.6 % (42.2-75.2); PLATELET COUNT 194 10^3/uL (140-440); RDW COEFFICIENT OF VARIATION 14.9 % (11.6-14.8); RED BLOOD COUNT 4.25 10^6/ul (4.70-6.10); WHITE BLOOD COUNT 6.25 K/ul (4.2-10.2)
[2022-02-27 05:36] LABS: ALANINE AMINOTRANSFERASE 25.7 U/L (0-50); ALKALINE PHOSPHATASE 61.4 U/L (56-119); ASPARTATE AMINO TRANSFERASE 25.8 U/L (17-59); BILIRUBIN,TOTAL 0.44 mg/dL (0.2-1.3); BLOOD UREA NITROGEN 15.9 mg/dL (9-20); CALCIUM 9.4 mg/dL (8.4-10.2); CARBON DIOXIDE 25.9 mmol/L (22-30.0); CHLORIDE 102.1 mmol/L (98-107); CREATININE 0.52 mg/dL (0.60-1.10); GLUCOSE 202.8 mg/dL (74-106); SODIUM 136.1 mmol/L (134.5-145); TOTAL PROTEIN 7.36 g/dL (6.3-8.2)
[2022-02-27 05:55] LABS: POTASSIUM 4.31 mmol/L (3.5-5.1)
[2022-02-27] MEDS: HUMULIN R SUBCUT PRN ×4 (05:56→21:34)
[2022-02-27] MEDS: NYSTOP POWDER TP SCH ×2 (08:18→21:37)
[2022-02-27] MEDS: MIRALAX PO SCH (08:19)
[2022-02-27] MEDS: LIPITOR PO SCH (08:21)
[2022-02-27] MEDS: NEURONTIN PO SCH ×2 (08:21→21:34)
[2022-02-27] MEDS: MICRO-K CAP PO SCH (08:21)
[2022-02-27] MEDS: ASPIRIN CHEWABLE PO SCH (08:21)
[2022-02-27] MEDS: FLOMAX PO SCH ×2 (08:21→21:33)
[2022-02-27] MEDS: LOVENOX SUBCUT SCH (08:23)
[2022-02-27] MEDS: ZESTRIL PO SCH (08:23)
[2022-02-27] MEDS: LOPRESSOR PO SCH (21:33)
[2022-02-27] MEDS: CELEXA PO SCH (21:35)
[2022-02-28 05:36] LABS: BASOPHILS # (AUTO) 0.1 K/uL (0-0.2); BASOPHILS % (AUTO) 0.8 % (0.0-3.0); EOSINOPHILS # (AUTO) 0.4 K/ul (0.0-0.7); EOSINOPHILS % (AUTO) 5.8 % (0.0-7.0); HEMATOCRIT 37.8 % (42.0-52.0); HEMOGLOBIN 12.2 g/dl (14.0-18.0); IMMATURE GRANULOCYTE % (AUTO) 0.3 % (0.0-5.0); LYMPHOCYTES # (AUTO) 1.2 K/uL (0.60-3.4); LYMPHOCYTES % (AUTO) 20.1 (10.0-50.0); MEAN CORPUSCULAR HEMOGLOBIN 28.3 pg (27.0-31.0); MEAN CORPUSCULAR HGB CONC 32.3 (31.8-35.4); MEAN CORPUSCULAR VOLUME 87.7 fl (80.0-94.0); MONOCYTES # (AUTO) 0.6 K/uL (0.4-2.0); MONOCYTES % (AUTO) 9.1 (0-10); NEUTROPHILS # (AUTO) 3.9 K/ul (2.0-6.9); NEUTROPHILS % (AUTO) 63.9 % (42.2-75.2); PLATELET COUNT 207 10^3/uL (140-440); RDW COEFFICIENT OF VARIATION 14.7 % (11.6-14.8); RED BLOOD COUNT 4.31 10^6/ul (4.70-6.10); WHITE BLOOD COUNT 6.17 K/ul (4.2-10.2)
[2022-02-28 05:46] LABS: ALANINE AMINOTRANSFERASE 26.7 U/L (0-50); ALBUMIN 4.11 g/dL (3.5-5.0); ASPARTATE AMINO TRANSFERASE 26.3 U/L (17-59); BILIRUBIN,TOTAL 0.42 mg/dL (0.2-1.3); CALCIUM 9.28 mg/dL (8.4-10.2); CARBON DIOXIDE 26.8 mmol/L (22-30.0); CHLORIDE 101.2 mmol/L (98-107); CREATININE 0.54 mg/dL (0.60-1.10); GLUCOSE 253.6 mg/dL (74-106); POTASSIUM 4.45 mmol/L (3.5-5.1); SODIUM 135.5 mmol/L (134.5-145); TOTAL PROTEIN 7.53 g/dL (6.3-8.2)
[2022-02-28] MEDS: HUMULIN R SUBCUT PRN ×4 (05:55→20:24)
[2022-02-28] MEDS: FLOMAX PO SCH ×2 (09:33→20:23)
[2022-02-28] MEDS: NEURONTIN PO SCH ×2 (09:34→20:24)
[2022-02-28] MEDS: ASPIRIN CHEWABLE PO SCH (09:34)
[2022-02-28] MEDS: LIPITOR PO SCH (09:35)
[2022-02-28] MEDS: ZESTRIL PO SCH (09:35)
[2022-02-28] MEDS: MIRALAX PO SCH (09:36)
[2022-02-28] MEDS: MICRO-K CAP PO SCH (09:36)
[2022-02-28] MEDS: LOVENOX SUBCUT SCH (09:38)
[2022-02-28] MEDS: NYSTOP POWDER TP SCH ×2 (09:44→20:25)
[2022-02-28] MEDS: CELEXA PO SCH (20:23)
[2022-02-28] MEDS: LOPRESSOR PO SCH (20:23)
[2022-03-01 05:15] LABS: BASOPHILS # (AUTO) 0.1 K/uL (0-0.2); EOSINOPHILS # (AUTO) 0.3 K/ul (0.0-0.7); EOSINOPHILS % (AUTO) 5.4 % (0.0-7.0); HEMATOCRIT 34.1 % (42.0-52.0); IMMATURE GRANULOCYTE % (AUTO) 0.3 % (0.0-5.0); LYMPHOCYTES # (AUTO) 1.4 K/uL (0.60-3.4); LYMPHOCYTES % (AUTO) 23.4 (10.0-50.0); MEAN CORPUSCULAR HEMOGLOBIN 28.5 pg (27.0-31.0); MEAN CORPUSCULAR HGB CONC 32.3 (31.8-35.4); MEAN CORPUSCULAR VOLUME 88.3 fl (80.0-94.0); MONOCYTES # (AUTO) 0.5 K/uL (0.4-2.0); MONOCYTES % (AUTO) 7.8 (0-10); NEUTROPHILS # (AUTO) 3.8 K/ul (2.0-6.9); NEUTROPHILS % (AUTO) 62.1 % (42.2-75.2); PLATELET COUNT 175 10^3/uL (140-440); RDW COEFFICIENT OF VARIATION 14.7 % (11.6-14.8); RED BLOOD COUNT 3.86 10^6/ul (4.70-6.10); WHITE BLOOD COUNT 6.15 K/ul (4.2-10.2)
[2022-03-01 05:30] LABS: ALANINE AMINOTRANSFERASE 25.3 U/L (0-50); ALBUMIN 3.8 g/dL (3.5-5.0); ASPARTATE AMINO TRANSFERASE 26.7 U/L (17-59); BILIRUBIN,TOTAL 0.54 mg/dL (0.2-1.3); BLOOD UREA NITROGEN 18.9 mg/dL (9-20); CALCIUM 8.92 mg/dL (8.4-10.2); CARBON DIOXIDE 26.8 mmol/L (22-30.0); CHLORIDE 100.8 mmol/L (98-107); CREATININE 0.61 mg/dL (0.60-1.10); POTASSIUM 4.26 mmol/L (3.5-5.1); SODIUM 134.5 mmol/L (134.5-145); TOTAL PROTEIN 7.03 g/dL (6.3-8.2)
[2022-03-01] MEDS: HUMULIN R SUBCUT PRN ×2 (05:45→11:23)
[2022-03-01] MEDS ORDERED: ZESTRIL PO SCH (09:30)
[2022-03-01] MEDS ORDERED: GLUCOPHAGE PO SCH (09:30)
[2022-03-01] MEDS: LIPITOR PO SCH (09:32)
[2022-03-01] MEDS: NEURONTIN PO SCH (09:33)
[2022-03-01] MEDS: FLOMAX PO SCH (09:34)
[2022-03-01] MEDS: MICRO-K CAP PO SCH (09:34)
[2022-03-01] MEDS: ASPIRIN CHEWABLE PO SCH (09:34)
[2022-03-01] MEDS: MIRALAX PO SCH (09:35)
[2022-03-01] MEDS: LOVENOX SUBCUT SCH (09:39)
[2022-03-01] MEDS: NYSTOP POWDER TP SCH (10:14)
--- NOTE | 2022-03-01 10:24 | PCM.PROG ---
Attending Provider: ATTENDING PROVIDER: Dr. GENESIS GARCIA DATE OF SERVICE: 03/01/22 SUBJECTIVE: This 71 year old /WHITE M was hospitalized 02/13/22 with sepsis, severe constipation with abdominal distention and metabolic acidosis. All problems have resolved. The patient is feeling better.New problem is urinary retention. We tried Goode Catheter and increased Flomax. Goode was taken out and reinserted. The patient is going to keep Goode in. The patient has stage II decubitus on coccygeal shearing type skin tear and has blister which has turned into very superficial on medial aspect of right foot and heel which is healing. REVIEW OF SYSTEMS: CONSTITUTIONAL: No night sweats. No fatigue, malaise, lethargy. No fever or chills. HEENT: Eyes: No visual changes. No eye pain. No eye discharge. ENT: No runny nose. No epistaxis. No sinus pain. No odynophagia. No congestion. RESPIRATORY: No cough, no congestion. No hemoptysis. No shortness of breath. CARDIOVASCULAR: No angina symptoms. No CHF symptoms. No atypical chest pain for CAD. No palpitations. No orthopnea.. GASTROINTESTINAL: No abdominal pain. No nausea or vomiting. No diarrhea or constipation. No hematemesis. No hematochezia. GENITOURINARY: No urgency. No frequency. No dysuria. No hematuria. No obstructiv e symptoms. No discharge. No pain. No significant abnormal bleeding. MUSCULOSKELETAL: No musculoskeletal pain; no joint swelling. NEUROLOGICAL: Awake, alert, oriented to time, place and person. No headache. No neck pain. No syncope. No seizures. No dizziness. PSYCHIATRIC: Not anxious. No depression. No suicidal thoughts. No homicidal thoughts. SKIN: No rash. No lesions. No wounds. ENDOCRINE: No unexplained weight loss. No weight gain. HEMATOLOGIC/LYMPHATIC: No anemia. No purpura. No petechiae. No prolonged or excessive bleeding. No palpable lymph nodes. PHYSICAL EXAMINATION: GENERAL: The patient is awake, alert and oriented, lying in bed in no distress. VITAL SIGNS: Temperature 97.6 F, Pulse 78, Respiratory Rate 20, BP 127/74, Pulse Ox 95% HEENT: Head normocephalic, atraumatic. Eyes: Extraocular muscles are intact. Pupils are equal, round and reactive to light and accommodation. Ears: No lesions. Nose appeared normal. Throat: No exudate or erythema. NECK: Supple. No JVD, no carotid bruit. No lymphadenopathy or thyromegaly. LUNGS: Clear to auscultation. Percussion note normal. Chest symmetrical. HEART: S1, S2, no S3. No murmurs. No cyanosis or clubbing. No ascites. Pulses: Dorsalis pedis and posterior tibial pulses +1 to +2 both sides. ABDOMEN: Soft. Non-tender. Bowel sounds active. No CVA tenderness. No mass felt. EXTREMITIES: No edema. Full range of motion of all extremities, equal. NEUROLOGIC: No focal deficit. Cranial nerves II through XII are grossly intact. No headache, no double vision or headache. SKIN: Warm and dry. Intact. Turgor-normal. LYMPHATIC: No palpable lymph nodes/no lymphedema. MUSCULOSKELETAL: Normal joints with no swelling. Muscle tone is normal. LAB REVIEW: 03/01/22 04:33 03/01/22 04:33 03/01/22 04:33: Sodium 134.5, Potassium 4.26, Chloride 100.8, Carbon Dioxide 26.8, Anion Gap 11.16, BUN 18.9, Creatinine 0.61, Estimated GFR (MDRD) 130.00, BUN/Creatinine Ratio 30.98, Glucose 233.0 H, Calcium 8.92, Total Bilirubin 0.54, AST 26.7, ALT 25.3, Alkaline Phosphatase 62.0, Total Protein 7.03, Albumin 3.80, Globulin 3.23, Albumin/Globulin Ratio 1.17 03/01/22 04:33: WBC 6.15, RBC 3.86 L, Hgb 11.0 L, Hct 34.1 L, MCV 88.3, MCH 28.5, MCHC 32.3, RDW Coeff of Veronica 14.7, Plt Count 175, Immature Gran % (Auto) 0.3, Neut % (Auto) 62.1, Lymph % (Auto) 23.4, [place] % (Auto) 7.8, Eos % (Auto) 5.4, Baso % (Auto) 1.0, Neut # (Auto) 3.8, Lymph # (Auto) 1.4, [place] # (Auto) 0.5, Eos # (Auto) 0.3, Baso # (Auto) 0.1, Immature Gran # (Auto) 0.0 ASSESSMENT: Please see below. 1. Sepsis, resolved 2. Colitis, resolved 3. Severe constipation, resolved 4. Metabolic acidosis, resolved with Co2 26.8. PLAN: 1. Discharge home on Goode Catheter 2. Flomax twice a day 3. Lisinopril decreased to 120mg PO daily 4. Metformin 500mg twice a day later on 1000mg twice a day. The patient has been on Metformin for number of years without problem 5. Decubitus on coccyx 1.2cm size stage I. Prognosis of healing not bad consider ing the patient's inability to get up and walk. He weighs 247 pounds. Staying home with help of . That is not going to be that helpful. 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 He is incontinent that is why Goode Catheter has been placed. The patient will have Home Health at home. Plan and coordination of the patient's care discussed in the presence of Senior Accounting Specialist and nurse. CONDITION: Stable SCRIBED BY: Stoney LOPEZ scribed while in presence of service performed by Dr. GENESIS GARCIA on 03/01/22 ([id number])
[2022-03-01 14:10] VITALS: BP 118/67; TEMP 97.9
--- NOTE | 2022-03-02 11:22 | DS ---
DATE OF SERVICE: 03/01/22 FINAL DIAGNOSIS: 1. Sepsis with positive markers 2. Metabolic acidosis on admission, etiology likely urinary tract infection 3. Severe constipation with abdominal distention likely multifactorial. 4. Friedreich ataxia with bed ridden status 5. Obesity with BMI of 32, sedentary lifestyle 6. Diabetes Mellitus type II 7. Hypertension 8. Dyslipidemia 9. Stage I decubitus measuring cm size on coccygeal area with no infection 10.1.5cm size stage 1 ulcer on the medial aspect of right foot, no infection 11. Urinary incontinence now has a Goode Catheter 12. Colitis likely from antibiotic initially 13. Neuropathy 14. Coronary artery disease with history of UT. DISCHARGE INSTRUCTIONS: Discharge home. Goode Catheter care discussed. The patient is going to continue to have Home Health Care. Long discussion had taken place between patient about Goode Catheter. The patient has ulcer decubitus because of his present status and urinary incontinence. The patient was decided to have Goode Catheter which I agreed for now. The patient was tried in the hospital with out catheter but he was incontinent of urine in spite of the patient being on Flomax 0.4mg twice a day for 3-4 days. He was unable to void on his own fully. MEDICATIONS AT DISCHARGE: Aspirin Metoprolol Atorvastatin Nitroglycerin Citalopram Gabapentin K-tab as before NEW PRESCRIPTIONS: Metformin 500mg PO at evening meal Lisinopril change from 20mg to 10mg a day Tamsulosin increased to 0.4mg PO BID LABS: Hgb 11, hct 34, WBC 6,000 normal differential, creatinine 0.6, BUN 18, potassium 4.2. HOSPITAL COURSE: 69 year old white male who has Friedreich's ataxia and almost bed ridden is being taken care of at home by the was brought to the emergency room with severe constipation and markedly distended abdomen. All the sepsis markers were positive with leukocytosis. The patient was treated with Zosyn and Vancomycin. Metabolic acidosis resolved. The patient later on developed colitis, the antibiotics were discontinued and he was put on Flagyl. He now has almost formed stools for 2-3 days prior to discharge. The patient's acidosis has resolved with the fact that Co2 level is 26 to 27. His WBC was 6,100 at time of discharge. No fever for past 4-5 days. Blood sugar has been running high but he is going to be restarted on Metformin, other medications will be added as an outpatient. Prognosis for healing stage 1 ulcer is poor. He is 247 pounds and the is unable to turn him. The patient needs a lot of help in turning. The patient's weight with shearing force on the bed along with history of urinary incontinence makes decubitus ulcer and once it is formed it is difficult to heal. During the stay in the hospital the patient developed hypotension with sweaty spell. The patient had repeat CT scan of the abdomen which was practically unremarkable. EKG didn't change. Cardiac markers were negative. Calf muscles were nontender, no evidence of pulmonary embolism. Episode lasted 10-15 minutes with one shot of 3mg Morphine Sulfate he came out of it. CONDITION: Stable TIME SPENT: More than 60 minutes. MTDD
--- NOTE | 2022-03-02 13:14 | PN ---
ADMISSION DAY: Level 5 SECOND DAY:Extensive THIRD DAY: Extensive REST OF THEM INTERMEDIATE EXCEPT FOR ONE DAY IN THE MIDDLE WHERE I HAD CODED EXTENSIVE FINAL DAY: D as in Discharge MTDD
--- NOTE | 2022-03-02 14:13 | PN ---
DATE OF SERVICE: 02/28/22 SUBJECTIVE: 71 year old white male hospitalized with sepsis, severe abdominal distention with severe constipation and metabolic acidosis. The patient most of the problems have resolved. The problem now the patient has is urinary incontinence and having stage I coccygeal area of the skin also has mild blistering of the medial aspect of the right foot with stage I ulcer. The patient Goode Catheter which was removed. He has been on Flomax twice a day. Ever since the patient's catheter has been removed the patient has been soaking the bed. A long discussion took place with the patient and especially and wants to put the catheter back because of the possibility of decubitus ulcer rising. REVIEW OF SYSTEMS: CONSTITUTIONAL: No night sweats. No fatigue, malaise, lethargy. No fever or chills. HEENT: Eyes: No visual changes. No eye pain. No eye discharge. ENT: No runny nose. No epistaxis. No sinus pain. No sore throat. No odynophagia. No congestion. RESPIRATORY: No cough, no congestion. No hemoptysis. No shortness of breath. CARDIOVASCULAR: No angina symptoms. No CHF symptoms. No atypical chest pain for CAD. No palpitations. No PND. No orthopnea. GASTROINTESTINAL: No abdominal pain. No nausea or vomiting. No diarrhea or constipation. No hematemesis. No hematochezia. GENITOURINARY: No urgency. No frequency. No dysuria. No hematuria. No obstructive symptoms. No discharge. No pain. No significant abnormal bleeding. MUSCULOSKELETAL: No musculoskeletal pain; no joint swelling. NEUROLOGICAL: No headache. No neck pain. No syncope. No seizures. No dizziness. PSYCHIATRIC: Not anxious. No depression. No suicidal thoughts. No homicidal thoughts. SKIN: No rash. No lesions. No wounds. ENDOCRINE: No unexplained weight loss. No weight gain. HEMATOLOGIC/LYMPHATIC: No anemia. No purpura. No petechiae. No prolonged or excessive bleeding. No palpable lymph nodes. PHYSICAL EXAMINATION: VITAL SIGNS: Temperature 97.5, pulse 76, respiratory rate 18, blood pressure 108/68 and pulse ox 94%. HEENT: Head normocephalic, atraumatic. Eyes: Extraocular muscles are intact. Pupils are equal, round and reactive to light and accommodation. Ears: No lesions. Nose appeared normal. Throat: No exudate or erythema. NECK: Supple. No JVD, no carotid bruit. No lymphadenopathy or thyromegaly. LUNGS: Decreased breath sounds but clear to auscultation. Percussion note normal. Chest symmetrical. HEART: S1, S2, no S3. No murmurs. No cyanosis or clubbing. No ascites. Pulses: Dorsalis pedis and posterior tibial pulses +1 to +2 bilaterally. ABDOMEN: Soft. Nontender. Bowel sounds active. No CVA tenderness. No mass felt. EXTREMITIES: No edema. Full range of motion of all extremities, equal. NEUROLOGIC: No focal deficit. Cranial nerves II through XII are grossly intact. No headache. No double vision. SKIN: Not dry. Intact. Turgor - normal. Stage I coccygeal and also stage I ulcer on medial aspect of the right foot measuring around 1.5cm LYMPHATIC: No palpable lymph nodes/no lymphedema. MUSCULOSKELETAL: Normal joints with no swelling. Muscle tone is normal. LABS: Hgb 12.2, hct 37, WBC 6,000 normal differential, creatinine 0.5, BUN 16, potassium 4.4 ASSESSMENT: 1. Sepsis seems to have resolved 2. Colitis seems to have resolved 3. Constipation has resolved 4. Metabolic acidosis seems to have resolved with CO2 26. 5. Beginning of stage I coccygeal and right foot ulcer 6. Urinary incontinence PLAN: 1. After long discussion I have decided to put the Goode Catheter back. The patient will have a Home Health Care and will monitor the condition and decubitus care with the patient 's. The patient's prognosis for healing the ulcer at present time is good but it is going to be very difficult to prevent decubitus ulceration because of the patient's neuromuscular problem and inability to walk with practically bed ridden condition for several years. Also the patient is 247 pounds, very difficulty to turn this patient. doesn't want the patient to go to the detention. She is doing her best which may not be enough once the decubitus ulcer has been formed to the turn the patient. In any case education was carried about the decubitus ulcer and how to heal it. TIME SPENT: More than 30 minutes. Plan and coordination of the patient's care discussed in the presence of nurse. DEISI
--- NOTE | 2022-03-03 08:49 | PN ---
DATE OF SERVICE: 02/13/22 SUBJECTIVE: 71 year old white male came to the emergency room with abdominal distention, severe constipation. On further workup the ER attending had all the labs performed which showed evidence of sepsis with leukocytosis. Abdomen was fairly distended with scan finding of severe obstipation, no obstruction was noted. The patient is bed ridden for number of years with his neuromuscular problems involving his lower extremities. The patient is a DNR. The patient is COVID negative. He was hospitalized with metabolic acidosis with pH 7.25 with pO2 67, pCO2 37, pH 7.25 with 90% saturation. 1. His metabolic acidosis origin could be from sepsis. 2. Sepsis could be from obstipation with diverticulitis and or UTI. In any case the patient is going to be treated with Zosyn, Vancomycin 3. IV fluids for mild dehydration. 4. Severe obstipation constipation with molasses enema along with Dulcolax PO Nurse may also try manual extraction of some of the stools. CONDITION: Stable The patient is DNR. TIME SPENT: More than 30 minutes. Plan and coordination of the patient's care discussed in the presence of nurse. DEISI
--- NOTE | 2022-03-03 14:35 | PN ---
DATE OF SERVICE: 02/19/22 SUBJECTIVE: 71 year old white male hospitalized with sepsis, severe constipation and metabolic acidosis. The patient's constipation and metabolic acidosis has resolved. The patient's sepsis is resolving. Condition is improving. happy with the patient's progress. REVIEW OF SYSTEMS: CONSTITUTIONAL: No night sweats. No fatigue, malaise, lethargy. No fever or chills. Resting very well. HEENT: Eyes: No visual changes. No eye pain. No eye discharge. ENT: No runny nose. No epistaxis. No sinus pain. No sore throat. No odynophagia. No congestion. RESPIRATORY: No cough, no congestion. No hemoptysis. No shortness of breath. CARDIOVASCULAR: No angina symptoms. No CHF symptoms. No atypical chest pain for CAD. No palpitations. No PND. No orthopnea. GASTROINTESTINAL: No abdominal pain. No nausea or vomiting. No diarrhea or constipation. No hematemesis. No hematochezia. GENITOURINARY: No urgency. No frequency. No dysuria. No hematuria. No obstructive symptoms. No discharge. No pain. No significant abnormal bleeding. Goode Catheter, 1,000 cc was taken out when Goode was inserted yesterday after that the patient had Lasix which got 1900cc out. He is less swollen now. MUSCULOSKELETAL: No musculoskeletal pain; no joint swelling. NEUROLOGICAL: No headache. No neck pain. No syncope. No seizures. No dizziness. PSYCHIATRIC: Not anxious. No depression. No suicidal thoughts. No homicidal thoughts. SKIN: No rash. No lesions. No wounds. ENDOCRINE: No unexplained weight loss. No weight gain. HEMATOLOGIC/LYMPHATIC: No anemia. No purpura. No petechiae. No prolonged or excessive bleeding. No palpable lymph nodes. PHYSICAL EXAMINATION: VITAL SIGNS: Temperature 98.2, pulse 73, respiratory rate 20, blood pressure 150/80 and pulse ox 94%. HEENT: Head normocephalic, atraumatic. Eyes: Extraocular muscles are intact. Pupils are equal, round and reactive to light and accommodation. Ears: No lesions. Nose appeared normal. Throat: No exudate or erythema. NECK: Supple. No JVD, no carotid bruit. No lymphadenopathy or thyromegaly. LUNGS: Decreased breath sounds but clear to auscultation. Percussion note normal. Chest symmetrical. HEART: S1, S2, no S3. No murmurs. No cyanosis or clubbing. No ascites. Pulses: Dorsalis pedis and posterior tibial pulses +1 to +2 bilaterally. ABDOMEN: Soft. Nontender. Bowel sounds active. No CVA tenderness. No mass felt. EXTREMITIES: No edema. Full range of motion of all extremities, equal. NEUROLOGIC: No focal deficit. Cranial nerves II through XII are grossly intact. No headache. No double vision. SKIN: Not dry. Intact. Turgor - normal. LYMPHATIC: No palpable lymph nodes/no lymphedema. MUSCULOSKELETAL: Normal joints with no swelling. Muscle tone is normal. LABS: Hgb 11.5, hct 34, WBC 6,800 normal differential, creatinine 0.5, BUN 9, potassium 3.2 ASSESSMENT: 1. Respiratory failure seems to be under control 2. Sepsis seems to be under control 3. Constipation, resolved 4. Metabolic acidosis, resolved PLAN: 1. Continue all the antibiotics 2. Increase Flomax to 0.4mg twice a day 3. Will try to take out the Goode Catheter in couple of day 4. Potassium 20meq PO to be increased to TID. 5. The patient's food intake and output will be monitored easily CONDITION: Stabilizing. TIME SPENT: More than 30 minutes. Plan and coordination of the patient's care discussed in the presence of nurse. DEISI
--- NOTE | 2022-03-09 09:36 | PN ---
DATE OF SERVICE: 02/22/22 SUBJECTIVE: The patient was seen and examining with the Nurse Practitioner. The patient's condition is stable. The CT scan showed colitis which was expected. The patient has been off all antibiotics now. Vancomycin was initial off now he is off Zosyn. She is going to be on Flagyl. Diarrhea more or less has stopped. Abdomen distention still there, will monitor. Appetite is good. TIME SPENT: More than 30 minutes. Plan and coordination of the patient's care discussed in the presence of nurse. DEISI
--- NOTE | 2022-03-09 11:52 | PN ---
DATE OF SERVICE: 02/23/22 SUBJECTIVE: The patient was seen and examined with the Nurse Practitioner. Condition seems to have improved. Colitis seems to be resolving. Appetite still is the same, very good. Bowel sounds are hyperactive. Abdomen is less distended. Condition is stabilizing. No antibiotics for now. TIME SPENT: More than 30 minutes. Plan and coordination of the patient's care discussed in the presence of nurse. DEISI
--- NOTE | 2022-03-09 13:12 | PN ---
DATE OF SERVICE: 02/24/22 SUBJECTIVE: 71 year old white male hospitalized with severe constipation, abdominal distention and sepsis. The patient is off antibiotics, still has colitis type of symptoms with distended abdomen. Appetite is excellent. Denies of any chest pain. REVIEW OF SYSTEMS: CONSTITUTIONAL: No night sweats. No fatigue, malaise, lethargy. No fever or chills. HEENT: Eyes: No visual changes. No eye pain. No eye discharge. ENT: No runny nose. No epistaxis. No sinus pain. No sore throat. No odynophagia. No congestion. RESPIRATORY: No cough, no congestion. No hemoptysis. No shortness of breath. CARDIOVASCULAR: No angina symptoms. No CHF symptoms. No atypical chest pain for CAD. No palpitations. No PND. No orthopnea. GASTROINTESTINAL: No abdominal pain. No nausea or vomiting. No diarrhea or constipation. No hematemesis. No hematochezia. GENITOURINARY: No urgency. No frequency. No dysuria. No hematuria. No obstructive symptoms. No discharge. No pain. No significant abnormal bleeding. MUSCULOSKELETAL: No musculoskeletal pain; no joint swelling. NEUROLOGICAL: No headache. No neck pain. No syncope. No seizures. No dizziness. PSYCHIATRIC: Not anxious. No depression. No suicidal thoughts. No homicidal thoughts. SKIN: No rash. No lesions. No wounds. ENDOCRINE: No unexplained weight loss. No weight gain. HEMATOLOGIC/LYMPHATIC: No anemia. No purpura. No petechiae. No prolonged or excessive bleeding. No palpable lymph nodes. PHYSICAL EXAMINATION: VITAL SIGNS: Temperature 98.1, pulse 86, respiratory rate 18, blood pressure 126/72 and pulse ox 94%. HEENT: Head normocephalic, atraumatic. Eyes: Extraocular muscles are intact. Pupils are equal, round and reactive to light and accommodation. Ears: No lesions. Nose appeared normal. Throat: No exudate or erythema. NECK: Supple. No JVD, no carotid bruit. No lymphadenopathy or thyromegaly. LUNGS:Decreased breath sounds but clear to auscultation. Percussion note normal. Chest symmetrical. HEART: S1, S2, no S3. No murmurs. No cyanosis or clubbing. No ascites. Pulses: Dorsalis pedis and posterior tibial pulses +1 to +2 bilaterally. ABDOMEN: Soft. Nontender. Bowel sounds hyperactive. No CVA tenderness. No mass felt. EXTREMITIES: Trace edema on dorsum. Full range of motion of all extremities, equal. Mildly distended. NEUROLOGIC: No focal deficit. Cranial nerves II through XII are grossly intact. No headache. No double vision. SKIN: Not dry. Intact. Turgor - normal. LYMPHATIC: No palpable lymph nodes/no lymphedema. MUSCULOSKELETAL: Normal joints with no swelling. Muscle tone is normal. LABS: Hgb 11, hct 34, WBC 6,100 normal differential, creatinine 0.4, BUN 19, potassium 4.1. ASSESSMENT: 1. Colitis seems to be resolving on Flagyl. Off antibiotics 2. Sepsis seems to still be under control. He is afebrile. 3. Other conditions stable. TIME SPENT: More than 30 minutes. Plan and coordination of the patient's care discussed in the presence of nurse. DEISI
--- NOTE | 2022-03-09 13:43 | PN ---
DATE OF SERVICE: 02/25/22 SUBJECTIVE: Earlier in the morning was seen and examined with the Nurse Practitioner. The patient's condition was stable. He was feeling better. By the afternoon the patient developed cold, clammy feeling with hypoxemia. The patient was then given oxygen. Morphine Sulfate was ordered 3mg IV. The patient had EKG done which was unchanged old inferior wall VT. The patient's troponin and CK-MB was negative. I examined the patient in the afternoon and the family members were present especially the and the daughter. REVIEW OF SYSTEMS: CONSTITUTIONAL: No night sweats. No fatigue, malaise, lethargy. No fever or chills. HEENT: Eyes: No visual changes. No eye pain. No eye discharge. ENT: No runny nose. No epistaxis. No sinus pain. No sore throat. No odynophagia. No congestion. RESPIRATORY: No cough, no congestion. No hemoptysis. No shortness of breath. CARDIOVASCULAR: No angina symptoms. No CHF symptoms. No atypical chest pain for CAD. No palpitations. No PND. No orthopnea. GASTROINTESTINAL: No abdominal pain. No nausea or vomiting. No diarrhea or constipation. No hematemesis. No hematochezia. GENITOURINARY: No urgency. No frequency. No dysuria. No hematuria. No obstructive symptoms. No discharge. No pain. No significant abnormal bleeding. MUSCULOSKELETAL: No musculoskeletal pain; no joint swelling. NEUROLOGICAL: No headache. No neck pain. No syncope. No seizures. No dizziness. PSYCHIATRIC: Not anxious. No depression. No suicidal thoughts. No homicidal thoughts. SKIN: No rash. No lesions. No wounds. ENDOCRINE: No unexplained weight loss. No weight gain. HEMATOLOGIC/LYMPHATIC: No anemia. No purpura. No petechiae. No prolonged or excessive bleeding. No palpable lymph nodes. PHYSICAL EXAMINATION: GENERAL: The patient is alert, not in distress. VITAL SIGNS: Oxygen saturation was 95% on room air. Blood pressure 140 systolic, blood sugar more than 200. HEENT: Head normocephalic, atraumatic. Eyes: Extraocular muscles are intact. Pupils are equal, round and reactive to light and accommodation. Ears: No lesions. Nose appeared normal. Throat: No exudate or erythema. NECK: Supple. No JVD, no carotid bruit. No lymphadenopathy or thyromegaly. LUNGS: Clear to auscultation. Percussion note normal. Chest symmetrical. HEART: S1, S2, no S3. No murmurs. No cyanosis or clubbing. No ascites. Pulses: Dorsalis pedis and posterior tibial pulses +1 to +2 bilaterally. ABDOMEN: Soft. Nontender. Bowel sounds active. No CVA tenderness. No mass felt. EXTREMITIES: No pedal edema. Full range of motion of all extremities, equal. Calf nontender. NEUROLOGIC: No focal deficit. Cranial nerves II through XII are grossly intact. No headache. No double vision. SKIN: Not dry. Intact. Turgor - normal. LYMPHATIC: No palpable lymph nodes/no lymphedema. MUSCULOSKELETAL: Normal joints with no swelling. Muscle tone is normal. The patient's morning lunch was held. After 3mg of Morphine Sulfate the patient had calmed down. No more restlessness. LABS: Telemetry showed sinus rhythm with rate of 80-90 per minute. ASSESSMENT: 1. The patient had cold, clammy, shortness of breath etiology unknown. The patient within 15 minute more or less returned to stable status and after Morphine Sulfate his condition improved. The patient's family doesn't want any aggressive measures. Recommended that the patient have a workup for pulmonary embolism which family declined for him to undergo any more tests. The patient is a DNR TIME SPENT: 1.5 hours. CODE: Extensive. Plan and coordination of the patient's care discussed in the presence of nurse. DEISI
== END 2022-03-01 14:40 | disposition home health service (06) | DRG 872 ==
LOC: ED 15:48 → MEDSURG A 17:30
PROVIDERS: ADMIT Internal Medicine; ATTEND Internal Medicine
DX: K59.00 Constipation, unspecified; E87.2 Acidosis; N39.0 Urinary tract infection, site not specified; E78.5 Hyperlipidemia, unspecified; R14.0 Abdominal distension (gaseous); A41.9 Sepsis, unspecified organism; G11.11 Friedreich ataxia; Z79.84 Long term (current) use of oral hypoglycemic drugs; Y92.230 Patient room in hospital as the place of occurrence of the external cause; I25.10 Atherosclerotic heart disease of native coronary artery without angina pectoris; E66.9 Obesity, unspecified; Z79.899 Other long term (current) drug therapy; T36.95XA Adverse effect of unspecified systemic antibiotic, initial encounter; Z91.14 Patient's other noncompliance with medication regimen; K52.1 Toxic gastroenteritis and colitis; Z91.11 Patient's noncompliance with dietary regimen; Z68.32 Body mass index [BMI] 32.0-32.9, adult; E11.40 Type 2 diabetes mellitus with diabetic neuropathy, unspecified; I25.2 Old myocardial infarction; Z72.3 Lack of physical exercise; R32 Unspecified urinary incontinence; L89.151 Pressure ulcer of sacral region, stage 1; R60.0 Localized edema; L89.891 Pressure ulcer of other site, stage 1; Z74.01 Bed confinement status; Z51.81 Encounter for therapeutic drug level monitoring; I10 Essential (primary) hypertension; Z20.822 Contact with and (suspected) exposure to COVID-19; Z96.0 Presence of urogenital implants; Z99.3 Dependence on wheelchair; Z86.79 Personal history of other diseases of the circulatory system

== ENCOUNTER 2022-04-08 14:09 | Inpatient (IN) ==
--- NOTE | 2022-04-08 14:23 | ED.PDOC ---
General ED Provider: Dr. ASAEL CASTELLON Chief Complaint: Shortness of Air Stated Complaint: SOA, cough, no CP. Started today. DNR. Time Seen by Provider: 04/08/22 14:23 Mode of Arrival: Ambulance Information Source: Patient and Family Exam Limitations: No limitations Primary Care Provider: GENESIS GARCIA Nursing and Triage Documentation Reviewed and Agree: Yes Does patient meet sepsis criteria?: No System Inflammatory Response Syndrome: Not Applicable Sepsis Protocol: For patient's 13 years and over: Temp is 96.8 and below OR 101 and greater Pulse >90 BPM Resp >20/minute Acutely Altered Mental Status Are patient's symptoms suggestive of a new infection, such as: -Pneumonia -Skin, Soft Tissue -Endocarditis -UTI -Bone, Joint Infection -Implantable Device -Acute Abdominal Infection -Wound Infection -Meningitis -Blood Stream Catheter Infection -Unknown Respiratory Complaint Exam Respiratory Complaint/Exam Onset/Duration: today Symptoms Are: Still present Timing: Constant Initial Severity: Moderate Current Severity: Moderate Character: Reports Non-productive cough Aggravating: Reports None Alleviating: Reports None Associated Signs and Symptoms: Denies Rapid breathing, Dyspnea, Fever, Chills, Chest pain, Pleuritic chest pain, Wheezing, Hemoptysis, Dizziness, Calf pain, Calf swelling, Edema, URI, Nasal congestion, Hoarseness, Sinus discomfort, Vomiting, Sore throat, Weight loss, Decreased oral intake, Increased thirst, Increased appetite or Increased urination Related History: Reports Similar episode History of Healthcare-Acquired Pneumonia: No Related Surgical History: Reports None Pulmonary Embolism Risk Factors: Bedrest Cardiac Risk Factors: Reports Diabetes Tuberculosis Risk Factors: Reports None Status Asthmaticus Risk Factors: Reports None Home Oxygen Use: No Recent Stress Test: No Recent Echo/LV Function: No Current Antibiotic Use: No Current Asthma Medication Use: No Respiratory Distress: Mild Inadequate Respiratory Effort: No Dysphagia Present: No Stridor Present: No JVD Present: No Accessory Muscle Use: No Retractions: Not Present Diminished Breath Sounds: Yes Sinus Tenderness: None Grunting Respirations: No Kussmaul Respirations: No Review of Systems Review Of Systems Constitutional: Reports Malaise Eyes: Reports No symptoms Ears, Nose, Mouth, Throat: Reports No symptoms Respiratory: Reports Cough Cardiac: Reports No symptoms GI: Reports Abdomen distended and Constipated : Reports No symptoms Musculoskeletal: Reports No symptoms Skin: Reports No symptoms Neurological: Reports No symptoms Endocrine: Reports No symptoms Hematologic/Lymphatic: Reports No symptoms All Other Systems: Reviewed and Negative [facility] Medical History (Updated 04/08/22 @ 19:16 by ASAEL CASTELLON MD) Depression Diabetes Hypertension Neurogenic muscular atrophy Family History (Updated 02/13/22 @ 18:23 by YVONNE BURR, RN) FATHER CVA (cerebral vascular accident) Mother Cancer BROTHER Muscular atrophy Social History (Updated 02/13/22 @ 18:24 by YVONNE BURR, RN) Smoking and tobacco status: Never smoker Alcohol intake: never History of recent travel: No Physical Exam Physical Exam Appearance: Reports Ill-appearing, Obese and Other (Bed-ridden) Ill-appearing: Moderate Pain Distress: None Eyes: Reports ANUSHKA ENT: Reports Oropharynx normal Neck: Supple Respiratory: Reports Airway patent and Breath sounds clear Cardiovascular: Reports RRR and Pulses normal GI/: Reports Soft, Bowel sounds normal and Other (distended) Musculoskeletal: Reports Limited ROM and Limited strength Skin: Reports Warm and Dry Neurological: Reports Sensation intact, Motor intact and Alert Psychiatric: Reports Affect appropriate and Mood appropriate Interpretation Radiology Interpretation Radiology Interpretation By: Radiologist Radiology Results: Positive Exam Interpreted: CT Scan Xray Comments: RLL pneumonia, no PE Radiology Interpretation By: Radiologist Radiology Results: Positive Exam Interpreted: CT Scan Xray Comments: abd/pel - suspected colonic mass EKG Interpretation Time of EKG #1: 14:46 Rate: Normal Rhythm: Sinus Ectopy: None [place]: NL ST Segment: Other Interpretation: NSSTW changes Physician Notification Case Discussed Physician Notified: Dr. Garcia Time of Notification: 18:00 Comments: Admit. Admit To: Inpatient Critical Care Note Critical Care Note Total Critical Care Time (mins): 0 Course Course Hematology/Chemistry: 04/08/22 14:48 04/08/22 14:34 Orders, Labs, Meds: Lab Review 04/08/22 04/08/22 04/08/22 14:34 14:48 14:48 WBC 10.97 H RBC 4.28 L Hgb 12.0 L Hct 36.6 L MCV 85.5 MCH 28.0 MCHC 32.8 RDW Coeff of Veronica 13.4 Plt Count 212 Immature Gran % (Auto) 1.5 Neut % (Auto) 84.8 H Lymph % (Auto) 6.6 L [place] % (Auto) 5.3 Eos % (Auto) 1.3 Baso % (Auto) 0.5 Neut # (Auto) 9.3 H Lymph # (Auto) 0.7 [place] # (Auto) 0.6 Eos # (Auto) 0.1 Baso # (Auto) 0.1 Immature Gran # (Auto) 0.2 Puncture Site Base Excess O2 Saturation ABG pH ABG pCO2 ABG pO2 ABG HCO3 ABG Total CO2 Sean Test Hemoglobin Oxyhemoglobin Carboxyhemoglobin Total Hemoglobin O2 Delivery Device Oxygen Liter Flow Sodium 124.8 L Potassium 5.12 H Chloride 89.9 L Carbon Dioxide 28.9 Anion Gap 11.12 BUN 15.5 Creatinine 0.48 L Estimated GFR (MDRD) 171.00 BUN/Creatinine Ratio 32.29 Glucose 248.5 H Lactic Acid 1.62 Calcium 8.67 Total Bilirubin 0.49 AST 38.8 ALT 35.5 Alkaline Phosphatase 82.6 Troponin I 0.020 NT-Pro-B Natriuret Pep 45.700 Total Protein 7.89 Albumin 4.00 Globulin 3.89 Albumin/Globulin Ratio 1.02 D-Dimer Urine Color Urine Clarity Urine pH Ur Specific Humphrey Urine Protein Urine Glucose (UA) Urine Ketones Urine Blood Urine Nitrite Urine Bilirubin Urine Urobilinogen Ur Leukocyte Esterase Urine Microscopic RBC Urine Microscopic WBC Ur Squamous Epith Cells Ur Renal Epithelial Cell Amorphous Sediment Urine Bacteria SARS CoV-2 RNA Rapid SALTY 04/08/22 04/08/22 04/08/22 14:48 14:49 15:13 WBC RBC Hgb Hct MCV MCH MCHC RDW Coeff of Veronica Plt Count Immature Gran % (Auto) Neut % (Auto) Lymph % (Auto) [place] % (Auto) Eos % (Auto) Baso % (Auto) Neut # (Auto) Lymph # (Auto) [place] # (Auto) Eos # (Auto) Baso # (Auto) Immature Gran # (Auto) Puncture Site R bach Base Excess 1.5 O2 Saturation 98.9 H ABG pH 7.28 L* ABG pCO2 60.0 H ABG pO2 142.0 H ABG HCO3 28.2 H ABG Total CO2 30.0 H Sean Test Y Hemoglobin 1.2 Oxyhemoglobin 95.8 Carboxyhemoglobin 2.9 H Total Hemoglobin 12.6 O2 Delivery Device Non rebreather Oxygen Liter Flow 15.00 Sodium Potassium Chloride Carbon Dioxide Anion Gap BUN Creatinine Estimated GFR (MDRD) BUN/Creatinine Ratio Glucose Lactic Acid Calcium Total Bilirubin AST ALT Alkaline Phosphatase Troponin I NT-Pro-B Natriuret Pep Total Protein Albumin Globulin Albumin/Globulin Ratio D-Dimer 1070.36 H Urine Color Yellow Urine Clarity Clear Urine pH 5.5 Ur Specific Humphrey >=1.030 Urine Protein 1+ H Urine Glucose (UA) 2+ H Urine Ketones Negative Urine Blood 2+ H Urine Nitrite Positive H Urine Bilirubin Negative Urine Urobilinogen 0.2 Ur Leukocyte Esterase 1+ H Urine Microscopic RBC 5-10 Urine Microscopic WBC 50-100 Ur Squamous Epith Cells 2-5 Ur Renal Epithelial Cell 0-2 Amorphous Sediment 2+ Urine Bacteria 3+ SARS CoV-2 RNA Rapid SALTY 04/08/22 04/08/22 16:25 17:10 WBC RBC Hgb Hct MCV MCH MCHC RDW Coeff of Veronica Plt Count Immature Gran % (Auto) Neut % (Auto) Lymph % (Auto) [place] % (Auto) Eos % (Auto) Baso % (Auto) Neut # (Auto) Lymph # (Auto) [place] # (Auto) Eos # (Auto) Baso # (Auto) Immature Gran # (Auto) Puncture Site Rr Base Excess 1.6 O2 Saturation 94.8 ABG pH 7.30 L ABG pCO2 57.0 H ABG pO2 82.0 L ABG HCO3 28.0 ABG Total CO2 29.7 H Sean Test Pos Hemoglobin 1.3 Oxyhemoglobin 94.0 L Carboxyhemoglobin 2.5 H Total Hemoglobin 12.6 O2 Delivery Device Cannula Oxygen Liter Flow 4.00 Sodium Potassium Chloride Carbon Dioxide Anion Gap BUN Creatinine Estimated GFR (MDRD) BUN/Creatinine Ratio Glucose Lactic Acid Calcium Total Bilirubin AST ALT Alkaline Phosphatase Troponin I NT-Pro-B Natriuret Pep Total Protein Albumin Globulin Albumin/Globulin Ratio D-Dimer Urine Color Urine Clarity Urine pH Ur Specific Humphrey Urine Protein Urine Glucose (UA) Urine Ketones Urine Blood Urine Nitrite Urine Bilirubin Urine Urobilinogen Ur Leukocyte Esterase Urine Microscopic RBC Urine Microscopic WBC Ur Squamous Epith Cells Ur Renal Epithelial Cell Amorphous Sediment Urine Bacteria SARS CoV-2 RNA Rapid SALTY Negative Orders Category Date Time Status ADMIT PATIENT INPATIENT .TO [facility] (MONITORED BED) ADMISSION 04/08/22 18 :59 Active ABG DRAW REQUEST Stat CARDIO 04/08/22 14:47 Completed ABG DRAW REQUEST Stat CARDIO 04/08/22 16:12 Completed EKG-(ED ONLY) Stat CARDIO 04/08/22 14:34 Completed EKG-(IP & OP ONLY) DAILY CARDIO 04/09/22 06:00 Ordered EKG-(IP & OP ONLY) DAILY CARDIO 04/10/22 06:00 Ordered EKG-(IP & OP ONLY) Stat CARDIO 04/08/22 18:49 Ordered OXYGEN Routine CARDIO 04/08/22 18:49 Ordered ACTIVITY .BR with BRP CARE 04/08/22 18:49 Active IP: INSERT SALINE LOCK ONCE CARE 04/08/22 18:49 Active NPO REMINDER: IMAGING ONCE CARE 04/08/22 16:13 Completed TELEMETRY MONITORING TELE CARE 04/08/22 18:49 Active TELEMETRY MONITORING TELE CARE 04/08/22 19:00 Active VITAL SIGNS Q8HR CARE 04/08/22 18:49 Active CARDIAC DIET DIETARY 04/08/22 Breakfast Ordered Enema [ED ENEMA/RECTAL TUBE] .ONCE EMERGENCY 04/08/22 18:54 Active ABG COOX Stat LAB 04/08/22 14:49 Completed ABG COOX Stat LAB 04/08/22 16:25 Completed BLOOD CULTURE (ED ONLY) Stat LAB 04/08/22 14:58 Received BMP [BASIC METABOLIC PANEL] Timed LAB 04/09/22 06:00 Ordered CBC W/ AUTO DIFF Stat LAB 04/08/22 14:48 Completed CBC W/ AUTO DIFF Stat LAB 04/09/22 06:00 Ordered COMPREHENSIVE METABOLIC PANEL Stat LAB 04/08/22 14:34 Completed COVID [SARS COV-2 RNA RAPID SALTY] Stat LAB 04/08/22 17:10 Completed CREATINE KINASE Q8H LAB 04/08/22 19:00 Ordered CREATINE KINASE Q8H LAB 04/09/22 03:00 Ordered D-DIMER Stat LAB 04/08/22 14:48 Completed LACTIC ACID Stat LAB 04/08/22 14:48 Completed NT-PROBNP Stat LAB 04/08/22 14:34 Completed TROPONIN I Q3D LAB 04/09/22 06:00 Ordered TROPONIN I Q8H LAB 04/08/22 19:00 Ordered TROPONIN I Q8H LAB 04/09/22 03:00 Ordered TROPONIN I Stat LAB 04/08/22 14:34 Completed URINALYSIS C & S IF INDICATED Stat LAB 04/08/22 15:13 Completed URINE CULTURE Stat LAB 04/08/22 15:13 Received 0.9 % Sodium Chloride [Saline Flush] MEDS 04/08/22 21:00 Active 1 syr IVF Q8HR Acetaminophen [Tylenol] MEDS 04/08/22 18:49 Active 650 mg PO Q4H PRN Atorvastatin Calcium [Lipitor] MEDS 04/09/22 09:00 Ordered 40 mg PO DAILY Atropine Sulfate Inj [Atropine Sulfate Pfs] MEDS 04/08/22 18:49 Active 0.5 mg IVP ONCE PRN Azithromycin Inj [Zithromax] 500 mg MEDS 04/09/22 09:00 Active 0.9 % Sodium Chloride [Sodium Chloride] 250 ml IV DAILY Ceftriaxone/D5w 1 gm Premix [Rocephin 1 gm/50 ml D5w] MEDS 04/09/22 09:00 Active 1 gm in 50 ml IV DAILY Ceftriaxone/D5w 1 gm Premix [Rocephin 1 gm/50 ml D5w] MEDS 04/08/22 18:46 Active 1 gm in 50 ml IV ONCE Citalopram Hydrobromide [Celexa] MEDS 04/08/22 21:00 Ordered 20 mg PO BEDTIME Gabapentin [Neurontin] MEDS 04/08/22 21:00 Ordered 300 mg PO BID Insulin Regular, Human [Humulin R] MEDS 04/08/22 19:04 Active See Protocol SUBCUT PRN PRN Lisinopril [Zestril] MEDS 04/09/22 09:00 Ordered 10 mg PO DAILY Metformin HCl [Glucophage] MEDS 04/08/22 19:30 Ordered 500 mg PO BIDWMEAL Metoprolol Tartrate [Lopressor] MEDS 04/08/22 21:00 Ordered 50 mg PO BEDTIME Nitroglycerin [Nitrostat] MEDS 04/08/22 18:49 Active 0.4 mg SL Q5MIN X 3 DOSES PRN Nystatin [Nystop Powder] MEDS 04/08/22 21:00 Ordered 1 applic TP BID Polyethylene Glycol 3350 [Miralax] MEDS 04/09/22 09:00 Ordered 17 gm PO DAILY Sodium Chloride 0.9% [Sodium Chloride] 1,000 ml MEDS 04/08/22 18:49 Active IV 75 mls/hr Sodium Chloride 0.9% [Sodium Chloride] 1,000 ml MEDS 04/08/22 16:56 Discontinued IV BOLUS Tamsulosin HCl [Flomax] MEDS 04/08/22 21:00 Ordered 0.4 mg PO BID aspirin MEDS 04/09/22 09:00 Ordered 81 mg PO DAILY CHEST, 1V AP ONLY Stat RADS 04/08/22 14:[address] ABDOMEN/PELVIS W CONTRAST Stat RADS 04/08/22 16:[address] CHEST PE PROTOCOL Stat RADS 04/08/22 16:13 Completed Medications Generic Name Dose Route Start Last Admin Trade Name David PRN Reason Stop Dose Admin Acetaminophen 650 mg 04/08/22 18:49 Acetaminophen 325 Mg Tablet PO Q4H PRN Headache Atorvastatin Calcium 40 mg 04/09/22 09:00 Atorvastatin Calcium 20 Mg Tablet PO DAILY ROSALINDA Atropine Sulfate 0.5 mg 04/08/22 18:49 Atropine Sulfate Inj 1 Mg/10 Ml Disp.Syrin IVP ONCE PRN Symptomatic Bradycardia Citalopram Hydrobromide 20 mg 04/08/22 21:00 Citalopram Hydrobromide 20 Mg Tablet PO BEDTIME ROSALINDA Gabapentin 300 mg 04/08/22 21:00 Gabapentin 300 Mg Capsule PO BID ROSALINDA CEFTRIAXONE/D5W 1 GM PREMIX 1 gm in 50 mls @ 75 mls/hr 04/08/22 18:46 04/08/22 18:52 Rocephin 1 Gm/50 Ml D5w IV 04/08/22 19:25 75 mls/hr ONCE ONE Administration CEFTRIAXONE/D5W 1 GM PREMIX 1 gm in 50 mls @ 75 mls/hr 04/09/22 09:00 Rocephin 1 Gm/50 Ml D5w IV 04/12/22 08:59 DAILY ROSALINDA Azithromycin 500 mg/ Sodium 250 mls @ 125 mls/hr 04/09/22 09:00 Chloride IV 04/12/22 08:59 DAILY ROSALINDA Sodium Chloride 1,000 mls @ 75 mls/hr 04/08/22 18:49 Sodium Chloride IV 04/09/22 08:08 .[id number] STA Insulin Human Regular 0 unit 04/08/22 19:04 Insulin Regular, Human 100 Unit/Ml (3ml) Vial SUBCUT PRN PRN Hyperglycemia Protocol Lisinopril 10 mg 04/09/22 09:00 Lisinopril 10 Mg Tablet PO DAILY ROSALINDA Metformin HCl 500 mg 04/08/22 19:30 Metformin Hcl 500 Mg Tablet PO BIDWMEAL [facility] Metoprolol Tartrate 50 mg 04/08/22 21:00 Metoprolol Tartrate 50 Mg Tablet PO BEDTIME ROSALINDA Nitroglycerin 0.4 mg 04/08/22 18:49 Nitroglycerin 0.4 Mg Tab.Subl SL Q5MIN X 3 DOSES PRN Chest Pain Non-Formulary Medication 81 mg 04/09/22 09:00 Aspirin PO DAILY ROSALINDA Nystatin 1 applic 04/08/22 21:00 Nystatin 15 Gm Powder TP BID ROSALINDA Polyethylene Glycol 17 gm 04/09/22 09:00 Polyethylene Glycol 17 Gm Powd.Pack PO DAILY ROSALINDA Sodium Chloride 1 syr 04/08/22 21:00 0.9% Sodium Chloride 10 Ml Disp.Syrin IVF Q8HR ROSALINDA Tamsulosin HCl 0.4 mg 04/08/22 21:00 Tamsulosin Hcl 0.4 Mg Cap.Er.24h PO BID ROSALINDA Discontinued Medications Generic Name Dose Route Start Last Admin Trade Name Freq PRN Reason Stop Dose Admin Sodium Chloride 1,000 mls @ 1,000 mls/hr 04/08/22 16:56 04/08/22 17:11 Sodium Chloride IV 04/08/22 17:55 1,000 mls/hr BOLUS STA Administration Vital Signs: Temp Pulse Resp BP Pulse Ox 04/08/22 15:16 100 04/08/22 14:23 97.4 F L 95 20 153/99 H 96 Discharge Plan Discharge Patient Disposition: ADMITTED INPATIENT Discharge Problem: Pneumonia Prescriptions: No Action (DME) hospitalbeds Misc Qty: 1 0RF Rx Instructions: Semi Electric Hospital Bed Dx: Spinal Cerebellar Ataxia, Friedreich's Ataxia Hgt: 6ft 2 Wgt: 247 lbs lisinopril 10 mg Tablet 10 mg PO DAILY Qty: 30 1RF metformin 500 mg Tablet 500 mg PO BIDWMEAL Qty: 60 1RF tamsulosin 0.4 mg Capsule 0.4 mg PO BID Qty: 60 1RF nystatin [Nystop] 100,000 unit/gram Powder 1 applic TOPICAL BID Qty: 15 4RF polyethylene glycol 3350 [Miralax] 17 gram Powder In Packet 17 g PO DAILY Qty: 1 0RF Rx Instructions: Over The Counter potassium chloride 10 mEq Tablet Extended Release 10 meq PO DAILY Qty: 30 1RF metoprolol tartrate [Lopressor] 50 mg Tablet 50 mg PO BEDTIME aspirin 81 mg Tablet 81 mg PO DAILY atorvastatin [Lipitor] 40 mg Tablet 40 mg PO DAILY nitroglycerin 0.4 mg Tablet, Sublingual 0.4 mg sublingual PRN PRN (Reason: Angina) citalopram [Celexa] 20 mg Tablet 20 mg PO BEDTIME Qty: 30 0RF gabapentin 300 mg Capsule 300 mg PO BID Qty: 60 0RF Did you review [place] PICC NURSE?: Not Applicable ED Provider: ASAEL CASTELLON Condition: Stable Physician Progress Note: Pneumonia. Mild hypoxia. Possible colonic mass. Discussed all, including mass in abdomen, with family, they do not want him transferred.[]
[2022-04-08 14:52] LABS: ABG O2 HGB 95.8 % (95-100); BEecf 1.5 (-2.0-3.0); COHb 2.9 (0.5-1.5); HCO3 28.2 (21-28); MetHb 1.2 (0-1.5); sO2 98.9 % (94-98); tHb 12.6 g/dl (11.7-17.4)
[2022-04-08 14:53] LABS: ABG PH 7.28 (7.35-7.45)
[2022-04-08 15:03] LABS: BASOPHILS # (AUTO) 0.1 K/uL (0-0.2); BASOPHILS % (AUTO) 0.5 % (0.0-3.0); EOSINOPHILS # (AUTO) 0.1 K/ul (0.0-0.7); EOSINOPHILS % (AUTO) 1.3 % (0.0-7.0); HEMATOCRIT 36.6 % (42.0-52.0); IMMATURE GRANULOCYTE # (AUTO) 0.2 (0.0-1.0); IMMATURE GRANULOCYTE % (AUTO) 1.5 % (0.0-5.0); LYMPHOCYTES # (AUTO) 0.7 K/uL (0.60-3.4); LYMPHOCYTES % (AUTO) 6.6 (10.0-50.0); MEAN CORPUSCULAR HGB CONC 32.8 (31.8-35.4); MEAN CORPUSCULAR VOLUME 85.5 fl (80.0-94.0); MONOCYTES # (AUTO) 0.6 K/uL (0.4-2.0); MONOCYTES % (AUTO) 5.3 (0-10); NEUTROPHILS # (AUTO) 9.3 K/ul (2.0-6.9); NEUTROPHILS % (AUTO) 84.8 % (42.2-75.2); PLATELET COUNT 212 10^3/uL (140-440); RDW COEFFICIENT OF VARIATION 13.4 % (11.6-14.8); RED BLOOD COUNT 4.28 10^6/ul (4.70-6.10); WHITE BLOOD COUNT 10.97 K/ul (4.2-10.2)
[2022-04-08 15:17] LABS: ALANINE AMINOTRANSFERASE 35.5 U/L (0-50); ALKALINE PHOSPHATASE 82.6 U/L (56-119); ASPARTATE AMINO TRANSFERASE 38.8 U/L (17-59); BILIRUBIN,TOTAL 0.49 mg/dL (0.2-1.3); BLOOD UREA NITROGEN 15.5 mg/dL (9-20); CALCIUM 8.67 mg/dL (8.4-10.2); CARBON DIOXIDE 28.9 mmol/L (22-30.0); CHLORIDE 89.9 mmol/L (98-107); CREATININE 0.48 mg/dL (0.60-1.10); GLUCOSE 248.5 mg/dL (74-106); POTASSIUM 5.12 mmol/L (3.5-5.1); SODIUM 124.8 mmol/L (134.5-145); TOTAL PROTEIN 7.89 g/dL (6.3-8.2)
[2022-04-08 15:18] LABS: BILIRUBIN,URINE Negative (NEGATIVE); CLARITY,URINE Clear (CLEAR); COLOR,URINE Yellow (YELLOW); GLUCOSE, URINE (UA) 2+ (NEGATIVE); KETONES,URINE Negative (NEGATIVE); LEUKOCYTE ESTERASE ,URINE 1+ (NEGATIVE); NITRITE,URINE Positive (NEGATIVE); PH,URINE 5.5 (5-9); PROTEIN,URINE 1+ (NEGATIVE); URINE, BLOOD 2+ (NEGATIVE); UROBILINOGEN,URINE 0.2 (0.2)
[2022-04-08 15:22] LABS: RENAL EPITHELIAL CELLS,URINE 0-2 (NOT PRESENT); URINE WBC, MICROSCOPIC 50-100 (0-2)
[2022-04-08 15:23] LABS: AMORPHOUS SEDIMENT,UR 2+ (NOT PRESENT); BACTERIA,URINE 3+ (NOT PRESENT)
[2022-04-08 15:29] LABS: NT-PROBNP 45.7 pg/mL (0-124); TROPONIN I 0.02 ng/ml (0.0000-0.120)
--- NOTE | 2022-04-08 15:43 | DI ---
EXAM: Chest one-view AP upright portable HISTORY: Difficulty breathing COMPARISON: 02/13/2022 FINDINGS: The lungs are clear. Cardiac silhouette is mildly enlarged. There are no pleural effusio ns. The stomach is mildly distended and air filled. IMPRESSION: Mild cardiomegaly no acute cardiopulmonary process
[2022-04-08 16:34] LABS: BEecf 1.6 (-2.0-3.0); COHb 2.5 (0.5-1.5); MetHb 1.3 (0-1.5); TCO2 29.7 (19-24); sO2 94.8 % (94-98); tHb 12.6 g/dl (11.7-17.4)
[2022-04-08] MEDS ORDERED: SODIUM CHLORIDE 1,000 ML IV STA (16:56)
--- NOTE | 2022-04-08 18:16 | CT ---
EXAM: CT angiogram chest with contrast. HISTORY: Dyspnea COMPARISON: 02/15/2022 CT chest. TECHNIQUE: Axial CT imaging of the chest was performed with IV contrast. Coronal, sagittal and 3D/N[place] P/VRT re-formations were performed. FINDINGS: There is no filling defect in the main, lobar, interlobar, segmental or subsegmental pulmo nary arteries. No aortic dissection. There is no pericardial effusion. No mediastinal lymphadenopa thy. There is mild coronary artery calcification visualized. Cardiac size is within normal limits. There is no pleural effusion or pneumothorax. Increased linear markings are present within both mid to lower lungs. Patchy lung opacities are present in the right lung base. Low-density cortical lesions are present. The spleen measures 13.7 cm in length. The liver is diffu sely low in density. Degenerative changes of the spine. IMPRESSION: #1. No pulmonary embolism. #2. Right lower lobe pneumonia with scattered bilateral mid to lower lung linear atelectasis. #3. Splenomegaly. #4. Diffuse fatty infiltration of the liver. All CT scans are performed using dose optimization techniques as appropriate to the performed exam an d include at least one of the following: Automated exposure control, adjustment of the mA and/or kV according t o size, and the use of iterative reconstruction technique.
--- NOTE | 2022-04-08 18:26 | CT ---
EXAM: CT abdomen and pelvis with contrast. HISTORY: Abdomen pain. COMPARISON: 02/22/2022 CT abdomen pelvis. TECHNIQUE: Axial CT imaging of the abdomen and pelvis was performed with IV contrast. Sagittal and c oronal reformations were performed. FINDINGS: See CT chest report from earlier in the day for evaluation of the lung bases. The liver, gallbladder, pancreas and adrenal glands are within normal limits. There is no intrahepat ic ductal dilatation. The spleen measures 13.7 cm in length. No mesenteric or retroperitoneal lymph adenopathy is seen. The right and left kidney shows normal enhancement with low-density cortical cysts. There is no hydr onephrosis or perinephric fat stranding. The aorta is normal in course and caliber. The appendix is normal. Air dilated loops of colon are present to the level of the sigmoid colon whe re a caliber change is present with associated bowel wall thickening, best visualized on axial image numbers 147 - 154. A moderate amount of fecal material is present proximal to this location. There is no free air or fluid seen in the abdomen or pelvis. The urinary bladder is decompressed with a Fo zeny catheter. Age appropriate osseous findings. IMPRESSION: #1. Findings concerning for a mass at the level of the sigmoid colon creating a partial colonic obst ruction. #2. Splenomegaly. All CT scans are performed using dose optimization techniques as appropriate to the performed exam an d include at least one of the following: Automated exposure control, adjustment of the mA and/or kV according t o size, and the use of iterative reconstruction technique.
[2022-04-08] MEDS ORDERED: ROCEPHIN 1 GM/50 ML D5W 1 GM/50 ML BAG IV ONE (18:46)
[2022-04-08] MEDS ORDERED: NITROSTAT SL PRN (18:49)
[2022-04-08] MEDS ORDERED: TYLENOL PO PRN (18:49)
[2022-04-08] MEDS ORDERED: ATROPINE SULFATE PFS IVP PRN (18:49)
[2022-04-08 19:32] LABS: CREATINE KINASE 27.5 U/L (55-170)
[2022-04-08] MEDS: SODIUM CHLORIDE 1,000 ML IV STA (19:32)
[2022-04-08 19:45] LABS: TROPONIN I 0.112 ng/ml (0.0000-0.120)
[2022-04-08 20:22] VITALS: BMI 28.8
[2022-04-08] MEDS: GLUCOPHAGE PO SCH (20:49)
[2022-04-08] MEDS: NYSTOP POWDER TP SCH (20:56)
[2022-04-08] MEDS: LOPRESSOR PO SCH (20:56)
[2022-04-08] MEDS: NEURONTIN PO SCH (20:56)
[2022-04-08] MEDS: FLOMAX PO SCH (20:56)
[2022-04-08] MEDS: CELEXA PO SCH (20:56)
[2022-04-09 04:47] LABS: BASOPHILS % (AUTO) 0.5 % (0.0-3.0); EOSINOPHILS # (AUTO) 0.2 K/ul (0.0-0.7); EOSINOPHILS % (AUTO) 2.3 % (0.0-7.0); HEMATOCRIT 36.2 % (42.0-52.0); HEMOGLOBIN 11.9 g/dl (14.0-18.0); IMMATURE GRANULOCYTE % (AUTO) 0.5 % (0.0-5.0); LYMPHOCYTES % (AUTO) 13.3 (10.0-50.0); MEAN CORPUSCULAR HEMOGLOBIN 28.2 pg (27.0-31.0); MEAN CORPUSCULAR HGB CONC 32.9 (31.8-35.4); MEAN CORPUSCULAR VOLUME 85.8 fl (80.0-94.0); MONOCYTES # (AUTO) 0.5 K/uL (0.4-2.0); MONOCYTES % (AUTO) 6.7 (0-10); NEUTROPHILS % (AUTO) 76.7 % (42.2-75.2); PLATELET COUNT 201 10^3/uL (140-440); RDW COEFFICIENT OF VARIATION 13.5 % (11.6-14.8); RED BLOOD COUNT 4.22 10^6/ul (4.70-6.10); WHITE BLOOD COUNT 7.76 K/ul (4.2-10.2)
[2022-04-09 04:58] LABS: BLOOD UREA NITROGEN 15.8 mg/dL (9-20); CALCIUM 9.11 mg/dL (8.4-10.2); CARBON DIOXIDE 29.7 mmol/L (22-30.0); CHLORIDE 96.2 mmol/L (98-107); CREATINE KINASE 51.6 U/L (55-170); CREATININE 0.55 mg/dL (0.60-1.10); GLUCOSE 150.8 mg/dL (74-106); POTASSIUM 4.83 mmol/L (3.5-5.1); SODIUM 132.2 mmol/L (134.5-145)
[2022-04-09 05:10] LABS: TROPONIN I 0.072 ng/ml (0.0000-0.120)
[2022-04-09] MEDS: SODIUM CHLORIDE 1,000 ML IV STA (07:07)
[2022-04-09] MEDS: ASPIRIN CHEWABLE PO SCH (08:35)
[2022-04-09] MEDS: LIPITOR PO SCH (08:35)
[2022-04-09] MEDS: ZESTRIL PO SCH (08:36)
[2022-04-09] MEDS: ZITHROMAX 500 MG in SODIUM CHLORIDE 250 ML IV SCH (08:38)
[2022-04-09] MEDS: NEURONTIN PO SCH ×2 (08:38→20:41)
[2022-04-09] MEDS: MIRALAX PO SCH (08:38)
[2022-04-09] MEDS: NYSTOP POWDER TP SCH ×3 (08:39→21:26)
[2022-04-09] MEDS: FLOMAX PO SCH ×2 (08:39→20:41)
[2022-04-09] MEDS: HUMULIN R SUBCUT PRN ×3 (11:34→20:40)
--- NOTE | 2022-04-09 11:54 | PN ---
DATE OF SERVICE: 04/08/22 SUBJECTIVE: The patient was seen and examined. The patient has been admitted with pneumonia. The patient's blood gasses shows mild CO2 retention. The patient is going to be on antibiotics and steroids. He is a DNR. The patient's previous hospitalization a few weeks ago with distended abdomen, he has mild distention of abdomen possibility of a mass showing up on the CAT scan. The family especially the doesn't want anything further done. Condition is not stable enough to undergo any other procedures and the patient doesn't want anything to be done. 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 We will do fleet enema, salt enema and see how he does. Plan is to treat the patient with antibiotics, steroids and IV fluids. We will decrease the Oxygen to 3 liters from 4 liters because of Co2 retention. TIME SPENT: More than 30 minutes. Plan and coordination of the patient's care discussed in the presence of nurse. DEISI
[2022-04-09] MEDS: DECADRON IVP SCH (13:57)
[2022-04-09] MEDS: LOVENOX SUBCUT SCH (14:01)
[2022-04-09] MEDS: ROCEPHIN 1 GM/50 ML D5W 1 GM/50 ML BAG IV SCH (20:08)
[2022-04-09] MEDS: CELEXA PO SCH (20:41)
[2022-04-09] MEDS: LOPRESSOR PO SCH (20:41)
[2022-04-09] MEDS: SODIUM CHLORIDE 1,000 ML IV SCH (23:12)
[2022-04-10 05:30] LABS: ABG PH 7.41 (7.35-7.45); BEecf 4.6 (-2.0-3.0); COHb 2.9 (0.5-1.5); HCO3 29.2 (21-28); MetHb 1.1 (0-1.5); TCO2 30.6 (19-24)
[2022-04-10 05:31] LABS: ABG O2 HGB 95.6 % (95-100); sO2 97.9 % (94-98)
[2022-04-10 05:52] LABS: BASOPHILS % (AUTO) 0.3 % (0.0-3.0); EOSINOPHILS % (AUTO) 0.2 % (0.0-7.0); HEMATOCRIT 32.6 % (42.0-52.0); HEMOGLOBIN 10.4 g/dl (14.0-18.0); IMMATURE GRANULOCYTE % (AUTO) 0.6 % (0.0-5.0); LYMPHOCYTES # (AUTO) 0.7 K/uL (0.60-3.4); LYMPHOCYTES % (AUTO) 10.8 (10.0-50.0); MEAN CORPUSCULAR HEMOGLOBIN 27.5 pg (27.0-31.0); MEAN CORPUSCULAR HGB CONC 31.9 (31.8-35.4); MEAN CORPUSCULAR VOLUME 86.2 fl (80.0-94.0); MONOCYTES # (AUTO) 0.3 K/uL (0.4-2.0); MONOCYTES % (AUTO) 4.7 (0-10); NEUTROPHILS # (AUTO) 5.3 K/ul (2.0-6.9); NEUTROPHILS % (AUTO) 83.4 % (42.2-75.2); PLATELET COUNT 172 10^3/uL (140-440); RDW COEFFICIENT OF VARIATION 13.5 % (11.6-14.8); RED BLOOD COUNT 3.78 10^6/ul (4.70-6.10); WHITE BLOOD COUNT 6.38 K/ul (4.2-10.2)
[2022-04-10 06:05] LABS: ALANINE AMINOTRANSFERASE 25.8 U/L (0-50); ALBUMIN 3.52 g/dL (3.5-5.0); ALKALINE PHOSPHATASE 66.7 U/L (56-119); ASPARTATE AMINO TRANSFERASE 28.8 U/L (17-59); BILIRUBIN,TOTAL 0.35 mg/dL (0.2-1.3); BLOOD UREA NITROGEN 16.6 mg/dL (9-20); CALCIUM 8.47 mg/dL (8.4-10.2); CHLORIDE 103.4 mmol/L (98-107); CREATININE 0.4 mg/dL (0.60-1.10); GLUCOSE 151.8 mg/dL (74-106); POTASSIUM 4.18 mmol/L (3.5-5.1); SODIUM 135.4 mmol/L (134.5-145); TOTAL PROTEIN 7.1 g/dL (6.3-8.2)
[2022-04-10] MEDS: HUMULIN R SUBCUT PRN ×4 (06:16→20:18)
[2022-04-10] MEDS: LOVENOX SUBCUT SCH (08:11)
[2022-04-10] MEDS: ASPIRIN CHEWABLE PO SCH (08:11)
[2022-04-10] MEDS: FLOMAX PO SCH ×2 (08:11→20:18)
[2022-04-10] MEDS: ZESTRIL PO SCH (08:11)
[2022-04-10] MEDS: LIPITOR PO SCH (08:11)
[2022-04-10] MEDS: NEURONTIN PO SCH ×2 (08:11→20:18)
[2022-04-10] MEDS: NYSTOP POWDER TP SCH ×2 (08:12→20:19)
[2022-04-10] MEDS: MIRALAX PO SCH (08:12)
[2022-04-10] MEDS: ZITHROMAX 500 MG in SODIUM CHLORIDE 250 ML IV SCH (08:13)
[2022-04-10] MEDS: DECADRON IVP SCH (08:25)
[2022-04-10] MEDS: SODIUM CHLORIDE 1,000 ML IV SCH (14:38)
[2022-04-10] MEDS: CELEXA PO SCH (20:17)
[2022-04-10] MEDS: ROCEPHIN 1 GM/50 ML D5W 1 GM/50 ML BAG IV SCH (20:17)
[2022-04-10] MEDS: LOPRESSOR PO SCH (20:18)
[2022-04-11] MEDS: SODIUM CHLORIDE 1,000 ML IV SCH ×3 (04:52→23:43)
[2022-04-11 05:00] LABS: BASOPHILS % (AUTO) 0.6 % (0.0-3.0); EOSINOPHILS # (AUTO) 0.1 K/ul (0.0-0.7); EOSINOPHILS % (AUTO) 0.9 % (0.0-7.0); HEMATOCRIT 34.4 % (42.0-52.0); IMMATURE GRANULOCYTE # (AUTO) 0.1 (0.0-1.0); IMMATURE GRANULOCYTE % (AUTO) 0.8 % (0.0-5.0); LYMPHOCYTES # (AUTO) 1.3 K/uL (0.60-3.4); LYMPHOCYTES % (AUTO) 19.4 (10.0-50.0); MEAN CORPUSCULAR HEMOGLOBIN 27.6 pg (27.0-31.0); MEAN CORPUSCULAR VOLUME 86.4 fl (80.0-94.0); MONOCYTES # (AUTO) 0.5 K/uL (0.4-2.0); NEUTROPHILS # (AUTO) 4.7 K/ul (2.0-6.9); NEUTROPHILS % (AUTO) 71.3 % (42.2-75.2); PLATELET COUNT 183 10^3/uL (140-440); RDW COEFFICIENT OF VARIATION 13.6 % (11.6-14.8); RED BLOOD COUNT 3.98 10^6/ul (4.70-6.10); WHITE BLOOD COUNT 6.54 K/ul (4.2-10.2)
[2022-04-11 05:15] LABS: ALANINE AMINOTRANSFERASE 31.1 U/L (0-50); ALBUMIN 3.92 g/dL (3.5-5.0); ALKALINE PHOSPHATASE 70.5 U/L (56-119); ASPARTATE AMINO TRANSFERASE 28.1 U/L (17-59); BILIRUBIN,TOTAL 0.47 mg/dL (0.2-1.3); CALCIUM 8.54 mg/dL (8.4-10.2); CARBON DIOXIDE 28.1 mmol/L (22-30.0); CHLORIDE 102.3 mmol/L (98-107); CREATININE 0.43 mg/dL (0.60-1.10); GLUCOSE 136.7 mg/dL (74-106); POTASSIUM 3.9 mmol/L (3.5-5.1); SODIUM 137.2 mmol/L (134.5-145); TOTAL PROTEIN 7.57 g/dL (6.3-8.2)
[2022-04-11] MEDS: ZESTRIL PO SCH (08:14)
[2022-04-11] MEDS: ASPIRIN CHEWABLE PO SCH (08:14)
[2022-04-11] MEDS: LOVENOX SUBCUT SCH (08:14)
[2022-04-11] MEDS: NEURONTIN PO SCH ×2 (08:14→20:30)
[2022-04-11] MEDS: FLOMAX PO SCH ×2 (08:14→20:29)
[2022-04-11] MEDS: LIPITOR PO SCH (08:14)
[2022-04-11] MEDS: NYSTOP POWDER TP SCH ×2 (08:15→20:51)
[2022-04-11] MEDS: MIRALAX PO SCH (08:15)
[2022-04-11] MEDS: ZITHROMAX 500 MG in SODIUM CHLORIDE 250 ML IV SCH (08:17)
[2022-04-11] MEDS: DECADRON IVP SCH (08:52)
[2022-04-11] MEDS: HUMULIN R SUBCUT PRN ×3 (11:16→20:28)
[2022-04-11] MEDS ORDERED: MILK OF MAGNESIA PO ONE (13:07)
[2022-04-11] MEDS ORDERED: LOPRESSOR IVP ONE ×2 (13:56→15:28)
[2022-04-11] MEDS ORDERED: CARDIZEM PO ONE ×2 (13:57→15:28)
[2022-04-11] MEDS ORDERED: MORPHINE 4 MG/ML SYRINGE IVP ONE (13:57)
[2022-04-11] MEDS ORDERED: CARDIZEM ONE (15:32)
[2022-04-11] MEDS: CARDIZEM 125 MG in SODIUM CHLORIDE 100ML 100 ML IV SCH (15:43)
[2022-04-11] MEDS: GLUCOPHAGE PO SCH (17:18)
[2022-04-11] MEDS: ROCEPHIN 1 GM/50 ML D5W 1 GM/50 ML BAG IV SCH (20:28)
[2022-04-11] MEDS: CELEXA PO SCH (20:30)
[2022-04-11] MEDS: LOPRESSOR PO SCH (20:30)
[2022-04-12 05:23] LABS: BASOPHILS % (AUTO) 0.5 % (0.0-3.0); EOSINOPHILS % (AUTO) 0.5 % (0.0-7.0); HEMATOCRIT 33.7 % (42.0-52.0); HEMOGLOBIN 10.7 g/dl (14.0-18.0); IMMATURE GRANULOCYTE # (AUTO) 0.1 (0.0-1.0); IMMATURE GRANULOCYTE % (AUTO) 1.1 % (0.0-5.0); LYMPHOCYTES # (AUTO) 1.1 K/uL (0.60-3.4); MEAN CORPUSCULAR HGB CONC 31.8 (31.8-35.4); MEAN CORPUSCULAR VOLUME 88.2 fl (80.0-94.0); MONOCYTES # (AUTO) 0.5 K/uL (0.4-2.0); MONOCYTES % (AUTO) 7.1 (0-10); NEUTROPHILS # (AUTO) 4.9 K/ul (2.0-6.9); NEUTROPHILS % (AUTO) 73.8 % (42.2-75.2); PLATELET COUNT 161 10^3/uL (140-440); RDW COEFFICIENT OF VARIATION 13.8 % (11.6-14.8); RED BLOOD COUNT 3.82 10^6/ul (4.70-6.10); WHITE BLOOD COUNT 6.58 K/ul (4.2-10.2)
[2022-04-12] MEDS: VASOTEC IV IVP PRN (05:35)
[2022-04-12 05:38] LABS: ALANINE AMINOTRANSFERASE 46.9 U/L (0-50); ALBUMIN 3.74 g/dL (3.5-5.0); ALKALINE PHOSPHATASE 62.1 U/L (56-119); ASPARTATE AMINO TRANSFERASE 40.4 U/L (17-59); BILIRUBIN,TOTAL 0.35 mg/dL (0.2-1.3); BLOOD UREA NITROGEN 13.7 mg/dL (9-20); CALCIUM 8.21 mg/dL (8.4-10.2); CARBON DIOXIDE 32.6 mmol/L (22-30.0); CHLORIDE 101.5 mmol/L (98-107); CREATININE 0.45 mg/dL (0.60-1.10); GLUCOSE 136.8 mg/dL (74-106); POTASSIUM 4.26 mmol/L (3.5-5.1); SODIUM 135.8 mmol/L (134.5-145); TOTAL PROTEIN 7.32 g/dL (6.3-8.2)
[2022-04-12] MEDS ORDERED: ZESTRIL PO SCH (09:00)
--- NOTE | 2022-04-12 09:12 | PCM.PROG ---
Attending Provider: ATTENDING PROVIDER: Dr. GENESIS GUILLAUME This patient is seen with Sandee Epstein, Nurse Practitioner. DATE OF SERVICE: 04/12/22 SUBJECTIVE: This 71 year old /WHITE M was hospitalized 04/08/22. Cough is improving. He is on antibiotics for pneumonia and UTI. No episodes of tachycard ia. Shortness of breath through the night, does not want to leave oxygen on. Did receive Vasotec this morning for blood pressure. Passing mucous instead of stool. Miralax was held yesterday. Discussed again results of CT, family does not want any referral or intervention. REVIEW OF SYSTEMS: CONSTITUTIONAL: No night sweats. No fatigue, malaise, lethargy. No fever or chills. Weakness. HEENT: Eyes: No visual changes. No eye pain. No eye discharge. ENT: No runny nose. No epistaxis. No sinus pain. No odynophagia. No congestion. RESPIRATORY: Cough, no congestion. No hemoptysis. Shortness of breath. CARDIOVASCULAR: No angina symptoms. No CHF symptoms. No atypical chest pain for CAD. No palpitations. No orthopnea. Hypertension. GASTROINTESTINAL: No abdominal pain. No nausea or vomiting. No diarrhea or constipation. No hematemesis. No hematochezia. GENITOURINARY: No urgency. No frequency. No dysuria. No hematuria. No obstructive symptoms. No discharge. No pain. No significant abnormal bleeding. MUSCULOSKELETAL: No musculoskeletal pain; no joint swelling. NEUROLOGICAL: Awake, alert, oriented to time, place and person. No headache. No neck pain. No syncope. No seizures. No dizziness. PSYCHIATRIC: Not anxious. No depression. No suicidal thoughts. No homicidal t houghts. SKIN: No rash. No lesions. No wounds. ENDOCRINE: No unexplained weight loss. No weight gain. HEMATOLOGIC/LYMPHATIC: No anemia. No purpura. No petechiae. No prolonged or excessive bleeding. No palpable lymph nodes. PHYSICAL EXAMINATION: GENERAL: The patient is awake, alert and oriented, sitting in bed in no distress. VITAL SIGNS: Temperature 96.9 F, Pulse 70, Respiratory Rate 18, BP 158/86, Pulse Ox 98% HEENT: Head normocephalic, atraumatic. Eyes: Extraocular muscles are intact. Pupils are equal, round and reactive to light and accommodation. Ears: No lesions. Nose appeared normal. Throat: No exudate or erythema. NECK: Supple. No JVD, no carotid bruit. No lymphadenopathy or thyromegaly. LUNGS: Diminished breath sounds. Rales right lower lobe. Percussion note normal. Chest symmetrical. HEART: S1, S2, no S3. No murmurs. No cyanosis or clubbing. No ascites. Pulses: Dorsalis pedis and posterior tibial pulses +1 to +2 both sides. ABDOMEN: Soft. Non-tender. Bowel sounds active. No CVA tenderness. No mass felt. EXTREMITIES: Trace pedal edema. Full range of motion of all extremities, equal. NEUROLOGIC: No focal deficit. Cranial nerves II through XII are grossly intact. No headache. No double vision. SKIN: Not dry. Intact. Turgor-normal. LYMPHATIC: No palpable lymph nodes/no lymphedema. MUSCULOSKELETAL: Normal joints with no swelling. Muscle tone is normal. LAB REVIEW: 04/12/22 05:13 04/12/22 05:13 04/12/22 05:13: Sodium 135.8, Potassium 4.26, Chloride 101.5, Carbon Dioxide 32.6 H, Anion Gap 5.96, BUN 13.7, Creatinine 0.45 L, Estimated GFR (MDRD) 184.00, BUN/Creatinine Ratio 30.44, Glucose 136.8 H, Calcium 8.21 L, Total Bilirubin 0.35, AST 40.4, ALT 46.9, Alkaline Phosphatase 62.1, Total Protein 7.32, Albumin 3.74, Globulin 3.58, Albumin/Globulin Ratio 1.04 04/12/22 05:13: WBC 6.58, RBC 3.82 L, Hgb 10.7 L, Hct 33.7 L, MCV 88.2, MCH 28.0, MCHC 31.8, RDW Coeff of Veronica 13.8, Plt Count 161, Immature Gran % (Auto) 1.1, Neut % (Auto) 73.8, Lymph % (Auto) 17.0, [place] % (Auto) 7.1, Eos % (Auto) 0.5, Baso % (Auto) 0.5, Neut # (Auto) 4.9, Lymph # (Auto) 1.1, [place] # (Auto) 0.5, Eos # (Auto) 0.0, Baso # (Auto) 0.0, Immature Gran # (Auto) 0.1 ASSESSMENT: Please see below. 1. Right lower lobe pneumonia 2. UTI, culture pending 3. Hypertension 4. Coronary artery disease, family refuses further evaluation 5. Colonic mass causing partial obstruction, family refuses further evaluation. PLAN: 1. Lisinopril 40mg daily 2. Blood cultures likely contaminant 3. Miralax daily 4. Soft diet 5. Discussed with patient and both in agreement they do not want further referral or intervention for possible colonic mass or known cardiac disease. Plan and coordination of the patient's care discussed in the presence of Case Melody bartlett and nurse. SCRIBED BY: ZOIE PRITCHETT Work Over [employer] Operator scribed while in presence of service performed by Dr. Guillaume/Sandee Epstein APRN on 04/12/22 (23)
[2022-04-12] MEDS: ASPIRIN CHEWABLE PO SCH (09:26)
[2022-04-12] MEDS: LIPITOR PO SCH (09:27)
[2022-04-12] MEDS: ZESTRIL PO SCH (09:27)
[2022-04-12] MEDS: NEURONTIN PO SCH ×2 (09:27→20:26)
[2022-04-12] MEDS: GLUCOPHAGE PO SCH ×2 (09:27→17:31)
[2022-04-12] MEDS: FLOMAX PO SCH ×2 (09:27→20:25)
[2022-04-12] MEDS: DOXY-100 100 MG in SODIUM CHLORIDE 100ML 100 ML IV SCH ×2 (09:28→21:26)
[2022-04-12] MEDS: DECADRON IVP SCH (09:28)
[2022-04-12] MEDS: LOVENOX SUBCUT SCH (09:28)
[2022-04-12] MEDS: MIRALAX PO SCH (09:31)
[2022-04-12] MEDS: NYSTOP POWDER TP SCH ×2 (09:43→20:26)
[2022-04-12] MEDS: HUMULIN R SUBCUT PRN ×3 (12:12→20:25)
--- NOTE | 2022-04-12 13:43 | PN ---
DATE OF SERVICE: 04/09/22 SUBJECTIVE: 71 year old white male was has been hospitalized with pneumonia. The patient's condition seems to be stabilizing, he is alert. The family is happy with the patient's progress. His electrolytes and kidney functions are better. WBC is practically normal. REVIEW OF SYSTEMS: CONSTITUTIONAL: No night sweats. No fatigue, malaise, lethargy. No fever or chills. HEENT: Eyes: No visual changes. No eye pain. No eye discharge. ENT: No runny nose. No epistaxis. No sinus pain. No sore throat. No odynophagia. No congestion. RESPIRATORY: No cough, no congestion. No hemoptysis. No shortness of breath. CARDIOVASCULAR: No angina symptoms. No CHF symptoms. No atypical chest pain for CAD. No palpitations. No PND. No orthopnea. GASTROINTESTINAL: No abdominal pain. No nausea or vomiting. No diarrhea or constipation. No hematemesis. No hematochezia. GENITOURINARY: No urgency. No frequency. No dysuria. No hematuria. No obstructive symptoms. No discharge. No pain. No significant abnormal bleeding. MUSCULOSKELETAL: No musculoskeletal pain; no joint swelling. NEUROLOGICAL: No headache. No neck pain. No syncope. No seizures. No dizziness. PSYCHIATRIC: Not anxious. No depression. No suicidal thoughts. No homicidal thoughts. SKIN: No rash. No lesions. No wounds. ENDOCRINE: No unexplained weight loss. No weight gain. HEMATOLOGIC/LYMPHATIC: No anemia. No purpura. No petechiae. No prolonged or excessive bleeding. No palpable lymph nodes. PHYSICAL EXAMINATION: VITAL SIGNS: Temperature 97.6, pulse 83, respiratory rate 18, blood pressure 102/64 and pulse ox 94%. HEENT: Head normocephalic, atraumatic. Eyes: Extraocular muscles are intact. Pupils are equal, round and reactive to light and accommodation. Ears: No lesions. Nose appeared normal. Throat: No exudate or erythema. NECK: Supple. No JVD, no carotid bruit. No lymphadenopathy or thyromegaly. LUNGS: Decreased breath sounds but clear to auscultation. Percussion note normal. Chest symmetrical. HEART: S1, S2, no S3. No murmurs. No cyanosis or clubbing. No ascites. Pulses: Dorsalis pedis and posterior tibial pulses +1 to +2 bilaterally. ABDOMEN: Soft. Nontender. Bowel sounds active. No CVA tenderness. No mass felt. Moderate amount of bowel movement with large flatulence. EXTREMITIES: No edema. Full range of motion of all extremities, equal. NEUROLOGIC: No focal deficit. Cranial nerves II through XII are grossly intact. No headache. No double vision. SKIN: Not dry. Intact. Turgor - normal. LYMPHATIC: No palpable lymph nodes/no lymphedema. MUSCULOSKELETAL: Normal joints with no swelling. Muscle tone is normal. LABS: Hgb 11.9, hct 36, WBC 7,700 normal differential, creatinine 0.5, BUN 16, potassium 4.8. Blood cultures positive for gram positive cocci. Urine grew gram negative rods. The patient has permanent Goode Catheter. ASSESSMENT: 1. Pneumonia 2. Respiratory failure PLAN: 1. Advised to continue Rocephin and Zithromax 2. Arterial blood gasses to be done in the morning on 3 liters. 3. 40mg SUBCUT Lovenox to be given 4. 4mg IV Decadron to be given every morning. 5. Sliding scale coverage for hyperglycemia CONDITION: Stable The family is happy with the patient's progress. TIME SPENT: More than 30 minutes. Plan and coordination of the patient's care discussed in the presence of nurse. DEISI
[2022-04-12] MEDS: CARDIZEM 125 MG in SODIUM CHLORIDE 100ML 100 ML IV SCH (17:27)
[2022-04-12] MEDS: CELEXA PO SCH (20:25)
[2022-04-12] MEDS: LOPRESSOR PO SCH (20:26)
[2022-04-12] MEDS: ROCEPHIN 1 GM/50 ML D5W 1 GM/50 ML BAG IV SCH (20:27)
[2022-04-13 05:09] LABS: BASOPHILS % (AUTO) 0.3 % (0.0-3.0); EOSINOPHILS % (AUTO) 0.3 % (0.0-7.0); HEMATOCRIT 33.2 % (42.0-52.0); HEMOGLOBIN 10.7 g/dl (14.0-18.0); IMMATURE GRANULOCYTE # (AUTO) 0.1 (0.0-1.0); IMMATURE GRANULOCYTE % (AUTO) 0.9 % (0.0-5.0); LYMPHOCYTES # (AUTO) 0.9 K/uL (0.60-3.4); LYMPHOCYTES % (AUTO) 13.7 (10.0-50.0); MEAN CORPUSCULAR HEMOGLOBIN 28.3 pg (27.0-31.0); MEAN CORPUSCULAR HGB CONC 32.2 (31.8-35.4); MEAN CORPUSCULAR VOLUME 87.8 fl (80.0-94.0); MONOCYTES # (AUTO) 0.5 K/uL (0.4-2.0); MONOCYTES % (AUTO) 7.3 (0-10); NEUTROPHILS # (AUTO) 5.1 K/ul (2.0-6.9); NEUTROPHILS % (AUTO) 77.5 % (42.2-75.2); PLATELET COUNT 165 10^3/uL (140-440); RED BLOOD COUNT 3.78 10^6/ul (4.70-6.10); WHITE BLOOD COUNT 6.62 K/ul (4.2-10.2)
[2022-04-13 05:21] LABS: ALANINE AMINOTRANSFERASE 47.3 U/L (0-50); ALBUMIN 3.81 g/dL (3.5-5.0); ALKALINE PHOSPHATASE 55.7 U/L (56-119); ASPARTATE AMINO TRANSFERASE 37.4 U/L (17-59); BILIRUBIN,TOTAL 0.45 mg/dL (0.2-1.3); BLOOD UREA NITROGEN 17.3 mg/dL (9-20); CALCIUM 8.05 mg/dL (8.4-10.2); CARBON DIOXIDE 30.5 mmol/L (22-30.0); CHLORIDE 98.8 mmol/L (98-107); CREATININE 0.38 mg/dL (0.60-1.10); GLUCOSE 128.3 mg/dL (74-106); POTASSIUM 4.25 mmol/L (3.5-5.1); SODIUM 134.9 mmol/L (134.5-145); TOTAL PROTEIN 7.34 g/dL (6.3-8.2)
[2022-04-13] MEDS: SODIUM CHLORIDE 1,000 ML IV SCH (07:41)
[2022-04-13] MEDS: GLUCOPHAGE PO SCH ×2 (08:30→17:11)
[2022-04-13] MEDS: FLOMAX PO SCH ×2 (08:30→20:38)
[2022-04-13] MEDS: ASPIRIN CHEWABLE PO SCH (08:30)
[2022-04-13] MEDS: LIPITOR PO SCH (08:30)
[2022-04-13] MEDS: ZESTRIL PO SCH (08:31)
[2022-04-13] MEDS: NEURONTIN PO SCH ×2 (08:31→20:38)
[2022-04-13] MEDS: MIRALAX PO SCH ×2 (08:31→21:34)
[2022-04-13] MEDS: DOXY-100 100 MG in SODIUM CHLORIDE 100ML 100 ML IV SCH ×2 (08:32→21:57)
[2022-04-13] MEDS: LOVENOX SUBCUT SCH (08:32)
[2022-04-13] MEDS: NYSTOP POWDER TP SCH ×2 (08:34→21:41)
[2022-04-13] MEDS: DECADRON IVP SCH (09:02)
[2022-04-13 09:24] LABS: BILIRUBIN,URINE Negative (NEGATIVE); CLARITY,URINE Clear (CLEAR); COLOR,URINE Yellow (YELLOW); GLUCOSE, URINE (UA) Negative (NEGATIVE); KETONES,URINE Negative (NEGATIVE); LEUKOCYTE ESTERASE ,URINE Trace (NEGATIVE); NITRITE,URINE Negative (NEGATIVE); PH,URINE 5.5 (5-9); PROTEIN,URINE 1+ (NEGATIVE); URINE, BLOOD 2+ (NEGATIVE); UROBILINOGEN,URINE 0.2 (0.2)
[2022-04-13 09:37] LABS: SQUAMOUS EPITHELIAL CELL,UR NOT PRESENT (0-5)
[2022-04-13 09:40] LABS: MUCUS,URINE 3+ (NOT PRESENT); URINE RBC, MICROSCOPIC 30-50 (0-2)
--- NOTE | 2022-04-13 09:55 | PCM.PROG ---
Attending Provider: ATTENDING PROVIDER: Dr. GENESIS GARCIA This patient is seen with Sandee Epstein, Nurse Practitioner. DATE OF SERVICE: 04/13/22 SUBJECTIVE: This 71 year old /WHITE M was hospitalized 04/08/22. No fever. Blood pressure been controlled. Still no bowel movement. Has active bowel sounds. No complaints of abdominal pain. Urine was sent to [facility]. Will repeat U/A culture today. REVIEW OF SYSTEMS: CONSTITUTIONAL: No night sweats. No fatigue, malaise, lethargy. No fever or chills. Weakness. HEENT: Eyes: No visual changes. No eye pain. No eye discharge. ENT: No runny nose. No epistaxis. No sinus pain. No odynophagia. No congestion. RESPIRATORY: No cough, no congestion. No hemoptysis. No shortness of breath. CARDIOVASCULAR: No angina symptoms. No CHF symptoms. No atypical chest pain for CAD. No palpitations. No orthopnea.. GASTROINTESTINAL: No abdominal pain. No nausea or vomiting. Constipation. No hematemesis. No hematochezia. GENITOURINARY: No urgency. No frequency. No dysuria. No hematuria. No obstructive symptoms. No discharge. No pain. No significant abnormal bleeding. MUSCULOSKELETAL: No musculoskeletal pain; no joint swelling. NEUROLOGICAL: Awake, alert, oriented to time, place and person. No headache. No neck pain. No syncope. No seizures. No dizziness. PSYCHIATRIC: Not anxious. No depression. No suicidal thoughts. No homicidal t houghts. SKIN: No rash. No lesions. No wounds. ENDOCRINE: No unexplained weight loss. No weight gain. HEMATOLOGIC/LYMPHATIC: No anemia. No purpura. No petechiae. No prolonged or excessive bleeding. No palpable lymph nodes. PHYSICAL EXAMINATION: GENERAL: The patient is awake, alert and oriented, sitting in bed in no distress. VITAL SIGNS: Temperature 97.1 F, Pulse 67, Respiratory Rate 18, BP 144/78, Pulse Ox 98% HEENT: Head normocephalic, atraumatic. Eyes: Extraocular muscles are intact. Pupils are equal, round and reactive to light and accommodation. Ears: No lesions. Nose appeared normal. Throat: No exudate or erythema. NECK: Supple. No JVD, no carotid bruit. No lymphadenopathy or thyromegaly. LUNGS: Diminished breath sounds. Clear to auscultation. Percussion note normal. Chest symmetrical. HEART: S1, S2, no S3. No murmurs. No cyanosis or clubbing. No ascites. Pulses: Dorsalis pedis and posterior tibial pulses +1 to +2 both sides. ABDOMEN: Soft. Non-tender. Bowel sounds active. No CVA tenderness. No mass felt. EXTREMITIES: Trace pedal edema. Full range of motion of all extremities, equal. NEUROLOGIC: No focal deficit. Cranial nerves II through XII are grossly intact. No headache. No double vision. SKIN: Not dry. Intact. Turgor-normal. LYMPHATIC: No palpable lymph nodes/no lymphedema. MUSCULOSKELETAL: Normal joints with no swelling. Muscle tone is normal. LAB REVIEW: 04/13/22 04:50 04/13/22 04:50 04/13/22 04:50: Sodium 134.9, Potassium 4.25, Chloride 98.8, Carbon Dioxide 30.5 H, Anion Gap 9.85, BUN 17.3, Creatinine 0.38 L, Estimated GFR (MDRD) 224.00, B UN/Creatinine Ratio 45.52, Glucose 128.3 H, Calcium 8.05 L, Total Bilirubin 0.45, AST 37.4, ALT 47.3, Alkaline Phosphatase 55.7 L, Total Protein 7.34, Albumin 3.81, Globulin 3.53, Albumin/Globulin Ratio 1.07 04/13/22 04:50: WBC 6.62, RBC 3.78 L, Hgb 10.7 L, Hct 33.2 L, MCV 87.8, MCH 28.3, MCHC 32.2, RDW Coeff of Veronica 14.0, Plt Count 165, Immature Gran % (Auto) 0.9, Neut % (Auto) 77.5 H, Lymph % (Auto) 13.7, [place] % (Auto) 7.3, Eos % (Auto) 0.3, Baso % (Auto) 0.3, Neut # (Auto) 5.1, Lymph # (Auto) 0.9, [place] # (Auto) 0.5, Eos # (Auto) 0.0, Baso # (Auto) 0.0, Immature Gran # (Auto) 0.1 ASSESSMENT: Please see below. 1. Right lobar pneumonia 2. UTI 3. Hypertension 4. CAD 5. Chronic constipation PLAN: 1. Repeat urine with culture 2. Continue IV antibiotics 3. Repeat Chest x-ray 4. Increase Miralax to BID 5. X-ray of abdomen Plan and coordination of the patient's care discussed in the presence of Tuckpointer and nurse. SCRIBED BY: Stoney LOPEZ scribed while in presence of service performed by Dr. Garcia/Sandee Epstein APRN on 04/13/22 ([id number])
[2022-04-13] MEDS: HUMULIN R SUBCUT PRN ×2 (11:15→17:12)
--- NOTE | 2022-04-13 13:25 | PN ---
DATE OF SERVICE: 04/10/22 SUBJECTIVE: 71 year old white male hospitalized with pneumonia. The patient's condition has improved. His oxygen saturation has improved. Arterial blood gasses done today showed pO2 101, pCO2 46, pH 7.411 with 97% saturation with FiO2 of 32 with 3 liters of oxygen. REVIEW OF SYSTEMS: CONSTITUTIONAL: No night sweats. No fatigue, malaise, lethargy. No fever or chills. Looks comfortable. HEENT: Eyes: No visual changes. No eye pain. No eye discharge. ENT: No runny nose. No epistaxis. No sinus pain. No sore throat. No odynophagia. No congestion. RESPIRATORY: No cough, no congestion. No hemoptysis. No shortness of breath. CARDIOVASCULAR: No angina symptoms. No CHF symptoms. No atypical chest pain for CAD. No palpitations. No PND. No orthopnea. GASTROINTESTINAL: No abdominal pain. No nausea or vomiting. No diarrhea or constipation. No hematemesis. No hematochezia. GENITOURINARY: No urgency. No frequency. No dysuria. No hematuria. No obstructive symptoms. No discharge. No pain. No significant abnormal bleeding. MUSCULOSKELETAL: No musculoskeletal pain; no joint swelling. NEUROLOGICAL: No headache. No neck pain. No syncope. No seizures. No dizziness. PSYCHIATRIC: Not anxious. No depression. No suicidal thoughts. No homicidal thoughts. SKIN: No rash. No lesions. No wounds. ENDOCRINE: No unexplained weight loss. No weight gain. HEMATOLOGIC/LYMPHATIC: No anemia. No purpura. No petechiae. No prolonged or excessive bleeding. No palpable lymph nodes. PHYSICAL EXAMINATION: VITAL SIGNS: Temperature 97.7, pulse 80, respiratory rate 20, blood pressure 110/65 and pulse ox 94% on 2 liters. HEENT: Head normocephalic, atraumatic. Eyes: Extraocular muscles are intact. Pupils are equal, round and reactive to light and accommodation. Ears: No lesions. Nose appeared normal. Throat: No exudate or erythema. NECK: Supple. No JVD, no carotid bruit. No lymphadenopathy or thyromegaly. LUNGS: Decreased breath sounds but clear to auscultation. Percussion note normal. Chest symmetrical. HEART: S1, S2, no S3. No murmurs. No cyanosis or clubbing. No ascites. Pulses: Dorsalis pedis and posterior tibial pulses +1 to +2 bilaterally. ABDOMEN: Soft. Mildly distended but a lot less than what it was on admission. Nontender. Bowel sounds active. No CVA tenderness. No mass felt. EXTREMITIES: Trace edema. Full range of motion of all extremities, equal. NEUROLOGIC: No focal deficit. Cranial nerves II through XII are grossly intact. No headache. No double vision. SKIN: Not dry. Intact. Turgor - normal. LYMPHATIC: No palpable lymph nodes/no lymphedema. MUSCULOSKELETAL: Normal joints with no swelling. Muscle tone is normal. LABS: Hgb 10.4, hct 32, WBC 6,300 normal differential, creatinine 0.4, BUN 16, potassium 4.1. ASSESSMENT: 1. Pneumonia seems to be resolving, clinically with Rocephin and Zithromax PLAN: 1. Continue IV Decadron 2. Blood cultures seems to be contaminant 3. Urine cultures may not have anything to do with his condition. It could be just the colonization. In any case the patient's pneumonia seems to be improving likely source or pneumonia could be aspiration. This patient was doing fine and the family found his saturation less than 80% at home with practically blue on the face. CONDITION: Improving. The family is happy with the patient's progress. The patient is DNR. 3. TIME SPENT: More than 30 minutes. Plan and coordination of the patient's care discussed in the presence of nurse. DEISI
[2022-04-13] MEDS: VASOTEC IV IVP PRN (14:09)
--- NOTE | 2022-04-13 14:43 | PN ---
DATE OF SERVICE: 04/11/22 SUBJECTIVE: 71 year old white male hospitalized with pneumonia. The patient's condition has improved. He is feeling a lot better. This morning the patient eating good breakfast. is present in the room and happy with the progress. REVIEW OF SYSTEMS: CONSTITUTIONAL: No night sweats. No fatigue, malaise, lethargy. No fever or chills. HEENT: Eyes: No visual changes. No eye pain. No eye discharge. ENT: No runny nose. No epistaxis. No sinus pain. No sore throat. No odynophagia. No congestion. RESPIRATORY: No cough, no congestion. No hemoptysis. No shortness of breath. CARDIOVASCULAR: No angina symptoms. No CHF symptoms. No atypical chest pain for CAD. No palpitations. No PND. No orthopnea. GASTROINTESTINAL: No abdominal pain. No nausea or vomiting. No diarrhea or constipation. No hematemesis. No hematochezia. GENITOURINARY: No urgency. No frequency. No dysuria. No hematuria. No obstructive symptoms. No discharge. No pain. No significant abnormal bleeding. MUSCULOSKELETAL: No musculoskeletal pain; no joint swelling. NEUROLOGICAL: No headache. No neck pain. No syncope. No seizures. No dizziness. PSYCHIATRIC: Not anxious. No depression. No suicidal thoughts. No homicidal thoughts. SKIN: No rash. No lesions. No wounds. ENDOCRINE: No unexplained weight loss. No weight gain. HEMATOLOGIC/LYMPHATIC: No anemia. No purpura. No petechiae. No prolonged or excessive bleeding. No palpable lymph nodes. PHYSICAL EXAMINATION: VITAL SIGNS: Temperature 97.7, pulse 80, respiratory rate 18, blood pressure 160/88 and pulse ox 94%. HEENT: Head normocephalic, atraumatic. Eyes: Extraocular muscles are intact. Pupils are equal, round and reactive to light and accommodation. Ears: No lesions. Nose appeared normal. Throat: No exudate or erythema. NECK: Supple. No JVD, no carotid bruit. No lymphadenopathy or thyromegaly. LUNGS: Decreased breath sounds but clear to auscultation. Percussion note normal. Chest symmetrical. HEART: S1, S2, no S3. No murmurs. No cyanosis or clubbing. No ascites. Pulses: Dorsalis pedis and posterior tibial pulses +1 to +2 bilaterally. ABDOMEN: Soft. Nontender. Bowel sounds active. No CVA tenderness. No mass felt. Mildly distended as usual. EXTREMITIES: No edema. Full range of motion of all extremities, equal. NEUROLOGIC: No focal deficit. Cranial nerves II through XII are grossly intact. No headache. No double vision. SKIN: Not dry. Intact. Turgor - normal. LYMPHATIC: No palpable lymph nodes/no lymphedema. MUSCULOSKELETAL: Normal joints with no swelling. Muscle tone is normal. LABS: hgb 11, hct 34, WBC 6,500 normal differential, creatinine 0.4, BUN 13, potassium 3.9. ASSESSMENT: 1. Pneumonia seems to be resolving. The patient had positive hemolytic staphaloccal contaminant. The patient has been afebrile.The pharmacy recommended to discontinue Vancomycin. The patient will be on Cefepime. The patient is already on Zithromax and improving. TIME SPENT: More than 1.5 hour was spent CODING: EXTENSIVE Plan and coordination of the patient's care discussed in the presence of nurse. ADDENDUM: Around 4pm the patient's condition worsened in an hour and a half prior. The patient developed acute shortness of breath with severe hypoxemia with saturation of 90%. The patient was pale, sweaty with blue lips. The patient was given 2mg Morphine Sulfate and was also given 5mg IV Lopressor, 60mg PO Cardizem. The patient's heart rate was reported at that time was 140 sinus tachycardia with saturation less than 80%. The patient settled down after this in half an hour. He developed acute shortness of breath with hypoxemia and severe hypertension with blood pressure over 200. At that time the patient was given 5mg more of IV Lopressor and Cardizem 5mg per minute drip was to be started along with 2mg more Morphine Sulfate. I went to see the patient and the patient had calmed down, had no sweating. His color had improved. His saturation was 92% with 2 liters. Lungs practically had good breath sounds. S1, S2 and no S3. His repeated Telemetry showed sinus rhythm with rate of 80 per minute. EKG was done earlier at rate of 120 sinus tachycardia, had no acute changes. The was called. She was informed that the patient's condition has deteriorated and he has spells of acute hypoxemia more indicative of probably pulmonary embolism type of situation but in any case she declined to have any thing further done. Calf muscles are nontender. The patient's other problem could be acute aspiration of stomach content. In any case the patient will receive Vasotec 1.25mg IV Q 6 hourly for systolic blood pressure of more than 150. Cardizem drip will be on hold and has never been started. The patient's prognosis is guarded. The patient is DNR. MTDD
--- NOTE | 2022-04-13 14:55 | DI ---
Examination: Single view of the abdomen. HISTORY: Loose stool. COMPARISON: 02/13/2022. CT 04/08/2022. FINDINGS: Diffuse gaseous distension of the stomach. 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 Lung bases appear grossly clear with granulomatous calcifications. No evidence of larger small bowel obstruction. Diffuse stool burden throughout the colon including t he right colon. Goode catheter present. No abnormal calcifications overlying the renal shadows. Os seous structures demonstrate degenerative changes. Body wall soft tissues without significant abnorm alities. IMPRESSION: Persistent gaseous distension of the stomach as on previous CT 04/08/2022. No definitiv e gastric outlet obstruction on that exam. Correlate clinically. Remaining bowel gas pattern nonobstructive with diffuse stool burden throughout the colon. Correlate for constipation. Goode catheter.
--- NOTE | 2022-04-13 14:57 | DI ---
EXAM: CHEST RADIOGRAPH (1 VIEW) TECHNIQUE: Frontal Chest Radiograph. HISTORY: Cough, shortness of breath COMPARISON: CT chest from 04/08/2022 FINDINGS: Lines, Tubes, Devices: None Lungs and Pleura: Limited inspiration. Right lower lung consolidation, atelectasis verses airspace disease. Cardiomediastinum: Stable cardiomediastinal silhouette. Calcified mediastinal and hilar lymph nodes. Mild aortic calcifications. Bones/Soft Tissues: No acute osseous abnormality. No soft tissue abnormality. Upper Abdomen: Within normal limits. IMPRESSION: Consolidation in the right lower lobe, atelectasis verses airspace disease. Please see above description and additional findings.
[2022-04-13] MEDS ORDERED: MILK OF MAGNESIA PO ONE (15:18)
[2022-04-13] MEDS ORDERED: LOPRESSOR IVP STA (18:06)
[2022-04-13] MEDS ORDERED: VASOTEC IV IVP STA (18:07)
[2022-04-13] MEDS: CARDIZEM 125 MG in SODIUM CHLORIDE 100ML 100 ML IV SCH (19:25)
[2022-04-13] MEDS: LOPRESSOR PO SCH (20:38)
[2022-04-13] MEDS: CELEXA PO SCH (20:38)
[2022-04-13] MEDS: ROCEPHIN 1 GM/50 ML D5W 1 GM/50 ML BAG IV SCH (20:50)
[2022-04-14] MEDS: VASOTEC IV IVP PRN ×2 (05:44→14:10)
[2022-04-14] MEDS: NYSTOP POWDER TP SCH ×2 (08:42→20:48)
[2022-04-14] MEDS: GLUCOPHAGE PO SCH ×2 (08:43→17:19)
[2022-04-14] MEDS: LIPITOR PO SCH (08:43)
[2022-04-14] MEDS: FLOMAX PO SCH ×2 (08:43→20:48)
[2022-04-14] MEDS: ZESTRIL PO SCH (08:43)
[2022-04-14] MEDS: MIRALAX PO SCH ×2 (08:44→20:46)
[2022-04-14] MEDS: ASPIRIN CHEWABLE PO SCH (08:44)
[2022-04-14] MEDS: NEURONTIN PO SCH ×2 (08:44→20:48)
[2022-04-14] MEDS: LOVENOX SUBCUT SCH (08:44)
[2022-04-14] MEDS: DOXY-100 100 MG in SODIUM CHLORIDE 100ML 100 ML IV SCH ×2 (08:45→21:20)
[2022-04-14] MEDS: DECADRON IVP SCH (09:01)
[2022-04-14] MEDS ORDERED: LOPRESSOR IVP PRN (10:54)
[2022-04-14] MEDS ORDERED: MORPHINE 2 MG/ML SYRINGE IVP PRN (10:54)
[2022-04-14] MEDS: NORVASC PO SCH ×2 (11:15→20:47)
[2022-04-14] MEDS: HUMULIN R SUBCUT PRN ×3 (11:27→20:46)
[2022-04-14 12:12] LABS: AEROBIC + ANAEROB SUSC Final report (.); BACTERIA IDENTIFICATION Final report (.)
[2022-04-14] MEDS: ROCEPHIN 1 GM/50 ML D5W 1 GM/50 ML BAG IV SCH (20:29)
[2022-04-14] MEDS: CELEXA PO SCH (20:48)
[2022-04-14] MEDS: LOPRESSOR PO SCH (20:48)
[2022-04-15 05:17] LABS: BASOPHILS % (AUTO) 0.4 % (0.0-3.0); EOSINOPHILS # (AUTO) 0.1 K/ul (0.0-0.7); EOSINOPHILS % (AUTO) 0.8 % (0.0-7.0); HEMATOCRIT 33.2 % (42.0-52.0); HEMOGLOBIN 10.8 g/dl (14.0-18.0); IMMATURE GRANULOCYTE % (AUTO) 0.5 % (0.0-5.0); LYMPHOCYTES # (AUTO) 1.7 K/uL (0.60-3.4); LYMPHOCYTES % (AUTO) 20.2 (10.0-50.0); MEAN CORPUSCULAR HEMOGLOBIN 28.3 pg (27.0-31.0); MEAN CORPUSCULAR HGB CONC 32.5 (31.8-35.4); MEAN CORPUSCULAR VOLUME 86.9 fl (80.0-94.0); MONOCYTES # (AUTO) 0.6 K/uL (0.4-2.0); MONOCYTES % (AUTO) 7.6 (0-10); NEUTROPHILS # (AUTO) 5.9 K/ul (2.0-6.9); NEUTROPHILS % (AUTO) 70.5 % (42.2-75.2); PLATELET COUNT 172 10^3/uL (140-440); RDW COEFFICIENT OF VARIATION 14.4 % (11.6-14.8); RED BLOOD COUNT 3.82 10^6/ul (4.70-6.10)
[2022-04-15 05:28] LABS: ALANINE AMINOTRANSFERASE 50.8 U/L (0-50); ALBUMIN 3.63 g/dL (3.5-5.0); ALKALINE PHOSPHATASE 55.4 U/L (56-119); ASPARTATE AMINO TRANSFERASE 33.8 U/L (17-59); BILIRUBIN,TOTAL 0.43 mg/dL (0.2-1.3); BLOOD UREA NITROGEN 14.6 mg/dL (9-20); CALCIUM 8.6 mg/dL (8.4-10.2); CHLORIDE 96.8 mmol/L (98-107); CREATININE 0.39 mg/dL (0.60-1.10); GLUCOSE 126.4 mg/dL (74-106); POTASSIUM 4.21 mmol/L (3.5-5.1); SODIUM 135.1 mmol/L (134.5-145); TOTAL PROTEIN 6.86 g/dL (6.3-8.2)
--- NOTE | 2022-04-15 08:50 | PCM.PROG ---
Attending Provider: ATTENDING PROVIDER: Dr. GENESIS GARCIA This patient is seen with Sandee Epstein, Nurse Practitioner. DATE OF SERVICE: 04/15/22 SUBJECTIVE: This 71 year old /WHITE M was hospitalized 04/08/22. Blood pressure is under control this morning. The patient and the are in agreement that he would like to be discharged home under Hospice Care. They want palliative care only. Given multiple medical conditions I do feel it is appropriate at this time. We will call [facility] this morning. REVIEW OF SYSTEMS: CONSTITUTIONAL: No night sweats. No fatigue, malaise, lethargy. No fever or chills. Weakness. HEENT: Eyes: No visual changes. No eye pain. No eye discharge. ENT: No runny nose. No epistaxis. No sinus pain. No odynophagia. No congestion. RESPIRATORY: No cough, no congestion. No hemoptysis. Shortness of breath. CARDIOVASCULAR: No angina symptoms. No CHF symptoms. No atypical chest pain for CAD. No palpitations. No orthopnea.. GASTROINTESTINAL: No abdominal pain. No nausea or vomiting. No diarrhea or constipation. No hematemesis. No hematochezia. GENITOURINARY: No urgency. No frequency. No dysuria. No hematuria. No obstructive symptoms. No discharge. No pain. No significant abnormal bleeding. MUSCULOSKELETAL: No musculoskeletal pain; no joint swelling. NEUROLOGICAL: Awake, alert, oriented to time, place and person. No headache. No neck pain. No syncope. No seizures. No dizziness. PSYCHIATRIC: Not anxious. No depression. No suicidal thoughts. No homicidal thoughts. SKIN: No rash. No lesions. No wounds. ENDOCRINE: No unexplained weight loss. No weight gain. HEMATOLOGIC/LYMPHATIC: No anemia. No purpura. No petechiae. No prolonged or excessive bleeding. No palpable lymph nodes. PHYSICAL EXAMINATION: GENERAL: The patient is awake, alert and oriented, sitting in bed in no distress. VITAL SIGNS: Temperature 96.5 F, Pulse 69, Respiratory Rate 16, BP 111/64, Pulse Ox 96% HEENT: Head normocephalic, atraumatic. Eyes: Extraocular muscles are intact. Pupils are equal, round and reactive to light and accommodation. Ears: No lesions. Nose appeared normal. Throat: No exudate or erythema. NECK: Supple. No JVD, no carotid bruit. No lymphadenopathy or thyromegaly. LUNGS: Diminished breath sounds. Clear to auscultation. Percussion note normal. Chest symmetrical. HEART: S1, S2, no S3. No murmurs. No cyanosis or clubbing. No ascites. Pulses: Dorsalis pedis and posterior tibial pulses +1 to +2 both sides. ABDOMEN: Soft. Non-tender. Bowel sounds active. No CVA tenderness. No mass fe lt. Catheter. EXTREMITIES: Leg edema. Full range of motion of all extremities, equal. NEUROLOGIC: No focal deficit. Cranial nerves II through XII are grossly intact. No headache. No double vision. SKIN: Not dry. Intact. Turgor-normal. LYMPHATIC: No palpable lymph nodes/no lymphedema. MUSCULOSKELETAL: Normal joints with no swelling. Muscle tone is normal. LAB REVIEW: 04/15/22 05:05 04/15/22 05:05 04/15/22 05:05: Sodium 135.1, Potassium 4.21, Chloride 96.8 L, Carbon Dioxide 37.0 H, Anion Gap 5.51, BUN 14.6, Creatinine 0.39 L, Estimated GFR (MDRD) 217.00, BUN/Creatinine Ratio 37.43, Glucose 126.4 H, Calcium 8.60, Total Bilirubin 0.43, AST 33.8, ALT 50.8 H, Alkaline Phosphatase 55.4 L, Total Protein 6.86, Albumin 3.63, Globulin 3.23, Albumin/Globulin Ratio 1.12 04/15/22 05:05: WBC 8.30, RBC 3.82 L, Hgb 10.8 L, Hct 33.2 L, MCV 86.9, MCH 28.3, MCHC 32.5, RDW Coeff of Veronica 14.4, Plt Count 172, Immature Gran % (Auto) 0.5, Neut % (Auto) 70.5, Lymph % (Auto) 20.2, [place] % (Auto) 7.6, Eos % (Auto) 0.8, Baso % (Auto) 0.4, Neut # (Auto) 5.9, Lymph # (Auto) 1.7, [place] # (Auto) 0.6, Eos # (Auto) 0.1, Baso # (Auto) 0.0, Immature Gran # (Auto) 0.0 04/08/22 15:13: Aerobic Susceptibility Final report H, Aerob & Anaerob Suscept Comment, Organism ID Comment H, Bacterial ID Final report H ASSESSMENT: Please see below. 1. Symptomatic CAD 2. Labile Hypertension 3. UTI 4. Right Lobar pneumonia 5. Friedreich Ataxia 6. Colon mass, refuses treatment and evaluation 7. Chronic constipation PLAN: 1. Referral to [facility] 2. Anticipate possible discharge home today or tomorrow Plan and coordination of the patient's care discussed in the presence of [employer] and nurse. SCRIBED BY: Stoney LOPEZ scribed while in presence of service performed by Dr. Garcia/Sandee Epstein APRN on 04/15/22 ([id number])
[2022-04-15] MEDS: DOXY-100 100 MG in SODIUM CHLORIDE 100ML 100 ML IV SCH ×2 (09:12→21:00)
[2022-04-15] MEDS: LIPITOR PO SCH (09:13)
[2022-04-15] MEDS: ASPIRIN CHEWABLE PO SCH (09:13)
[2022-04-15] MEDS: MIRALAX PO SCH ×2 (09:13→20:21)
[2022-04-15] MEDS: NEURONTIN PO SCH ×2 (09:14→20:22)
[2022-04-15] MEDS: GLUCOPHAGE PO SCH ×2 (09:14→17:16)
[2022-04-15] MEDS: FLOMAX PO SCH ×2 (09:14→20:22)
[2022-04-15] MEDS: NORVASC PO SCH ×2 (09:14→20:22)
[2022-04-15] MEDS: ZESTRIL PO SCH (09:14)
[2022-04-15] MEDS: LOVENOX SUBCUT SCH (09:15)
[2022-04-15] MEDS: DECADRON IVP SCH (09:15)
[2022-04-15] MEDS: NYSTOP POWDER TP SCH ×2 (09:35→20:23)
[2022-04-15] MEDS: HUMULIN R SUBCUT PRN ×3 (11:27→20:21)
[2022-04-15] MEDS: ROCEPHIN 1 GM/50 ML D5W 1 GM/50 ML BAG IV SCH (20:05)
[2022-04-15] MEDS: CELEXA PO SCH (20:22)
[2022-04-15] MEDS: LOPRESSOR PO SCH (20:22)
[2022-04-16 05:06] LABS: BASOPHILS % (AUTO) 0.4 % (0.0-3.0); EOSINOPHILS # (AUTO) 0.1 K/ul (0.0-0.7); EOSINOPHILS % (AUTO) 0.6 % (0.0-7.0); HEMATOCRIT 34.8 % (42.0-52.0); HEMOGLOBIN 11.4 g/dl (14.0-18.0); IMMATURE GRANULOCYTE % (AUTO) 0.3 % (0.0-5.0); LYMPHOCYTES # (AUTO) 1.4 K/uL (0.60-3.4); LYMPHOCYTES % (AUTO) 14.5 (10.0-50.0); MEAN CORPUSCULAR HEMOGLOBIN 28.6 pg (27.0-31.0); MEAN CORPUSCULAR HGB CONC 32.8 (31.8-35.4); MEAN CORPUSCULAR VOLUME 87.4 fl (80.0-94.0); MONOCYTES # (AUTO) 0.6 K/uL (0.4-2.0); MONOCYTES % (AUTO) 6.2 (0-10); NEUTROPHILS # (AUTO) 7.4 K/ul (2.0-6.9); PLATELET COUNT 181 10^3/uL (140-440); RDW COEFFICIENT OF VARIATION 14.4 % (11.6-14.8); RED BLOOD COUNT 3.98 10^6/ul (4.70-6.10); WHITE BLOOD COUNT 9.46 K/ul (4.2-10.2)
[2022-04-16 05:08] VITALS: BP 127/80; TEMP 97.8
[2022-04-16 05:17] LABS: ALBUMIN 3.79 g/dL (3.5-5.0); ALKALINE PHOSPHATASE 53.7 U/L (56-119); ASPARTATE AMINO TRANSFERASE 30.2 U/L (17-59); BILIRUBIN,TOTAL 0.53 mg/dL (0.2-1.3); BLOOD UREA NITROGEN 17.2 mg/dL (9-20); CALCIUM 8.48 mg/dL (8.4-10.2); CARBON DIOXIDE 35.7 mmol/L (22-30.0); CHLORIDE 97.2 mmol/L (98-107); CREATININE 0.43 mg/dL (0.60-1.10); GLUCOSE 137.3 mg/dL (74-106); POTASSIUM 4.36 mmol/L (3.5-5.1); SODIUM 135.1 mmol/L (134.5-145); TOTAL PROTEIN 7.16 g/dL (6.3-8.2)
[2022-04-16] MEDS: MIRALAX PO SCH (08:23)
[2022-04-16] MEDS: LIPITOR PO SCH (08:23)
[2022-04-16] MEDS: ZESTRIL PO SCH (08:23)
[2022-04-16] MEDS: LOVENOX SUBCUT SCH (08:24)
[2022-04-16] MEDS: GLUCOPHAGE PO SCH (08:24)
[2022-04-16] MEDS: ASPIRIN CHEWABLE PO SCH (08:24)
[2022-04-16] MEDS: NEURONTIN PO SCH (08:24)
[2022-04-16] MEDS: FLOMAX PO SCH (08:24)
[2022-04-16] MEDS: NORVASC PO SCH (08:24)
[2022-04-16] MEDS: DECADRON IVP SCH (09:48)
--- NOTE | 2022-04-16 10:47 | DS ---
DATE OF SERVICE: 04/16/22 FINAL DIAGNOSIS: 1. Right lobar pneumonia 2. UTI 3. CAD 4. Hypertension 5. Friedreich Ataxia 6. Chronic respiratory failure 7. COPD DISCHARGE INSTRUCTIONS: Today on Hospice with spouse per Dr. Guillaume/Sandee Epstein NP. [facility] will see today. Skin care: Buttocks; cleanse with soap and water, rinse and pat dry, apply protective ointment twice daily and as needed. Keep heels and feet elevated off the bed. Continue all home medications. Take Miralax every day even if bowels have moved. Followup with Dr. Guillaume's office in 5-7 days after discharge. CODE STATUS: DO NOT RESUSCITATE. MEDICATIONS AT DISCHARGE: Metoprolol 50mg PO bedtime Aspirin 81mg PO daily Nitroglycerin 0.4mg sublingual PRN Lipitor 40mg PO daily Gabapentin 300mg PO BID Celexa 20mg PO bedtime Metformin 500mg PO BID Nystop 100,000 unit topical BID Miralax 17gram Po daily Tamsulosin 0.4mg PO BID Potassium Chloride 10meq PO daily NEW PRESCRIPTIONS: Amlodipine 5mg PO BID Doxycycline 100mg PO BID for 5 days Prednisone 10mg PO daily for 5 days Lisinopril 40mg PO daily Clonidine 0.1mg PO daily PRN DISCONTINUED MEDICATIONS: Lisinopril 10mg PO daily DIET INSTRUCTIONS: Soft diet. Drink plenty of fluids, at least 60 ounces of water daily ACTIVITY: While in bed turn and reposition every 2 hours and as needed. HOSPITAL COURSE: 71 white male was admitted through ER with fever, UTI and right lobar pneumonia. WBC was 14,000 on admission. He has a Goode Catheter. Urine culture grew [place]. He was placed on Rocephin, Doxycycline and Zithromax along with IV Decadron. While hospitalized he began experiencing episodes of hypertension, shortness of breath and chest pain. He was known history of CAD. CT of abdomen showed he had extensive constipation along with mass in colon. At this time the patient and his family wishes for no further intervention. He would like to go home and be with his family. He has been referred to [facility]. He and his are in agreement. They are to come to the family's home at 1pm. We will discharge home today in guarded condition. We will discharge with Prednisone 10mg daily for 5 days along with Doxycycline 100mg BID for 5 days. Prognosis is poor. TIME SPENT: More than 60 minutes. MTDD
--- NOTE | 2022-04-16 10:51 | PCM.PROG ---
Attending Provider: ATTENDING PROVIDER: Dr. GENESIS GARCIA This patient is seen with Sandee Epstein, Nurse Practitioner. DATE OF SERVICE: 04/16/22 SUBJECTIVE: This 71 year old /WHITE M was hospitalized 04/08/22. Has been doing well. Blood pressure seems to be stable, getting choked with eating. Doing better when someone feeds him, likely aspiration occurring. Plan to be discharged with Hospice today. We will make sure they are in place before letting go. He will require ambulance to be taken home. REVIEW OF SYSTEMS: CONSTITUTIONAL: No night sweats. No fatigue, malaise, lethargy. No fever or chills. Weakness. HEENT: Eyes: No visual changes. No eye pain. No eye discharge. ENT: No runny nose. No epistaxis. No sinus pain. No odynophagia. No congestion. RESPIRATORY: No cough, no congestion. No hemoptysis. Shortness of breath. CARDIOVASCULAR: No angina symptoms. No CHF symptoms. No atypical chest pain for CAD. No palpitations. No orthopnea.. GASTROINTESTINAL: No abdominal pain. No nausea or vomiting. No diarrhea or constipation. No hematemesis. No hematochezia. GENITOURINARY: No urgency. No frequency. No dysuria. No hematuria. No obstructive symptoms. No discharge. No pain. No significant abnormal bleeding. MUSCULOSKELETAL: No musculoskeletal pain; no joint swelling. Leg edema. NEUROLOGICAL: Awake, alert, oriented to time, place and person. No headache. No neck pain. No syncope. No seizures. No dizziness. PSYCHIATRIC: Not anxious. No depression. No suicidal thoughts. No homicidal thoughts. SKIN: No rash. No lesions. No wounds. ENDOCRINE: No unexplained weight loss. No weight gain. HEMATOLOGIC/LYMPHATIC: No anemia. No purpura. No petechiae. No prolonged or excessive bleeding. No palpable lymph nodes. PHYSICAL EXAMINATION: GENERAL: The patient is awake, alert and oriented, sitting in bed in no distress. VITAL SIGNS: Temperature 97.8 F, Pulse 72, Respiratory Rate 20, BP 127/80, Pulse Ox 92% HEENT: Head normocephalic, atraumatic. Eyes: Extraocular muscles are intact. Pupils are equal, round and reactive to light and accommodation. Ears: No lesions. Nose appeared normal. Throat: No exudate or erythema. NECK: Supple. No JVD, no carotid bruit. No lymphadenopathy or thyromegaly. LUNGS: Diminished breath sounds. Clear to auscultation. Percussion note normal. Chest symmetrical. HEART: S1, S2, no S3. No murmurs. No cyanosis or clubbing. No ascites. Pulses: Dorsalis pedis and posterior tibial pulses +1 to +2 both sides. ABDOMEN: Soft. Non-tender. Bowel sounds active. No CVA tenderness. No mass felt. EXTREMITIES: Trace pedal edema. Full range of motion of all extremities, equal. NEUROLOGIC: No focal deficit. Cranial nerves II through XII are grossly intact. No headache. No double vision. SKIN: Not dry. Intact. Turgor-normal. LYMPHATIC: No palpable lymph nodes/no lymphedema. MUSCULOSKELETAL: Normal joints with no swelling. Muscle tone is normal. LAB REVIEW: 04/16/22 05:00 04/16/22 05:00 04/16/22 05:00: Sodium 135.1, Potassium 4.36, Chloride 97.2 L, Carbon Dioxide 35.7 H, Anion Gap 6.56, BUN 17.2, Creatinine 0.43 L, Estimated GFR (MDRD) 194.00, BUN/Creatinine Ratio 40.00, Glucose 137.3 H, Calcium 8.48, Total Bilirubin 0.53, AST 30.2, ALT 47.0, Alkaline Phosphatase 53.7 L, Total Protein 7.16, Albumin 3.79, Globulin 3.37, Albumin/Globulin Ratio 1.12 04/16/22 05:00: WBC 9.46, RBC 3.98 L, Hgb 11.4 L, Hct 34.8 L, MCV 87.4, MCH 28.6, MCHC 32.8, RDW Coeff of Veronica 14.4, Plt Count 181, Immature Gran % (Auto) 0.3, Neut % (Auto) 78.0 H, Lymph % (Auto) 14.5, [place] % (Auto) 6.2, Eos % (Auto) 0.6, Baso % (Auto) 0.4, Neut # (Auto) 7.4 H, Lymph # (Auto) 1.4, [place] # (Auto) 0.6, Eos # (Auto) 0.1, Baso # (Auto) 0.0, Immature Gran # (Auto) 0.0 ASSESSMENT: Please see below. 1. Right lobar pneumonia 2. UTI 3. CAD 4. Hypertension 5. Friedreich Ataxia 6. Chronic respiratory failure 7. COPD PLAN: 1. Will discharge home today on Hospice 2. Doxycycline 100mg PO BID for 5 days 3. Prednisone 10mg PO BID times 5 days 4. The patient will require O2 at home as he currently on 2 liters here 5. He will require ambulance for transfer. Plan and coordination of the patient's care discussed in the presence of [employer] and nurse. SCRIBED BY: Stoney LOPEZ scribed while in presence of service performed by Dr. Garcia/Sandee Epstein APRN on 04/16/22 ([id number])
--- NOTE | 2022-04-16 13:19 | PN ---
DATE OF SERVICE: 04/15/22 SUBJECTIVE: 71 year old white male hospitalized with pneumonia. The patient was seen and examined with the Nurse Practitioner. The patient has improved. He had two large bowel movements and he is feeling better. The patient is stable enough to be discharged. The patient is going to be on Hospice. Vitals are stable. Possible discharge date tomorrow. TIME SPENT: More than 30 minutes. Plan and coordination of the patient's care discussed in the presence of nurse. DEISI
--- NOTE | 2022-04-16 14:37 | PN ---
DATE OF SERVICE: 04/14/22 SUBJECTIVE: 71 year old white male hospitalized with pneumonia. The patient's condition has improved in last couple of days. He had one episode of acute shortness of breath with hypertension. Plan is to start the patient on Amlodipine 5mg twice a day to control the blood pressure better. Discontinue Cardizem pending order. REVIEW OF SYSTEMS: CONSTITUTIONAL: No night sweats. No fatigue, malaise, lethargy. No fever or chills. HEENT: Eyes: No visual changes. No eye pain. No eye discharge. ENT: No runny nose. No epistaxis. No sinus pain. No sore throat. No odynophagia. No congestion. RESPIRATORY: No cough, no congestion. No hemoptysis. No shortness of breath. CARDIOVASCULAR: No angina symptoms. No CHF symptoms. No atypical chest pain for CAD. No palpitations. No PND. No orthopnea. GASTROINTESTINAL: No abdominal pain. No nausea or vomiting. No diarrhea or constipation. No hematemesis. No hematochezia. GENITOURINARY: No urgency. No frequency. No dysuria. No hematuria. No obstructive symptoms. No discharge. No pain. No significant abnormal bleeding. MUSCULOSKELETAL: No musculoskeletal pain; no joint swelling. NEUROLOGICAL: No headache. No neck pain. No syncope. No seizures. No dizziness. PSYCHIATRIC: Not anxious. No depression. No suicidal thoughts. No homicidal thoughts. SKIN: No rash. No lesions. No wounds. ENDOCRINE: No unexplained weight loss. No weight gain. HEMATOLOGIC/LYMPHATIC: No anemia. No purpura. No petechiae. No prolonged or excessive bleeding. No palpable lymph nodes. PHYSICAL EXAMINATION: VITAL SIGNS: Temperature 97.9, pulse 82, respiratory rate 20, blood pressure 115/88 and pulse ox 94%. HEENT: Head normocephalic, atraumatic. Eyes: Extraocular muscles are intact. Pupils are equal, round and reactive to light and accommodation. Ears: No lesions. Nose appeared normal. Throat: No exudate or erythema. NECK: Supple. No JVD, no carotid bruit. No lymphadenopathy or thyromegaly. LUNGS: Clear to auscultation. Percussion note normal. Chest symmetrical. HEART: S1, S2, no S3. No murmurs. No cyanosis or clubbing. No ascites. Pulses: Dorsalis pedis and posterior tibial pulses +1 to +2 bilaterally. ABDOMEN: Soft. Nontender. Bowel sounds active. No CVA tenderness. No mass felt. EXTREMITIES: No edema. Full range of motion of all extremities, equal. NEUROLOGIC: No focal deficit. Cranial nerves II through XII are grossly intact. No headache. No double vision. SKIN: Not dry. Intact. Turgor - normal. LYMPHATIC: No palpable lymph nodes/no lymphedema. MUSCULOSKELETAL: Normal joints with no swelling. Muscle tone is normal. LABS: hgb 10.7, hct 33, WBC 6,500 normal differential, creatinine 0.3, BUN 17, potassium 4.21. ASSESSMENT: 1. Pneumonia seems to be resolving 2. Episodes of sweating with shortness of breath and hypoxemia and hypertension etiology unknown could be seizure which I really doubt it because all of them are witness and doesn't look like focal seizure with hypoxemia. Pulmonary embolism still possibility but the patient comes out of it without consequences which is very unusual with having all these episodes with complete resolution within 10-15 minutes. There is no hypoglycemia noted with this. The patient's family is reluctant about having further investigation. He is DNR. 3. Neuromuscular disorder with bed ridden condition for many years. PLAN: 1. Standing order for Lopressor IV 5mg Q 6 hourly for blood pressure over 150 and sinus tachycardia of 120 or more. 2. Medication Amlodipine 5mg twice a day 3. The patient had couple of bowel movements. The possibility of sweating with hypertension could be the patient may have intermittent colic or aspiration pneumonitis. Morphine sulfate to be given every 4 hourly. He is going to be referred to Hospice. The family has agreed to that. DIAGNOSIS FOR HOSPICE: 1. Neuromuscular disorder like Friedreich ataxia, bed ridden condition for many years. 2. Dementia 3. Neurogenic bladder with permanent Goode Catheter 4. History of hypertension 5. Chronic anemia 6. Intermittent abdominal distention from multiple reasons like inactivity, small bowel and large bowel obstruction with fecal impaction. TIME SPENT: More than 30 minutes. Plan and coordination of the patient's care discussed in the presence of nurse. DEISI
--- NOTE | 2022-04-20 09:58 | PN ---
DATE OF SERVICE: 04/12/22 SUBJECTIVE: 71 year old white male hospitalized with pneumonia. The patient had two episodes of severe acute hypoxemia with severe hypertension. The patient has recovered from it, that happened yesterday. The patient has Goode Catheter, he is afebrile. Feeling better, the appetite has improved. Vitals are stable with blood pressure of 150/80 and pulse 72. Saturation is 97% on 2 liters. Condition has improved. The patient was seen and examined with Nurse Practitioner. The patient is to be continued on steroids, antibiotics and supportive measures. The family doesn't want anymore investigation in a way of colonoscopy or CAT scan. The condition has stabilized from yesterday. It is to be noted that yesterday the patient's calf muscles were non-tender there was no swelling of the legs. Same thing today. TIME SPENT: More than 30 minutes. Plan and coordination of the patient's care discussed in the presence of nurse. DEISI
--- NOTE | 2022-04-20 10:48 | PN ---
DATE OF SERVICE: 04/13/22 SUBJECTIVE: 71 year old white male hospitalized with pneumonia. Condition seems to have improved. He had one spell where he became acutely short of breath which was treated with IV Morphine, Lopressor and Norvasc. The patient's overall condition seems to have improved. His appetite is getting better. Cause for his acute shortness of breath with sweating, tachycardia is still to be determined. Discussed Hospice with the patient's family and they are agreeable. TIME SPENT: More than 30 minutes. Plan and coordination of the patient's care discussed in the presence of nurse. DEISI
--- NOTE | 2022-04-27 14:32 | PN ---
DATE OF SERVICE: 04/16/22 SUBJECTIVE: The patient's is in the room. The patient's condition has improved a lot after good bowel movement a couple of days ago. Condition has changed. No episodes of hypertension had been noted. Cardiovascular status is stable. His vitals and routine lab tests are all acceptable. He is going to be discharged home on antibiotics. His pneumonia clinically has resolved. The patient was seen and examined with the Nurse Practitioner. He is going to be discharged on Hospice. 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 TIME SPENT: More than 30 minutes. Plan and coordination of the patient's care discussed in the presence of nurse. DEISI
--- NOTE | 2022-04-27 14:33 | PN ---
ADMISSION DAY: LEVEL 5 REST OF THEM: INTERMEDIATE FINAL DAY: D IN DISCHARGE MTDD
== END 2022-04-16 11:20 | disposition hospice, home (50) | DRG 194 ==
LOC: ED 14:09 → MEDSURG A 19:40
PROVIDERS: ADMIT Internal Medicine; ATTEND Internal Medicine
DX: Z66 Do not resuscitate; Z51.81 Encounter for therapeutic drug level monitoring; F03.90 Unspecified dementia, unspecified severity, without behavioral disturbance, psychotic disturbance, mood disturbance, and anxiety; Z79.82 Long term (current) use of aspirin; I10 Essential (primary) hypertension; K59.00 Constipation, unspecified; Z20.822 Contact with and (suspected) exposure to COVID-19; I25.10 Atherosclerotic heart disease of native coronary artery without angina pectoris; R06.02 Shortness of breath; K63.89 Other specified diseases of intestine; Z99.81 Dependence on supplemental oxygen; N39.0 Urinary tract infection, site not specified; G11.11 Friedreich ataxia; Z79.899 Other long term (current) drug therapy; Z79.84 Long term (current) use of oral hypoglycemic drugs; Z74.01 Bed confinement status; J18.9 Pneumonia, unspecified organism; Z96.0 Presence of urogenital implants; J96.11 Chronic respiratory failure with hypoxia; E11.9 Type 2 diabetes mellitus without complications; J44.9 Chronic obstructive pulmonary disease, unspecified; B96.89 Other specified bacterial agents as the cause of diseases classified elsewhere